=== PATIENT | female | born 1955 | race Caucasian/White ===

== ENCOUNTER 2020-10-17 06:39 | Outpatient (REF) | payer OTHER, SELFPAY | END 2020-10-17 06:40 | disposition home or self-care (01) | LOC: HO.LAB 06:39 | PROVIDERS: PCP Internal Medicine; Visit Provider Internal Medicine | DX: Z20.828 Contact with and (suspected) exposure to other viral communicable diseases (principal) | CPT/HCPCS: C9803; U0003 ==

== ENCOUNTER 2021-01-08 10:32 | Emergency (ER) | payer OTHER, SELFPAY ==
--- NOTE | ~2021-01-08 | XR_ITS ---
EXAMINATION: XR FOOT, RIGHT CLINICAL INFORMATION: Heel pain x2 weeks. COMPARISON: None TECHNIQUE: AP, lateral, and oblique views of the right foot. FINDINGS: There is a small calcaneal heel and color enthesophytes. The ankle mortise and subtalar joints are normal. No visible fracture, lytic or sclerotic process seen involving the foot bones. The soft tissues are normal. O XR/XR foot RT min 3V IMPRESSION: Small calculi related to enthesophyte. No visible acute fracture or dislocation seen.
[2021-01-08 10:37] VITALS: BP 106/68; PULSE 105; RESP 16; TEMP 36.7; O2SAT 100; BMI 28.9
--- NOTE | 2021-01-08 12:19 | ED.EXTPRO ---
HPI - Extremity Problem General Chief complaint: Extremity Problem Stated complaint: heel pain Time Seen by Provider: 01/08/21 11:15 Source: patient Mode of arrival: ambulatory History of Present Illness HPI Narrative: 65-year-old female presenting to the ED complaining of right heel pain x2 weeks. Denies known injury/trauma or falls. States pain worse in the morning when she gets up to ambulate. Denies fever, chills, numbness, tingling MD Complaint: extremity pain Related Data Previous Rx's Medication Instructions Recorded acetaminophen [Tylenol Extra 500 mg PO Q6H PRN #20 tab 01/08/21 Strength] ibuprofen 600 mg PO Q6H PRN 10 Days #20 tab 01/08/21 Allergies Allergy/AdvReac Type Severity Reaction Status Date / Time cephalexin Allergy Unknown Verified 01/03/20 00:00 Cephalosporins Allergy Unknown SWELLING Unverified 07/25/20 17:27 ciprofloxacin [CIPROFLOXACIN] Allergy Unknown SWELLING Unverified 07/25/20 17:27 naproxen [NAPROXEN] Allergy Unknown BLISTERS Unverified 07/25/20 17:27 IN MOUTH Review of Systems Review of Systems: Constitutional: No Fever, No Chills Musculoskeletal: + joint pain, No Myalgias, No Joint Swelling Skin: No Skin Lesions, No rash Neuro: No Weakness, No Numbness, No Paresthesias Yes all other systems are reviewed and are negative [facility] Past Medical History Attestation statement: The following information was validated with the patient. Social History Social History Smoking Status: Current every day smoker Smoked in Last 30 Days: Yes Use of substances other than those prescribed or required for medical reasons: No Advance Directives: No Advance Directives Information Provided: No Physical Exam Vital Signs: Vital Signs: Last Vital Signs Temp 98.0 F 01/08/21 10:37 Pulse 105 H 01/08/21 10:37 Resp 16 01/08/21 10:37 BP 106/68 01/08/21 10:37 Pulse Ox 100 01/08/21 10:37 Body Mass Index 28.9 Const: General: cooperative and healthy appearing Orientation/consciousness: patient oriented x3 Limitations: no limitations HENMT: Head: Yes normal to inspection Ears: hearing grossly normal bilaterally General nose exam: Normal external nose present Face and sinus: Yes normal facial exam Eyes: General: appearance normal, both eyes and all related structures EOM: EOMs intact bilaterally Neck: Neck: Yes normal visual inspection Cardio: Peripheral pulses: dorsalis pedis present Skin: Rashes: no rashes Wounds: no wounds Neuro: General: patient oriented x3, tone normal and moves all extremities Gait exam (Neuro): Normal gait present Extrem: Other: Right heel with tenderness to palpation over calcaneus. No appreciable swelling/deformity or erythema. No fluctuance/induration. General: Yes normal to inspection Course Course Course Narrative: XR foot RT min 3V IMPRESSION: Small calculi related to enthesophyte. No visible acute fracture or dislocation seen > discussed with patient should initiate NSAIDs, supportive shoes, sole inserts, and podiatry follow-up MDM - Extremity (Nontraumatic) MDM Narrative Medical decision making narrative: Concern for plantar fasciitis vs stress fracture Discharge Plan Discharge Clinical Impression: Plantar fasciitis Heel pain Qualifiers: Laterality: right Qualified Code(s): M79.671 - Pain in right foot Patient Disposition: Home, Self-Care Instructions: Plantar Fasciitis (ED), Plantar Fasciitis Exercises (ED) Additional Instructions: Your x-ray showed some bony spurs. Rest. Ice. Elevate. Naproxen as an anti-inflammatory/pain medication, take with food. In addition take Tylenol. Follow-up with podiatry as needed. You may also follow-up with her primary care doctor ?Prefabricated silicone heel inserts combined with stretching exercises may be of value ?Wearing slippers or going barefoot may aggravate symptoms or may result in a recurrence of symptoms ?Excessive heel impact from jumping or during walking should be avoided. ?Athletic shoes, arch-supporting shoes, or shoes with rigid shanks may be helpful. Shoes with these features can be found in stores featuring work shoes or orthopedic shoes. Prescriptions: New ibuprofen 600 mg tablet 600 mg PO Q6H PRN (Reason: pain) 10 Days Qty: 20 RF: 0 acetaminophen [Tylenol Extra Strength] 500 mg tablet 500 mg PO Q6H PRN (Reason: pain or fever) Qty: 20 RF: 0 Referrals: Mario Mosher [Physician] - 5 days Interventions: ED Discharge Assessment Last Done: 01/08/21 12:53 Discharge Date/Time: 01/08/21 12:54
== END 2021-01-08 12:54 | disposition home or self-care (01) ==
PROVIDERS: Emergency Provider Emergency Medicine; PCP Internal Medicine
DX: M72.2 Plantar fascial fibromatosis (principal); M79.671 Pain in right foot; F17.200 Nicotine dependence, unspecified, uncomplicated; Z79.899 Other long term (current) drug therapy; Z71.6 Tobacco abuse counseling
CPT/HCPCS: 73630; 99283

== ENCOUNTER 2021-01-09 11:30 | Outpatient (REF) | payer OTHER, SELFPAY ==
--- NOTE | ~2021-01-09 | MM_ITS ---
EXAMINATION: MM SCREENING DIGITAL BREAST TOMOSYNTHESIS, BILATERAL CLINICAL INFORMATION: Screening. Asymptomatic. The lifetime risk of breast cancer based on the Tyrer-Cuzick Model is 4%. COMPARISON: Mammography: 10/11/2019, 04/12/2012 TECHNIQUE: Digital breast tomosynthesis is performed in both the craniocaudal and mediolateral oblique views along with computer-aided detection (CAD). Synthesized 2D images are generated from the tomosynthesis. FINDINGS: There are scattered areas of fibroglandular density (ACR BI-RADS breast composition Category b). There are no significant masses, abnormal calcifications, or other abnormalities. Parenchymal pattern is similar to prior studies. Skin contours are smooth. MM/MM tomosynthesis screening BI IMPRESSION: No mammographic evidence of malignancy. ASSESSMENT: BI-RADS 1: Negative RECOMMENDATION: Routine annual mammography screening. This patient's information was entered into a reminder system with a target due date for their next mammogram.
== END 2021-01-09 11:31 | disposition home or self-care (01) ==
LOC: HO.MAMMO 11:30
PROVIDERS: PCP Internal Medicine; Visit Provider Internal Medicine
DX: Z12.31 Encounter for screening mammogram for malignant neoplasm of breast (principal)
CPT/HCPCS: 77063; 77067

== ENCOUNTER 2021-05-07 12:03 | Emergency (ER) | payer OTHER, SELFPAY ==
--- NOTE | ~2021-05-07 | CT_ITS ---
EXAMINATION: CT CERVICAL SPINE WITHOUT CONTRAST CLINICAL INFORMATION: Neck pain radiating to right side. COMPARISON: None TECHNIQUE: 3 mm thin axial and 2 mm thin sagittal and coronal images of cervical spine were obtained without contrast. This CT examination was performed using dose optimization techniques as appropriate, variously including the following: *Automated exposure control *Adjustment of mA and/or kV according to patient size (this includes techniques or standardized protocols for targeted exams where dose is matched to indication/reason for exam; i.e. extremities or head) *Use of iterative reconstruction technique DLP: 522 mGy-cm FINDINGS: There is mild reversal of cervical lordosis. There is grade 1 anterolisthesis C4-C5. Rest of the vertebral alignment is normal. There is loss of C5-C6 disc height with mild posterior and ventral spondylosis. Rest the disc heights are normal. The craniovertebral junction and the C1-C2 alignment is normal. The prevertebral and paravertebral soft tissues are normal. Visualized thyroid lobes, submandibular and parotid glands are normal. There are shotty lymph nodes in neck. The lung apices are clear. The airway is widely patent. CT/CT cervical spine wo con IMPRESSION: Degenerative disc changes with spondylosis C5-C6 disc level there is no visible acute fracture, dislocation or subluxation.
[2021-05-07 12:12] VITALS: BP 140/75; PULSE 79; RESP 16; TEMP 36.7; O2SAT 97; BMI 28.3
--- NOTE | 2021-05-07 13:27 | ED_ITS ---
HPI - Neck Pain/Injury General Chief Complaint: Neck Pain/Injury Stated Complaint: lump on neck Time Seen by Provider: 05/07/21 12:44 Source: patient Mode of arrival: ambulatory History of Present Illness HPI Narrative: 65-year-old female with a past medical history of chronic pain, depression, HTN, presenting to the ED complaining of right-sided neck pain x2 weeks. Admits was seen at urgent care prescribed muscle relaxer and anti-infl ammatory cream without relief. Denies known injury/trauma or fall. Admits pain radiates down right upper extremity, exacerbated with movement. Denies numbness, tingling, weakness, CP/SOB. Denies taking anticoagulation Related Data Previous Rx's Medication Instructions Recorded acetaminophen [Tylenol Extra 500 mg PO Q6H PRN #20 tab 01/08/21 Strength] ibuprofen 600 mg PO Q6H PRN 10 Days #20 tab 01/08/21 acetaminophen [Tylenol Extra 500 mg PO Q6H PRN #20 tab 05/07/21 Strength] lidocaine [Lidoderm] 1 patch TOPICAL DAILY PRN #30 ea 05/07/21 MDD remove after 12 hours tramadol 50 mg PO Q8H PRN 3 Days #9 tab 05/07/21 Allergies Allergy/AdvReac Type Severity Reaction Status Date / Time cephalexin Allergy Unknown Verified 01/03/20 00:00 Cephalosporins Allergy Unknown SWELLING Unverified 07/25/20 17:27 ciprofloxacin [CIPROFLOXACIN] Allergy Unknown SWELLING Unverified 07/25/20 17:27 naproxen [NAPROXEN] Allergy Unknown BLISTERS Unverified 07/25/20 17:27 IN MOUTH Review of Systems Review of Systems: Constitutional: No Fever, No Chills ENT/Mouth: No Ear Pain, No Nasal Congestion, No sore throat, No Rhinorrhea Cardiovascular: No Chest Pain, No SOB Gastrointestinal: No Nausea, No Vomiting, No Abdominal pain Genitourinary: No Urinary Frequency, No Hematuria Musculoskeletal: +joint pain, No Myalgias, + Swelling Skin: No Skin Lesions, No rash Neuro: No Weakness, No Numbness, No Paresthesias Yes all other systems are reviewed and are negative Neurologic: Denies Sensory deficit (Neuro) [facility] Past Medical History Attestation statement: The following information was validated with the patient. Medical History (Updated 05/07/21 @ 13:39 by NIVIA Gutierrez) Chronic pain Depression HTN (hypertension) Surgical History (Updated 05/07/21 @ 12:17 by Itzel Starr) H/O wrist surgery History of back surgery Hx of inguinal hernia surgery Social History Social History Advance Directives: Yes Advance Directives Information Provided: Yes Advance Directives on File: No Patient : No Physical Exam Vital Signs: Vital Signs: Last Vital Signs Temp 98.1 F 05/07/21 12:12 Pulse 79 05/07/21 12:12 Resp 16 05/07/21 12:12 BP 140/75 H 05/07/21 12:12 Pulse Ox 97 05/07/21 12:12 Body Mass Index 28.3 Const: General: cooperative and healthy appearing Orientation/consciousness: patient oriented x3 Limitations: no limitations HENMT: Head: Yes normal to inspection and Yes atraumatic Ears: hearing grossly normal bilaterally and TM's normal bilaterally General nose exam: Normal external nose present Face and sinus: Yes normal facial exam Throat: Yes posterior oropharynx normal, Yes tonsils normal, Yes uvula midline and No uvular edema Eyes: General: appearance normal, both eyes and all related structures EOM: EOMs intact bilaterally Neck: Other: No midline cervical spinous tenderness or step-offs/deformity. + right-sided paraspinal MSK tenderness. Right-sided trapezius muscle tenderness and swelling / muscle spasming appreciated Pain produced on ROM of neck Neck: Yes no meningeal signs Resp: Effort & Inspection: normal respiratory effort and not labored Cardio: Rate: regular rate Heart sounds: S1 normal heart sound present and S2 normal heart sound present GI: Inspection: Yes normal to inspection Back/Spine/Pelvis: Other: no midline thoracic/lumbar spinous tenderness worsen Skin: Rashes: no rashes Wounds: no wounds Neuro: Other: strength intact throughout. NV intact General: patient oriented x3, tone normal, moves all extremities, no meningeal signs and no focal motor deficits Gait exam (Neuro): Normal gait present Motor exam (neuro): 5/5 motor strength present throughout Sensory Exam: No Sensory deficit (Neuro) Extrem: Other: R shoulder nontender General: Yes normal to inspection Course Course Course Narrative: CT cervical spine wo con IMPRESSION: Degenerative disc changes with spondylosis C5-C6 disc level there is no visible acute fracture, dislocation or subluxation. >> worrisome signs and symptoms and strict return precautions discussed with patient, she verbalized understanding feel safe for discharge home to follow-up with PCP MDM - Neck Pain/Injury MDM Narrative Medical decision making narrative: 65-year-old female with a past medical history of chronic pain, depression, HTN, presenting to the ED complaining of right-sided neck pain x2 weeks. on exam vital signs stable, NAD, appears in pain, physical exam as above, visible muscle spasm appreciated in right trapezius/ right-side neck. No midline spinous tenderness, no appreciable focal weakness. will obtain C-spine CT due to continued pain and patient's age Low concern for fracture/cord compression. low concern for cervical dissection Discharge Plan Discharge Clinical Impression: Strain of neck muscle Qualifiers: Encounter type: subsequent encounter Qualified Code(s): S16.1XXD - Strain of muscle, fascia and tendon at neck level, subsequent encounter Patient Disposition: Home, Self-Care Instructions: Muscle Spasm (ED) Additional Instructions: Your pain is likely musculoskeletal Flexeril is a muscle relaxer, take at night as it makes you drowsy, do not drive, drink alcohol, or operate machinery while taking it Lidoderm patches are numbing patches, apply to painful area tramadol in opiate pain medication, please only take when pain is severe for the next 3 days In addition take Tylenol at home you need to follow-up with her primary care doctor If symptoms persist or worsen, pain becomes unbearable, you developed urinary retention or incontinence, or weakness return to the ED Prescriptions: New tramadol 50 mg tablet 50 mg PO Q8H PRN (Reason: pain, severe) 3 Days Qty: 9 RF: 0 acetaminophen [Tylenol Extra Strength] 500 mg tablet 500 mg PO Q6H PRN (Reason: pain or fever) Qty: 20 RF: 0 lidocaine [Lidoderm] 5 % adhesive patch,medicated 1 patch topical DAILY MDD remove after 12 hours PRN (Reason: pain) Qty: 30 RF: 0 No Action ibuprofen 600 mg tablet 600 mg PO Q6H PRN (Reason: pain) 10 Days Qty: 20 RF: 0 acetaminophen [Tylenol Extra Strength] 500 mg tablet 500 mg PO Q6H PRN (Reason: pain or fever) Qty: 20 RF: 0 Referrals: Marcus Lima MD [Primary Care Provider] - 2 days
[2021-05-07] MEDS: diazePAM 5 MG TABLET PO (13:37)
[2021-05-07] MEDS: Acetaminophen 325 MG TABLET 650 MG PO (13:37)
[2021-05-07] MEDS: Lidocaine 4 % Patch ADH..PATCH 1 PATCH TRANSDERMA (13:38)
== END 2021-05-07 14:02 | disposition home or self-care (01) ==
PROVIDERS: Emergency Provider Emergency Medicine; PCP Internal Medicine
DX: S16.1XXD Strain of muscle, fascia and tendon at neck level, subsequent encounter (principal); X58.XXXD Exposure to other specified factors, subsequent encounter; I10 Essential (primary) hypertension
CPT/HCPCS: 72125; 99283; 99284

== ENCOUNTER → 2021-10-21 09:55 | Outpatient (BNVA) | payer OTHER, SELFPAY | PROVIDERS: PCP Internal Medicine; Visit Provider Surgery Vascular Surgery | DX: I83.12 Varicose veins of left lower extremity with inflammation (principal); I73.9 Peripheral vascular disease, unspecified | CPT/HCPCS: 99202 ==

== ENCOUNTER 2021-11-13 08:29 | Outpatient (REF) | payer OTHER, SELFPAY ==
--- NOTE | ~2021-11-13 | US_ITS ---
EXAMINATION: US LOWER EXTREMITY VENOUS ULTRASOUND (REFLUX EXAM), BILATERAL CLINICAL INDICATION: Bilateral lower extremity varicose veins. COMPARISON: None. TECHNIQUE: Color-flow triplex imaging and compression Doppler was performed to evaluate both the deep and the superficial systems bilaterally. To evaluate the superficial system, the examination was performed in the upright position. Color-flow Doppler ultrasound and compression ultrasound were utilized. In addition, maneuvers were utilized to demonstrate reflux. FINDINGS: SUPERFICIAL ULTRASOUND WITH DOPPLER OF RIGHT LOWER EXTREMITY GREAT SAPHENOUS VEIN: Saphenofemoral junction: 0.7 cm Max diameter: 0.7 cm Min diameter: 0.2 cm Reflux: There is segmental reflux at the mid calf measuring greater than 2 seconds. DUPLICATED MEDIAL GREAT SAPHENOUS VEIN: Max Diameter: None imaged. Reflux: NA. DUPLICATED LATERAL GREAT SAPHENOUS VEIN: Diameter: 0.3 at the junction. Reflux: None. SMALL SAPHENOUS VEIN: Proximal Calf: 0.2 cm Distal Calf: 0.2 cm Reflux: No evidence of reflux. VEIN OF GIACOMINI: None imaged. PERFORATORS: Location: None imaged. Reflux: NA. VARICOSITIES: Location: None imaged. Reflux: NA. DEEP VENOUS ULTRASOUND OF THE RIGHT LOWER EXTREMITY: Common Femoral Vein: Compressible, normal respiratory variation and augmented flow. Femoral Vein: Compressible, normal color-flow and augmentation. Popliteal Vein: Compressible, normal augmentation. Deep Reflux: There is no evidence of reflux in the deep system in either the common femoral vein or the popliteal vein. Billingsley's Cyst: There is no evidence of a Billingsley's cyst. SUPERFICIAL ULTRASOUND WITH DOPPLER OF LEFT LOWER EXTREMITY GREAT SAPHENOUS VEIN: Saphenofemoral junction: 0.5 cm Max diameter: 0.5 cm Min diameter: 0.2 cm Reflux: There is segmental reflux at the mid calf measuring greater than 1.6 seconds. DUPLICATED MEDIAL GREAT SAPHENOUS VEIN: Max Diameter: None imaged. Reflux: NA. DUPLICATED LATERAL GREAT SAPHENOUS VEIN: Diameter: 0.5 cm at the junction. Reflux: There is greater than 0.8 seconds of reflux at the junction. SMALL SAPHENOUS VEIN: Proximal Calf: 0.2 cm Distal Calf: 0.1 cm Reflux: No evidence of reflux. VEIN OF GIACOMINI: None imaged. PERFORATORS: Location: Mid thigh, 0.2 cm. Reflux: None. VARICOSITIES: Location: None imaged. Reflux: NA. DEEP VENOUS ULTRASOUND OF THE LEFT LOWER EXTREMITY: Common Femoral Vein: Compressible, normal respiratory variation and augmented flow. Femoral Vein: Compressible, normal color-flow and augmentation. Popliteal Vein: Compressible, normal augmentation. Deep Reflux: There is no evidence of reflux in the deep system in either the common femoral vein or the popliteal vein. Billingsley's Cyst: There is no evidence of a Billingsley's cyst. US/US venous duplex LE BI IMPRESSION: 1. Segmental right great saphenous venous insufficiency at the mid calf. 2. Segmental left great saphenous venous insufficiency at the mid calf. 3. Lateral duplicated great saphenous venous insufficiency beginning at the saphenofemoral junction. 4. No evidence of DVT or deep venous insufficiency.
--- NOTE | ~2021-11-13 | US_ITS ---
EXAMINATION: ANKLE-BRACHIAL INDICES SINGLE LEVEL PULSE VOLUME RECORDING ARTERIAL DUPLEX BILATERAL LEGS CLINICAL INFORMATION: Peripheral vascular disease COMPARISON: None TECHNIQUE: Ankle-brachial indices and PVR at the ankle were obtained. Duplex Doppler of the bilateral lower extremity arterial systems was performed. FINDINGS: RIGHT: Ankle-brachial index: 1.07 PVR: Mildly abnormal Common femoral: PSV 88 cm/s. Triphasic waveform. Deep femoral: PSV 91 cm/s. Triphasic waveform. Proximal superficial femoral: PSV 63 cm/s. Triphasic waveform. Mid superficial femoral: PSV 116 cm/s. Triphasic waveform. Distal superficial femoral: PSV 73 cm/s. Triphasic waveform. Popliteal: PSV 45 cm/s. Triphasic waveform. Posterior tibial: PSV 40 cm/s. Biphasic waveform. Peroneal: PSV 60 cm/s. Triphasic waveform. LEFT: Ankle-brachial index: 1.17 PVR: Mildly abnormal Common femoral: PSV 106 cm/s. Triphasic waveform. Deep femoral: PSV 131 cm/s. Triphasic waveform. Proximal superficial femoral: PSV 95 cm/s. Triphasic waveform. Mid superficial femoral: PSV 124 cm/s. Triphasic waveform. Distal superficial femoral: PSV 57 cm/s. Biphasic waveform. Popliteal: PSV 42 cm/s. Biphasic waveform. Posterior tibial: PSV 53 cm/s. Bifid waveform. Peroneal: PSV 56 cm/s. Triphasic waveform. US/US arterial duplex LE BI IMPRESSION: No evidence of hemodynamically significant peripheral arterial disease.
--- NOTE | ~2021-11-13 | US_ITS ---
EXAMINATION: ANKLE-BRACHIAL INDICES SINGLE LEVEL PULSE VOLUME RECORDING ARTERIAL DUPLEX BILATERAL LEGS CLINICAL INFORMATION: Peripheral vascular disease COMPARISON: None TECHNIQUE: Ankle-brachial indices and PVR at the ankle were obtained. Duplex Doppler of the bilateral lower extremity arterial systems was performed. FINDINGS: RIGHT: Ankle-brachial index: 1.07 PVR: Mildly abnormal Common femoral: PSV 88 cm/s. Triphasic waveform. Deep femoral: PSV 91 cm/s. Triphasic waveform. Proximal superficial femoral: PSV 63 cm/s. Triphasic waveform. Mid superficial femoral: PSV 116 cm/s. Triphasic waveform. Distal superficial femoral: PSV 73 cm/s. Triphasic waveform. Popliteal: PSV 45 cm/s. Triphasic waveform. Posterior tibial: PSV 40 cm/s. Biphasic waveform. Peroneal: PSV 60 cm/s. Triphasic waveform. LEFT: Ankle-brachial index: 1.17 PVR: Mildly abnormal Common femoral: PSV 106 cm/s. Triphasic waveform. Deep femoral: PSV 131 cm/s. Triphasic waveform. Proximal superficial femoral: PSV 95 cm/s. Triphasic waveform. Mid superficial femoral: PSV 124 cm/s. Triphasic waveform. Distal superficial femoral: PSV 57 cm/s. Biphasic waveform. Popliteal: PSV 42 cm/s. Biphasic waveform. Posterior tibial: PSV 53 cm/s. Bifid waveform. Peroneal: PSV 56 cm/s. Triphasic waveform. US/US ELVIN complete IMPRESSION: No evidence of hemodynamically significant peripheral arterial disease.
== END 2021-11-13 08:30 | disposition home or self-care (01) ==
LOC: HO.US 08:29
PROVIDERS: PCP Internal Medicine; Visit Provider Surgery Vascular Surgery
DX: I83.12 Varicose veins of left lower extremity with inflammation (principal); I73.9 Peripheral vascular disease, unspecified
CPT/HCPCS: 93923; 93925; 93970

== ENCOUNTER → 2021-11-20 10:49 | Outpatient (BNVA) | payer OTHER, SELFPAY | PROVIDERS: PCP Internal Medicine; Visit Provider Surgery Vascular Surgery | DX: I73.9 Peripheral vascular disease, unspecified (principal); I83.12 Varicose veins of left lower extremity with inflammation | CPT/HCPCS: 99212 ==

== ENCOUNTER 2021-12-05 04:58 | Emergency (ER) | payer OTHER, SELFPAY ==
[2021-12-05] VITALS (7 sets, daily range): BP systolic 97–136; BP diastolic 58–84; PULSE 69–87; RESP 14–18; TEMP 36.4–36.8; O2SAT 95–98; BMI 28.3
--- NOTE | ~2021-12-05 | CT_ITS ---
EXAMINATION: Unenhanced CT of the abdomen pelvis; IV contrast enhanced CT of the abdomen pelvis. CLINICAL INFORMATION: Reason for Exam abdominal pain with bloody stool with clots COMPARISON: MRI abdomen 11/30/2019, CT abdomen pelvis 11/29/2019. Abdominal ultrasound 02/11/2018. TECHNIQUE: Unenhanced CT the abdomen pelvis; IV contrast enhanced CT of the abdomen pelvis; delayed IV contrast-enhanced CT of abdomen pelvis. Multiple coronal and sagittal reformatted images are obtained from the initial axial image data sets. Intravenous Contrast: Omnipaque [address] examination was performed using dose optimization techniques as appropriate, variously including the following: *Automated exposure control *Adjustment of mA and/or kV according to patient size (this includes techniques or standardized protocols for targeted exams where dose is matched to indication/reason for exam; i.e. extremities or head) *Use of iterative reconstruction technique DLP: 1584 mGy-cm FINDINGS: Visualized lung bases: Partial visualization is made of mild bibasilar dependent atelectasis of the lungs. Visualized heart is normal in size. Liver: An 8 mm diameter high density focus is present in segment 6 of the liver on early arterial phase imaging and is grossly isodense to contrast within the portal vein. This lesion is inapparent on delayed portal venous phase images and is most suspicious for a flash hemangioma (series 9 image 19). The liver is otherwise normal in appearance. Biliary system: Gallbladder is normal in appearance. The common bile duct measures 7 mm diameter, at the upper limits of normal size. The common bile duct diminished in prominence compared with CT of the abdomen and pelvis 06/29/2020. Pancreas: Normal. The main pancreatic duct measures 2 mm diameter, at the upper limits of normal size within the pancreatic head. Findings are unchanged appreciably compared with 06/29/2020. Spleen: Normal. Adrenal glands: Normal. Kidneys: 4.5 cm diameter rounded low-density focus superiorly within the left kidney is unchanged appreciably compared with a 20 12/28/2019 is consistent with a simple, benign cyst. A 4 mm diameter rounded low-density focus is present anteriorly within the interpolar segment of the right kidney is too small to specifically characterize but is most likely to represent a benign, simple cyst. 1.2 cm diameter rounded low-density focus consistent with a simple cyst is present superiorly within the right kidney unchanged compared with 06/29/2020. The findings noted above within the kidneys do not warrant additional imaging follow-up on the basis of this examination. No urolithiasis identified. No hydronephrosis or perinephric inflammatory changes visualized. Urinary bladder: Physiologically distended. Pelvic viscera: Grossly normal appearance of the uterus. No adnexal lesions identified. Gastrointestinal system: Arterial phase and delayed IV postcontrast enhanced images demonstrate possible mild accumulation of blood pool products in the region of the distal rectum over a diameter of proximal the 1 CM (series 16 image 222). Findings are suspicious for hemorrhoidal hemorrhage. Elsewhere within the gastrointestinal system, no findings suspicious for active hemorrhage are identified. Mild-moderate diverticulosis of the sigmoid colon is noted without findings suspicious for acute diverticulitis. The transverse, descending and sigmoid colon are mostly collapsed. Concentric mural thickness of these segments of the colon measuring up to 6 mm in width is noted. The degree of mural thickening is above expected limits of normal size. No free intraperitoneal fluid or gas collections are identified. Normal appearance of the appendix. Abdominal wall: No abdominal wall hernias: Lymphovascular systems: Moderate scattered calcific atherosclerosis. No lymphadenopathy. Skeletal system: Marked intervertebral disc space narrowing and posterior endplate osteophytosis L5-S1. L3 vertebral body compression deformity with inward deformity of the superior endplate with 25% loss of craniocaudal height unchanged compared with 06/29/2020. CT/CT gi bleed abd pel wo/w con IMPRESSION: *Mild-moderate diffuse concentric mural thickening of the transverse, descending and sigmoid colon. Findings are suspicious for colitis, including C. Difficile colitis. *Borderline findings suspicious for mild, active hemorrhoidal hemorrhage within the distal rectum. *Mild-moderate sigmoid diverticulosis without evidence of acute diverticulitis. *Chronic L3 vertebral body compression deformity unchanged compared with 06/29/2020.
--- NOTE | 2021-12-05 05:10 | ED_ITS ---
HPI - Nausea/Vomiting/Diarrhea General Chief complaint: Nausea/Vomiting/Diarrhea Stated complaint: DIARRHEA Time Seen by Provider: 12/05/21 05:02 Source: patient Mode of arrival: EMS Limitations: no limitations History of Present Illness HPI Narrative: does not take aspirin or blood thinners, one prior episode of c diff colitis no recent antibiotic use MD elicited complaint: nausea, vomiting, diarrhea and abdominal pain Pertinent past history: other (c diff 6 years ago last colonoscopy 3 years ago - reportedly okay to found 1 polyp follow up 5 years) Onset (ago): day(s) (started 11am yesterday then worsened at 2am with 3 bouts of bloody stools with clots ) Description of vomiting: watery Description of diarrhea: blood (with clots) Associated nausea: Yes Associated abdominal pain: Yes Location of pain: RLQ, LLQ and suprapubic Radiation: diffuse Pain consistency: intermittent and colicky Severity: moderate Quality: aching Exacerbating factors: movement Relieving factors: none Context: other (feels similar to prior c diff colitis) Associated symptoms: loss of appetite, malaise and nausea/vomiting Related Data Home Medications Medication Instructions Recorded Confirmed hydrochlorothiazide 25 mg tablet 25 mg PO DAILY 10/21/21 lisinopril 40 mg tablet 40 mg PO DAILY 10/21/21 rosuvastatin 40 mg tablet 40 mg PO DAILY 10/21/21 Previous Rx's Medication Instructions Recorded acetaminophen 500 mg tablet 500 mg PO Q6H PRN #20 tab 01/08/21 (Tylenol Extra Strength) ibuprofen 600 mg tablet 600 mg PO Q6H PRN 10 Days #20 tab 01/08/21 acetaminophen 500 mg tablet 500 mg PO Q6H PRN #20 tab 05/07/21 (Tylenol Extra Strength) lidocaine 5 % topical patch 1 patch TOPICAL DAILY PRN #30 ea 05/07/21 (Lidoderm) MDD remove after 12 hours prednisone 20 mg tablet 40 mg PO DAILY 5 Days #10 tab 05/07/21 tramadol 50 mg tablet 50 mg PO Q8H PRN 3 Days #9 tab 05/07/21 Allergies Allergy/AdvReac Type Severity Reaction Status Date / Time cephalexin Allergy Unknown Unknown Verified 11/20/21 10:52 Cephalosporins Allergy Unknown SWELLING Verified 11/20/21 10:52 ciprofloxacin Allergy Unknown SWELLING Verified 11/20/21 10:52 [CIPROFLOXACIN] naproxen [NAPROXEN] Allergy Unknown BLISTERS Verified 11/20/21 10:52 IN MOUTH Review of Systems Verdana 4l Review of Systems: Verdana 4d Verdana 4d Constitutional : No Weight loss, No Fever, pos Chills ENT/Mouth : No sore throat, No Rhinorrhea Eyes: No Swelling, No Redness Cardiovascular : No Chest Pain, No SOB, NoEdema Respiratory : No Cough, No Sputum, No Wheezing Gastrointestinal : Positive Nausea, Positive Vomiting, positive Diarrhea, positive abdominal Pain, pos Hematochezia, No Melena Genitourinary : No Dysuria, No Urinary Frequency, No Hematuria, No Urgency Musculoskeletal : No joint pain, No Myalgias, No Joint Swelling Skin : No Skin Lesions, No rash Neuro : No Weakness, No Numbness, No Dizziness, No Headache Psych : No Anxiety/Panic, No Depression Heme/Lymph: No Bruising, No Lymphadenopathy Endocrine : No Polyuria, No Polydipsia All other systems reviewed and are negative. Gastrointestinal: Gastrointestinal: Reports nausea PMFSH Past Medical History Attestation statement: The following information was validated with the patient. 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 Oriented X3. No acute distress. Eyes: Pupils equal, round and reactive to light. ENT: Pharynx normal. Neck: Normal inspection. Neck supple. CVS: Normal heart rate and rhythm. Pulses normal. Respiratory: No respiratory distress. Breath sounds normal. Abdomen: Soft and mild lower abdominal ttp with no rebound Rectal: mucousy red stool noted on exam, clots seen during BM on toilet Skin: Skin warm and dry. Normal skin color. Normal skin turgor. Extremities: No lower extremity edema. No calf ttp Neuro: Oriented X 3. No motor deficit. No sensory deficit. Course Course Course Narrative: signed out to Dr. Richardson pending CT scan results MDM - Nausea/Vomiting/Diarrhea MDM Narrative Medical decision making narrative: 66 yo female with hx of HTN, PAD, HLD, hx of remote c diff colitis here with c/o abdominal pain nausea/vomiting diarrhea that started yesterday and then overnight started with bloody stools. She denies oral anti-coagulants, no aspirin use, no recent antibiotics. At this time will need labs, cultures, IVF, IV morphine, CT scan GIB protocol. Dispo per results and improvement. Lab Data Result diagrams: 12/05/21 05:24 12/05/21 05:25 Labs: Lab Results 12/05/21 12/05/21 12/05/21 Range/Units 05:24 05:24 05:25 WBC 13.3 H (4.8-10.8) X10*3/uL RBC 4.61 (4.20-5.50) X10*6/uL Hgb 13.9 (12.0-16.0) g/dl Hct 42.2 (37.0-47.0) % MCV 91.5 (80.0-98.0) fL MCH 30.2 (27.0-33.0) pg MCHC 32.9 (31.0-35.0) g/dl RDW 13.3 (11.0-16.0) % Plt Count 212 (160-400) X10*3/uL MPV 9.7 (9.4-12.3) fL Immature Gran % (Auto) 0.4 (0.0-0.4) % Neut % (Auto) 77.8 H (45-73) % Lymph % (Auto) 14.3 L (20-40) % Billings % (Auto) 6.0 (2-11) % Eos % (Auto) 1.1 (0-4) % Baso % (Auto) 0.4 (0-2) % Lymph # (Auto) 1.9 (1.2-4.9) X10*3/uL Billings # (Auto) 0.8 (0.1-1.2) X10*3/uL Eos # (Auto) 0.2 (0.0-0.4) X10*3/uL Baso # (Auto) 0.1 (0.0-0.2) X10*3/uL Abs Immat Gran (auto) 0.05 H (0.00-0.03) X10*3/uL Absolute Neuts (auto) 10.4 H (2.0-8.3) x10*3/uL Absolute Nucleated RBC 0.000 (0.0-0.012) X10*3/uL Nucleated RBC % (auto) 0.0 (0.0-0.2) /100WBC PT (9.9-13.0) SEC INR (0.9-1.1) Sodium 141 (135-145) mmol/L Potassium 4.0 (3.3-5.1) mmol/L Chloride 105 (96-108) mmol/L Carbon Dioxide 27 (22-29) mmol/L Anion Gap 13 (12-20) BUN 25 H (9-16) mg/dL Creatinine 1.13 (0.5-1.4) mg/dL Estim Creat Clear Calc 47.3 Estimated GFR 48 Random Glucose 119 H (60-115) mg/dL Lactic Acid 1.0 (0.5-2.0) mmol/L Calcium 9.7 (8.4-10.2) mg/dL Magnesium 1.9 (1.6-2.6) mg/dL Total Bilirubin 0.2 (0.0-1.0) mg/dL Direct Bilirubin < 0.2 (0.0-0.5) mg/dL AST 24 (5-31) U/L ALT 27 (0-31) U/L Alkaline Phosphatase 81 (39-117) U/L Total Protein 6.6 (6.5-8.0) g/dL Albumin 4.2 (3.5-5.0) g/dL Lipase 40 (8-78) U/L Stool Occult Blood (NEGATIVE) COVID-19 (LYDIA) (Negative) COVID-19 [facility] Com Blood Type Antibody Screen 12/05/21 12/05/21 12/05/21 Range/Units 05:25 05:25 05:26 WBC (4.8-10.8) X10*3/uL RBC (4.20-5.50) X10*6/uL Hgb (12.0-16.0) g/dl Hct (37.0-47.0) % MCV (80.0-98.0) fL MCH (27.0-33.0) pg MCHC (31.0-35.0) g/dl RDW (11.0-16.0) % Plt Count (160-400) X10*3/uL MPV (9.4-12.3) fL Immature Gran % (Auto) (0.0-0.4) % Neut % (Auto) (45-73) % Lymph % (Auto) (20-40) % Billings % (Auto) (2-11) % Eos % (Auto) (0-4) % Baso % (Auto) (0-2) % Lymph # (Auto) (1.2-4.9) X10*3/uL Billings # (Auto) (0.1-1.2) X10*3/uL Eos # (Auto) (0.0-0.4) X10*3/uL Baso # (Auto) (0.0-0.2) X10*3/uL Abs Immat Gran (auto) (0.00-0.03) X10*3/uL Absolute Neuts (auto) (2.0-8.3) x10*3/uL Absolute Nucleated RBC (0.0-0.012) X10*3/uL Nucleated RBC % (auto) (0.0-0.2) /100WBC PT 10.4 (9.9-13.0) SEC INR 0.9 (0.9-1.1) Sodium (135-145) mmol/L Potassium (3.3-5.1) mmol/L Chloride (96-108) mmol/L Carbon Dioxide (22-29) mmol/L Anion Gap (12-20) BUN (9-16) mg/dL Creatinine (0.5-1.4) mg/dL Estim Creat Clear Calc Estimated GFR Random Glucose (60-115) mg/dL Lactic Acid (0.5-2.0) mmol/L Calcium (8.4-10.2) mg/dL Magnesium (1.6-2.6) mg/dL Total Bilirubin (0.0-1.0) mg/dL Direct Bilirubin (0.0-0.5) mg/dL AST (5-31) U/L ALT (0-31) U/L Alkaline Phosphatase (39-117) U/L Total Protein (6.5-8.0) g/dL Albumin (3.5-5.0) g/dL Lipase (8-78) U/L Stool Occult Blood (NEGATIVE) COVID-19 (LYDIA) Negative (Negative) COVID-19 Clin Com See Note Blood Type O Positive Antibody Screen NEGATIVE 12/05/21 Range/Units 05:26 WBC (4.8-10.8) X10*3/uL RBC (4.20-5.50) X10*6/uL Hgb (12.0-16.0) g/dl Hct (37.0-47.0) % MCV (80.0-98.0) fL MCH (27.0-33.0) pg MCHC (31.0-35.0) g/dl RDW (11.0-16.0) % Plt Count (160-400) X10*3/uL MPV (9.4-12.3) fL Immature Gran % (Auto) (0.0-0.4) % Neut % (Auto) (45-73) % Lymph % (Auto) (20-40) % Billings % (Auto) (2-11) % Eos % (Auto) (0-4) % Baso % (Auto) (0-2) % Lymph # (Auto) (1.2-4.9) X10*3/uL Billings # (Auto) (0.1-1.2) X10*3/uL Eos # (Auto) (0.0-0.4) X10*3/uL Baso # (Auto) (0.0-0.2) X10*3/uL Abs Immat Gran (auto) (0.00-0.03) X10*3/uL Absolute Neuts (auto) (2.0-8.3) x10*3/uL Absolute Nucleated RBC (0.0-0.012) X10*3/uL Nucleated RBC % (auto) (0.0-0.2) /100WBC PT (9.9-13.0) SEC INR (0.9-1.1) Sodium (135-145) mmol/L Potassium (3.3-5.1) mmol/L Chloride (96-108) mmol/L Carbon Dioxide (22-29) mmol/L Anion Gap (12-20) BUN (9-16) mg/dL Creatinine (0.5-1.4) mg/dL Estim Creat Clear Calc Estimated GFR Random Glucose (60-115) mg/dL Lactic Acid (0.5-2.0) mmol/L Calcium (8.4-10.2) mg/dL Magnesium (1.6-2.6) mg/dL Total Bilirubin (0.0-1.0) mg/dL Direct Bilirubin (0.0-0.5) mg/dL AST (5-31) U/L ALT (0-31) U/L Alkaline Phosphatase (39-117) U/L Total Protein (6.5-8.0) g/dL Albumin (3.5-5.0) g/dL Lipase (8-78) U/L Stool Occult Blood POSITIVE (NEGATIVE) COVID-19 (LYDIA) (Negative) COVID-19 Clin Com Blood Type Antibody Screen Discharge Plan Discharge Clinical Impression: Abdominal pain, GIB (gastrointestinal bleeding) Patient Disposition: Still a Patient Prescriptions: No Action ibuprofen 600 mg tablet 600 mg PO Q6H PRN (Reason: pain) 10 Days Qty: 20 0RF acetaminophen [Tylenol Extra Strength] 500 mg tablet 500 mg PO Q6H PRN (Reason: pain or fever) Qty: 20 0RF tramadol 50 mg tablet 50 mg PO Q8H PRN (Reason: pain, severe) 3 Days Qty: 9 0RF acetaminophen [Tylenol Extra Strength] 500 mg tablet 500 mg PO Q6H PRN (Reason: pain or fever) Qty: 20 0RF lidocaine [Lidoderm] 5 % adhesive patch,medicated 1 patch topical DAILY MDD remove after 12 hours PRN (Reason: pain) Qty: 30 0RF Rx Instructions: leave on most painful area for up to 12 hrs prednisone 20 mg tablet 40 mg PO DAILY 5 Days Qty: 10 0RF lisinopril 40 mg tablet 40 mg PO DAILY 0RF hydrochlorothiazide 25 mg tablet 25 mg PO DAILY 0RF rosuvastatin 40 mg tablet 40 mg PO DAILY 0RF
[2021-12-05] MEDS: ondansetron HCL 4 MG/2 ML VIAL IVPUSH (05:31)
[2021-12-05] MEDS: 0.9 % Sodium Chloride 1,000 ML 999 ML IVCONT (05:31)
[2021-12-05] MEDS: Morphine Sulfate 4 MG/ML CARTRIDGE IVPUSH (05:32)
[2021-12-05 05:33] LABS: Basophils Absolute Auto 0.1 X10*3/uL (0.0-0.2); Basophils Percent Auto 0.4 % (0-2); Eosinophils Absolute Auto 0.2 X10*3/uL (0.0-0.4); Eosinophils Percent Auto 1.1 % (0-4); Hematocrit 42.2 % (37.0-47.0); Hemoglobin 13.9 g/dl (12.0-16.0); Imm Gran Abs Auto 0.05 X10*3/uL (0.00-0.03); Imm Gran Pct Auto 0.4 % (0.0-0.4); Lymphocytes Absolute Auto 1.9 X10*3/uL (1.2-4.9); Lymphocytes Percent Auto 14.3 % (20-40); MANUAL DIFF FLAG NO; Mean Corpuscular HGB Conc 32.9 g/dl (31.0-35.0); Mean Corpuscular Hemoglobin 30.2 pg (27.0-33.0); Mean Corpuscular Volume 91.5 fL (80.0-98.0); Mean Platelet Volume 9.7 fL (9.4-12.3); Monocytes Absolute Auto 0.8 X10*3/uL (0.1-1.2); Neutrophils Absolute Auto 10.4 x10*3/uL (2.0-8.3); Neutrophils Percent Auto 77.8 % (45-73); Platelet Count 212 X10*3/uL (160-400); Red Blood Count 4.61 X10*6/uL (4.20-5.50); Red Cell Distribution Width 13.3 % (11.0-16.0); White Blood Count 13.3 X10*3/uL (4.8-10.8)
[2021-12-05 05:34] LABS: OBS Int Ctl Valid YES; OBS1 POSITIVE (NEGATIVE)
--- NOTE | 2021-12-05 05:38 | PC.NURSE ---
PT attempted to provided stool sample to test for c. diff. Sample contained several clots of blood but also a significant amount of urine. PT stated that she feels like she has completely emptied her bowels but will try again when she has a chance.
[2021-12-05 05:39] LABS: INTERNATIONAL NORM RATIO 0.9 (0.9-1.1); Prothrombin Time 10.4 SEC (9.9-13.0)
[2021-12-05 05:51] LABS: COVID-19 Test Negative (Negative); IDNOW Serial# 9DD0AD1C
[2021-12-05 06:11] LABS: Alanine Aminotransferase 27 U/L (0-31); Albumin Level 4.2 g/dL (3.5-5.0); Alkaline Phosphatase 81 U/L (39-117); Anion Gap 13 (12-20); Aspartate Amino Transferase 24 U/L (5-31); Bilirubin Direct < 0.2 mg/dL (0.0-0.5); Bilirubin Total 0.2 mg/dL (0.0-1.0); Blood Urea Nitrogen 25 mg/dL (9-16); Calcium 9.7 mg/dL (8.4-10.2); Carbon Dioxide 27 mmol/L (22-29); Chloride 105 mmol/L (96-108); Creatinine Clr Calc Pharmacy 47.3; Estimated Glomerular Filt Rate 48; Glucose Random 119 mg/dL (60-115); Lipase 40 U/L (8-78); Magnesium 1.9 mg/dL (1.6-2.6); Sodium 141 mmol/L (135-145); Total Protein 6.6 g/dL (6.5-8.0)
[2021-12-05] MEDS: iohexoL 350 MG/ML 100 ML INFUS..BTL 80 ML IV (06:58)
[2021-12-05 07:57] LABS: Appearance Urine CLEAR; Color Urine STRAW; Glucose Urine UA NEG (NEG); Leukocyte Esterase Urine NEG (NEG); Nitrite Urine NEG (NEG); PH 5.5 (5.0-8.0); Specific Gravity - Urine <= 1.005 (1.005-1.025); UACC Culture Trigger NO; Urine Blood TRACE (NEG); Urine Ketones NEG (NEG); Urine Protein NEG (NEG-TRACE)
[2021-12-05 08:34] LABS: RBC Urine 0-2 /HPF (0); Squamous Epithelial Cell Urine TRACE /LPF; WBC Urine 0 /HPF (0-4)
[2021-12-05] MEDS: PHENobarb/Hyoscy/Atropine/Scop 10 ML ELIXIR PO (09:38)
[2021-12-05] MEDS: metroNIDAZOLE/NS 500 MG/100 ML PIGGYBACK 100 MG IV (09:38)
[2021-12-05] MEDS: 0.9 % Sodium Chloride 1,000 ML 999 ML IV (09:39)
[2021-12-05] MEDS: Ampicillin Sodium/Sulbactam Na 1.5 GM in 0.9 % Sodium Chloride 100 ML IV (11:01)
[2021-12-05] MEDS: Acetaminophen 325 MG TABLET 650 MG PO (12:24)
== END 2021-12-05 12:30 | disposition home or self-care (01) ==
PROVIDERS: Emergency Medicine; Emergency Provider Emergency Medicine; PCP Internal Medicine
DX: K92.2 Gastrointestinal hemorrhage, unspecified (principal); R11.2 Nausea with vomiting, unspecified; R19.7 Diarrhea, unspecified; R10.31 Right lower quadrant pain; R10.32 Left lower quadrant pain; F17.210 Nicotine dependence, cigarettes, uncomplicated; Z20.822 Contact with and (suspected) exposure to COVID-19; Z71.6 Tobacco abuse counseling; Z79.899 Other long term (current) drug therapy
CPT/HCPCS: 36415; 74178; 80048; 80076; 81001; 81003; 82272; 83605; 83690; 83735; 85025; 85610; 86850; 86900; 86901; 87040; 87635; 96361; 96365; 96375; 99285; J0295; J2270; J2405; Q9967

== ENCOUNTER 2021-12-29 22:15 | Emergency (ER) | payer OTHER, SELFPAY ==
--- NOTE | ~2021-12-29 | CT_ITS ---
EXAMINATION: CT ABDOMEN AND PELVIS WITH CONTRAST CLINICAL INFORMATION: Diarrhea. Diffuse abdominal discomfort. COMPARISON: 12/05/2021 TECHNIQUE: Multidetector volumetric images were obtained from the superior aspect of the liver through the pubic symphysis following administration 85 mL of Omnipaque 350 intravenous contrast. Sagittal and coronal reformatted images were obtained on the technologist's workstation. Oral contrast: No This CT examination was performed using dose optimization techniques as appropriate, variously including the following: *Automated exposure control *Adjustment of mA and/or kV according to patient size (this includes techniques or standardized protocols for targeted exams where dose is matched to indication/reason for exam; i.e. extremities or head) *Use of iterative reconstruction technique DLP: 619 mGy-cm FINDINGS: LUNG BASES: The visualized lung bases are unremarkable. LIVER, GALLBLADDER, AND BILIARY TREE: The liver is normal in size, shape, and attenuation. No focal hepatic lesion or biliary ductal dilatation is present. The gallbladder is unremarkable with no evidence of radiopaque gallstones, gallbladder wall thickening, or obvious pericholecystic inflammatory changes. PANCREAS: The pancreatic parenchyma appears unremarkable. The pancreatic duct is at the upper limit of normal in size measuring 0.3 cm. SPLEEN: Unremarkable. ADRENAL GLANDS: Unremarkable. KIDNEYS AND URETERS: The kidneys are normal in size, shape, and attenuation. No hydronephrosis, hydroureter, or calculi seen. No perinephric stranding. Multiple hypoattenuating renal lesions bilaterally, most of which are too small to fully characterize. Simple cyst at the midpole of the left kidney measures 4.7 cm. No follow-up imaging recommended. BLADDER: Unremarkable. GASTROINTESTINAL TRACT: The stomach is unremarkable. Normal caliber small bowel. No obstruction. There is improvement of previous colonic wall thickening. Decompression of the left hemicolon which limits evaluation of the colonic wall, though there may still be some mild wall thickening. No adjacent inflammation of the fat.. Sigmoid diverticulosis without diverticulitis. Normal appendix. ABDOMINAL WALL: No significant hernia is appreciated. LYMPH NODES: Normal. VASCULAR: Normal caliber aorta. Circumaortic left renal vein. PELVIC VISCERA: The uterus and adnexa are unremarkable. OSSEOUS STRUCTURES: No acute or suspicious osseous abnormality. Degenerative changes throughout the spine are noted. Mild degenerative changes of the hips. CT/CT abdomen pelvis w con IMPRESSION: Improvement of previous colonic wall thickening. Decompression of the left hemicolon limits evaluation for wall thickening at this time, but there is no inflammation adjacent to the colon. Diverticulosis without diverticulitis. Fleischner guidelines were followed.
[2021-12-29 22:21] VITALS: BP 121/78; PULSE 85; RESP 18; TEMP 36.8; O2SAT 97; BMI 28.3
[2021-12-29] MEDS: Ondansetron ODT 4 MG TAB.RAPDIS TRANSLINGU (22:26)
[2021-12-29 23:42] LABS: MANUAL DIFF FLAG NO
[2021-12-29 23:43] LABS: Appearance Urine CLEAR; Basophils Absolute Auto 0.1 X10*3/uL (0.0-0.2); Basophils Percent Auto 0.6 % (0-2); Color Urine YELLOW; Eosinophils Absolute Auto 0.3 X10*3/uL (0.0-0.4); Eosinophils Percent Auto 3.2 % (0-4); Glucose Urine UA NEG (NEG); Hemoglobin 13.5 g/dl (12.0-16.0); Imm Gran Abs Auto 0.02 X10*3/uL (0.00-0.03); Imm Gran Pct Auto 0.2 % (0.0-0.4); Leukocyte Esterase Urine NEG (NEG); Lymphocytes Absolute Auto 3.5 X10*3/uL (1.2-4.9); Lymphocytes Percent Auto 41.4 % (20-40); Mean Corpuscular HGB Conc 32.9 g/dl (31.0-35.0); Mean Corpuscular Hemoglobin 29.9 pg (27.0-33.0); Mean Corpuscular Volume 90.7 fL (80.0-98.0); Mean Platelet Volume 9.5 fL (9.4-12.3); Monocytes Absolute Auto 0.7 X10*3/uL (0.1-1.2); Monocytes Percent Auto 8.1 % (2-11); Neutrophils Percent Auto 46.5 % (45-73); Nitrite Urine NEG (NEG); Platelet Count 208 X10*3/uL (160-400); Red Blood Count 4.52 X10*6/uL (4.20-5.50); Red Cell Distribution Width 13.5 % (11.0-16.0); Specific Gravity - Urine 1.025 (1.005-1.025); UACC Culture Trigger NO; Urine Blood 2+ (NEG); Urine Ketones NEG (NEG); Urine Protein NEG (NEG-TRACE); White Blood Count 8.5 X10*3/uL (4.8-10.8)
[2021-12-30 00:03] LABS: Alanine Aminotransferase 33 U/L (0-31); Albumin Level 4.4 g/dL (3.5-5.0); Alkaline Phosphatase 80 U/L (39-117); Anion Gap 13 (12-20); Aspartate Amino Transferase 31 U/L (5-31); Bilirubin Total 0.2 mg/dL (0.0-1.0); Blood Urea Nitrogen 25 mg/dL (9-16); Calcium 9.8 mg/dL (8.4-10.2); Carbon Dioxide 27 mmol/L (22-29); Chloride 105 mmol/L (96-108); Estimated Glomerular Filt Rate 46; Glucose Random 98 mg/dL (60-115); Potassium 4.1 mmol/L (3.3-5.1); Sodium 141 mmol/L (135-145); Total Protein 6.8 g/dL (6.5-8.0)
[2021-12-30 00:04] LABS: COVID-19 Test Negative (Negative)
[2021-12-30 00:12] LABS: Bacteria Urine TRACE /LPF; Squamous Epithelial Cell Urine 2+ /LPF; WBC Urine 0-2 /HPF (0-4)
[2021-12-30 00:48] VITALS: BP 112/76; PULSE 73; RESP 14; TEMP 36.4; O2SAT 97
[2021-12-30 01:49] VITALS: BP 98/64; PULSE 74; RESP 20; O2SAT 95
--- NOTE | 2021-12-30 01:52 | ED_ITS ---
HPI - Abdominal Pain General Chief Complaint: Abdominal Pain Stated Complaint: abd pain, diarrhea Time Seen by Provider: 12/30/21 01:50 Source: patient Mode of arrival: ambulatory History of Present Illness HPI narrative: 66-year-old female with history of recent colitis and was treated at the end of November with 10 days of antibiotics. Patient states that at approximately 15:00 this afternoon she began having watery diarrhea again and has had 4-5 episodes with diffuse abdominal discomfort and some mild nausea as well as chills. She otherwise denies any shortness of breath, chest pain/palpitations, urinary pain/burning/frequency. Related Data Home Medications Medication Instructions Recorded Confirmed hydrochlorothiazide 25 mg tablet 25 mg PO DAILY 10/21/21 lisinopril 40 mg tablet 40 mg PO DAILY 10/21/21 rosuvastatin 40 mg tablet 40 mg PO DAILY 10/21/21 Previous Rx's Medication Instructions Recorded acetaminophen 500 mg tablet 500 mg PO Q6H PRN #20 tab 01/08/21 (Tylenol Extra Strength) ibuprofen 600 mg tablet 600 mg PO Q6H PRN 10 Days #20 tab 01/08/21 acetaminophen 500 mg tablet 500 mg PO Q6H PRN #20 tab 05/07/21 (Tylenol Extra Strength) lidocaine 5 % topical patch 1 patch TOPICAL DAILY PRN #30 ea 05/07/21 (Lidoderm) MDD remove after 12 hours prednisone 20 mg tablet 40 mg PO DAILY 5 Days #10 tab 05/07/21 tramadol 50 mg tablet 50 mg PO Q8H PRN 3 Days #9 tab 05/07/21 amoxicillin 875 mg-potassium 1 tab PO Q12H #20 tab 12/05/21 clavulanate 125 mg tablet (Augmentin) metronidazole 500 mg tablet 500 mg PO TID #30 tab 12/05/21 ymqtzqkcr-tlvjifyqh-uwqxlzgr-scop 5 ml PO BID PRN #50 ml 12/05/21 16.2 mg-0.1037 mg/5 mL (5 mL) elixir () Allergies Allergy/AdvReac Type Severity Reaction Status Date / Time cephalexin Allergy Unknown Unknown Verified 12/29/21 22:21 Cephalosporins Allergy Unknown SWELLING Verified 12/29/21 22:21 ciprofloxacin [CIPROFLOXACIN] Allergy Unknown SWELLING Verified 12/29/21 22:21 naproxen [NAPROXEN] Allergy Unknown BLISTERS Verified 12/29/21 22:21 IN MOUTH Review of Systems Review of Systems Pertinent positives and negatives as stated in HPI 10 point review of systems is otherwise negative. [facility] Past Medical History Source: nursing notes reviewed Medical History Chronic pain Depression HTN (hypertension) Surgical History H/O wrist surgery History of back surgery Hx of inguinal hernia surgery Social History Social History Alcohol intake: never Patient Tobacco Use Status: Current everyday Tobacco user Smoking Start Date: 11/08/79 Cigarettes Per Day: 7 Years Smoked: 40 Advance Directives: No Physical Exam ED Vital Signs: Vital Signs - 24 hr 12/29/21 22:21 12/30/21 00:48 12/30/21 01:49 Temperature 98.2 F 97.6 F Pulse Rate 85 73 74 Respiratory Rate 18 14 20 Blood Pressure 121/78 112/76 98/64 Pulse Oximetry 97 97 95 BMI result Body Mass Index 28.3 VITAL SIGNS: Reviewed. GENERAL: Well developed, well nourished, in no acute distress. HEAD: Normocephalic/atraumatic EYES: PERRLA, EOMI EARS: Ext canals without abnormality NOSE: Nares patent bilateral OROPHARYNX: no oral lesions noted, posterior pharynx clear LUNGS: Normal breath sounds. No adventitious sounds or accessory muscle use. SpO2<97> CARDIOVASCULAR: Regular rate and rhythm without noted murmurs ABDOMEN: Soft, diffusely tender without rebound, non-distended with bowel sounds. MUSCULOSKELETAL: No tenderness, deformities, or effusions noted on gross inspection. EXTREMITIES: No cyanosis, clubbing or edema. SKIN: Inspection of the skin reveals no rashes NEUROLOGIC: Alert and oriented x 4. Strength and sensation to light touch were grossly intact x 4. Course Course Course Narrative: 66-year-old female with history of colitis and on initial interview patient was resting comfortably on the stretcher and has had no further episodes of diarrhea since arrival to the emergency room. On review of all investigations there are no acute findings, but patient complains of diffuse abdominal discomfort. Review of all investigations negative for acute findings and all results discussed with the patient at bedside and she was encouraged to continue follow- up with Gastroenterology. DOUGLAS - Abdominal Pain Lab Data Result diagrams: 12/29/21 23:38 12/29/21 23:38 Labs: Lab Results 12/29/21 12/29/21 12/29/21 Range/Units 23:38 23:38 23:38 WBC 8.5 (4.8-10.8) X10*3/uL RBC 4.52 (4.20-5.50) X10*6/uL Hgb 13.5 (12.0-16.0) g/dl Hct 41.0 (37.0-47.0) % MCV 90.7 (80.0-98.0) fL MCH 29.9 (27.0-33.0) pg MCHC 32.9 (31.0-35.0) g/dl RDW 13.5 (11.0-16.0) % Plt Count 208 (160-400) X10*3/uL MPV 9.5 (9.4-12.3) fL Immature Gran % (Auto) 0.2 (0.0-0.4) % Neut % (Auto) 46.5 (45-73) % Lymph % (Auto) 41.4 H (20-40) % [place] % (Auto) 8.1 (2-11) % Eos % (Auto) 3.2 (0-4) % Baso % (Auto) 0.6 (0-2) % Lymph # (Auto) 3.5 (1.2-4.9) X10*3/uL [place] # (Auto) 0.7 (0.1-1.2) X10*3/uL Eos # (Auto) 0.3 (0.0-0.4) X10*3/uL Baso # (Auto) 0.1 (0.0-0.2) X10*3/uL Abs Immat Gran (auto) 0.02 (0.00-0.03) X10*3/uL Absolute Neuts (auto) 4.0 (2.0-8.3) x10*3/uL Absolute Nucleated RBC 0.000 (0.0-0.012) X10*3/uL Nucleated RBC % (auto) 0.0 (0.0-0.2) /100WBC Sodium 141 (135-145) mmol/L Potassium 4.1 (3.3-5.1) mmol/L Chloride 105 (96-108) mmol/L Carbon Dioxide 27 (22-29) mmol/L Anion Gap 13 (12-20) BUN 25 H (9-16) mg/dL Creatinine 1.19 (0.5-1.4) mg/dL Estim Creat Clear Calc 45.0 Estimated GFR 46 Random Glucose 98 (60-115) mg/dL Calcium 9.8 (8.4-10.2) mg/dL Total Bilirubin 0.2 (0.0-1.0) mg/dL AST 31 (5-31) U/L ALT 33 H (0-31) U/L Alkaline Phosphatase 80 (39-117) U/L Total Protein 6.8 (6.5-8.0) g/dL Albumin 4.4 (3.5-5.0) g/dL Urine Color Urine Appearance Urine pH (5.0-8.0) Ur Specific [place] (1.005-1.025) Urine Protein (NEG-TRACE) MG/DL Urine Glucose (UA) (NEG) MG/DL Urine Ketones (NEG) MG/DL Urine Blood (NEG) Urine Nitrite (NEG) Ur Leukocyte Esterase (NEG) Urine RBC (0) /HPF Urine WBC (0-4) /HPF Ur Squamous Epith Cells /LPF Urine Bacteria /LPF COVID-19 ([facility]) Negative (Negative) COVID-19 Clin Com See Note 12/29/21 Range/Units 23:38 WBC (4.8-10.8) X10*3/uL RBC (4.20-5.50) X10*6/uL Hgb (12.0-16.0) g/dl Hct (37.0-47.0) % MCV (80.0-98.0) fL MCH (27.0-33.0) pg MCHC (31.0-35.0) g/dl RDW (11.0-16.0) % Plt Count (160-400) X10*3/uL MPV (9.4-12.3) fL Immature Gran % (Auto) (0.0-0.4) % Neut % (Auto) (45-73) % Lymph % (Auto) (20-40) % [place] % (Auto) (2-11) % Eos % (Auto) (0-4) % Baso % (Auto) (0-2) % Lymph # (Auto) (1.2-4.9) X10*3/uL [place] # (Auto) (0.1-1.2) X10*3/uL Eos # (Auto) (0.0-0.4) X10*3/uL Baso # (Auto) (0.0-0.2) X10*3/uL Abs Immat Gran (auto) (0.00-0.03) X10*3/uL Absolute Neuts (auto) (2.0-8.3) x10*3/uL Absolute Nucleated RBC (0.0-0.012) X10*3/uL Nucleated RBC % (auto) (0.0-0.2) /100WBC Sodium (135-145) mmol/L Potassium (3.3-5.1) mmol/L Chloride (96-108) mmol/L Carbon Dioxide (22-29) mmol/L Anion Gap (12-20) BUN (9-16) mg/dL Creatinine (0.5-1.4) mg/dL Estim Creat Clear Calc Estimated GFR Random Glucose (60-115) mg/dL Calcium (8.4-10.2) mg/dL Total Bilirubin (0.0-1.0) mg/dL AST (5-31) U/L ALT (0-31) U/L Alkaline Phosphatase (39-117) U/L Total Protein (6.5-8.0) g/dL Albumin (3.5-5.0) g/dL Urine Color YELLOW Urine Appearance CLEAR Urine pH 6.0 (5.0-8.0) Ur Specific [place] 1.025 (1.005-1.025) Urine Protein NEG (NEG-TRACE) MG/DL Urine Glucose (UA) NEG (NEG) MG/DL Urine Ketones NEG (NEG) MG/DL Urine Blood 2+ H (NEG) Urine Nitrite NEG (NEG) Ur Leukocyte Esterase NEG (NEG) Urine RBC 1-4 (0) /HPF Urine WBC 0-2 (0-4) /HPF Ur Squamous Epith Cells 2+ /LPF Urine Bacteria TRACE /LPF COVID-19 ([facility]) (Negative) COVID-19 Clin Com Discharge Plan Discharge Clinical Impression: Abdominal pain, Diarrhea Patient Disposition: Home, Self-Care Instructions: Abdominal Pain (ED), Nutrition Tips for Relief of Diarrhea (ED), Acute Diarrhea (ED) Additional Instructions: 1. Resume all home medications, except any stool softeners. All stool softener should be avoided at this time. 2. You had a negative workup today and should continue follow-up with Gastroenterology. 3. Recommend [id number] Tylenol/ibuprofen as needed for abdominal discomfo rt. Return to the ER for worsening symptoms. Prescriptions: No Action ibuprofen 600 mg tablet 600 mg PO Q6H PRN (Reason: pain) 10 Days Qty: 20 0RF acetaminophen [Tylenol Extra Strength] 500 mg tablet 500 mg PO Q6H PRN (Reason: pain or fever) Qty: 20 0RF tramadol 50 mg tablet 50 mg PO Q8H PRN (Reason: pain, severe) 3 Days Qty: 9 0RF acetaminophen [Tylenol Extra Strength] 500 mg tablet 500 mg PO Q6H PRN (Reason: pain or fever) Qty: 20 0RF lidocaine [Lidoderm] 5 % adhesive patch,medicated 1 patch topical DAILY MDD remove after 12 hours PRN (Reason: pain) Qty: 30 0RF Rx Instructions: leave on most painful area for up to 12 hrs prednisone 20 mg tablet 40 mg PO DAILY 5 Days Qty: 10 0RF amoxicillin-pot clavulanate [Augmentin] 875-125 mg tablet 1 tab PO Q12H Qty: 20 0RF metronidazole 500 mg tablet 500 mg PO TID Qty: 30 0RF esnwvbjxl-gwsiqt-yrbruawm-scop [] 16.2 mg-0.1037 mg/5 mL (5 mL) elixir 5 ml PO BID PRN (Reason: spasms) Qty: 50 0RF lisinopril 40 mg tablet 40 mg PO DAILY 0RF hydrochlorothiazide 25 mg tablet 25 mg PO DAILY 0RF rosuvastatin 40 mg tablet 40 mg PO DAILY 0RF Referrals: Marcus Lima MD [Primary Care Provider] - 2 days
--- NOTE | 2021-12-30 02:09 | PC.NURSE ---
PT transferred to CT scan.
[2021-12-30] MEDS: iohexoL 350 MG/ML 100 ML INFUS..BTL 85 ML IV (02:15)
[2021-12-30 03:50] VITALS: BP 99/63; PULSE 79; RESP 14; O2SAT 98
[2021-12-30] MEDS: Lidocaine HCl Viscous 2 % 15 ML SOLUTION 10 ML MUCOUS MEM (04:05)
[2021-12-30] MEDS: Magnesium Hydrox/Alum Hydrox 30 ML ORAL.SUSP PO (04:06)
== END 2021-12-30 04:09 | disposition home or self-care (01) ==
PROVIDERS: Emergency Provider Student in an Organized Health Care Education/Training Program; PCP Internal Medicine
DX: R10.9 Unspecified abdominal pain (principal); R19.7 Diarrhea, unspecified; Z20.822 Contact with and (suspected) exposure to COVID-19; I10 Essential (primary) hypertension; F17.200 Nicotine dependence, unspecified, uncomplicated
CPT/HCPCS: 36415; 74177; 80053; 81001; 85025; 87635; 99284; Q9967

== ENCOUNTER 2021-12-31 08:44 | Outpatient (REF) | payer OTHER, SELFPAY ==
--- NOTE | ~2021-12-31 | XR_ITS ---
EXAMINATION: XR KNEE, LEFT CLINICAL INFORMATION: Pain in left knee COMPARISON: None TECHNIQUE: Four views of the left knee. FINDINGS: There is mild loss of tricompartment joint space without bony erosive changes or periarticular spurring. No abnormal joint effusion or loose body seen. No acute fracture or dislocation. XR/XR knee LT 4V IMPRESSION: Minimal early degenerative arthritic changes left knee.
== END 2021-12-31 08:45 | disposition home or self-care (01) ==
LOC: HO.XRAY 08:44
PROVIDERS: PCP Internal Medicine; Visit Provider Internal Medicine
DX: M25.562 Pain in left knee (principal)
CPT/HCPCS: 73564

== ENCOUNTER → 2022-01-14 12:30 | Outpatient (BNVA) | payer OTHER, SELFPAY | PROVIDERS: PCP Internal Medicine; Visit Provider Physician Assistant | DX: M17.12 Unilateral primary osteoarthritis, left knee (principal) | CPT/HCPCS: 20610; 99202; J1040 ==

== ENCOUNTER 2022-02-12 08:33 | Outpatient (REF) | payer OTHER, SELFPAY ==
--- NOTE | ~2022-02-12 | MM_ITS ---
EXAMINATION: MM SCREENING DIGITAL BREAST TOMOSYNTHESIS, BILATERAL CLINICAL INFORMATION: Screening. Asymptomatic. The lifetime risk of breast cancer based on the Tyrer-Cuzick Model is 3.9%. COMPARISON: Mammography: January 09, 2021, October 11, 2019 and April 12, 2012 TECHNIQUE: Digital breast tomosynthesis is performed in both the craniocaudal and mediolateral oblique views along with computer-aided detection (CAD). Synthesized 2D images are generated from the tomosynthesis. FINDINGS: There are scattered areas of fibroglandular density (ACR BI-RADS breast composition Category b). There are no significant masses, abnormal calcifications, or other abnormalities. This is stable circumscribed density about the deep inferior lateral aspect of the left breast MM/MM tomosynthesis screening BI IMPRESSION: There are no significant changes from prior study. ASSESSMENT: BI-RADS 2: Benign RECOMMENDATION: Routine annual mammography screening. This patient's information was entered into a reminder system with a target due date for their next mammogram.
--- NOTE | ~2022-02-12 | MM_ITS ---
EXAMINATION: BONE DENSITOMETRY CLINICAL INDICATION: Menopausal. COMPARISON: None (current study represents initial baseline exam). TECHNIQUE: Using a [employer] DXA System (software version: 13.1) manufactured by [employer], dual-energy x-ray absorptiometry was performed of the lumbar spine and left hip. The images are of good technical quality. Summary results are attached. FINDINGS: AP SPINE L1-L4: BMD 1.244 g/cm2, Z-score 1.9, T-score 0.5, normal. LEFT FEMUR, NECK: BMD 0.902 g/cm2, Z-score 0.3, T-score -1.0, normal. LEFT FEMUR, TOTAL: BMD 0.990 g/cm2, Z-score 0.9, T-score -0.1, normal. IDENTIFIED RISK FACTORS: Menopause, thiazide, history of fracture (adult), tobacco use (current smoker), low calcium intake. HISTORY OF FRACTURE: Spine. MEDICATIONS: Calcium supplements or multivitamin, vitamin D. MM/XR DEXA axial skeleton IMPRESSION: 1. DIAGNOSIS: Normal bone density based on the lowest T-score value of -1.0 in the femoral neck applying World Health Organization criteria. 2. 10-YEAR FRACTURE RISK PREDICTION, FRAX: According to the guidelines, FRAX calculation should only be performed on patients in the osteopenia bone density category. Therefore, FRAX was not performed on this patient. 3. Treatment Recommendations: NOF guidelines recommend consideration for treatment in postmenopausal women and men age 50 and older presenting with the following: -A hip or vertebral (clinical or morphometric) fracture. -T-score less than or equal to -2.5 at the femoral neck or spine after appropriate evaluation to exclude secondary causes. -Low bone mass at the hip or spine and a 10-year fracture probability by FRAX of greater than or equal to 3% for hip fracture or greater than or equal to 20% for major osteoporotic fracture based on the [place] adapted WHO algorithm. 4. Other Recommendations: All treatment decisions require clinical judgment and consideration of individual patient factors, including patient preferences, comorbidities, previous drug use, risk factors not captured in the FRAX model (e.g. frailty, falls, vitamin D deficiency, increased bone turnover, interval significant decline in bone density) and possible under or overestimation of fracture risk by FRAX. FUTURE SCAN RECOMMENDATION: People with diagnosed cases of osteoporosis or at high risk for fracture should have regular bone mineral density tests. For patients eligible for Medicare, routine testing is allowed once every 2 years. The testing frequency can be increased to one year for patients who have rapidly progressing disease, those who are receiving or discontinuing medical therapy to restore bone mass, or have additional risk factors.
== END 2022-02-12 08:34 | disposition home or self-care (01) ==
LOC: HO.MAMMO 08:33
PROVIDERS: PCP Internal Medicine; Visit Provider Internal Medicine
DX: Z12.31 Encounter for screening mammogram for malignant neoplasm of breast (principal); Z13.820 Encounter for screening for osteoporosis; Z78.0 Asymptomatic menopausal state; F17.200 Nicotine dependence, unspecified, uncomplicated
CPT/HCPCS: 77063; 77067; 77080

== ENCOUNTER 2022-03-31 12:44 | Outpatient (REF) | payer OTHER, SELFPAY ==
[2022-03-31 15:20] LABS: Amylase 96 U/L (28-100); Lipase 50 U/L (8-78)
[2022-03-31 15:38] LABS: Erythrocyte Sedimentation Rate 7 MM/HR (0-20)
[2022-03-31 15:52] LABS: Folate 15.4 ng/mL (> or = 4.0); Vitamin B12 678 pg/mL (200-900)
[2022-04-01 14:53] LABS: H Pylori Breath Test Negative (Negative)
[2022-04-01 21:31] LABS: Transglutaminase Ab IgG <1.0 U/mL; Transglutaminase IgA <1.0 U/mL
[2022-04-04 12:26] LABS: Vitamin D 25-OH, D2 <4 ng/mL; Vitamin D 25-OH, D3 42 ng/mL; Vitamin D 25-OH, Total 42 ng/mL (30-100)
== END 2022-03-31 12:45 | disposition home or self-care (01) ==
LOC: HO.LAB 12:44
PROVIDERS: PCP Internal Medicine; Referring Provider Internal Medicine; Visit Provider Nurse Practitioner Family
DX: K58.9 Irritable bowel syndrome, unspecified (principal); K21.9 Gastro-esophageal reflux disease without esophagitis; R19.7 Diarrhea, unspecified; R10.9 Unspecified abdominal pain
CPT/HCPCS: 36415; 82150; 82306; 82607; 82746; 83013; 83690; 84443; 85652; 86140; 86364; 99202

== ENCOUNTER 2022-04-01 12:41 | Outpatient (REF) | payer OTHER, SELFPAY ==
[2022-04-01 14:15] LABS: CDiff Gene PCR POSITIVE (Negative)
[2022-04-01 16:29] LABS: CDIFF Internal ctrl Dots and bkg OK (V); CDiff Toxin Negative (Negative)
[2022-04-07 19:12] LABS: Pancreatic Elastase-1 261 mcg/g
== END 2022-04-01 12:42 | disposition home or self-care (01) ==
LOC: HO.LNP 12:41
PROVIDERS: Visit Provider Nurse Practitioner Family
DX: R10.9 Unspecified abdominal pain (principal); R19.7 Diarrhea, unspecified
CPT/HCPCS: 82656; 87324; 87493

== ENCOUNTER 2022-04-15 09:05 | Emergency (ER) | payer OTHER, SELFPAY ==
--- NOTE | ~2022-04-15 | CT_ITS ---
EXAMINATION: CT LUMBAR SPINE WITHOUT CONTRAST CLINICAL INFORMATION: Vertebral tenderness COMPARISON: Sagittal imaging from CT dated 12/30/2021 TECHNIQUE: Axial imaging with coronal and sagittal reformatted images noncontrast This CT examination was performed using dose optimization techniques as appropriate, variously including the following: *Automated exposure control *Adjustment of mA and/or kV according to patient size (this includes techniques or standardized protocols for targeted exams where dose is matched to indication/reason for exam; i.e. extremities or head) *Use of iterative reconstruction technique DLP; 243 and 370 mGy-cm FINDINGS: Lack of intrathecal contrast limits this exam. Evaluation for soft tissue such as nerve roots, disc material and cord cannot be adequately evaluated. Spinal levels: There is once again some superior compression injury at L3 and L2 and L1. No convincing evidence for increase. Degenerative disc disease most noted at L5-S1 with near-total loss of disc height and sclerotic changes in the endplates. Once again degenerative changes in the posterior elements of the lower lumbar region with foraminal compromise bony at L5-S1 bilaterally. At L2-3 there is loss of disc height. Some likely mass effect on the posterior thecal sac. Some evidence of foraminal encroachment. L3-4 again some mild likely disc protrusion extending into the neural foramen but there does appear to be the exiting nerve roots. At L4-5 findings suggest again an element of disc protrusion. This is likely having some mass effect in the anterior thecal sac and lateral recesses. Foraminal encroachment is also noted but there does appear to be room the exiting nerve roots. At L5-S1 significant degenerative disc disease extending posterior to have effect on the thecal sac and compromise of the right greater than left lateral recess. There is also foraminal compromise present here. CT of the sacrum. The distal sacral/coccygeal region is omitted from the study. Once again degeneration seen at L5-S1. On the imaging submitted there is no evidence for fracture. The SI joints are grossly patent. No bony lesion is detected. CT/CT lumbar spine wo con IMPRESSION: As stated lack of intrathecal contrast limits this exam. Evaluation of soft tissues such as nerve roots, disc and cord is not adequately evaluated. Degenerative changes are seen with several areas of mild compression injury but these are similar to study from 12/30/2021 and there is good preservation of posterior vertebral body heights. Degenerative changes most noted at L5-S1. Recommend MRI for full evaluation. In the sacrum as described. Distal sacrum and coccygeal region are not imaged on this study. I'm not seeing a suspicious finding on the imaging submitted to me. No fracture or lesion is seen. Again consider MRI to fully evaluate.
[2022-04-15 09:09] VITALS: BP 122/82; PULSE 86; RESP 18; TEMP 36.6; O2SAT 97; BMI 28.7
[2022-04-15] MEDS: Cyclobenzaprine HCl 10 MG TABLET PO (10:19)
[2022-04-15] MEDS: Acetaminophen 325 MG TABLET 975 MG PO (10:19)
[2022-04-15 10:30] LABS: Appearance Urine CLEAR; Color Urine YELLOW; Glucose Urine UA NEG (NEG); Leukocyte Esterase Urine NEG (NEG); Nitrite Urine NEG (NEG); PH 5.5 (5.0-8.0); UACC Culture Trigger NO; Urine Blood 1+ (NEG); Urine Ketones NEG (NEG); Urine Protein NEG (NEG-TRACE)
[2022-04-15 10:53] LABS: Squamous Epithelial Cell Urine TRACE /LPF; WBC Urine 0 /HPF (0-4)
--- NOTE | 2022-04-15 11:59 | ED_ITS ---
HPI - Back Pain/Injury General Chief Complaint: Back Pain/Injury Stated Complaint: Back pain/Abd pain Time Seen by Provider: 04/15/22 09:42 Source: patient Mode of arrival: ambulatory Limitations: no limitations History of Present Illness HPI Narrative: 66-year-old female presents for acute on chronic back pain. Patient has a history of chronic back pain, and had back surgery 7 years ago at [facility], history of vertebral fracture. No trauma. Patient has had no urinary incontinence, no bowel incontinence, no urinary retention, no saddle paresthesias, no leg weakness, no fevers, no personal history of cancer, no history of IV drug use . Patient states the pain starts in her low back bilaterally and radiates around to her groin. Patient has an allergy to NSAIDs, states muscle relaxer has helped her in the past. Related Data Home Medications Medication Instructions Recorded Confirmed hydrochlorothiazide 25 mg tablet 25 mg PO DAILY 10/21/21 01/14/22 lisinopril 40 mg tablet 40 mg PO DAILY 10/21/21 01/14/22 rosuvastatin 40 mg tablet 40 mg PO DAILY 10/21/21 01/14/22 fluticasone propionate 50 1 - 2 spray intranasal DAILY PRN 03/31/22 mcg/actuation nasal spray,suspension Previous Rx's Medication Instructions Recorded acetaminophen 500 mg tablet 500 mg PO Q6H PRN pain or fever 01/08/21 (Tylenol Extra Strength) #20 tabs ibuprofen 600 mg tablet 600 mg PO Q6H PRN pain 10 days #20 01/08/21 tabs metronidazole 500 mg tablet 500 mg PO TID #30 tabs 12/05/21 jkdgnxpxf-uebumursl-vshxbxac-scop 5 ml PO BID PRN spasms #50 mL 12/05/21 16.2 mg-0.1037 mg/5 mL (5 mL) elixir () docusate sodium 100 mg capsule 100 mg PO BEDTIME #90 caps 03/31/22 methylcellulose (laxative) 500 mg 500 mg PO DAILY #90 tabs 03/31/22 tablet (Citrucel) omeprazole 20 mg capsule,delayed 20 mg PO DAILY #30 caps 03/31/22 release sennosides 8.6 mg tablet (Natural 17.2 mg PO BEDTIME constipation 04/08/22 Senna Laxative) #180 tabs vancomycin 125 mg capsule 125 mg PO QID 10 days #40 caps 04/08/22 cyclobenzaprine 5 mg tablet 5 mg PO TID 5 days #15 tabs 04/15/22 Allergies Allergy/AdvReac Type Severity Reaction Status Date / Time cephalexin Allergy Unknown Unknown Verified 03/31/22 13:05 Cephalosporins Allergy Unknown SWELLING Verified 03/31/22 13:05 ciprofloxacin [CIPROFLOXACIN] Allergy Unknown SWELLING Verified 03/31/22 13:05 naproxen [NAPROXEN] Allergy Unknown BLISTERS Verified 03/31/22 13:05 IN MOUTH Review of Systems Constitutional: Constitutional: Denies body ache(s), Denies chills, Denies fatigue, Denies fever(s), Denies malaise and Denies weakness Eyes: Eyes: Denies diplopia Cardiovascular: Cardiovascular: Denies chest pain, Denies syncope, Denies leg edema, Denies lightheadedness, Denies Loss of Consciousness, Denies palpitations and Denies dyspnea Respiratory: Respiratory: Denies chest congestion, Denies cough and Denies dyspnea Gastrointestinal: Gastrointestinal: Denies abdominal pain, Denies hematochezia, Denies constipation, Denies fecal incontinence, Denies diarrhea and Denies vomiting Genitourinary: Genitourinary: Denies urinary incontinence and Denies urinary hesitancy Musculoskeletal: Musculoskeletal: Reports back pain Neurologic: Denies confusion, Denies syncope and Denies weakness Psychiatric: Psychiatric: Denies anxiety, Denies confusion and Denies depression Endocrine: Endocrine: Denies fatigue and Denies palpitations PMFSH Past Medical History Medical History Chronic pain Depression HTN (hypertension) Surgical History H/O wrist surgery History of back surgery Hx of inguinal hernia surgery Social History Social History Alcohol intake: never Patient Tobacco Use Status: Current everyday Tobacco user Smoking Start Date: 11/08/79 Cigarettes Per Day: 7 Years Smoked: 40 Advance Directives: No Advance Directives Information Provided: No Physical Exam Vital Signs: Vital Signs: Last Vital Signs Temp 97.8 F 04/15/22 09:09 Pulse 86 04/15/22 09:09 Resp 18 04/15/22 09:09 BP 122/82 04/15/22 09:09 Pulse Ox 97 04/15/22 09:09 O2 Del Method 04/15/22 09:09 BMI result Body Mass Index 28.7 Const: General: No confusion Nutritional Appearance: well nourished Orie ntation/consciousness: No confusion Limitations: no limitations Eyes: Conjunctivae: conjunctivae normal Pupils: Equal, round and reactive pupils present EOM: EOMs intact bilaterally Neck: Neck: Yes full ROM, Yes no lymphadenopathy and Yes supple Resp: Effort & Inspection: normal respiratory effort and able to speak in complete sentences Auscultation: clear to auscultation bilaterally, no crackles, no rales, no rhonchi and no wheezes Cardio: Rate: regular rate Rhythm: regular rhythm Heart sounds: S1 normal heart sound present and S2 normal heart sound present GI: Inspection: Yes normal to inspection Palpation (GI): Soft to palpation, nontender, no guarding and not rigid Percussion: Yes normal to percussion Auscultation: normal bowel sounds : General: Yes no CVA tenderness Back/Spine/Pelvis: Back: no CVA tenderness Cervical Spine: normal cervical lordosis, cervical ROM normal, No Cervical spine tenderness, No step off deformity and No cervical ROM abnormal Thoracic/Lumbar Spine: thoracic and lumbar spine normal to inspection, straight leg raise negative bilaterally, thoraco-lumbar ROM limited, thoraco-lumbar spasm, No thoracic spinal tenderness and lumbar spinal tenderness Pelvis: buttock tenderness Skin: General skin exam: no rashes or lesions noted Neuro: General: No confusion Cranial nerves: Yes Equal, round and reactive pupils present Extrem: General: Yes normal to inspection and Yes full ROM Psych: Appearance: grossly normal Affect: normal affect Attitude: cooperative Thought process: Normal thought process present Course Course Course Narrative: 66-year-old female with a history of chronic back pain presents with acute bilateral back pain wrapping around to her bilateral groin patient is tender over her lower lumbar vertebrae urine shows microscopic hematuria, no infection, patient has a benign abdominal exam. CT shows degenerative changes, nothing acute given patient has no red flag symptoms of leg weakness, urinary or bowel incontinence, urinary retention, saddle paresthesias, history of IV drug use, will treat with muscle relaxer, have patient follow-up with Spine doctor. CT/CT sacrum IMPRESSION: As stated lack of intrathecal contrast limits this exam. Evaluation of soft tissues such as nerve roots, disc and cord is not adequately evaluated. Degenerative changes are seen with several areas of mild compression injury but these are similar to study from 12/30/2021 and there is good preservation of posterior vertebral body heights. Degenerative changes most noted at L5-S1. Recommend MRI for full evaluation. ? In the sacrum as described. Distal sacrum and coccygeal region are not imaged on this study. I'm not seeing a suspicious finding on the imaging submitted to me. No fracture or lesion is seen. Again consider MRI to fully evaluate. MDM - Back Pain/Injury Lab Data Labs: Lab Results 04/15/22 Range/Units 10:23 Urine Color YELLOW Urine Appearance CLEAR Urine pH 5.5 (5.0-8.0) Ur Specific [place] 1.020 (1.005-1.025) Urine Protein NEG (NEG-TRACE) MG/DL Urine Glucose (UA) NEG (NEG) MG/DL Urine Ketones NEG (NEG) MG/DL Urine Blood 1+ H (NEG) Urine Nitrite NEG (NEG) Ur Leukocyte Esterase NEG (NEG) Urine RBC 5-9 H (0) /HPF Urine WBC 0 (0-4) /HPF Ur Squamous Epith Cells TRACE /LPF Urine Bacteria NONE /LPF Discharge Plan Discharge Clinical Impression: Back pain, Hematuria Patient Disposition: Home, Self-Care Instructions: Hematuria (ED), Acute Low Back Pain (ED) Additional Instructions: please call your primary care provider to follow-up for the blood in your urine that we found today. Please fill your prescription for Flexeril. Your primary care provider may want to refer you back to spine if your back continues to be painful. Your CT scan showed no changes from December 2021 Prescriptions: New cyclobenzaprine 5 mg tablet 5 mg PO TID 5 Days Qty: 15 0RF No Action sennosides [Natural Senna Laxative] 8.6 mg tablet 17.2 mg PO BEDTIME Qty: 180 2RF vancomycin 125 mg capsule 125 mg PO QID 10 Days Qty: 40 0RF ibuprofen 600 mg tablet 600 mg PO Q6H PRN (Reason: pain) 10 Days Qty: 20 0RF acetaminophen [Tylenol Extra Strength] 500 mg tablet 500 mg PO Q6H PRN (Reason: pain or fever) Qty: 20 0RF metronidazole 500 mg tablet 500 mg PO TID Qty: 30 0RF zchqunqvk-kxhgtl-apciehau-scop [] 16.2 mg-0.1037 mg/5 mL (5 mL) elixir 5 ml PO BID PRN (Reason: spasms) Qty: 50 0RF lisinopril 40 mg tablet 40 mg PO DAILY hydrochlorothiazide 25 mg tablet 25 mg PO DAILY rosuvastatin 40 mg tablet 40 mg PO DAILY fluticasone propionate 50 mcg/actuation spray,suspension 1 - 2 spray intranasal DAILY PRN docusate sodium 100 mg capsule 100 mg PO BEDTIME Qty: 90 3RF Citrucel 500 mg tablet 500 mg PO DAILY Qty: 90 2RF Rx Instructions: take it with full glass of water omeprazole 20 mg capsule,delayed release(DR/EC) 20 mg PO DAILY Qty: 30 3RF Interventions: ED Discharge Assessment Last Done: 04/15/22 12:48 Discharge Date/Time: 04/15/22 12:49
== END 2022-04-15 12:49 | disposition home or self-care (01) ==
PROVIDERS: Physician Assistant; Emergency Provider Emergency Medicine; PCP Internal Medicine
DX: M54.50 Low back pain, unspecified (principal); R31.9 Hematuria, unspecified; I10 Essential (primary) hypertension; F17.200 Nicotine dependence, unspecified, uncomplicated
CPT/HCPCS: 72131; 72192; 81001; 99284

== ENCOUNTER → 2022-05-26 12:30 | Outpatient (BNVA) | payer OTHER, SELFPAY | PROVIDERS: PCP Internal Medicine; Visit Provider Nurse Practitioner Family | DX: Z12.11 Encounter for screening for malignant neoplasm of colon (principal); K21.9 Gastro-esophageal reflux disease without esophagitis; R19.7 Diarrhea, unspecified; K58.2 Mixed irritable bowel syndrome; R14.0 Abdominal distension (gaseous) | CPT/HCPCS: 99212 ==

== ENCOUNTER → 2022-09-16 08:45 | Outpatient (BNVA) | payer OTHER, SELFPAY | PROVIDERS: PCP Internal Medicine; Visit Provider Internal Medicine Cardiovascular Disease | DX: R00.2 Palpitations (principal); R07.2 Precordial pain | CPT/HCPCS: 93005; 99202 ==

== ENCOUNTER → 2022-11-27 09:02 | Outpatient (REF) | payer OTHER, SELFPAY ==
--- NOTE | 2022-11-27 09:07 | CA_ITS ---
Acquisition Time: 2022-11-27 10:16:38 Total Exercise Time: 00:06:27 Test Indications: CP, SOB Medications: SEE CHART Protocol: MARIELOS Max HR: 129 BPM 83% of Pred: 154 BPM Max BP: 140/080 mmHG Max Work Load: 7.6 METS Exercise stress test with exercise 6 min 27 sec of Marielos protocol, achieving 83% MPHR, 7.6 METs, with mild sob, fatigue and left knee pain with request to stop, with isolated PAC, with normotensive response to exercise, without EKG changes meeting criteria for ischemia at acheived workload. Accuracy to assess for ischemia slightly decreased as she did not acheive 85% MPHR. Test reviewed with Dr Mariscal Referred By: Ashvin Mariscal Overread By: MERON BARAJAS
--- NOTE | 2022-11-27 09:07 | HM_ITS ---
Conclusion: 1. Patient was monitored for total period of 6 days 2. Baseline was normal sinus rhythm with average heart of 82 beats per minute 3. No significant pauses or bradycardia noted 4. Rare PACs noted 5. No patient reported events MTDD
--- NOTE | 2022-11-27 09:07 | CA_ITS ---
Transthoracic Echocardiogram Patient (Last, First, Middle): Claudia Fernando, Gender: Female Date of : 1955 Age: 67 Procedure Date: 11/27/2022 Procedure Type: Transthoracic Echocardiogram Location: OP Height: 157.48 cm Weight: 72.58 kg BSA: 1.74 m2 Heart Rate: 71 bpm BP: 124 / 70 mmHg Business Controller: ZOLTAN Referring MD: Ashvin Mariscal MD Dog Groomer: Ashvin Mariscal MD Symptoms: R07.2 - Precordial pain Study Quality: Adequate ECG Rhythm: Sinus Conclusions: - 1. Normal LV systolic function with grade 1 diastolic dysfunction 2. Normal cardiac valvular Doppler 3. Normal RV systolic pressure 4. No gross pericardial effusion Findings Left Ventricle Normal left ventricular size, thickness, and systolic function. The visually estimated ejection fraction is between 65-70%. Spectral Doppler is indicative of an impaired relaxation filling pattern. E/E prime ratio is <8, consistent with normal filling pressures. Evidence suggests grade I (mild) diastolic dysfunction. Peak GLS is -18.3%, within normal limits. Right Ventricle Normal right ventricular cavity size and systolic function. Atria Both atria are normal in size. There is no evidence of interatrial shunt. Aortic Valve Normal aortic valve structure and function. There is no aortic valve stenosis. There is no aortic valve regurgitation. Mitral Valve Normal mitral valve structure and function. There is trace mitral valve regurgitation. There is no mitral valve stenosis. Pulmonic Valve The pulmonic valve was not well visualized. Tricuspid Valve Likely normal tricuspid valve structure and function. There is trace tricuspid valve regurgitation. The right ventricular systolic pressure is normal. The right ventricular systolic pressure is 20 mmHg. Normal right atrial pressure. There is no evidence of pulmonary hypertension. Great Vessels All visible segments of the aorta are normal in size. The pulmonary artery was not well visualized. Venous The inferior vena cava is normal in size and collapses greater than 50% with inspiration. Pericardium/Pleural There is no evidence of pericardial effusion. Measurements 2D Linear Measurements IVSd: 0.79 0.6-0.9/0.6-1.0 cm LVIDd: 4.51 3.9-5.3/4.2-5.9 cm LVIDd Index: 2.59 2.4-3.2/2.2-3.1 cm/m2 LVIDs: 3.14 2.0-3.6 cm LVPWd: 0.73 0.7-1.1 cm LA Diam: 3.40 2.7-3.8/3.0-4.0 cm LAIDs Index: 1.95 1.5-2.3 cm/m2 LV Mass: 133.08 67-162/88-224 g LV Mass Index: 76.48 43-95/49-115 g/m2 LVOT Diam: 2.00 3.0+(-)1.3 cm 2D Systolic Function EF 4C: 66.10 >55% EF 2C: 71.20 >55% EF BiP: 69.60 >55% Mitral Valve MV Pk E: 0.68 MV PK A: 0.71 MV Decel Time: 164.00 E/A: 1.00 E'Lateral: 8.49 E'Medial: 6.64 E/E' Med: 10.30 E/E' Lat: 8.00 PHT: 48.00 MVA PHT: 4.58 Decel Potter: 4.15 Aortic Valve AoV Pk Maulik: 1.43 AoV Pk Grad: 8.00 VERÓNICA: 2.55 LVOT LVOT Pk Maulik: 1.16 LVOT Mn Maulik: 0.76 LVOT VTI: 0.24 LVOT Pk Grad: 5.00 LVOT Mn Grad: 3.00 LVOT Diam: 2.00 LVOT Area: 3.14 Diastolic Function MV Pk E: 0.68 MV Pk A: 0.71 E/A: 1.00 E'Medial: 6.64 E/E' Med: 10.30 E' Laterial: 8.49 E/E' Lat: 8.00 Right Ventricle TAPSE (mm): 18.30 TVS' Maulik: 11.10 Tricuspid Valve TR Pk Maulik: 2.09 TR Pk Grad: 17.00 RA Press: 3.00 RVSP: 20.00 Great Vessels Aorta Sinus of Valsalva: 2.90 2.0-3.5 cm Ao Asc: 3.40 2.1-3.4 cm Pulmonary Veins Pulm Vein S/D 1.40 Pulmonary Valve PV Pk Maulik: 0.92 Peak PV Grad: 3.00 Updated in Other Vendor System with Status of Final Ashvin Mariscal MD electronically signed on 11/27/2022 2:21:11 PM with status of Final
== END ==
LOC: HO.CARD 09:02
PROVIDERS: Visit Provider Internal Medicine Cardiovascular Disease
DX: R07.2 Precordial pain (principal); R00.2 Palpitations; I10 Essential (primary) hypertension
CPT/HCPCS: 93017; 93242; 93306; 93356

== ENCOUNTER → 2022-12-29 08:47 | Outpatient (BNVA) | payer OTHER, SELFPAY | PROVIDERS: PCP Internal Medicine; Referring Provider Internal Medicine; Visit Provider Internal Medicine Cardiovascular Disease | DX: R07.89 Other chest pain (principal) | CPT/HCPCS: 99212 ==

== ENCOUNTER 2023-01-15 07:54 | Outpatient (REF) | payer OTHER, SELFPAY ==
--- NOTE | ~2023-01-15 | XR_ITS ---
EXAMINATION: X-RAYS OF BOTH KNEES CLINICAL INFORMATION: 67-year-old female patient with pain in the left knee. COMPARISON: X-rays of the left knee on 12/31/2021. TECHNIQUE: AP standing views of both knees and lateral and sunrise views of the left knee. FINDINGS: There is mild medial joint compartment narrowing of both knees worse on the left than right. There is no evidence of joint effusion or marginal osteophyte formation. The articular surfaces are well preserved. XR/XR knee standing BI IMPRESSION: Mild medial joint compartment narrowing of both knees.
--- NOTE | ~2023-01-15 | XR_ITS ---
EXAMINATION: X-RAYS OF BOTH KNEES CLINICAL INFORMATION: 67-year-old female patient with pain in the left knee. COMPARISON: X-rays of the left knee on 12/31/2021. TECHNIQUE: AP standing views of both knees and lateral and sunrise views of the left knee. FINDINGS: There is mild medial joint compartment narrowing of both knees worse on the left than right. There is no evidence of joint effusion or marginal osteophyte formation. The articular surfaces are well preserved. XR/XR knee LT 2V IMPRESSION: Mild medial joint compartment narrowing of both knees.
== END 2023-01-15 07:55 | disposition home or self-care (01) ==
LOC: HO.HOSX 07:54
PROVIDERS: Visit Provider Physician Assistant
DX: M23.92 Unspecified internal derangement of left knee (principal)
CPT/HCPCS: 73560; 73565; 99202

== ENCOUNTER → 2023-01-21 10:00 | Outpatient (BNVA) | payer OTHER, SELFPAY | PROVIDERS: PCP Internal Medicine; Visit Provider Orthopaedic Surgery | DX: M17.12 Unilateral primary osteoarthritis, left knee (principal) | CPT/HCPCS: 99212 ==

== ENCOUNTER → 2023-03-17 09:43 | Outpatient (BNVA) | payer OTHER, SELFPAY | PROVIDERS: PCP Internal Medicine; Visit Provider Orthopaedic Surgery ==

== ENCOUNTER 2023-03-22 11:49 | Outpatient (REF) | payer OTHER, SELFPAY ==
--- NOTE | ~2023-03-22 | XR_ITS ---
EXAMINATION: XR FOOT, RIGHT CLINICAL INFORMATION: Displaced fracture of 5th metatarsal. COMPARISON: Right foot 01/08/2021. TECHNIQUE: AP, lateral, and oblique views of the right foot. FINDINGS: There is a displaced fracture midsegment proximal phalanx 5th digit. The soft tissues are normal. No other bony abnormality seen.. XR/XR foot RT min 3V IMPRESSION: Displaced fracture midsegment proximal phalanx 5th digit with mild soft tissue swelling. There is no recent exam available for comparison. Right foot exam 2020 was negative.
== END 2023-03-22 11:50 | disposition home or self-care (01) ==
LOC: HO.HOSX 11:49
PROVIDERS: Visit Provider Physician Assistant
DX: S92.351A Displaced fracture of fifth metatarsal bone, right foot, initial encounter for closed fracture (principal)
CPT/HCPCS: 73630; 99212

== ENCOUNTER 2023-04-12 10:00 | Outpatient (RCR) | payer OTHER, SELFPAY ==
--- NOTE | 2023-03-26 15:30 | MHC.PT.EP ---
[facility] [place] Office [place] Office [place] Office [address] Russel [place] [address] [phone] F: [phone] F: [phone] F: [phone] F: [phone] Physical Therapy Plan of Care Date of Evaluation: Date of Surgery: APRIL 20, 2023 Diagnosis: PREHAB FOR LEFT TKA ON 04/20/23-> PREHAB Assessment: 67 YO FEMALE REF TO PT FOR PREHAB -> SCHED FOR A Lt TKA ON 04/20/23- THE Pt RESIDES ALONE IN A BUNGAL[place], SHE HAS STONE BANKER ASSIST. THE Pt CURRENTLY WEARS AN OA BRACE LEFT KNEE AND HAS DECR SARMAD TO STAND/ WALK/ STAIRS. SHE HAS DECR Lt TERMINAL KNEE EXT, STRENGTH DEF IN PROX LEs AND Lt QUAD/ GLUTE; PF PAIN, AND FLUCTUATING PAIN IN LEFT KNEE. Pt WOULD BENEFIT FROM PREHAB TO ADDRESS THE ABOVE FINDINGS AND PREPARE Pt FOR THE TKA POST-OP REHAB. Frequency and Duration: The patient will be seen 2 x WK x 2 WKS Short Term Goals: *ED Pt RE POST-OP LEFT TKA COURSE *INITIATE HEP FOR TKA EXERCISES *IMPROVE CALF AND PSOAS MM FLEXIB Long-Term Goals: *Pt INDEP W TKA PROTOCOL EXER *Pt DEMON PROPER TECHN W W/WALKER AND STAIR NAVIGATION *Pt COMPREHENSION OF POST-OP COURSE FOR TKA AND HOME PREP Treatment Plan: Modalities to reduce pain, spasms and effusion. Manual therapy to restore motion and function. Therapeutic exercise to improve strength and flexibility. Neuromuscular re-education for posture and balance. Therapeutic activities to return to functional activities of daily living. Electronically signed by: RIVERA GARCIA,PT Please sign and return to therapist. Thank you for your referral.
--- NOTE | 2023-04-12 10:55 | MHC.PT.DC ---
[facility] [place] Office [place] Office [place] Office [address] Russel [place] 140 [facility] [phone] F: [phone] F: [phone] F: [phone] F: [phone] Physical Therapy Discharge Report Diagnosis: PREHAB FOR LEFT TKA ON 04/20/23-> PREHAB Date of Surgery: APRIL 20, 2023 Date of Evaluation: 03/26/23 Date of Discharge: 04/12/23 Treatments to Date: 4 Cancellations to Date: 0 No Shows to Date: 0 Discharge Status: Achieved Goals Improved Function Independent with HEP Discharge Summary: Pt MET HER PREHAB PT GOALS, SHE IS SCHED FOR LEFT TKA ON 04/20/23. THE Pt DEMON VERY GOOD TECHN W ASST DEVICES, TRANSFERS, AND STAIR NEGOTIATION- SHE IS INDEP W TKA PROTOCOL EXERCISES AND THEN IMPORTANCE OF REGAINING ROM IN HER LEFT KNEE POST- OPERATIVELY Electronically signed by: RIVERA GARCIA,PT Please sign and return to therapist. Thank you for your referral.
== END 2023-04-12 10:55 | disposition home or self-care (01) ==
LOC: HO.PT 10:00
PROVIDERS: PCP Internal Medicine; Visit Provider Orthopaedic Surgery
DX: M23.92 Unspecified internal derangement of left knee (principal)
CPT/HCPCS: 97110; 97161; 97530

== ENCOUNTER → 2023-04-15 10:18 | Outpatient (BNVA) | payer OTHER, SELFPAY | PROVIDERS: PCP Internal Medicine; Visit Provider Physician Assistant | DX: M17.12 Unilateral primary osteoarthritis, left knee (principal) | CPT/HCPCS: 99212 ==

== ENCOUNTER 2023-04-20 07:19 | Inpatient (IN) | payer OTHER, SELFPAY ==
--- NOTE | 2023-04-12 | ECG_ITS ---
Test Reason : PREOP Blood Pressure : / mmHG Vent. Rate : 072 BPM Atrial Rate : 072 BPM P-R Int : 138 ms QRS Dur : 074 ms QT Int : 398 ms P-R-T Axes : 008 048 049 degrees QTc Int : 435 ms Normal sinus rhythm Normal ECG When compared with ECG of 11-FEB-2018 20:08, No significant change was found Referred By: Martha Santiago Electronically Signed By:Mariano Calvo
[2023-04-12 11:48] VITALS: BP 135/79; PULSE 77; RESP 18; O2SAT 96; BMI 29.6
--- NOTE | 2023-04-12 12:19 | HO.ANESPROP2 ---
Documented by User: Martha Santiago NP 04/19/23 09:29 HPI - Anesthesia Eval Consult details Narrative: 67yo F for Left Knee Replacement Total 2022 cardiac w/u with [facility] cardiology for atypical CP, palps all WNL, rare PVC, recommend stress mitigation Medically optimized [facility] Active Problems Active Problems: All Active Problems (Updated 04/12/23 @ 11:47 by Barbara Guzman RN) PAD (peripheral artery disease) (Acute) Varicose veins of left lower extremity with inflammation (Acute) Primary osteoarthritis of left knee (Acute) Internal derangement of left knee (Acute) Toe fracture (Acute) HTN (hypertension) (Acute) Past Medical History Medical History Schizoaffective disorder, bipolar type Elevated cholesterol Arthritis History of abdominal hernia Primary osteoarthritis of left knee HTN (hypertension) Depression Chronic pain Family History Family history of problems with anesthesia: No Surgical History Surgical History Hx laparoscopic cholecystectomy (08/03/23) Hx of tonsillectomy History of carpal tunnel surgery H/O wrist surgery History of back surgery Hx of inguinal hernia surgery History of Problems with Anesthesia: No Social History Household Members: None Housing: House Are you a primary auto care center manager to a significant other at home: No Do you presently have 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) Alcohol intake: never Patient Tobacco Use Status: Current everyday Tobacco user Smoking Start Date: 11/08/79 Tobacco use type: Cigarette Cigarettes Per Day: 5 Years Smoked: 50 Second Hand Smoke Exposure: No service: No Current occupational status: unemployed Narrative Narrative: No recent illness No CP/SOB with >4 mets Meds Allergies Allergy/AdvReac Type Severity Reaction Status Date / Time cephalexin Allergy Unknown Swelling Verified 09/22/23 09:31 Cephalosporins Allergy Unknown SWELLING Verified 09/22/23 09:31 ciprofloxacin [CIPROFLOXACIN] Allergy Unknown SWELLING Verified 09/22/23 09:31 naproxen [NAPROXEN] Allergy Unknown BLISTERS Verified 09/22/23 09:31 IN MOUTH Home Medications Medication Instructions Recorded Confirmed Last Taken Type rosuvastatin 40 mg tablet 40 mg PO DAILY 10/21/21 08/10/23 07/29/23 History fluticasone propionate 50 1 - 2 spray intranasal DAILY PRN 03/31/22 08/10/23 Unknown History mcg/actuation nasal Nasal Congestion spray,suspension clonazepam 0.5 mg tablet 0.5 mg PO DAILY PRN Anxiety 07/29/23 09/14/23 Unknown History Exam Exam Date and Time: April 12, 2023 1219 Height,Weight and Vital Signs: Height 5 ft 2 in Weight 73.482 kg Last Vital Signs Pulse 77 04/12/23 11:48 Resp 18 04/12/23 11:48 BP 135/79 04/12/23 11:48 Pulse Ox 96 04/12/23 11:48 O2 Del Method Room Air 04/12/23 11:48 Narrative Narrative: Holter 11/2022 Conclusion: 1. Patient was monitored for total period of 6 days 2. Baseline was normal sinus rhythm with average heart of 82 beats per minute 3. No significant pauses or bradycardia noted 4. Rare PACs noted 5. No patient reported events Exercise Stress 11/2022 Protocol: VASQUEZ ? Max HR: 129 BPM? 83% of? Pred: 154 BPM Max BP: 140/080 mmHG Max Work Load: 7.6 METS ? Exercise stress test with exercise 6 min 27 sec of Vasquez protocol, achieving 83% ?MPHR, 7.6 METs, with mild sob, fatigue and left knee pain with request to stop, ?with isolated PAC, with normotensive response to exercise, without EKG changes ?meeting criteria for ischemia at acheived workload. Accuracy to assess for ?ischemia slightly decreased as she did not acheive 85% MPHR. Test reviewed with ?Dr Mariscal ECHO 11/2022 Conclusions: - 1. Normal LV systolic function with grade 1 diastolic? dysfunction? 2. Normal cardiac valvular Doppler ? 3. Normal RV systolic pressure ? 4. No gross pericardial effusion ?? Airway Mallampati Class: III TM Dist: >3cm Neck ROM: Full Partial: Upper (Doesn't wear) Loose/Missing/Broken Teeth: Yes (lower missing molars) Heart: RRR Lungs: CTAB Assessment and Plan Assessment Anesthesia Assessment: Anesthesia Plan Discussed, Smoking Cess. Discussed and PAT Visit Final Anesthetic Review Family History of Problems with Anesthesia: No History of Problems with Anesthesia: No Documented by User: Umer Mcdaniel MD 09/30/23 23:59 PMFSH Past Medical History Medical History Schizoaffective disorder, bipolar type Elevated cholesterol Arthritis History of abdominal hernia Primary osteoarthritis of left knee HTN (hypertension) Depression Chronic pain Functional capacity: independent ambulation Surgical History Surgical History Hx laparoscopic cholecystectomy (08/03/23) Hx of tonsillectomy History of carpal tunnel surgery H/O wrist surgery History of back surgery Hx of inguinal hernia surgery Social History Household Members: None Housing: House Are you a primary auto care center manager to a significant other at home: No Do you 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 have 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) Alcohol intake: never Patient Tobacco Use Status: Current everyday Tobacco user Smoking Start Date: 11/08/79 Tobacco use type: Cigarette Cigarettes Per Day: 5 Years Smoked: 50 Second Hand Smoke Exposure: No service: No Current occupational status: unemployed Meds Allergies Allergy/AdvReac Type Severity Reaction Status Date / Time cephalexin Allergy Unknown Swelling Verified 09/22/23 09:31 Cephalosporins Allergy Unknown SWELLING Verified 09/22/23 09:31 ciprofloxacin [CIPROFLOXACIN] Allergy Unknown SWELLING Verified 09/22/23 09:31 naproxen [NAPROXEN] Allergy Unknown BLISTERS Verified 09/22/23 09:31 IN MOUTH Home Medications Medication Instructions Recorded Confirmed Last Taken Type rosuvastatin 40 mg tablet 40 mg PO DAILY 10/21/21 08/10/23 07/29/23 History fluticasone propionate 50 1 - 2 spray intranasal DAILY PRN 03/31/22 08/10/23 Unknown History mcg/actuation nasal Nasal Congestion spray,suspension clonazepam 0.5 mg tablet 0.5 mg PO DAILY PRN Anxiety 07/29/23 09/14/23 Unknown History Assessment and Plan Assessment Anesthesia Assessment: Chart Reviewed Final Anesthetic Review NPO: Yes ASA Class: III Final Preanesthetic Review: Meds/Allgs Chart Reviewed, Consent Obtained/Reviewed and Anes Risks/Benef Reviewed Patient Risk: Intermediate Procedure Risk: Intermediate Anesthetic Plan Anesthetic Plan: Spinal, Regional Block and Agree w/ Assess. and Plan Disposition: Standard PACU
[2023-04-12 15:05] LABS: MRSA Nasal PCR NEGATIVE (Negative); SA Nasal PCR NEGATIVE (Negative)
[2023-04-20] VITALS (13 sets, daily range): BP systolic 84–118; BP diastolic 46–65; PULSE 61–88; RESP 16–18; TEMP 36–36.8; O2SAT 92–97
--- NOTE | ~2023-04-20 | XR_ITS ---
EXAMINATION: XR KNEE, LEFT CLINICAL INFORMATION: Left TKA COMPARISON: Left knee 01/15/2023 TECHNIQUE: Four views of the left knee. FINDINGS: There is a total left knee arthroplasty with prosthetic components in satisfactory alignment. Immediate postop surgical cabrera along the anterior skin and gas in the soft tissues is noted. XR/XR knee LT 2V IMPRESSION: Status post left total knee arthroplasty with prosthetic components in satisfactory alignment. Immediate postoperative changes seen.
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
--- OUTSIDE RECORDS SUMMARY | 2023-04-20 07:32 | XMS_ITS | Continuity of Care Document ---
Author Name Unknown Organization [facility] Address [address] [place] [address]- Care Team Providers Care Electronics Detail Draftsperson Name Role Phone Jose Wilson MD Primary Care Physician Encounter [facility] [place] Date(s): 01/04/23 - 02/03/23 [facility] [address] [place], [place] [address] Allergies, Adverse Reactions, Alerts Substance Reaction Severity Status ciprofloxacin swelling, itch Active naproxen 1 Cold sores Active cephalosporins itchy, rash Active 1has taken ibuprofen since Immunizations Given and Recorded Vaccine Date Status Refusal Reason influenza virus vaccine, inactivated 09/04/22 Herman rded influenza virus vaccine, inactivated 10/08/21 Herman rded influenza virus vaccine, inactivated 07/30/20 Herman rded influenza virus vaccine, inactivated 07/31/19 Herman rded influenza virus vaccine, inactivated 09/21/18 Herman rded influenza virus vaccine, inactivated 07/09/17 Herman rded influenza virus vaccine, inactivated 08/10/14 Herman rded influenza virus vaccine, inactivated 09/29/13 Herman rded pneumococcal 20-valent conjugate vaccine 1 05/14/22 Given SARS-CoV-2 mRNA ([id number]-geii-omoar) vax 12/03/21 Recorded SARS-CoV-2 (COVID-19) mRNA BNT-162b2 vac 03/13/21 Recorded SARS-CoV-2 (COVID-19) mRNA BNT-162b2 vac 02/20/21 Recorded Zoster Vaccine Live 11/18/17 Recorded tetanus/diphtheria/pertussis, acel(Tdap) 11/18/17 Recorded tetanus/diphtheria/pertussis, acel(Tdap) 03/24/12 Recorded tetanus/diphtheria/pertussis, acel(Tdap) 11/10/99 Recorded pneumococcal 23-valent vaccine 03/24/12 Recorded 1Result Comment: [id number] given w/out incident Medications cetirizine 10 mg [...] 3 Refills, Maintenance, 05/14/22 11:11:00 EDT, Tablet, [facility] #[id number], Partial fill upon patient request if the prescription is for a schedule II opioid drug., 159, cm, 05/14/22 10:56:00 EDT... Start Date: 05/14/22 Stop Date: 05/09/23 Status: Ordered gabapentin 100 mg oral capsule 100 mg, 1, capsule, By Mouth, Daily at bedtime, # 30 capsule, Refills 0, Tot. Refills 0, Maintenance, 01/29/23 15:48:00 EDT, Route to Pharmacy Electronically, [facility] #[id number], Partial fill upon patient request if the prescription is for a... Start Date: 01/29/23 Stop Date: 02/28/23 Status: Ordered hydrochlorothiazide 25 mg oral tablet 25 mg, 1, tablet, By Mouth, Daily in AM, # 90 tablet, Refills 3, Tot. Refills 3, Maintenance, 09/07/22 11:58:00 EDT, Route to Pharmacy Electronically, [facility] #[id number], Partial fill upon patient request if the prescription is for a schedule... Start Date: 09/07/22 Stop Date: 09/02/23 Status: Ordered lisinopril 40 mg oral tablet 1 tablet = 40 mg, By Mouth, Daily in AM, # 90 tablet, 3 Refills, Maintenance, 05/14/22 11:09:00 EDT, Tablet, [facility] #[id number], Partial fill upon patient request if the prescription is for a schedule II opioid drug., 159, cm, 05/14/22 10:56:... Start Date: 05/14/22 Stop Date: 05/09/23 Status: Ordered oxyCODONE 5 mg oral tablet 5 mg, 1, tablet, By Mouth, Every 12 hours, PRN, for 7 days, # 14 tablet, Refills 0, Tot. Refills 0,Acute 02/05/23 15:57:00 EDT, as needed for pain, 01/29/23 15:57:00 EDT, Route to Pharmacy Electronically, [facility] #[id number], Partial fill upo... Start Date: 01/29/23 Stop Date: 02/05/23 Status: Ordered traZODone 50 mg oral tablet 25 mg, 0.5, tablet, By Mouth, Daily at bedtime, # 15 tablet, Refills 5, Tot. Refills 5, Maintenance, 05/14/22 11:48:00 EDT, Route to Pharmacy Electronically, [facility] #[id number], Partial fillupon patient request if the prescription [...] IIopioid drug. Start Date: 05/14/22 Status: Ordered walker (standard) walker (standard), See Instructions, # 1 each, Refills 0, Tot. Refills 0, Maintenance, use daily for ambulation Dx: M17, 01/29/23 15:52:00 EDT, Supply Start Date: 01/29/23 Status: Ordered Problem List Condition Confirmation Course Effective Dates Status Health Status Informant Bilateral carpal tunnel syndrome Confirmed Active Centriacinar [...] Team Personnel Name: Lucía Jurado RN Position: [facility] AMB Nurse Member Role: Primary Care Nurse Name: Cherise Pang RN Position: [facility] RN Member Role: Primary Care Nurse Name: Abiel Roman RN Position: [facility] RN Member Role: Primary Care Nurse Name: Mona Saha RN Position: [facility] RN Member Role: Primary Care Nurse Name: Harmony Villalta Position: [facility] Outreach Member Role: Lifetime Consulting Physician Name: Jose Wilson MD Position: [facility] Primary Care Physician Member Role: PCP Address: Address: [address] [place] [address] Adult & [place] [address]- Care Team Related Persons Name: MADELAINE MAGALLANES Name: GAY MAGALLANES Address: home [address] [place] [address] Name: SABIHA MACKENZIE Address: home [address] [place] [address]
--- OUTSIDE RECORDS SUMMARY | 2023-04-20 07:32 | XMS_ITS | Continuity of Care Document ---
Author Name Unknown Organization [facility] Address [address] [place] [address]- Care Team Providers Care Central Services Tech Name Role Phone Roz Pearce MD, Marcus Primary Care Phys ician Encounter [facility] Date(s): 12/07/20 - 01/06/21 [facility] [address] [place] [id number]- Allergies, Adverse Reactions, Alerts Substance Reaction Severity Status ciprofloxacin swelling, itch Active cephalosporins itchy, rash Active Medications Crestor 20 mg oral tablet 1 tablet = 20 mg, By Mouth, Daily at bedtime, 0 Refills, Maintenance, 09/14/16 15:53:19 Start Date: 09/14/16 Status: Ordered docusate sodium 100 mg oral capsule 1 capsule = 100 mg, By Mouth, 2 times a day, # 60 capsule, 0 Refills, Maintenance, 09/19/15 15:15:35, Capsule Start Date: 09/19/15 Status: Ordered fosfomycin 3 gm oral powder for reconstitution 1 pack/packet = 3 Gm, By Mouth, Once, # 1 pack/packet, 0 Refills, Soft Stop, 10/04/16 17:36:26, Powder Start Date: 10/04/16 Status: Ordered fosfomycin 3 gm oral powder for reconstitution 1 pack/packet, By Mouth, Once, dissolve in water before taking, # 3 Gm, 0 Refills, Soft Stop, 10/04/16 17:36:27, REC Powder Start Date: 10/04/16 Status: Ordered Hydrochlorothiazide Tablet 25 mg, By Mouth, Daily in AM, Refills 0, Tot. Refills 0, 06/15/06 12:56:19 Start Date: 06/15/06 Status: Ordered lisinopril 40 mg oral tablet 1 tablet = 40 mg, By Mouth, Daily in AM, 0 Refills, Maintenance Start Date: 10/11/13 Status: Ordered Tylenol 8 Hour 650 mg oral tablet, extended release 2 tablet = 1,300 mg, By Mouth, Every 8 hours, 0 Refills, Maintenance, 07/12/20 7:46:00 EDT Start Date: 07/12/20 Status: Ordered Problem List Condition Effective Dates Status Health Status Inform ant Abdominal Pain, Unspecified Site(Confirmed) Active Closed compression fracture of L1 lumbar vertebra(Confirmed) Active Displacement of lumbar inter vertebral disc without myelopathy(Confirmed) Active External Iliac Artery Thrombosis(Confirmed) Active Social History Social History Type Response Smoking Status Current every day idris ruiz; Type: Cigarettes entered on: 02/20/15 Sex
--- OUTSIDE RECORDS SUMMARY | 2023-04-20 07:32 | XMS_ITS | Continuity of Care Document ---
Author Name Unknown Organization [facility] Address [address] [place] [address]- Care Team Providers Care Garment Alteration Examiner Name Role Phone Steve NIÑO, Jose Primary Care Physician Encounter [facility] Date(s): 09/09/22 - 10/09/22 [facility] [address] [place] [address]- Allergies, Adverse Reactions, Alerts Substance Reaction Severity [...] conjugate vaccine 1 05/14/22 Given SARS-CoV-2 mRNA (prlzrad-jsih-adcyn) vax 12/03/21 Recorded SARS-CoV-2 (COVID-19) mRNA BNT-162b2 vac 03/13/21 Recorded SARS-CoV-2 (COVID-19) mRNA BNT-162b2 vac 02/20/21 Recorded Zoster Vaccine Live 11/18/17 Recorded tetanus/diphtheria/pertussis, acel(Tdap) 11/18/17 Recorded tetanus/diphtheria/pertussis, acel(Tdap) 03/24/12 Recorded tetanus/diphtheria/pertussis, acel(Tdap) 11/10/99 Recorded pneumococcal 23-valent vaccine 03/24/12 Recorded 1Result Comment: [id number] given w/out incident Medications cetirizine 10 mg [...] 3 Refills, Maintenance, 05/14/22 11:11:00 EDT, Tablet, [facility] #[id number], Partial fill upon patient request if the prescription is for a schedule II opioid drug., cyndie Bhatt, 05/14/22 10:56:00 EDT... Start Date: 05/14/22 Stop Date: 05/09/23 Status: Ordered diclofenac sodium 75 mg oral delayed release tablet 1 tablet = 75 mg, By Mouth, 2 times a day, PRN as needed for arthritis, with food, # 60 tablet, 2 Refills, Maintenance, 10/08/22 11:16:00 EST, EC Tablet, [facility] #[id number], Partial fill upon patient request if the prescription is for a sched... Start Date: 10/08/22 Stop Date: 01/06/23 Status: Ordered hydrochlorothiazide 25 mg oral tablet 25 mg, 1, tablet, By Mouth, Daily in AM, # 90 tablet, Refills 3, Tot. Refills 3, Maintenance, 09/07/22 11:58:00 EDT, Route to Pharmacy Electronically, [facility] #[id number], Partial fill upon patient request if the prescription is for a schedule... Start Date: 09/07/22 Stop Date: 09/02/23 Status: Ordered lisinopril 40 mg oral tablet 1 tablet = 40 mg, By Mouth, Daily in AM, # 90 tablet, 3 Refills, Maintenance, 05/14/22 11:09:00 EDT, Tablet, [facility] #[id number], Partial fill upon patient request if the prescription is for a schedule II opioid drug., 159cyndie, 05/14/22 10:56:... Start Date: 05/14/22 Stop Date: 05/09/23 Status: Ordered traZODone 50 mg oral tablet 25 mg, 0.5, tablet, By Mouth, Daily at bedtime, # 15 tablet, Refills 5, Tot. Refills 5, Maintenance, 05/14/22 11:48:00 EDT, Route to Pharmacy Electronically, [facility] #[id number], Partial fillupon patient request if the prescription [...] Team Personnel Name: Lucía Jurado RN Position: [facility] AMB Nurse Member Role: Primary Care Nurse Name: Cherise Pang RN Position: [facility] RN Member Role: Primary Care Nurse Name: Abiel Roman RN Position: [facility] RN Member Role: Primary Care Nurse Name: Mona Saha RN Position: [facility] RN Member Role: Primary Care Nurse Name: Harmony Villalta Position: [facility] Outreach Member Role: Lifetime Consulting Physician Name: Jose Wilson MD Position: [facility] Primary Care Physician Member Role: PCP Address: Address: [address] [place] [address] Adult & [place] [address]- Care Team Related Persons Name: MADELAINE MAGALLANES Name: GAY MAGALLANES Address: home [address] [place] [address] Name: SABIHA MACKENZIE Address: [address] [place] [address]
--- OUTSIDE RECORDS SUMMARY | 2023-04-20 07:32 | XMS_ITS | Continuity of Care Document ---
Author Name Unknown Organization [facility] Address [address] [place] [address]- Care Team Providers Care Mechanics Handyman Name Role Phone Steve NIÑO, Jose Primary Care Physician Encounter [facility] Date(s): 09/30/22 - 10/30/22 [facility] [address] [place], [place] [address] Allergies, Adverse Reactions, Alerts Substance Reaction Severity [...] conjugate vaccine 1 05/14/22 Given SARS-CoV-2 mRNA (oweueid-elcw-odirx) vax 12/03/21 Recorded SARS-CoV-2 (COVID-19) mRNA BNT-162b2 vac 03/13/21 Recorded SARS-CoV-2 (COVID-19) mRNA BNT-162b2 vac 02/20/21 Recorded Zoster Vaccine Live 11/18/17 Recorded tetanus/diphtheria/pertussis, acel(Tdap) 11/18/17 Recorded tetanus/diphtheria/pertussis, acel(Tdap) 03/24/12 Recorded tetanus/diphtheria/pertussis, acel(Tdap) 11/10/99 Recorded pneumococcal 23-valent vaccine 03/24/12 Recorded 1Result Comment: [id number] given w/out incident Medications cetirizine 10 mg [...] 3 Refills, Maintenance, 05/14/22 11:11:00 EDT, Tablet, [facility] #[id number], Partial fill upon patient request if the [...] Refills, Maintenance, 10/08/22 11:16:00 EST, EC Tablet, [facility] #[id number], Partial fill upon patient request if the prescription is for a sched... Start Date: 10/08/22 Stop Date: 01/06/23 Status: Ordered hydrochlorothiazide 25 mg oral tablet 25 mg, 1, tablet, By Mouth, Daily in AM, # 90 tablet, Refills 3, Tot. Refills 3, Maintenance, 09/07/22 11:58:00 EDT, Route to Pharmacy Electronically, [facility] #[id number], Partial fill upon patient request if the prescription is for a schedule... Start Date: 09/07/22 Stop Date: 09/02/23 Status: Ordered lisinopril 40 mg oral tablet 1 tablet = 40 mg, By Mouth, Daily in AM, # 90 tablet, 3 Refills, Maintenance, 05/14/22 11:09:00 EDT, Tablet, [facility] #[id number], Partial fill upon patient request if the prescription is for a schedule II opioid drug., 159cyndie, 05/14/22 10:56:... Start Date: 05/14/22 Stop Date: 05/09/23 Status: Ordered traZODone 50 mg oral tablet 25 mg, 0.5, tablet, By Mouth, Daily at bedtime, # 15 tablet, Refills 5, Tot. Refills 5, Maintenance, 05/14/22 11:48:00 EDT, Route to Pharmacy Electronically, [facility] #[id number], Partial fillupon patient request if the prescription [...] Team Personnel Name: Lucía Jurado RN Position: [facility] AMB Nurse Member Role: Primary Care Nurse Name: Cherise Pang RN Position: [facility] RN Member Role: Primary Care Nurse Name: Abiel Roman RN Position: [facility] RN Member Role: Primary Care Nurse Name: Mona Saha RN Position: [facility] RN Member Role: Primary Care Nurse Name: Harmony Villalta Position: [facility] Outreach Member Role: Lifetime Consulting Physician Name: Jose Wilson MD Position: [facility] Primary Care Physician Member Role: PCP Address: Address: [address] [place] [address] Adult & [place] [address]- Care Team Related Persons Name: MADELAINE MAGALLANES Name: GAY MAGALLANES Address: [address] [place] [address] Name: SABIHA MACKENZIE Address: [address] [place] [address]
--- OUTSIDE RECORDS SUMMARY | 2023-04-20 07:32 | XMS_ITS | Continuity of Care Document ---
Author Name Unknown Organization [facility] Address [address] [place] [address]- Care Team Providers Care Take Away Man Name Role Phone Jose Wilson MD Primary Care Physician Encounter [place] Date(s): 10/08/22 - 10/15/22 [facility] [address] [place] [address]- Encounter Diagnosis Left knee pain(Discharge Diagnosis) - 10/08/22 Chronic low back pain(Discharge Diagnosis) - 10/08/22 Hypertension, essential(Discharge Diagnosis) - 10/08/22 Attending Physician: Jose Wilson MD Allergies, Adverse Reactions, Alerts Substance Reaction Severity [...] conjugate vaccine 1 05/14/22 Given SARS-CoV-2 mRNA ([id number]) vax 12/03/21 Recorded SARS-CoV-2 (COVID-19) mRNA BNT-162b2 vac 03/13/21 Recorded SARS-CoV-2 (COVID-19) mRNA BNT-162b2 vac 02/20/21 Recorded Zoster Vaccine Live 11/18/17 Recorded tetanus/diphtheria/pertussis, acel(Tdap) 11/18/17 Recorded tetanus/diphtheria/pertussis, acel(Tdap) 03/24/12 Recorded tetanus/diphtheria/pertussis, acel(Tdap) 11/10/99 Recorded pneumococcal 23-valent vaccine 03/24/12 Recorded 1Result Comment: [id number] given w/out incident Medications cetirizine 10 mg [...] 3 Refills, Maintenance, 05/14/22 11:11:00 EDT, Tablet, [facility] #[id number], Partial fill upon patient request if the [...] Refills, Maintenance, 10/08/22 11:16:00 EST, EC Tablet, [facility] #[id number], Partial fill upon patient request if the prescription is for a sched... Start Date: 10/08/22 Stop Date: 01/06/23 Status: Ordered hydrochlorothiazide 25 mg oral tablet 25 mg, 1, tablet, By Mouth, Daily in AM, # 90 tablet, Refills 3, Tot. Refills 3, Maintenance, 09/07/22 11:58:00 EDT, Route to Pharmacy Electronically, [facility] #[id number], Partial fill upon patient request if the prescription is for a schedule... Start Date: 09/07/22 Stop Date: 09/02/23 Status: Ordered lisinopril 40 mg oral tablet 1 tablet = 40 mg, By Mouth, Daily in AM, # 90 tablet, 3 Refills, Maintenance, 05/14/22 11:09:00 EDT, Tablet, [facility] #[id number], Partial fill upon patient request if the prescription is for a schedule II opioid drug., 159, cm, 05/14/22 10:56:... Start Date: 05/14/22 Stop Date: 05/09/23 Status: Ordered traZODone 50 mg oral tablet 25 mg, 0.5, tablet, By Mouth, Daily at bedtime, # 15 tablet, Refills 5, Tot. Refills 5, Maintenance, 05/14/22 11:48:00 EDT, Route to Pharmacy Electronically, [facility] #[id number], Partial fillupon patient request if the prescription [...] Tubular adenoma of colon Confirmed 09/21/18 Active Diagnosis Diagnosis Type Effective Dates Health Status Cl inical Service Informant Left knee pain Discharge Diagnosis 10/08/22 Chronic low back pain Discharge Diagnosis 10/08/22 Hypertension, essential Discharge Diagnosis 10/08/22 Vital Signs Most recent to oldest [Reference Range]: 1 2 Height 157 cm (10/08/22 11:21 AM) 157 cm (10/08/22 10:59 AM) Weight 73.1 kg (10/08/22 10:59 AM) Oxygen Saturation [94-100 %] 97 % (10/08/22 10:59 AM) Pulse Rate [55-90 bpm] 84 bpm (10/08/22 10:59 AM) Body Mass Index [18.5-24.99 kg/m2] 29.66 kg/m2 *H* (10/08/22 10:59 AM) Blood Pressure [90-138/55-84 mm Hg] 96/7 0mm Hg (10/08/22 11:21 AM) 122/74mm Hg (10/08/22 10:59 AM) Mode of Delivery (Oxygen) Room air (10/08/22 10:59 AM) Blood pressure sites Arm, left (10/08/22 11:21 AM) Arm, left (10/08/22 10:59 AM) Social History Social History Type Response Smoking Status 5-9 cigarettes (betw een 1/4 to 1/2 pack)/day in last 30 days entered on: 09/10/22 Sex Note * Janice Marks: PERFORM, SIGN, VERIFY Event Display: Patient Education/Instruction Authored Date: [facility] *[facility] Clinical Summary Name 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 Future Appointments ?No Future Appointments Scheduled Follow-Up Instructions ?? Diagnosis Medications: Please continue your medications until treatment is completed or stopped by your provider. Discuss any questions related to medications with your provider. New Medications [facility] #[id number], [address], [place] [phone], [phone] Diclofenac (diclofenac sodium 75 mg oral delayed release tablet) 1 tab(s) Oral twice a day as needed as needed for arthritis for 30 Days. with food. Refills: 2. Next Dose: Medications to Continue with No Changes These medications were not printed or sent to your pharmacy Acetaminophen (Tylenol 8 Hour 650 mg oral tablet, extended release) 2 tab(s) Oral every 8 hours. Next Dose: Ascorbic Acid (Vitamin C 1000 mg oral tablet) 1 tab(s) Oral Daily. Next Dose: Cetirizine (cetirizine 10 mg oral tablet) 1 tab(s) Oral Daily. Next Dose: Ergocalciferol (Vitamin D2) 1 tab(s) Oral Daily. Next Dose: Hydrochlorothiazide (hydrochlorothiazide 25 mg oral tablet) 1 tab(s) Oral Daily in the morning for 90 Days. Refills: 3. Next Dose: Lisinopril (lisinopril 40 mg oral tablet) 1 tab(s) Oral Daily in the morning for 90 Days. Refills: 3. Next Dose: Rosuvastatin (Crestor 40 mg oral tablet) 1 tab(s) Oral Daily for 90 Days. Refills: 3. Next Dose: Trazodone (traZODone 50 mg oral tablet) 0.5 tab(s) Oral Daily at Bedtime for 30 Days. Refills: 5. Next Dose: Vitamin E (vitamin E 200 iu oral capsule) 1 capsule Oral Daily. Next Dose: Allergy Info:?? cephalosporins; naproxen; ciprofloxacin Medications Given This Visit Future Orders ?No future orders Vital Signs Height 157 cm Weight 73.1 kg BMI 29.66 kg/m2 Blood Pressure 96 mm Hg/70 mm Hg Temperature Pulse Rate 84 bpm Respiratory Rate 02 Sat Mode of Delivery 97 %/Room air You can now view a summary of your hospital visit from the comfort of your home through a free online portal called [employer]. [employer] is a website that allows you to securely view your medical information including discharge summary, medications and follow-up visits. ??You can alsosend a secure electronic message to your doctor???s office to request appointments, renew medications or just ask a question. You can enroll at [email or web address] or register during your next office visit. Disclaimer:?? The information provided is of a general nature and is intended to be used in conjunction with the recommendations and advice of your health care practitioner. ??Every effort has been made to ensure that the information provided is accurate and complete at the time it is provided to you however, as your needs change, or, as new ??information becomes available, different or additional instructions may be required. If you have questions, please consult with your primary care provider or pharmacist, as appropriate. ??This information is not intended to serve as substitution for assessment and evaluation by a qualified health care provider. If you do not have a primary care provider, you may find a [facility] provider by calling [facility] [employer] at [phone]. For information about the plan of care including goals and instructions for your diagnosis, please see the patient education orders section of this document. Patient Education Materials?? The content of this educational material or handout may have been modified, supplemented, or adapted from its original content and format to support your individualized medical care. Additional Provider Instructions: 1. 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 2. ask them also about the Holter monitor also 3. may try using diclofenac 75mg twice a day as needed for back and joint pains 4. proceed with physical therapy. Patient Care team information Care Team Personnel Name: Lucía Jurado RN Position: [facility] Nurse Member Role: Primary Care Nurse Name: Cherise Pang RN Position: [facility] RN Member Role: Primary Care Nurse Name: Abiel Roman RN Position: [facility] RN Member Role: Primary Care Nurse Name: Mona Saha RN Position: [facility] RN Member Role: Primary Care Nurse Name: Harmony Villalta Position: [facility] Outreach Member Role: Lifetime Consulting Physician Name: Jose Wilson MD Position: [facility] Primary Care Physician Member Role: PCP Address: Address: [address] [place] [address] Adult [place] [address]- Care Team Related Persons Name: MADELAINE MAGALLANES Name: GAY MAGALLANES Address: home [address] [place] [address] Name: SABIHA MACKENZIE Address: home [address] [place] [address]
--- OUTSIDE RECORDS SUMMARY | 2023-04-20 07:32 | XMS_ITS | Continuity of Care Document ---
Author Name Unknown Organization [facility] Address [address] [place] [address]- Care Team Providers Care Manufacturing Operations Manager Name Role Phone Jose Wilson MD Primary Care Physician Encounter [facility] Date(s): 03/08/23 - 04/07/23 [facility] [address] [place], [place] [address] Attending Physician: AdmNew norton Admitting Physician: AdmtrNew Referring Physician: Admtr, Ar8 Allergies, Adverse Reactions, Alerts Substance Reaction Severity [...] conjugate vaccine 1 05/14/22 Given SARS-CoV-2 mRNA ([id number]) vax 12/03/21 Recorded SARS-CoV-2 (COVID-19) mRNA BNT-162b2 vac 03/13/21 Recorded SARS-CoV-2 (COVID-19) mRNA BNT-162b2 vac 02/20/21 Recorded Zoster Vaccine Live 11/18/17 Recorded tetanus/diphtheria/pertussis, acel(Tdap) 11/18/17 Recorded tetanus/diphtheria/pertussis, acel(Tdap) 03/24/12 Recorded tetanus/diphtheria/pertussis, acel(Tdap) 11/10/99 Recorded pneumococcal 23-valent vaccine 03/24/12 Recorded 1Result Comment: [id number] given w/out incident Medications cetirizine 10 mg [...] 3 Refills, Maintenance, 05/14/22 11:11:00 EDT, Tablet, [facility] #[id number], Partial fill upon patient request if the prescription is for a schedule II opioid drug., 159, cm, 05/14/22 10:56:00 EDT... Start Date: 05/14/22 Stop Date: 05/09/23 Status: Ordered gabapentin 100 mg oral capsule 100 mg, 1, capsule, By Mouth, Daily at bedtime, # 30 capsule, Refills 0, Tot. Refills 0, Maintenance, 01/29/23 15:48:00 EDT, Route to Pharmacy Electronically, [facility] #[id number], Partial fill upon patient request if the prescription is for a... Start Date: 01/29/23 Stop Date: 02/28/23 Status: Ordered hydrochlorothiazide 25 mg oral tablet 25 mg, 1, tablet, By Mouth, Daily in AM, # 90 tablet, Refills 3, Tot. Refills 3, Maintenance, 09/07/22 11:58:00 EDT, Route to Pharmacy Electronically, [facility] #[id number], Partial fill upon patient request if the prescription is for a schedule... Start Date: 09/07/22 Stop Date: 09/02/23 Status: Ordered lisinopril 40 mg oral tablet 1 tablet = 40 mg, By Mouth, Daily in AM, # 90 tablet, 3 Refills, Maintenance, 05/14/22 11:09:00 EDT, Tablet, [facility] #[id number], Partial fill upon patient request if the prescription is for a schedule II opioid drug., 159, cm, 05/14/22 10:56:... Start Date: 05/14/22 Stop Date: 05/09/23 Status: Ordered oxyCODONE 5 mg oral tablet 5 mg, 1, tablet, By Mouth, Every 12 hours, PRN, for 28 days, # 56 tablet, Refills 0, Tot. Refills 0, Acute 04/22/23 17:12:00 EDT, as needed for pain, 03/25/23 17:12:00 EDT, Route to Pharmacy Electronically, [facility] #[id number], Partial fill up... Start Date: 03/25/23 Stop Date: 04/22/23 Status: Ordered traZODone 50 mg oral tablet 25 mg, 0.5, tablet, By Mouth, Daily at bedtime, # 15 tablet, Refills 5, Tot. Refills 5, Maintenance, 05/14/22 11:48:00 EDT, Route to Pharmacy Electronically, [facility] #[id number], Partial fillupon patient request if the prescription [...] Multiple nodules of lung Confirmed 05/01/22 Active Primary localized osteoarthritis of left knee Confirmed Active Colonic polyp Confirmed Active Subclinical hyperthyroidism Confirmed 07/01/15 Active Tubular adenoma of colon Confirmed 09/21/18 Active Social History Social History Type Response Smoking Status 5-9 cigarettes (betw een 1/4 to 1/2 pack)/day in last 30 days entered on: 09/10/22 Sex Note * Event Display: Cardiology Office Note, Non- Authored Date: * Event Display: Cardiology Office Note, Non- Authored Date: Patient Care team information Care Team Personnel Name: Lucía Jurado RN Position: [facility] AM[facility] Nurse Member Role: Primary Care Nurse Name: Cherise Pang RN Position: [facility] RN Member Role: Primary Care Nurse Name: Abiel Roman RN Position: [facility] RN Member Role: Primary Care Nurse Name: Mona Saha RN Position: [facility] RN Member Role: Primary Care Nurse Name: Harmony Villalta Position: [facility] Outreach Member Role: Lifetime Consulting Physician Name: Jose Wilson MD Position: [facility] Physician - Primary Care Member Role: PCP Address: Address: [address] [place] [address] Adult & Pediatric Medicine [address] Care Team Related Persons Name: MADELAINE MAGALLANES Name: GAY MAGALLANES Address: [address] [place] [address] Name: SABIHA MACKENZIE Address: [address] [place] [address]
--- OUTSIDE RECORDS SUMMARY | 2023-04-20 07:32 | XMS_ITS | Continuity of Care Document ---
Author Name Unknown Organization [facility] Address [address] [place] [address]- Care Team Providers Care Assistant County Engineer Name Role Phone Steve NIÑO, Jose Primary Care Physician Encounter [facility] Date(s): 09/11/22 - 10/11/22 [facility] [address] [place] [address]- Allergies, Adverse Reactions, Alerts Substance Reaction Severity [...] conjugate vaccine 1 05/14/22 Given SARS-CoV-2 mRNA ([id number]) vax 12/03/21 Recorded SARS-CoV-2 (COVID-19) mRNA BNT-162b2 vac 03/13/21 Recorded SARS-CoV-2 (COVID-19) mRNA BNT-162b2 vac 02/20/21 Recorded Zoster Vaccine Live 11/18/17 Recorded tetanus/diphtheria/pertussis, acel(Tdap) 11/18/17 Recorded tetanus/diphtheria/pertussis, acel(Tdap) 03/24/12 Recorded tetanus/diphtheria/pertussis, acel(Tdap) 11/10/99 Recorded pneumococcal 23-valent vaccine 03/24/12 Recorded 1Result Comment: [id number] given w/out incident Medications cetirizine 10 mg [...] 3 Refills, Maintenance, 05/14/22 11:11:00 EDT, Tablet, [facility] #[id number], Partial fill upon patient request if the [...] Refills, Maintenance, 10/08/22 11:16:00 EST, EC Tablet, [facility] #[id number], Partial fill upon patient request if the prescription is for a sched... Start Date: 10/08/22 Stop Date: 01/06/23 Status: Ordered hydrochlorothiazide 25 mg oral tablet 25 mg, 1, tablet, By Mouth, Daily in AM, # 90 tablet, Refills 3, Tot. Refills 3, Maintenance, 09/07/22 11:58:00 EDT, Route to Pharmacy Electronically, [facility] #[id number], Partial fill upon patient request if the prescription is for a schedule... Start Date: 09/07/22 Stop Date: 09/02/23 Status: Ordered lisinopril 40 mg oral tablet 1 tablet = 40 mg, By Mouth, Daily in AM, # 90 tablet, 3 Refills, Maintenance, 05/14/22 11:09:00 EDT, Tablet, [facility] #[id number], Partial fill upon patient request if the prescription is for a schedule II opioid drug., 159cyndie, 05/14/22 10:56:... Start Date: 05/14/22 Stop Date: 05/09/23 Status: Ordered traZODone 50 mg oral tablet 25 mg, 0.5, tablet, By Mouth, Daily at bedtime, # 15 tablet, Refills 5, Tot. Refills 5, Maintenance, 05/14/22 11:48:00 EDT, [id number], Partial fillupon patient request if the prescription [...] Team Personnel Name: Lucía Jurado RN Position: [facility] Nurse Member Role: Primary Care Nurse Name: Cherise Pang RN Position: [facility] RN Member Role: Primary Care Nurse Name: Abiel Roman RN Position: [facility] RN Member Role: Primary Care Nurse Name: Mona Saha RN Position: [facility] RN Member Role: Primary Care Nurse Name: Harmony Villalta Position: [facility] Outreach Member Role: Lifetime Consulting Physician Name: Jose Wilson MD Position: [facility] Primary Care Physician Member Role: PCP Address: Address: [address] [place] [address] Adult & [place] [address]- Care Team Related Persons Name: MADELAINE MAGALLANES Name: GAY MAGALLANES Address: home [address] [place] [address] Name: SABIHA MACKENZIE Address: [address] [place] [address]
--- OUTSIDE RECORDS SUMMARY | 2023-04-20 07:32 | XMS_ITS | Continuity of Care Document ---
Author Name Unknown Organization [facility] Address [address] [place] [address]- Care Team Providers Care Rn Infusion Name Role Phone Steve NIÑO, Jose Primary Care Physician [place] [facility] [place]23 [facility] [address] [place], [place] [address] Allergies, Adverse Reactions, Alerts Substance Reaction [...] conjugate vaccine 1 05/14/22 Given SARS-CoV-2 mRNA ([id number]) vax 12/03/21 Recorded SARS-CoV-2 (COVID-19) mRNA BNT-162b2 vac 03/13/21 Recorded SARS-CoV-2 (COVID-19) mRNA BNT-162b2 vac 02/20/21 Recorded Zoster Vaccine Live 11/18/17 Recorded tetanus/diphtheria/pertussis, acel(Tdap) 11/18/17 Recorded tetanus/diphtheria/pertussis, acel(Tdap) 03/24/12 Recorded tetanus/diphtheria/pertussis, acel(Tdap) 11/10/99 Recorded pneumococcal 23-valent vaccine 03/24/12 Recorded 1Result Comment: [id number] given w/out incident Medications cetirizine 10 mg [...] 3 Refills, Maintenance, 05/14/22 11:11:00 EDT, Tablet, [facility] #[id number], Partial fill upon patient request if the prescription is for a schedule II opioid drug., 159, cm, 05/14/22 10:56:00 EDT... Start Date: 05/14/22 Stop Date: 05/09/23 Status: Ordered gabapentin 100 mg oral capsule 100 mg, 1, capsule, By Mouth, Daily at bedtime, # 30 capsule, Refills 0, Tot. Refills 0, Maintenance, 01/29/23 15:48:00 EDT, Route to Pharmacy Electronically, [facility] #[id number], Partial fill upon patient request if the prescription is for a... Start Date: 01/29/23 Stop Date: 02/28/23 Status: Ordered hydrochlorothiazide 25 mg oral tablet 25 mg, 1, tablet, By Mouth, Daily in AM, # 90 tablet, Refills 3, Tot. Refills 3, Maintenance, 09/07/22 11:58:00 EDT, Route to Pharmacy Electronically, [facility] #[id number], Partial fill upon patient request if the prescription is for a schedule... Start Date: 09/07/22 Stop Date: 09/02/23 Status: Ordered lisinopril 40 mg oral tablet 1 tablet = 40 mg, By Mouth, Daily in AM, # 90 tablet, 3 Refills, Maintenance, 05/14/22 11:09:00 EDT, Tablet, [facility] #[id number], Partial fill upon patient request if the [...] 03/25/23 17:12:00 EDT, Route to Pharmacy Electronically, [facility] #[id number], Partial fill up... Start Date: 03/25/23 Stop Date: 04/22/23 Status: Ordered traZODone 50 mg oral tablet 25 mg, 0.5, tablet, By Mouth, Daily at bedtime, # 15 tablet, Refills 5, Tot. Refills 5, Maintenance, 05/14/22 11:48:00 EDT, Route to Pharmacy Electronically, [facility] #[id number], Partial fillupon patient request if the prescription [...] Team Personnel Name: Lucía Jurado RN Position: [facility] AMB Nurse Member Role: Primary Care Nurse Name: Cherise Pang RN Position: [facility] RN Member Role: Primary Care Nurse Name: Abiel Roman RN Position: [facility] RN Member Role: Primary Care Nurse Name: Mona Saha RN Position: [facility] RN Member Role: Primary Care Nurse Name: Harmony Villalta Position: [facility] Outreach Member Role: Lifetime Consulting Physician Name: Jose Wilson MD Position: [facility] Physician - Primary Care Member Role: PCP Address: Address: [address] [place] [address] Adult & [place] [address]- Care Team Related Persons Name: MADELAINE MAGALLANES Name: GAY MAGALLANES Address: home [address] [place] [address] Name: SABIHA MACKENZIE Address: [address] [place] [address]
--- OUTSIDE RECORDS SUMMARY | 2023-04-20 07:32 | XMS_ITS | Continuity of Care Document ---
Author Name Unknown Organization [facility] Address [address] [place] [address]- Care Team Providers Care Events Associate Name Role Phone Steve NIÑO, Jose Primary Care Physician [place] [facility] [place]23 - 03/11/23 [facility] [address] [place], [place] [address] Allergies, Adverse Reactions, Alerts Substance [...] conjugate vaccine 1 05/14/22 Given SARS-CoV-2 mRNA ([id number]) vax 12/03/21 Recorded SARS-CoV-2 (COVID-19) mRNA BNT-162b2 vac 03/13/21 Recorded SARS-CoV-2 (COVID-19) mRNA BNT-162b2 vac 02/20/21 Recorded Zoster Vaccine Live 11/18/17 Recorded tetanus/diphtheria/pertussis, acel(Tdap) 11/18/17 Recorded tetanus/diphtheria/pertussis, acel(Tdap) 03/24/12 Recorded tetanus/diphtheria/pertussis, acel(Tdap) 11/10/99 Recorded pneumococcal 23-valent vaccine 03/24/12 Recorded 1Result Comment: [id number] given w/out incident Medications cetirizine 10 mg [...] 3 Refills, Maintenance, 05/14/22 11:11:00 EDT, Tablet, [facility] #[id number], Partial fill upon patient request if the prescription is for a schedule II opioid drug., 159, cm, 05/14/22 10:56:00 EDT... Start Date: 05/14/22 Stop Date: 05/09/23 Status: Ordered gabapentin 100 mg oral capsule 100 mg, 1, capsule, By Mouth, Daily at bedtime, # 30 capsule, Refills 0, Tot. Refills 0, Maintenance, 01/29/23 15:48:00 EDT, Route to Pharmacy Electronically, [facility] #[id number], Partial fill upon patient request if the prescription is for a... Start Date: 01/29/23 Stop Date: 02/28/23 Status: Ordered hydrochlorothiazide 25 mg oral tablet 25 mg, 1, tablet, By Mouth, Daily in AM, # 90 tablet, Refills 3, Tot. Refills 3, Maintenance, 09/07/22 11:58:00 EDT, Route to Pharmacy Electronically, [facility] #[id number], Partial fill upon patient request if the prescription is for a schedule... Start Date: 09/07/22 Stop Date: 09/02/23 Status: Ordered lisinopril 40 mg oral tablet 1 tablet = 40 mg, By Mouth, Daily in AM, # 90 tablet, 3 Refills, Maintenance, 05/14/22 11:09:00 EDT, Tablet, [facility] #[id number], Partial fill upon patient request if the prescription is for a schedule II opioid drug., 159, cm, 05/14/22 10:56:... Start Date: 05/14/22 Stop Date: 05/09/23 Status: Ordered oxyCODONE 5 mg oral tablet 5 mg, 1, tablet, By Mouth, Every 12 hours, PRN, for 28 days, # 56 tablet, Refills 0, Tot. Refills 0, Acute 03/25/23 12:54:00 EDT, as needed for pain, 02/25/23 12:54:00 EDT, Route to Pharmacy Electronically, [facility] #[id number], Partial fill up... Start Date: 02/25/23 Stop Date: 03/25/23 Status: Ordered traZODone 50 mg oral tablet 25 mg, 0.5, tablet, By Mouth, Daily at bedtime, # 15 tablet, Refills 5, Tot. Refills 5, Maintenance, 05/14/22 11:48:00 EDT, Route to Pharmacy Electronically, [facility] #[id number], Partial fillupon patient request if the prescription [...] Team Personnel Name: Lucía Jurado RN Position: [facility] AMB Nurse Member Role: Primary Care Nurse Name: Cherise Pang RN Position: [facility] RN Member Role: Primary Care Nurse Name: Abiel Roman RN Position: [facility] RN Member Role: Primary Care Nurse Name: Mona Saha RN Position: [facility] RN Member Role: Primary Care Nurse Name: Harmony Villalta Position: [facility] Outreach Member Role: Lifetime Consulting Physician Name: Jose Wilson MD Position: [facility] Primary Care Physician Member Role: PCP Address: Address: [address] [place] [address] Adult & [place] [address]- Care Team Related Persons Name: MADELAINE MAGALLANES Name: GAY MAGALLANES Address: home [address] [place] [address] Name: SABIHA MACKENZIE Address: [address] [place] [address]
--- OUTSIDE RECORDS SUMMARY | 2023-04-20 07:32 | XMS_ITS | Continuity of Care Document ---
Author Name Unknown Organization [facility] Address [address] [place] [address]- Care Team Providers Care [facility] Name Role Phone Roz Pearce MD, Marcus Primary Care Phys [facility] En[place] [facility] [place]s): 07/12/20 - 08/11/20 [facility] [address] [place] [address] [facility] Attending Physician: Admerrol, New Admitting Physician: Admtr, New Referring Physician: Admtr, Ar8 Allergies, Adverse Reactions, [...]
--- OUTSIDE RECORDS SUMMARY | 2023-04-20 07:32 | XMS_ITS | Continuity of Care Document ---
Author Name Unknown Organization [facility] Address [address] [place] [address]- Care Team Providers Care Overlock Sleeve Setter Name Role Phone Steve NIÑO, Jose Primary Care Physician Encounter [facility] Date(s): 09/11/22 - 10/11/22 [facility] [address] [place] [address]- Allergies, Adverse Reactions, Alerts Substance Reaction Severity [...] conjugate vaccine 1 05/14/22 Given SARS-CoV-2 mRNA ([id number]) vax 12/03/21 Recorded SARS-CoV-2 (COVID-19) mRNA BNT-162b2 vac 03/13/21 Recorded SARS-CoV-2 (COVID-19) mRNA BNT-162b2 vac 02/20/21 Recorded Zoster Vaccine Live 11/18/17 Recorded tetanus/diphtheria/pertussis, acel(Tdap) 11/18/17 Recorded tetanus/diphtheria/pertussis, acel(Tdap) 03/24/12 Recorded tetanus/diphtheria/pertussis, acel(Tdap) 11/10/99 Recorded pneumococcal 23-valent vaccine 03/24/12 Recorded 1Result Comment: [id number] given w/out incident Medications cetirizine 10 mg [...] 3 Refills, Maintenance, 05/14/22 11:11:00 EDT, Tablet, [facility] #[id number], Partial fill upon patient request if the [...] Refills, Maintenance, 10/08/22 11:16:00 EST, EC Tablet, [facility] #[id number], Partial fill upon patient request if the prescription is for a sched... Start Date: 10/08/22 Stop Date: 01/06/23 Status: Ordered hydrochlorothiazide 25 mg oral tablet 25 mg, 1, tablet, By Mouth, Daily in AM, # 90 tablet, Refills 3, Tot. Refills 3, Maintenance, 09/07/22 11:58:00 EDT, Route to Pharmacy Electronically, [facility] #[id number], Partial fill upon patient request if the prescription is for a schedule... Start Date: 09/07/22 Stop Date: 09/02/23 Status: Ordered lisinopril 40 mg oral tablet 1 tablet = 40 mg, By Mouth, Daily in AM, # 90 tablet, 3 Refills, Maintenance, 05/14/22 11:09:00 EDT, Tablet, [facility] #[id number], Partial fill upon patient request if the prescription is for a schedule II opioid drug., 159cyndie, 05/14/22 10:56:... Start Date: 05/14/22 Stop Date: 05/09/23 Status: Ordered traZODone 50 mg oral tablet 25 mg, 0.5, tablet, By Mouth, Daily at bedtime, # 15 tablet, Refills 5, Tot. Refills 5, Maintenance, 05/14/22 11:48:00 EDT, [facility] to [id number], Partial fillupon patient request if the prescription [...] Team Personnel Name: Lucía Jurado RN Position: [facility] Nurse Member Role: Primary Care Nurse Name: Cherise Pang RN Position: [facility] RN Member Role: Primary Care Nurse Name: Abiel Roman RN Position: [facility] RN Member Role: Primary Care Nurse Name: Mona Saha RN Position: [facility] RN Member Role: Primary Care Nurse Name: Harmony Villalta Position: [facility] Outreach Member Role: Lifetime Consulting Physician Name: Jose Wilson MD Position: [facility] Primary Care Physician Member Role: PCP Address: Address: [address] [place] [address] Adult & [place] [address]- Care Team Related Persons Name: MADELAINE MAGALLANES Name: GAY MAGALLANES Address: home [address] [place] [address] Name: SABIHA MACKENZIE Address: home [address] [place] [address]
--- OUTSIDE RECORDS SUMMARY | 2023-04-20 07:32 | XMS_ITS | Continuity of Care Document ---
Author Name Unknown Organization [facility] Address [address] [place] [address]- Care Team Providers Care Punch Card Operator Name Role Phone Jose Wilson MD Primary Care Physician En[place] [facility] [place] Date(s): 01/04/23 - 02/03/23 [facility] [address] [place], [place] [address] Allergies, Adverse Reactions, Alerts Substance Reaction Severity [...] conjugate vaccine 1 05/14/22 Given SARS-CoV-2 mRNA ([id number]) vax 12/03/21 Recorded SARS-CoV-2 (COVID-19) mRNA BNT-162b2 vac 03/13/21 Recorded SARS-CoV-2 (COVID-19) mRNA BNT-162b2 vac 02/20/21 Recorded Zoster Vaccine Live 11/18/17 Recorded tetanus/diphtheria/pertussis, acel(Tdap) 11/18/17 Recorded tetanus/diphtheria/pertussis, acel(Tdap) 03/24/12 Recorded tetanus/diphtheria/pertussis, acel(Tdap) 11/10/99 Recorded pneumococcal 23-valent vaccine 03/24/12 Recorded 1Result Comment: [id number] given w/out incident Medications cetirizine 10 mg [...] 3 Refills, Maintenance, 05/14/22 11:11:00 EDT, Tablet, [facility] #[id number], Partial fill upon patient request if the prescription is for a schedule II opioid drug., 159, cm, 05/14/22 10:56:00 EDT... Start Date: 05/14/22 Stop Date: 05/09/23 Status: Ordered gabapentin 100 mg oral capsule 100 mg, 1, capsule, By Mouth, Daily at bedtime, # 30 capsule, Refills 0, Tot. Refills 0, Maintenance, 01/29/23 15:48:00 EDT, Route to Pharmacy Electronically, [facility] #[id number], Partial fill upon patient request if the prescription is for a... Start Date: 01/29/23 Stop Date: 02/28/23 Status: Ordered hydrochlorothiazide 25 mg oral tablet 25 mg, 1, tablet, By Mouth, Daily in AM, # 90 tablet, Refills 3, Tot. Refills 3, Maintenance, 09/07/22 11:58:00 EDT, Route to Pharmacy Electronically, [facility] #[id number], Partial fill upon patient request if the prescription is for a schedule... Start Date: 09/07/22 Stop Date: 09/02/23 Status: Ordered lisinopril 40 mg oral tablet 1 tablet = 40 mg, By Mouth, Daily in AM, # 90 tablet, 3 Refills, Maintenance, 05/14/22 11:09:00 EDT, Tablet, [facility] #[id number], Partial fill upon patient request if the [...] 01/29/23 15:57:00 EDT, Route to Pharmacy Electronically, [facility] #[id number], Partial fill upo... Start Date: 01/29/23 Stop Date: 02/05/23 Status: Ordered traZODone 50 mg oral tablet 25 mg, 0.5, tablet, By Mouth, Daily at bedtime, # 15 tablet, Refills 5, Tot. Refills 5, Maintenance, 05/14/22 11:48:00 EDT, Route to Pharmacy Electronically, [facility] #[id number], Partial fillupon patient request if the prescription [...] Team Personnel Name: Lucía Jurado RN Position: [facility] AMB Nurse Member Role: Primary Care Nurse Name: Cherise Pang RN Position: [facility] RN Member Role: Primary Care Nurse Name: Abiel Roman RN Position: [facility] RN Member Role: Primary Care Nurse Name: Mona Saha RN Position: [facility] RN Member Role: Primary Care Nurse Name: Harmony Villalta Position: [facility] Outreach Member Role: Lifetime Consulting Physician Name: Jose Wilson MD Position: [facility] Primary Care Physician Member Role: PCP Address: Address: [address] [place] [address] Adult & [place] [address]- Care Team Related Persons Name: MADELAINE MAGALLANES Name: GAY MAGALLANES Address: home [address] [place] [address] Name: SABIHA MACKENZIE Address: [address] [place] [address]
--- OUTSIDE RECORDS SUMMARY | 2023-04-20 07:32 | XMS_ITS | Continuity of Care Document ---
Author Name Unknown Organization [facility] Address [address] [place] [address]- Care Team Providers Care Employment Recruiter Name Role Phone Jose Wilson MD Primary Care Physician Encounter [facility] [place] Date(s): 01/29/23 - 02/28/23 [facility] [address] [place], [place] [address] Attending Physician: [place] Admitting Physician: Admtr, New Referring Physician: Admtr, [...] conjugate vaccine 1 05/14/22 Given SARS-CoV-2 mRNA ([id number]-[id number]) vax 12/03/21 Recorded SARS-CoV-2 (COVID-19) mRNA BNT-162b2 vac 03/13/21 Recorded SARS-CoV-2 (COVID-19) mRNA BNT-162b2 vac 02/20/21 Recorded Zoster Vaccine Live 11/18/17 Recorded tetanus/diphtheria/pertussis, acel(Tdap) 11/18/17 Recorded tetanus/diphtheria/pertussis, acel(Tdap) 03/24/12 Recorded tetanus/diphtheria/pertussis, acel(Tdap) 11/10/99 Recorded pneumococcal 23-valent vaccine 03/24/12 Recorded 1Result Comment: [id number] given w/out incident Medications cetirizine 10 mg [...] 3 Refills, Maintenance, 05/14/22 11:11:00 EDT, Tablet, [facility] #[id number], Partial fill upon patient request if the prescription is for a schedule II opioid drug., 159, cm, 05/14/22 10:56:00 EDT... Start Date: 05/14/22 Stop Date: 05/09/23 Status: Ordered gabapentin 100 mg oral capsule 100 mg, 1, capsule, By Mouth, Daily at bedtime, # 30 capsule, Refills 0, Tot. Refills 0, Maintenance, 01/29/23 15:48:00 EDT, Route to Pharmacy Electronically, [facility] #[id number], Partial fill upon patient request if the prescription is for a... Start Date: 01/29/23 Stop Date: 02/28/23 Status: Ordered hydrochlorothiazide 25 mg oral tablet 25 mg, 1, tablet, By Mouth, Daily in AM, # 90 tablet, Refills 3, Tot. Refills 3, Maintenance, 09/07/22 11:58:00 EDT, Route to Pharmacy Electronically, [facility] #[id number], Partial fill upon patient request if the prescription is for a schedule... Start Date: 09/07/22 Stop Date: 09/02/23 Status: Ordered lisinopril 40 mg oral tablet 1 tablet = 40 mg, By Mouth, Daily in AM, # 90 tablet, 3 Refills, Maintenance, 05/14/22 11:09:00 EDT, Tablet, [facility] #[id number], Partial fill upon patient request if the [...] 02/25/23 12:54:00 EDT, Route to Pharmacy Electronically, [facility] #[id number], Partial fill up... Start Date: 02/25/23 Stop Date: 03/25/23 Status: Ordered traZODone 50 mg oral tablet 25 mg, 0.5, tablet, By Mouth, Daily at bedtime, # 15 tablet, Refills 5, Tot. Refills 5, Maintenance, 05/14/22 11:48:00 EDT, Route to Pharmacy Electronically, [facility] #[id number], Partial fillupon patient request if the prescription [...] Care Physician Member Role: PCP Address: Address: [address] [place] [address] Adult [facility] Pediatric Medicine [address] Care Team Related Persons Name: MADELAINE MAGALLANES Name: GAY MAGALLANES Address: home [address] [place] [address] Name: SABIHA MACKENZIE Address: home [address] [place] [address]
--- OUTSIDE RECORDS SUMMARY | 2023-04-20 07:32 | XMS_ITS | Continuity of Care Document ---
Author Name Unknown Organization [facility] Address [address] [place] [address]- Care Team Providers Care Center Hole Reamer Name Role Phone Steve NIÑO, Jose Primary Care Physician [place] [facility] [place](s): 03/08/23 - 04/07/23 [facility] [address] [place], [place] [address] Allergies, Adverse Reactions, Alerts Substance Reaction Severity [...] conjugate vaccine 1 05/14/22 Given SARS-CoV-2 mRNA ([id number]-[id number]) vax 12/03/21 Recorded SARS-CoV-2 (COVID-19) mRNA BNT-162b2 vac 03/13/21 Recorded SARS-CoV-2 (COVID-19) mRNA BNT-162b2 vac 02/20/21 Recorded Zoster Vaccine Live 11/18/17 Recorded tetanus/diphtheria/pertussis, acel(Tdap) 11/18/17 Recorded tetanus/diphtheria/pertussis, acel(Tdap) 03/24/12 Recorded tetanus/diphtheria/pertussis, acel(Tdap) 11/10/99 Recorded pneumococcal 23-valent vaccine 03/24/12 Recorded 1Result Comment: [id number] given w/out incident Medications cetirizine 10 mg [...] 3 Refills, Maintenance, 05/14/22 11:11:00 EDT, Tablet, [facility] #[id number], Partial fill upon patient request if the prescription is for a schedule II opioid drug., 159, cm, 05/14/22 10:56:00 EDT... Start Date: 05/14/22 Stop Date: 05/09/23 Status: Ordered gabapentin 100 mg oral capsule 100 mg, 1, capsule, By Mouth, Daily at bedtime, # 30 capsule, Refills 0, Tot. Refills 0, Maintenance, 01/29/23 15:48:00 EDT, Route to Pharmacy Electronically, [facility] #[id number], Partial fill upon patient request if the prescription is for a... Start Date: 01/29/23 Stop Date: 02/28/23 Status: Ordered hydrochlorothiazide 25 mg oral tablet 25 mg, 1, tablet, By Mouth, Daily in AM, # 90 tablet, Refills 3, Tot. Refills 3, Maintenance, 09/07/22 11:58:00 EDT, Route to Pharmacy Electronically, [facility] #[id number], Partial fill upon patient request if the prescription is for a schedule... Start Date: 09/07/22 Stop Date: 09/02/23 Status: Ordered lisinopril 40 mg oral tablet 1 tablet = 40 mg, By Mouth, Daily in AM, # 90 tablet, 3 Refills, Maintenance, 05/14/22 11:09:00 EDT, Tablet, [facility] #[id number], Partial fill upon patient request if the [...] 03/25/23 17:12:00 EDT, Route to Pharmacy Electronically, [facility] #[id number], Partial fill up... Start Date: 03/25/23 Stop Date: 04/22/23 Status: Ordered traZODone 50 mg oral tablet 25 mg, 0.5, tablet, By Mouth, Daily at bedtime, # 15 tablet, Refills 5, Tot. Refills 5, Maintenance, 05/14/22 11:48:00 EDT, Route to Pharmacy Electronically, [facility] #[id number], Partial fillupon patient request if the prescription [...] Team Personnel Name: Lucía Jurado RN Position: [facility] AMB Nurse Member Role: Primary Care Nurse Name: Cherise Pang RN Position: [facility] RN Member Role: Primary Care Nurse Name: Abiel Roman RN Position: [facility] RN Member Role: Primary Care Nurse Name: Mona Saha RN Position: [facility] RN Member Role: Primary Care Nurse Name: Harmony Villalta Position: [facility] Outreach Member Role: Lifetime Consulting Physician Name: Jose Wilson MD Position: [facility] Physician - Primary Care Member Role: PCP Address: Address: [address] [place] [address] Adult & [place] [address]- Care Team Related Persons Name: MADELAINE MAGALLANES Name: GAY MGAALLANES Address: home [address] [place] [address] Name: SABIHA MACKENZIE Address: [address] [place] [address]
--- OUTSIDE RECORDS SUMMARY | 2023-04-20 07:32 | XMS_ITS | Continuity of Care Document ---
Author Name Unknown Organization [facility] Address [address] [place] [address]- Care Team Providers Care Nurse Paralegal Name Role Phone Steve NIÑO, Jose Primary Care Physician Encounter [facility] Date(s): 09/09/22 - 10/09/22 [facility] [address] [place] [address]- Allergies, Adverse Reactions, Alerts Substance Reaction Severity [...] conjugate vaccine 1 05/14/22 Given SARS-CoV-2 mRNA ([id number]) vax 12/03/21 Recorded SARS-CoV-2 (COVID-19) mRNA BNT-162b2 vac 03/13/21 Recorded SARS-CoV-2 (COVID-19) mRNA BNT-162b2 vac 02/20/21 Recorded Zoster Vaccine Live 11/18/17 Recorded tetanus/diphtheria/pertussis, acel(Tdap) 11/18/17 Recorded tetanus/diphtheria/pertussis, acel(Tdap) 03/24/12 Recorded tetanus/diphtheria/pertussis, acel(Tdap) 11/10/99 Recorded pneumococcal 23-valent vaccine 03/24/12 Recorded 1Result Comment: [id number] given w/out incident Medications cetirizine 10 mg [...] 3 Refills, Maintenance, 05/14/22 11:11:00 EDT, Tablet, [facility][id number], Partial fill upon patient request if the [...] Refills, Maintenance, 10/08/22 11:16:00 EST, EC Tablet, [facility] #[id number], Partial fill upon patient request if the prescription is for a sched... Start Date: 10/08/22 Stop Date: 01/06/23 Status: Ordered hydrochlorothiazide 25 mg oral tablet 25 mg, 1, tablet, By Mouth, Daily in AM, # 90 tablet, Refills 3, Tot. Refills 3, Maintenance, 09/07/22 11:58:00 EDT, Route to Pharmacy Electronically, [facility] #[id number], Partial fill upon patient request if the prescription is for a schedule... Start Date: 09/07/22 Stop Date: 09/02/23 Status: Ordered lisinopril 40 mg oral tablet 1 tablet = 40 mg, By Mouth, Daily in AM, # 90 tablet, 3 Refills, Maintenance, 05/14/22 11:09:00 EDT, Tablet, [facility] #[id number], Partial fill upon patient request if the prescription is for a schedule II opioid drug., 159cyndie, 05/14/22 10:56:... Start Date: 05/14/22 Stop Date: 05/09/23 Status: Ordered traZODone 50 mg oral tablet 25 mg, 0.5, tablet, By Mouth, Daily at bedtime, # 15 tablet, Refills 5, Tot. Refills 5, Maintenance, 05/14/22 11:48:00 EDT, [id number], Partial fillupon patient request if the prescription [...] Team Personnel Name: Lucía Jurado RN Position: [facility] Nurse Member Role: Primary Care Nurse Name: Cherise Pang RN Position: [facility] RN Member Role: Primary Care Nurse Name: Abiel Roman RN Position: [facility] RN Member Role: Primary Care Nurse Name: Mona Saha RN Position: [facility] RN Member Role: Primary Care Nurse Name: Harmony Villalta Position: [facility] Outreach Member Role: Lifetime Consulting Physician Name: Jose Wilson MD Position: [facility] Primary Care Physician Member Role: PCP Address: Address: [address] [place] [address] Adult [place] [address]- Care Team Related Persons Name: MADELAINE MAGALLANES Name: GAY MAGALLANES Address: [address] [place] [address] Name: SABIHA MACKENZIE Address: [address] [place] [address]
--- OUTSIDE RECORDS SUMMARY | 2023-04-20 07:32 | XMS_ITS | Continuity of Care Document ---
Author Name Unknown Organization [facility] Address [address] [place] [address]- Care Team Providers Care Senior Tableau Developer Name Role Phone Jose Wilson MD [id number]): [facility]10[facility] - 09/17/22 [facility] [address] [place], [place] [address] Encounter Diagnosis Chronic sinusitis(Discharge Diagnosis) - 09/10/22 Attending Physician: Jose Wilson MD Allergies, Adverse Reactions, Alerts Substance Reaction Severity Status ciprofloxacin swelling, itch Active naproxen 1 Cold sores Active cephalosporins itchy, rash Active 1has taken ibuprofen since Immunizations Given and Recorded Vaccine Date Status Refusal Reason pneumococcal 20-valent conjugate vaccine 1 05/14/22 Given SARS-CoV-2 mRNA ([id number]-upye-[id number]) vax 12/03/21 Recorded influenza virus vaccine, inactivated [...] pneumococcal 23-valent vaccine 03/24/12 Recorded 1Result Comment: [id number] given w/out incident Medications cetirizine 10 mg [...] 3 Refills, Maintenance, 05/14/22 11:11:00 EDT, Tablet, [facility][id number], Partial fill upon patient request if the prescription is for a schedule II opioid drug., 159, cm, 05/14/22 10:56:00 EDT... Start Date: 05/14/22 Stop Date: 05/09/23 Status: Ordered Diflucan 150 mg oral tablet 1 tablet = 150 mg, By Mouth, Once, # 1 tablet, 0 Refills, Soft Stop, 09/04/22 11:14:00 EDT, Tablet,[facility] #[id number], Partial fill upon patient request if the prescription is for a schedule II opioid drug., 159, cm, 09/04/22 10:41:00 EDT, H... Start Date: 09/04/22 Status: Ordered doxycycline hyclate 100 mg oral capsule 1 capsule = 100 mg, By Mouth, 2 times a day, for 10 days, with fluids may take with food to minimize abdominal discomfort, # 20 capsule, 0 Refills, Acute 09/20/22 11:52:00 EST, 09/10/22 11:52:00 EDT,Capsule, [facility] #[id number], Partial fill... Start Date: 09/10/22 Stop Date: 09/20/22 Status: Ordered hydrochlorothiazide 25 mg oral tablet 25 mg, 1, tablet, By Mouth, Daily in AM, # 90 tablet, Refills 3, Tot. Refills 3, Maintenance, 09/07/22 11:58:00 EDT, Route to Pharmacy Electronically, [facility] #[id number], Partial fill upon patient request if the prescription is for a schedule... Start Date: 09/07/22 Stop Date: 09/02/23 Status: Ordered lisinopril 40 mg oral tablet 1 tablet = 40 mg, By Mouth, Daily in AM, # 90 tablet, 3 Refills, Maintenance, 05/14/22 11:09:00 EDT, Tablet, [facility][id number], Partial fill upon patient request if the prescription is for a schedule II opioid drug., 159, cm, 05/14/22 10:56:... Start Date: 05/14/22 Stop Date: 05/09/23 Status: Ordered nystatin topical 591229 u/gm powder 1 application, Topically, 2 times a day, for 30 days, apply to affected area, # 15 Gm, 0 Refills, Acute 10/04/22 11:13:00 EST, 09/04/22 11:13:00 EDT, Powder, [facility] #[id number], Partial fillupon patient request if the prescription is for a s... Start Date: 09/04/22 Stop Date: 10/04/22 Status: Ordered traZODone 50 mg oral tablet 25 mg, 0.5, tablet, By Mouth, Daily at bedtime, # 15 tablet, Refills 5, Tot. Refills 5, Maintenance, 05/14/22 11:48:00 EDT, Route to Pharmacy Electronically, [facility] #[id number], Partial fillupon patient request if the prescription [...] Dates Health Status Cl inical Service Informant Chronic sinusitis Discharge Diagnosis 09/10/22 Vital Signs Most recent to oldest [Reference Range]: 1 2 Height 157 cm (09/10/22 11:29 AM) 157 cm (09/10/22 11:13 AM) Weight 72.9 kg (09/10/22 11:13 AM) Oxygen Saturation [94-100 %] 96 % (09/10/22 11:13 AM) Pulse Rate [55-90 bpm] 83 bpm (09/10/22 11:13 AM) Body Mass Index [18.5-24.99 kg/m2] 29.58 kg/m2 *H* (09/10/22 11:13 AM) Blood Pressure [90-138/55-84 mm Hg] 108/ 65mm Hg (09/10/22 11:29 AM) 90/64mm Hg (09/10/22 11:13 AM) Mode of Delivery (Oxygen) Room air (09/10/22 11:13 AM) Blood pressure sites Arm, left (09/10/22 11:13 AM) Weight Obtained Via Standing scale (09/10/22 11:13 AM) Social History Social History Type Response Smoking Status 5-9 cigarettes (betw een 1/4 to 1/2 pack)/day in last 30 days entered on: 09/10/22 Sex Patient Care team information Care Team Personnel Name: Lucía Jurado RN Position: [facility] AM[facility] Nurse Member Role: Primary Care Nurse Name: Cherise Pang RN Position: [facility] RN Member Role: Primary Care Nurse Name: Abiel Roman RN Position: [facility] RN Member Role: Primary Care Nurse Name: Mona Saha RN Position: [facility] RN Member Role: Primary Care Nurse Name: Harmony Villalta Position: [facility] Outreach Member Role: Lifetime Consulting Physician Name: Jose Wilson MD Position: [facility] Primary Care Physician Member Role: PCP Address: Address: [address] [place] [address] Adult [facility] [place] [address]- [place] Care Team Related Persons Name: MADELAINE MAGALLANES Name: GAY MAGALLANES Address: home [address] [place] [address] Name: SABIHA MACKENZIE Address: home [address] [place] [address]
--- OUTSIDE RECORDS SUMMARY | 2023-04-20 07:32 | XMS_ITS | Continuity of Care Document ---
Author Name Unknown Organization [facility] Address [address] [place] [address]- Care Team Providers Care Practice Or Student Teacher Name Role Phone Jose Wilson MD Primary Care Physician Encounter [facility] Date(s): 05/14/22 - 05/21/22 [facility] [address] [place] [address]- Encounter Diagnosis Centriacinar emphysema(Discharge Diagnosis) - 05/14/22 History of hand surgery, both extensor thumb tendons(Discharge Diagnosis) - 05/14/22 History of lumbar discectomy(Discharge Diagnosis) - 05/14/22 Subclinical hyperthyroidism(Discharge Diagnosis) - 05/14/22 Attending Physician: Jose Wilson MD Allergies, Adverse Reactions, Alerts Substance Reaction Severity Status ciprofloxacin swelling, itch Active naproxen 1 Cold sores Active cephalosporins itchy, rash Active 1has taken ibuprofen since Immunizations Given and Recorded Vaccine Date Status Refusal Reason pneumococcal 20-valent conjugate vaccine 1 05/14/22 Given SARS-CoV-2 mRNA ([id number]-ybmy-irhkp) vax 12/03/21 Recorded influenza virus vaccine, inactivated [...] pneumococcal 23-valent vaccine 03/24/12 Recorded 1Result Comment: [id number] given w/out incident Medications Crestor 40 mg oral tablet 1 tablet = 40 mg, By Mouth, Daily, # 90 tablet, 3 Refills, Maintenance, 05/14/22 11:11:00 EDT, Tablet, [facility] #[id number], Partial fill upon patient request if the prescription is for a schedule II opioid drug., 159, cm, 05/14/22 10:56:00 EDT... Start Date: 05/14/22 Stop Date: 05/09/23 Status: Ordered hydrochlorothiazide 25 mg oral tablet 25 mg, 1, tablet, By Mouth, Daily in AM, # 90 tablet, Refills 3, Tot. Refills 3, Maintenance, 05/14/22 11:12:00 EDT, Route to Pharmacy Electronically, [facility] #[id number], Partial fill upon patient request if the prescription is for a schedule... Start Date: 05/14/22 Stop Date: 05/09/23 Status: Ordered lisinopril 40 mg oral tablet 1 tablet = 40 mg, By Mouth, Daily in AM, # 90 tablet, 3 Refills, Maintenance, 05/14/22 11:09:00 EDT, Tablet, [facility] #[id number], Partial fill upon patient request if the prescription is for a schedule II opioid drug., 159, cm, 05/14/22 10:56:... Start Date: 05/14/22 Stop Date: 05/09/23 Status: Ordered traZODone 50 mg oral tablet 50 mg, 1, tablet, By Mouth, Daily at bedtime, # 30 tablet, Refills 5, Tot. Refills 5, Maintenance, 05/14/22 11:48:00 EDT, Route to Pharmacy Electronically, [facility] #[id number], Partial fill upon patient request if the [...] Active Tubular adenoma of colon(Confirmed) 09/21/18 Active Diagnosis Diagnosis Type Effective Dates Health Status Clinical Service Informant Centriacinar emphysema Discharge Diagnosis 05/14/22 History of hand surgery, both extensor thumb tendons Discharge Diagnosis 05/14/22 History of lumbar discectomy Discharge Diagnosis 05/14/22 Subclinical hyperthyroidism Discharge Diagnosis 05/14/22 Vital Signs Most recent to oldest [Reference Range]: 1 2 Height 159 cm (05/14/22 11:43 AM) 159 cm (05/14/22 10:56 AM) Weight 73.1 kg (05/14/22 10:56 AM) Oxygen Saturation [94-100 %] 97 % (05/14/22 10:56 AM) Pulse Rate [55-90 bpm] 98 bpm *H* (05/14/22 10:56 AM) Body Mass Index [18.5-24.99] 28.91 *H* (05/14/22 10:56 AM) Blood Pressure [90-138/55-84 mm Hg] 120/ 64mm Hg (05/14/22 11:43 AM) 126/76mm Hg (05/14/22 10:56 AM) Mode of Delivery (Oxygen) Room air (05/14/22 10:56 AM) Blood pressure sites Arm, right (05/14/22 10:56 AM) Weight Obtained Via Standing scale (05/14/22 10:56 AM) Social History Social History Type Response Smoking Status Current every day idris ruiz; Type: Cigarettes entered on: 02/20/15 Sex
--- OUTSIDE RECORDS SUMMARY | 2023-04-20 07:32 | XMS_ITS | Continuity of Care Document ---
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 Vital Signs Most recent to oldest [Reference Range]: 1 2 3 Height 159 cm (09/09/20 8:48 AM) Oxygen Saturation [94-100 %] 95 % (09/09/20 10:08 AM) 95 % (09/09/20 10:03 AM) 96 % (09/09/20 9:58 AM) Pulse Rate [55-90 bpm] 73 bpm (09/09/20 8:48 AM) Blood Pressure [90-138/55-84 mm Hg] 93/66mm Hg (09/09/20 10:08 AM) 87/63mm Hg *L* (09/09/20 10:03 AM) 88/60mm Hg *L* (09/09/20 9:58 AM) Respiratory Rate [16-30 br/min] 20 br/min (09/09/20 10:08 AM) 20 br/min (09/09/20 10:03 AM) 18 br/min (09/09/20 9:58 AM) Temperature [96.8-100.4 DegF] 98.1 DegF (09/09/20 8:48 AM) Mode of Delivery (Oxygen) Room air (09/09/20 10:03 AM) Room air (09/09/20 9:58 AM) Simple face mask (09/09/20 9:53 AM) Blood pressure sites Arm, left (09/09/20 10:08 AM) Arm, left (09/09/20 10:03 AM) Arm, left (09/09/20 9:58 AM) Temperature Route Temporal (09/09/20 8:48 AM) Dry Weight 73.9 kg (09/09/20 8:48 AM) Dry Weight Obtained Via Patient/family s tated (09/09/20 8:48 AM) Social History Social History Type Response Smoking Status Current every day idris ruiz; Type: Cigarettes entered on: 02/20/15 Sex
--- OUTSIDE RECORDS SUMMARY | 2023-04-20 07:32 | XMS_ITS | Continuity of Care Document ---
Author Name Unknown Organization [facility] Address [address] [place] [address]- Care Team Providers Care Mail Forwarding System Markup Clerk Name Role Phone Jose Wilson MD Primary Care Physician Encounter [facility] Date(s): 09/04/22 - 09/11/22 [facility] [address] [place], [place] [address] Encounter Diagnosis Insomnia(Discharge Diagnosis) - 09/04/22 Subclinical hyperthyroidism(Discharge Diagnosis) - 09/04/22 Hypercholesterolemia(Discharge Diagnosis) - 09/04/22 Hyperglycemia(Discharge Diagnosis) - 09/04/22 Centriacinar emphysema(Discharge Diagnosis) - 09/04/22 Depression, major, single episode, moderate(Discharge Diagnosis) - 09/04/22 Attending Physician: Jose Wilson MD Allergies, Adverse Reactions, Alerts Substance Reaction Severity Status ciprofloxacin swelling, itch Active naproxen 1 Cold sores Active cephalosporins itchy, rash Active 1has taken ibuprofen since Immunizations Given and Recorded Vaccine Date Status Refusal Reason pneumococcal 20-valent conjugate vaccine 1 05/14/22 Given SARS-CoV-2 mRNA (jorxekx-efqw-kotue) vax 12/03/21 Recorded influenza virus vaccine, inactivated [...] pneumococcal 23-valent vaccine 03/24/12 Recorded 1Result Comment: [id number] given w/out incident Medications cetirizine 10 mg [...] 3 Refills, Maintenance, 05/14/22 11:11:00 EDT, Tablet, [facility] #[id number], Partial fill upon patient request if the prescription is for a schedule II opioid drug., 159, cm, 05/14/22 10:56:00 EDT... Start Date: 05/14/22 Stop Date: 05/09/23 Status: Ordered Diflucan 150 mg oral tablet 1 tablet = 150 mg, By Mouth, Once, # 1 tablet, 0 Refills, Soft Stop, 09/04/22 11:14:00 EDT, Tablet,[facility] #[id number], Partial fill upon patient request if the [...] Acute 09/20/22 11:52:00 EST, 09/10/22 11:52:00 EDT,Capsule, [facility] #[id number], Partial fill... Start Date: 09/10/22 Stop Date: 09/20/22 Status: Ordered hydrochlorothiazide 25 mg oral tablet 25 mg, 1, tablet, By Mouth, Daily in AM, # 90 tablet, Refills 3, Tot. Refills 3, Maintenance, 09/07/22 11:58:00 EDT, Route to Pharmacy Electronically, [facility] #[id number], Partial fill upon patient request if the prescription is for a schedule... Start Date: 09/07/22 Stop Date: 09/02/23 Status: Ordered lisinopril 40 mg oral tablet 1 tablet = 40 mg, By Mouth, Daily in AM, # 90 tablet, 3 Refills, Maintenance, 05/14/22 11:09:00 EDT, Tablet, [facility] #[id number], Partial fill upon patient request if the prescription is for a schedule II opioid drug., 159, cm, 05/14/22 10:56:... Start Date: 05/14/22 Stop Date: 05/09/23 Status: Ordered nystatin topical 779854 u/gm powder 1 application, Topically, 2 times a day, for 30 days, apply to affected area, # 15 Gm, 0 Refills, Acute 10/04/22 11:13:00 EST, 09/04/22 11:13:00 EDT, Powder, [facility] #[id number], Partial fillupon patient request if the prescription is for a s... Start Date: 09/04/22 Stop Date: 10/04/22 Status: Ordered traZODone 50 mg oral tablet 25 mg, 0.5, tablet, By Mouth, Daily at bedtime, # 15 tablet, Refills 5, Tot. Refills 5, Maintenance, 05/14/22 11:48:00 EDT, Route to Pharmacy Electronically, [facility] #[id number], Partial fillupon patient request if the prescription [...] Effective Dates Health Status Clinical Service Informant Insomnia Discharge Diagnosis 09/04/22 Subclinical hyperthyroidism Discharge Diagnosis 09/04/22 Hypercholesterolemia Discharge Diagnosis 09/04/22 Hyperglycemia Discharge Diagnosis 09/04/22 Centriacinar emphysema Discharge Diagnosis 09/04/22 Depression, major, single episode, moderate Discharge Diagnosis 09/04/22 Vital Signs Most recent to oldest [Reference Range]: 1 2 Height 159 cm (09/04/22 11:19 AM) 159 cm (09/04/22 10:41 AM) Weight 72.7 kg (09/04/22 10:41 AM) Oxygen Saturation [94-100 %] 98 % (09/04/22 10:41 AM) Pulse Rate [55-90 bpm] 94 bpm *H* (09/04/22 10:41 AM) Body Mass Index [18.5-24.99 kg/m2] 28.76 kg/m2 *H* (09/04/22 10:41 AM) Blood Pressure [90-138/55-84 mm Hg] 105/ 64mm Hg (09/04/22 11:19 AM) 132/82mm Hg (09/04/22 10:41 AM) Mode of Delivery (Oxygen) Room air (09/04/22 10:41 AM) Blood pressure sites Arm, left (09/04/22 10:41 AM) Social History Social History Type Response Smoking Status 5-9 cigarettes (betw een 1/4 to 1/2 pack)/day in last 30 days entered on: 09/10/22 Sex Patient Care team information Personnel Name: Jose Wilson MD Address: Address: [address] [place] [address] Adult & Pediatric [place], [place] [address]
--- OUTSIDE RECORDS SUMMARY | 2023-04-20 07:32 | XMS_ITS | Continuity of Care Document ---
Author Name Unknown Organization [facility] Address [address] [place] [address]- Care Team Providers Care End Finder Twisting Department Name Role Phone Roz Pearce MD, Marcus [facility] Date(s): 05/21/20 - 06/20/20 [facility] [address] [address]- [facility] Attending Physician: [place] Admitting Physician: AdmtrNew Referring Physician: Admtr, [id number] [...] Refills, Maintenance Start Date: 10/11/13 Status: Ordered Problem List Condition Effective Dates [...]
--- OUTSIDE RECORDS SUMMARY | 2023-04-20 07:32 | XMS_ITS | Continuity of Care Document ---
Author Name Unknown Organization [facility] Address [address] [place] [address]- Care Team Providers Care Shirrer Name Role Phone Steve NIÑO, Jose Primary Care Physician Encounter [facility] Date(s): 09/09/22 - 10/09/22 [facility] [address] [place], [place] [address] Allergies, Adverse Reactions, Alerts Substance Reaction [...] conjugate vaccine 1 05/14/22 Given SARS-CoV-2 mRNA (ewyarei-qjww-zlatv) vax 12/03/21 Recorded SARS-CoV-2 (COVID-19) mRNA BNT-162b2 vac 03/13/21 Recorded SARS-CoV-2 (COVID-19) mRNA BNT-162b2 vac 02/20/21 Recorded Zoster Vaccine Live 11/18/17 Recorded tetanus/diphtheria/pertussis, acel(Tdap) 11/18/17 Recorded tetanus/diphtheria/pertussis, acel(Tdap) 03/24/12 Recorded tetanus/diphtheria/pertussis, acel(Tdap) 11/10/99 Recorded pneumococcal 23-valent vaccine 03/24/12 Recorded 1Result Comment: [id number] given w/out incident Medications cetirizine 10 mg [...] 3 Refills, Maintenance, 05/14/22 11:11:00 EDT, Tablet, [facility] #[id number], Partial fill upon patient request if the [...] Refills, Maintenance, 10/08/22 11:16:00 EST, EC Tablet, [facility] #[id number], Partial fill upon patient request if the prescription is for a sched... Start Date: 10/08/22 Stop Date: 01/06/23 Status: Ordered hydrochlorothiazide 25 mg oral tablet 25 mg, 1, tablet, By Mouth, Daily in AM, # 90 tablet, Refills 3, Tot. Refills 3, Maintenance, 09/07/22 11:58:00 EDT, Route to Pharmacy Electronically, [facility] #[id number], Partial fill upon patient request if the prescription is for a schedule... Start Date: 09/07/22 Stop Date: 09/02/23 Status: Ordered lisinopril 40 mg oral tablet 1 tablet = 40 mg, By Mouth, Daily in AM, # 90 tablet, 3 Refills, Maintenance, 05/14/22 11:09:00 EDT, Tablet, [facility] #[id number], Partial fill upon patient request if the prescription is for a schedule II opioid drug., 159cyndie, 05/14/22 10:56:... Start Date: 05/14/22 Stop Date: 05/09/23 Status: Ordered traZODone 50 mg oral tablet 25 mg, 0.5, tablet, By Mouth, Daily at bedtime, # 15 tablet, Refills 5, Tot. Refills 5, Maintenance, 05/14/22 11:48:00 EDT, Route to Pharmacy Electronically, [facility] #[id number], Partial fillupon patient request if the prescription [...] Team Personnel Name: Lucía Jurado RN Position: [facility] Nurse Member Role: Primary Care Nurse Name: Cherise Pang RN Position: [facility] RN Member Role: Primary Care Nurse Name: Abiel Roman RN Position: [facility] RN Member Role: Primary Care Nurse Name: Mona Saha RN Position: [facility] RN Member Role: Primary Care Nurse Name: Harmony Villalta Position: [facility] Outreach Member Role: Lifetime Consulting Physician Name: Jose Wilson MD Position: [facility] Primary Care Physician Member Role: PCP Address: Address: [address] [place] [address] Adult & [place] [address]- Care Team Related Persons Name: MADELAINE MAGALLANES Name: GAY MAGALLANES Address: home [address] [place] [address] Name: SABIHA MACKENZIE Address: home [address] [place] [address]
--- OUTSIDE RECORDS SUMMARY | 2023-04-20 07:32 | XMS_ITS | Continuity of Care Document ---
Author Name Unknown Organization [facility] Address [address] [place] [address]- Care Team Providers Care Predatory Hunter Name Role Phone Steve NIÑO, Jose Primary Care Physician [place] [facility] [place] 02/25/23 - 03/27/23 [facility] [address] [place], [place] [address] Allergies, Adverse Reactions, Alerts Substance [...] conjugate vaccine 1 05/14/22 Given SARS-CoV-2 mRNA (mmmkbvn-ckup-xdhvj) vax 12/03/21 Recorded SARS-CoV-2 (COVID-19) mRNA BNT-162b2 vac 03/13/21 Recorded SARS-CoV-2 (COVID-19) mRNA BNT-162b2 vac 02/20/21 Recorded Zoster Vaccine Live 11/18/17 Recorded tetanus/diphtheria/pertussis, acel(Tdap) 11/18/17 Recorded tetanus/diphtheria/pertussis, acel(Tdap) 03/24/12 Recorded tetanus/diphtheria/pertussis, acel(Tdap) 11/10/99 Recorded pneumococcal 23-valent vaccine 03/24/12 Recorded 1Result Comment: [id number] given w/out incident Medications cetirizine 10 mg [...] 3 Refills, Maintenance, 05/14/22 11:11:00 EDT, Tablet, [facility] #[id number], Partial fill upon patient request if the prescription is for a schedule II opioid drug., 159, cm, 05/14/22 10:56:00 EDT... Start Date: 05/14/22 Stop Date: 05/09/23 Status: Ordered gabapentin 100 mg oral capsule 100 mg, 1, capsule, By Mouth, Daily at bedtime, # 30 capsule, Refills 0, Tot. Refills 0, Maintenance, 01/29/23 15:48:00 EDT, Route to Pharmacy Electronically, [facility] #[id number], Partial fill upon patient request if the prescription is for a... Start Date: 01/29/23 Stop Date: 02/28/23 Status: Ordered hydrochlorothiazide 25 mg oral tablet 25 mg, 1, tablet, By Mouth, Daily in AM, # 90 tablet, Refills 3, Tot. Refills 3, Maintenance, 09/07/22 11:58:00 EDT, Route to Pharmacy Electronically, [facility] #[id number], Partial fill upon patient request if the prescription is for a schedule... Start Date: 09/07/22 Stop Date: 09/02/23 Status: Ordered lisinopril 40 mg oral tablet 1 tablet = 40 mg, By Mouth, Daily in AM, # 90 tablet, 3 Refills, Maintenance, 05/14/22 11:09:00 EDT, Tablet, [facility] #[id number], Partial fill upon patient request if the [...] 03/25/23 17:12:00 EDT, Route to Pharmacy Electronically, [facility] #[id number], Partial fill up... Start Date: 03/25/23 Stop Date: 04/22/23 Status: Ordered traZODone 50 mg oral tablet 25 mg, 0.5, tablet, By Mouth, Daily at bedtime, # 15 tablet, Refills 5, Tot. Refills 5, Maintenance, 05/14/22 11:48:00 EDT, Route to Pharmacy Electronically, [facility] #[id number], Partial fillupon patient request if the prescription [...] Team Personnel Name: Lucía Jurado RN Position: [facility] Nurse Member Role: Primary Care Nurse Name: Cherise Pang RN Position: [facility] RN Member Role: Primary Care Nurse Name: Abiel Roman RN Position: [facility] RN Member Role: Primary Care Nurse Name: Mona Saha RN Position: [facility] RN Member Role: Primary Care Nurse Name: Harmony Villalta Position: [facility] Outreach Member Role: Lifetime Consulting Physician Name: Jose Wilson MD Position: [facility] Primary Care Physician Member Role: PCP Address: Address: [address] [place] [address] Adult & [place] [address]- Care Team Related Persons Name: MADELAINE MAGALLANES Name: GAY MAGALLANES Address: home [address] [place] [address] Name: SABIHA MACKENZIE Address: [address] [place] [address]
--- OUTSIDE RECORDS SUMMARY | 2023-04-20 07:32 | XMS_ITS | Continuity of Care Document ---
Author Name Unknown Organization [facility] Address [address] [place] [address]- Care Team Providers Care Flare Maker Name Role Phone Jose Wilson MD Primary Care Physician [place] [facility] [place] 03/08/23 - 03/15/23 [facility] [address] [place], [place] [address] Encounter Diagnosis Constipation(Discharge Diagnosis) - 03/08/23 Tubular adenoma of colon(Discharge Diagnosis) - 03/08/23 Attending Physician: Jose Wilson MD Allergies, Adverse [...] conjugate vaccine 1 05/14/22 Given SARS-CoV-2 mRNA ([id number]) vax 12/03/21 Recorded SARS-CoV-2 (COVID-19) mRNA BNT-162b2 vac 03/13/21 Recorded SARS-CoV-2 (COVID-19) mRNA BNT-162b2 vac 02/20/21 Recorded Zoster Vaccine Live 11/18/17 Recorded tetanus/diphtheria/pertussis, acel(Tdap) 11/18/17 Recorded tetanus/diphtheria/pertussis, acel(Tdap) 03/24/12 Recorded tetanus/diphtheria/pertussis, acel(Tdap) 11/10/99 Recorded pneumococcal 23-valent vaccine 03/24/12 Recorded 1Result Comment: [id number] given w/out incident Medications cetirizine 10 mg [...] 3 Refills, Maintenance, 05/14/22 11:11:00 EDT, Tablet, [id number], Partial fill upon patient request if the prescription is for a schedule II opioid drug., 159, cm, 05/14/22 10:56:00 EDT... Start Date: 05/14/22 Stop Date: 05/09/23 Status: Ordered gabapentin 100 mg oral capsule 100 mg, 1, capsule, By Mouth, Daily at bedtime, # 30 capsule, Refills 0, Tot. Refills 0, Maintenance, 01/29/23 15:48:00 EDT, Route to Pharmacy Electronically, [id number], Partial fill upon patient request if the prescription is for a... Start Date: 01/29/23 Stop Date: 02/28/23 Status: Ordered hydrochlorothiazide 25 mg oral tablet 25 mg, 1, tablet, By Mouth, Daily in AM, # 90 tablet, Refills 3, Tot. Refills 3, Maintenance, 09/07/22 11:58:00 EDT, Route to Pharmacy Electronically, [facility] #[id number], Partial fill upon patient request if the prescription is for a schedule... Start Date: 09/07/22 Stop Date: 09/02/23 Status: Ordered lisinopril 40 mg oral tablet 1 tablet = 40 mg, By Mouth, Daily in AM, # 90 tablet, 3 Refills, Maintenance, 05/14/22 11:09:00 EDT, Tablet, [facility] #[id number], Partial fill upon patient request if the [...] 02/25/23 12:54:00 EDT, Route to Pharmacy Electronically, [facility] #[id number], Partial fill up... Start Date: 02/25/23 Stop Date: 03/25/23 Status: Ordered traZODone 50 mg oral tablet 25 mg, 0.5, tablet, By Mouth, Daily at bedtime, # 15 tablet, Refills 5, Tot. Refills 5, Maintenance, 05/14/22 11:48:00 EDT, Route to Pharmacy Electronically, [facility] #[id number], Partial fillupon patient request if the prescription [...] Effective Dates Health Status Clinical Service Informant Constipation Discharge Diagnosis 03/08/23 Tubular adenoma of colon Discharge Diagnosis 03/08/23 Vital Signs Most recent to oldest [Reference Range]: 1 Height 157 cm (03/08/23 9:53 AM) Weight 72.7 kg (03/08/23 9:53 AM) Oxygen Saturation [94-100 %] 98 % (03/08/23 9:53 AM) Pulse Rate [55-90 bpm] 95 bpm *H* (03/08/23 9:53 AM) Body Mass Index [18.5-24.99 kg/m2] 29.49 kg/m2 *H* (03/08/23 9:53 AM) Blood Pressure [90-138/55-84 mm Hg] 122/ 64mm Hg (03/08/23 9:53 AM) Mode of Delivery (Oxygen) Room air (03/08/23 9:53 AM) Blood pressure sites Arm, left (03/08/23 9:53 AM) Social History Social History Type Response Smoking Status 5-9 cigarettes (betw een 1/4 to 1/2 pack)/day in last 30 days entered on: 09/10/22 Sex Note * Lesli Moss: PERFORM, SIGN, VERIFY Event Display: Patient Education/Instruction Authored Date: [id number] [facility] *[facility] 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 Visit Date 03/08/2023 09:40:00 Patient Instructions 1. please stop smoking already. Get the OTC Nicotine patch 21mg patch and use it daily for one weekthen lower to the nicotine 14mg patch daily for 3 weeks. ??Then wean further down to 7mg patch thereafter. 2. may get a right foot X-ray today to evaluate if you fractured your 5th toe. 3. please see a field care advocate since it has been 3 years since and because you have your RLQ abdominal pain. 4. will arrange for US of your abdomen to see the integrity of your right inguinal hernia repair with mesh. 5. repeat fasting lab work 1 week prior to your next visit with me.?? 6. you still need your colonoscopy, so please reach out to your save all operator because of your constipation. 7. use OTC MiraLAX daily with your prune juice. Additional Instructions: Scheduled Appointments?? Future Appointments ?*[facility] ?[address]??[place],??[place],??[address] ?Phone:??--?Fax:??-- ?Appt. Date:??04/13/2023?11:00 AM ?Scheduled Provider:??Jose Wilson MD Follow-Up Instructions ?? 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 Discuss any questions related to medications with your provider. Medications to Continue with No Changes These medications were not printed or sent to your pharmacy Acetaminophen (Tylenol 8 Hour 650 mg oral tablet, extended release) 2 tab(s) Oral every 8 hours. Next Dose: Ascorbic Acid (Vitamin C 1000 mg oral tablet) 1 tab(s) Oral Daily. Next Dose: Cetirizine (cetirizine 10 mg oral tablet) 1 tab(s) Oral Daily. Next Dose: Durable Medical Equipment (walker (standard)) use daily for ambulation Dx: M17. Refills: 0. Next Dose: Ergocalciferol (Vitamin D2) 1 tab(s) Oral Daily. Next Dose: Gabapentin (gabapentin 100 mg oral capsule) 1 capsule Oral Daily at Bedtime for 30 Days. Refills: 0. Next Dose: Hydrochlorothiazide (hydrochlorothiazide 25 mg oral tablet) 1 tab(s) Oral Daily in the morning for 90 Days. Refills: 3. Next Dose: Lisinopril (lisinopril 40 mg oral tablet) 1 tab(s) Oral Daily in the morning for 90 Days. Refills: 3. Next Dose: Oxycodone (oxyCODONE 5 mg oral tablet) 1 tab(s) Oral every 12 hours as needed as needed for pain for 28 Days. Refills: 0. Next Dose: Rosuvastatin (Crestor 40 mg oral tablet) 1 tab(s) Oral Daily for 90 Days. Refills: 3. Next Dose: Trazodone (traZODone 50 mg oral tablet) 0.5 tab(s) Oral Daily at Bedtime for 30 Days. Refills: 5. Next Dose: Vitamin E (vitamin E 200 iu oral capsule) 1 capsule Oral Daily. Next Dose: Allergy Info:?? cephalosporins; naproxen; ciprofloxacin Medications Given This Visit Future Orders ?Foot Min 3 Views Right? Order Date:03/08/23?- Complete on or after?03/08/23 ?Lipid Panel? Order Date:03/08/23?- Complete on or after?03/08/23 ?ALT? Order Date:03/08/23?- Complete on or after?03/08/23 ?AST? Order Date:03/08/23?- Complete on or after?03/08/23 ?CBC w/ Differential? Order Date:03/08/23?- Complete on or after?03/08/23 ?Basic Metabolic Panel? Order Date:03/08/23?- Complete on or after?03/08/23 ?Hemoglobin A1C (Monitoring)? Order Date:03/08/23?- Complete on or after?03/08/23 ?US Abdomen Comp? Order Date:03/08/23?- Complete on or after?03/08/23 Vital Signs Height 157 cm Weight 72.7 kg BMI 29.49 kg/m2 Blood Pressure 122 mm Hg/64 mm Hg Temperature Pulse Rate 95 bpm Respiratory Rate 02 Sat Mode of Delivery 98 %/Room air You can now view a summary of your hospital visit from the comfort of your home through a free online portal called [employer]. [employer] is a website that allows you to securely view your medical information including discharge summary, medications and follow-up visits. ??You can alsosend a secure electronic message to your doctor???s office to request appointments, renew medications or just ask a question. You can enroll at [email or web address] or register during your next office visit. [...] primary care provider, you may find a [facility] provider by calling [facility] at [phone]. For information about the plan of care including goals and instructions for your diagnosis, please see the patient education orders section of this document. Patient Education Materials?? The content of this educational material or handout may have been modified, supplemented, or adapted from its original content and format to support your individualized medical care. How to Quit Smoking Smoking is one of the hardest habits to break. About half of all??people who have ever smoked have been able to quit. Most people??who still smoke want to quit. Here are some of the best ways to stopsmoking. Keep trying It takes most smokers about eight tries before they can quit entirely. It???s important not to giveup. Go cold turkey Most??former smokers quit cold turkey (all at once). Trying to cut back gradually doesn't seem to work as well, perhaps because it continues the smoking habit. Also, it is possible to inhale more while smoking fewer cigarettes. This results in the same amount of nicotine in your body! Get support Support programs can be a big help, especially for heavy smokers. These groups offer lectures, waysto change behavior, and peer support. Here are some ways to find a support program: ??? Free national quitline: 852-ZZKG-HFO (876-393-3183). ??? Hospital quit-smoking programs. ??? [place] [employer] Association: (538.198.4099). ??? [employer] (495-028-6406). Support at home is important too. Nonsmokers can offer praise and encouragement. If the smoker in your life finds it hard to quit, encourage them to keep trying! Dhfa-pzr-zlwsnov medicines Nicotine replacement therapy??may make quitting??easier. Certain aids, such as the nicotine patch, gum, and lozenges, are available without a prescription. It??is best to use these under a doctor???scare, though. The skin patch provides a steady supply of nicotine. Nicotine gum and lozenges give??temporary bursts of low levels of nicotine. Both methods reduce the craving for cigarettes. Warning: If you??have nausea, vomiting, dizziness, weakness, or a fast heartbeat, stop using these products and see your doctor. Prescription medicines After reviewing??your smoking patterns and prior attempts to quit, your doctor may offer a prescription medicine such as bupropion, varenicline, a nicotine inhaler, or nasal spray. Each has advantages and side effects. Your doctor can review these with you. Health benefits of quitting The benefits of quitting start right away and keep improving the longer you go without smoking.??These benefits occur at any age. ??So whether you are 17 or 70, quitting is a good decision. Some of the benefits include: ??? 20 minutes: Blood pressure and pulse return to normal. ??? 8 hours: Oxygen levels return to normal. ??? 2 days: Ability to smell and taste begin to improve as damaged nerves regrow. ??? 2 to 3 weeks: Circulation and lung function improve. ??? 1 to 9 months: Coughing, congestion, and shortness of breath decrease; tiredness decreases. ??? 1 year: Risk of heart attack decreases by half. ??? 5 years: Risk of lung cancer decreases by half; risk of stroke becomes the same as a nonsmoker???s. For more on how to quit smoking, try these online resources: ??? Smokefree.gov??http://smokefree.gov/ ??? Clearing the Air?booklet from the National Cancer [place]??http://smokefree.gov/sites/defa ult/files/pdf/xgjzgrwx-ljn-tbp-accessible.pdf ?? 2790-2107 [employer]. [address] [place] [address]. All rights reserved. This information is not intended as a substitute for professional medical care. Always follow your healthcare professional's instructions. Patient Care team information Care Team Personnel Name: Lucía Jurado RN Position: [facility] AMB Nurse Member Role: Primary Care Nurse Name: Cherise Pang RN Position: [facility] RN Member Role: Primary Care Nurse Name: Abiel Roman RN Position: [facility] RN Member Role: Primary Care Nurse Name: Mona Saha RN Position: [facility] RN Member Role: Primary Care Nurse Name: Harmony Villalta Position: [facility] Outreach Member Role: Lifetime Consulting Physician Name: Jose Wilson MD Position: [facility] Primary Care Physician Member Role: PCP Address: Address: [address] [place] [address] Adult [place] [address]- Care Team Related Persons Name: MADELAINE MAGALLANES Name: GAY MAGALLANES Address: home [address] [place] [address] Name: SABIHA MACKENZIE Address: home [address] [place] [address]
--- OUTSIDE RECORDS SUMMARY | 2023-04-20 07:32 | XMS_ITS | Continuity of Care Document ---
Author Name Unknown Organization [facility] Address [address] [place] [address]- Care Team Providers Care Windscreen Fitter Name Role Phone Jose Wilson MD Primary Care Physician Encounter [facility] Date(s): 12/31/22 - 01/30/23 [facility] [address] [place], [place] [address] Allergies, Adverse Reactions, Alerts Substance [...] conjugate vaccine 1 05/14/22 Given SARS-CoV-2 mRNA ([id number]) vax 12/03/21 Recorded SARS-CoV-2 (COVID-19) mRNA BNT-162b2 vac 03/13/21 Recorded SARS-CoV-2 (COVID-19) mRNA BNT-162b2 vac 02/20/21 Recorded Zoster Vaccine Live 11/18/17 Recorded tetanus/diphtheria/pertussis, acel(Tdap) 11/18/17 Recorded tetanus/diphtheria/pertussis, acel(Tdap) 03/24/12 Recorded tetanus/diphtheria/pertussis, acel(Tdap) 11/10/99 Recorded pneumococcal 23-valent vaccine 03/24/12 Recorded 1Result Comment: [id number] given w/out incident Medications cetirizine 10 mg [...] 3 Refills, Maintenance, 05/14/22 11:11:00 EDT, Tablet, [facility][id number], Partial fill upon patient request if the prescription is for a schedule II opioid drug., 159, cm, 05/14/22 10:56:00 EDT... Start Date: 05/14/22 Stop Date: 05/09/23 Status: Ordered gabapentin 100 mg oral capsule 100 mg, 1, capsule, By Mouth, Daily at bedtime, # 30 capsule, Refills 0, Tot. Refills 0, Maintenance, 01/29/23 15:48:00 EDT, Route to Pharmacy Electronically, [facility] #[id number], Partial fill upon patient request if the prescription is for a... Start Date: 01/29/23 Stop Date: 02/28/23 Status: Ordered hydrochlorothiazide 25 mg oral tablet 25 mg, 1, tablet, By Mouth, Daily in AM, # 90 tablet, Refills 3, Tot. Refills 3, Maintenance, 09/07/22 11:58:00 EDT, Route to Pharmacy Electronically, [facility] #[id number], Partial fill upon patient request if the prescription is for a schedule... Start Date: 09/07/22 Stop Date: 09/02/23 Status: Ordered lisinopril 40 mg oral tablet 1 tablet = 40 mg, By Mouth, Daily in AM, # 90 tablet, 3 Refills, Maintenance, 05/14/22 11:09:00 EDT, Tablet, [facility] #[id number], Partial fill upon patient request if the [...] 01/29/23 15:57:00 EDT, Route to Pharmacy Electronically, [facility] #[id number], Partial fill upo... Start Date: 01/29/23 Stop Date: 02/05/23 Status: Ordered traZODone 50 mg oral tablet 25 mg, 0.5, tablet, By Mouth, Daily at bedtime, # 15 tablet, Refills 5, Tot. Refills 5, Maintenance, 05/14/22 11:48:00 EDT, Route to Pharmacy Electronically, [facility] #[id number], Partial fillupon patient request if the prescription [...] Team Personnel Name: Lucía Jurado RN Position: [facility] AMB Nurse Member Role: Primary Care Nurse Name: Cherise Pang RN Position: [facility] RN Member Role: Primary Care Nurse Name: Abiel Roman RN Position: [facility] RN Member Role: Primary Care Nurse Name: Mona Saha RN Position: [facility] RN Member Role: Primary Care Nurse Name: Harmony Villalta Position: [facility] Outreach Member Role: Lifetime Consulting Physician Name: Jose Wilson MD Position: [facility] Primary Care Physician Member Role: PCP Address: Address: [address] [place] [address] Adult & [place] [address]- Care Team Related Persons Name: MADELAINE MAGALLANES Name: GAY MAGALLANES Address: home [address] [place] [address] Name: SABIHA MACKENZIE Address: home [address] [place] [address]
[2023-04-20 08:01] LABS: Hematocrit 42.9 % (37.0-47.0); Hemoglobin 14.2 g/dl (12.0-16.0)
[2023-04-20] MEDS: vancomycin HCL 1,000 MG in 0.9 % Sodium Chloride 250 ML 270 MG IV (08:16)
[2023-04-20] MEDS: Lactated Ringers 1,000 ML 100 ML IVCONT ×2 (08:18→16:45)
--- NOTE | 2023-04-20 09:37 | PC.NURSE ---
pt requesting to change iv site due to pain. site benign but new one reinserted to right hand and states feels much better. 1st iv removed
--- NOTE | 2023-04-20 09:53 | MHC.SHP ---
Pre-Procedural Eval Section A Date of Service: 04/20/23 The patient is an INPATIENT: No Changes since office visit: No Cold of Flu in the past 2 weeks, No New Medical Problems, No Changes in Medication and No Patient answered all questions The History & Physical has been completed within 30 days and I have reviewed it.: Yes Section B Chief Complaint: LT TKA Allergies: Allergies Allergy/AdvReac Type Severity Reaction Status Date / Time cephalexin Allergy Unknown Swelling Verified 04/20/23 07:44 Cephalosporins Allergy Unknown SWELLING Verified 04/20/23 07:44 ciprofloxacin [CIPROFLOXACIN] Allergy Unknown SWELLING Verified 04/20/23 07:44 naproxen [NAPROXEN] Allergy Unknown BLISTERS Verified 04/20/23 07:44 IN MOUTH Plan I have reviewed the history and physical and performed a pertinent physical examination on my patient. No changes have occurred unless specified. Time Spent With Patient Time: Total time managing care of this patient today ____ minutes.
--- NOTE | 2023-04-20 12:10 | P.BOP_ITS ---
Brief Operative Note Date of Service: 04/20/23 Pre-op diagnosis: Left knee OA Post-op diagnosis: same Procedure: Left TKA Implants: [place] Triathlon press fit cruciate retaining 01/08/10 Surgeon: Nasim Mills MD Anesthesia: regional and spinal Was an Produce Department Manager used for this Procedure?: Yes Produce Department Manager: Remy Fortune Estimated blood loss (mL): 25 Tourniquet time (min): 49 IV fluids (mL): 1,000 Pathology: other Condition: stable Disposition: PACU
[2023-04-20] MEDS: Acetaminophen 1,000 MG/100 ML PIGGYBACK 400 MG IV (12:21)
--- NOTE | 2023-04-20 14:37 | HO.PM.IMCN ---
History of Present Illness Data of Consult Service Date: 04/20/23 Requesting physician: Nasim Mills Primary Care Provider: Jose Wilson MD [facility] Reason for consult: medical management, htn 67 year old female with history of hypertension, mood disorder, GERD admitted to Orthopedic surgery for management of osteoarthritis of the left knee s/p TKA with consult placed hospital Medicine for medical management. Postoperatively, the patient has had soft blood pressures/intermittent hypotension. Blood pressure currently 93/58. Has received bolus L of LR. She is currently asymptomatic denying any lightheadedness, palpitations, shortness of breath, chest pain, visual changes. She reports she is hungry. She has not taken her antihypertensives including lisinopril or hydrochlorothiazide. She denies any alcohol use, illicit drug use, but does smoke about 7 cigarettes on a daily basis. Review of Systems Review of Systems: General: No fevers, malaise, unintentional weight loss HEENT: No blurred vision, diplopia. No sore throat, nasal congestion, rhinorrhea, sinus pain, ear pain Cardiovascular: No chest pain, palpitations, or leg edema Respiratory: No shortness of breath, wheezing, cough GI: No abdominal pain, nausea, vomiting, diarrhea, constipation, melena, hematochezia : No dysuria, hematuria, increased urinary frequency, decreased urinary output MSK: No myalgia, back pain Neuro: No headaches, weakness, paresthesias Skin: No rashes or lesions [facility] Medical History Arthritis Chronic pain Depression Elevated cholesterol History of abdominal hernia HTN (hypertension) Schizoaffective disorder, bipolar type Functional capacity: independent ambulation Surgical History H/O wrist surgery History of back surgery History of carpal tunnel surgery Hx of inguinal hernia surgery Hx of tonsillectomy Social History Are you a primary rn homecare to a significant other at home: No Do you presently have visiting nurse or other home services: No Alcohol intake: never Patient Tobacco Use Status: Current everyday Tobacco user Smoking Start Date: 11/08/79 Tobacco use type: Cigarette Cigarettes Per Day: 7 Years Smoked: 50 Current occupational status: unemployed Meds Allergies Allergy/AdvReac Type Severity Reaction Status Date / Time cephalexin Allergy Unknown Swelling Verified 04/20/23 07:44 Cephalosporins Allergy Unknown SWELLING Verified 04/20/23 07:44 ciprofloxacin [CIPROFLOXACIN] Allergy Unknown SWELLING Verified 04/20/23 07:44 naproxen [NAPROXEN] Allergy Unknown BLISTERS Verified 04/20/23 07:44 IN MOUTH Active Medications: Current Medications Acetaminophen (Acetaminophen 325 Mg Tablet) 650 mg PO Q6H PRN PRN Reason: Pain, Mild (Pain Scale 1-3) Celecoxib (Celecoxib 200 Mg Capsule) 200 mg PO BID [facility] Docusate Sodium (Docusate Sodium 100 Mg Capsule) 100 mg PO BID [facility] Hydromorphone HCl (Hydromorphone Hcl 0.5 Mg/0.5 Ml Syringe) 0.25 mg IVPUSH Q4H PRN; Protocol PRN Reason: Pain, Severe (Pain Scale 7-10) Lactated Ringer's (Lr) 1,000 mls @ 100 mls/hr IVCONT .Q10H [facility] Sodium Chloride (Ns) 1,000 mls @ 999 mls/hr IV .Q1H1M [facility] Stop: 04/20/23 15:30 Ondansetron HCl (Ondansetron Hcl 4 Mg/2 Ml Vial) 4 mg IVPUSH Q8H PRN PRN Reason: Nausea and Vomiting Oxycodone HCl (Oxycodone Hcl Immed Release 5 Mg Tablet) 5 mg PO Q4H PRN PRN Reason: Pain, Moderate(Pain Scale 4-6) Oxycodone HCl (Oxycodone Hcl Er 10 Mg Tab.Er.12h) 10 mg PO BID [facility] Sodium Chloride (0.9 % Sodium Chloride Flush 3 Ml Syringe) 3 ml IVFLUSH QSHIFT [facility] Home Medications Medication Instructions Recorded Confirmed Last Taken Type hydrochlorothiazide 25 mg tablet 25 mg PO DAILY 10/21/21 04/12/23 Unknown History lisinopril 40 mg tablet 40 mg PO DAILY 10/21/21 04/12/23 Unknown History rosuvastatin 40 mg tablet 40 mg PO DAILY 10/21/21 04/12/23 Unknown History fluticasone propionate 50 1 - 2 spray intranasal DAILY PRN 03/31/22 04/12/23 Unknown History mcg/actuation nasal Nasal Congestion spray,suspension aripiprazole 2 mg tablet 2 mg PO BEDTIME 03/17/23 04/12/23 Unknown History oxycodone 5 mg tablet 5 mg PO Q12H PRN pain 03/17/23 04/12/23 Unknown History omeprazole 20 mg capsule,delayed 20 mg PO DAILY PRN Acid Reflux 04/12/23 04/12/23 Unknown History release Physical Exam Vital Signs and Narrative: Vital Signs: Last Vital Signs Temp 97.2 F 04/20/23 13:07 Pulse 64 04/20/23 13:07 Resp 18 04/20/23 13:07 BP 93/58 L 04/20/23 13:07 Pulse Ox 96 04/20/23 13:07 O2 Del Method Room Air 04/20/23 13:07 BMI result Body Mass Index 29.6 Constitutional - Awake and Alert, No apparent distress Eyes - PERRLA, EOMI Cardiovascular - S1S2, RRR, No edema Respiratory - Normal lung expansion, Normal respiratory effort, No respiratory distress, CTA bilaterally Gastrointestinal - NT / ND; +BS; No rebound or guarding Extremities - no calf tenderness bilaterally, no swelling Skin - Warm/Dry Neurological - Alert & oriented x3 Psychological - Appropriate affect Results Labs 04/20/23 07:45 Imaging Radiologist's Impressions: Impressions Knee X-Ray 04/20/23 12:50 IMPRESSION: Status post left total knee arthroplasty with prosthetic components in satisfactory alignment. Immediate postoperative changes seen. Assessment and Plan (1) Primary osteoarthritis of left knee: Status: Acute Plan 67 year old female with history of hypertension, mood disorder, GERD admitted to Orthopedic surgery for management of osteoarthritis of the left knee s/p TKA with consult placed hospital Medicine for medical management. #OA Left Knee s/p TKA POD0 -plan per orthopedic surgery #Hypertension- blood pressures soft post-op -Currently 93/58 -1L IV NS bolus ordered -Monitor BP closely -Hold PO antihypertensives #HLD -continue crestor #GERD -contineu ppi #Mood disorder -continue home meds Thank you for this consult. Will continue to follow Time Spent With Patient Time: Total time managing care of this patient today ____ minutes.
[2023-04-20] MEDS: 0.9 % Sodium Chloride 1,000 ML 999 ML IV (14:48)
[2023-04-20] MEDS: ceFAZolin Sodium/Dextrose,Iso 2 GM/50 ML PIGGYBACK IV (15:18)
--- NOTE | 2023-04-20 15:36 | PC.NURSE ---
BP 92/61. Asymptomatic. Provider notified. 1L NS bolus ordered. BP 112/60 at present.
[2023-04-20] MEDS: oxyCODONE HCl Immed Release 5 MG TABLET PO ×2 (15:46→19:47)
[2023-04-20] MEDS: HYDROmorphone HCl 0.5 MG/0.5 ML SYRINGE 0.25 MG IVPUSH (16:55)
--- NOTE | 2023-04-20 16:58 | PC.NURSE ---
patient able to wiggle her bilateral toes but states her legs still feel numb
[2023-04-20] MEDS: Acetaminophen 325 MG TABLET 650 MG PO (18:22)
[2023-04-20] MEDS: Docusate Sodium 100 MG CAPSULE PO (19:47)
[2023-04-20] MEDS: Celecoxib 200 MG CAPSULE PO (19:47)
[2023-04-20] MEDS: oxyCODONE HCl ER 10 MG TAB.ER.12H PO (19:47)
[2023-04-21] MEDS: Lactated Ringers 1,000 ML 100 ML IVCONT ×3 (02:24→21:02)
[2023-04-21] MEDS: HYDROmorphone HCl 0.5 MG/0.5 ML SYRINGE 0.25 MG IVPUSH ×3 (02:27→12:00)
[2023-04-21 03:40] VITALS: BP 114/56; PULSE 81; RESP 17; TEMP 36.5; O2SAT 94
[2023-04-21 06:31] LABS: MANUAL DIFF FLAG NO
[2023-04-21 06:44] LABS: Basophils Percent Auto 0.4 % (0-2); Eosinophils Absolute Auto 0.1 X10*3/uL (0.0-0.4); Eosinophils Percent Auto 1.9 % (0-4); Hematocrit 34.3 % (37.0-47.0); Hemoglobin 11.4 g/dl (12.0-16.0); Imm Gran Abs Auto 0.03 X10*3/uL (0.00-0.03); Imm Gran Pct Auto 0.4 % (0.0-0.4); Lymphocytes Absolute Auto 2.2 X10*3/uL (1.2-4.9); Mean Corpuscular HGB Conc 33.2 g/dl (31.0-35.0); Mean Corpuscular Volume 90.3 fL (80.0-98.0); Mean Platelet Volume 10.1 fL (9.4-12.3); Neutrophils Absolute Auto 4.1 x10*3/uL (2.0-8.3); Neutrophils Percent Auto 55.3 % (45-73); Platelet Count 182 X10*3/uL (160-400); Red Cell Distribution Width 14.5 % (11.0-16.0); White Blood Count 7.5 X10*3/uL (4.8-10.8)
[2023-04-21 06:58] VITALS: BP 112/61; PULSE 80; RESP 20; TEMP 36.6; O2SAT 95
[2023-04-21 06:59] LABS: Anion Gap 10 (12-20); Blood Urea Nitrogen 15 mg/dL (9-16); Calcium 8.2 mg/dL (8.4-10.2); Carbon Dioxide 25 mmol/L (22-29); Chloride 109 mmol/L (96-108); Creatinine Clr Calc Pharmacy 54.7; Estimated Glomerular Filt Rate 59; Glucose Fasting 95 mg/dL (60-99); Potassium 3.8 mmol/L (3.3-5.1); Sodium 140 mmol/L (135-145)
--- NOTE | 2023-04-21 07:08 | HO.POSTANES ---
Post Anesthesia Evaluation Post Anesthesia Evaluation Date of Service: 04/21/23 Vital Signs: Vital Signs Temp Pulse Resp BP Pulse Ox O2 Del Method 04/21/23 06:58 97.9 F 80 20 112/61 95 Room Air 04/21/23 03:40 97.7 F 81 17 114/56 L 94 Room Air 04/20/23 23:34 98.2 F 88 18 118/65 93 Room Air 04/20/23 19:12 97.7 F 86 18 107/59 L 97 Room Air Anesthesia: Spinal and Nerve Block Mental Status: Awake Pain Control: Satisfactory Nausea/Vomiting: None Hydration: Adequate Anesthesia-Related Issues: No Anes. Related Issues
--- NOTE | 2023-04-21 07:20 | PM.PNORT ---
Subjective Subjective Date of Service: 04/21/23 Interval history: POD1 s/p LTKA. Patient resting comfortably. Pain is managed. No overnight events. No additional compalints. Physical Exam Vital Signs: Vital Signs: Last Vital Signs Temp 97.9 F 04/21/23 06:58 Pulse 80 04/21/23 06:58 Resp 20 04/21/23 06:58 BP 112/61 04/21/23 06:58 Pulse Ox 95 04/21/23 06:58 O2 Del Method Room Air 04/21/23 06:58 BMI result Body Mass Index 29.6 Const: General: cooperative, healthy appearing and no acute distress Resp: Effort & Inspection: normal respiratory effort and able to speak in complete sentences Cardio: Rate: regular rate Peripheral pulses: Peripheral pulses 2+ throughout GI: Palpation (GI): Soft to palpation Skin: Lesions: no lesions Rashes: no rashes Extrem: Other: Left knee Aquacel is c/d/i. NVI. Procedures Date of Service Date of Service: 04/21/23 Progress Note: A&P Assessment and plan (1) Status post total knee replacement, left: Status: Acute Plan Continue pain mgmnt Begin ASA for dvt ppx begin PT for LTKA Dispo planning-Pending PT eval, pain mgmnt Time Spent With Patient Time: Total time managing care of this patient today ____ minutes. Quality Stroke Does the patient have a stroke diagnosis?: No VTE Prior VTE?: No VTE Risk Level:: Medical - moderate - high VTE Device Contraindication: N/A - Device Ordered VTE Drug Contraindication: N/A - Med Ordered
[2023-04-21] MEDS: oxyCODONE HCl ER 10 MG TAB.ER.12H PO ×2 (07:33→21:01)
[2023-04-21] MEDS: Celecoxib 200 MG CAPSULE PO ×2 (07:34→21:06)
[2023-04-21] MEDS: Docusate Sodium 100 MG CAPSULE PO ×2 (07:34→21:01)
[2023-04-21] MEDS: Aspirin 325 MG TABLET PO ×2 (09:46→21:01)
--- NOTE | 2023-04-21 10:38 | PHA.MEDREC ---
Pharmacy Consult ? Medication Reconciliation Pharmacy has completed the medication reconciliation. Reviewed med rec done by nursing
--- NOTE | 2023-04-21 11:37 | MHC.CM.PN ---
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
--- NOTE | 2023-04-21 11:45 | MHC.CM.PN ---
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
[2023-04-21] MEDS: oxyCODONE HCl Immed Release 5 MG TABLET PO ×2 (15:44→20:02)
[2023-04-21] MEDS: Acetaminophen 325 MG TABLET 650 MG PO (15:45)
[2023-04-21 15:46] VITALS: BP 114/64; PULSE 89; RESP 20; TEMP 37.2; O2SAT 99
--- NOTE | 2023-04-21 17:02 | HO.PM.IMPN ---
Subjective Subjective Date of Service: 04/21/23 Interval History: Patient seen for soft BP s/p left TKA. Patient will no acute events overnight Patient complains of moderate left knee pain, acceptably controlled with analgesics Denies lightheadedness, dizziness Review of Systems Moderate left knee pain No lightheadedness, dizziness Denies chest pain/pressure, palpitations Denies shortness of breath Fever, chills, nausea, vomiting, abdominal pain Review of Systems: Yes all other systems are reviewed and are negative Physical Exam Vital Signs: Vital Signs: Last Vital Signs Temp 98.9 F 04/21/23 15:46 Pulse 89 04/21/23 15:46 Resp 20 04/21/23 15:46 BP 114/64 04/21/23 15:46 Pulse Ox 99 04/21/23 15:46 O2 Del Method Room Air 04/21/23 15:46 BMI result Body Mass Index 29.6 General: AOx3, no acute distress Resp: CTA bilaterally CVS: S1, S2, RRR GI: +BS, NT, no distention Skin: No rash Neuro: Cranial nerves II-XII grossly intact bilaterally. Motor grossly intact bilaterally Extremities: No edema. Clean dressing in place surrounding left knee. Psych: Appropriate affect Objective Data Active Medications Acetaminophen (Acetaminophen 325 Mg Tablet) 650 mg PO Q6H PRN PRN Reason: Pain, Mild (Pain Scale 1-3) Last Admin: 04/21/23 15:45 Dose: 650 mg Documented By: LASHAWN Aspirin (Aspirin 325 Mg Tablet) 325 mg PO BID [facility] Last Admin: 04/21/23 09:46 Dose: 325 mg Documented By: LASHAWN Celecoxib (Celecoxib 200 Mg Capsule) 200 mg PO BID [facility] Last Admin: 04/21/23 07:34 Dose: 200 mg Documented By: LASHAWN Docusate Sodium (Docusate Sodium 100 Mg Capsule) 100 mg PO BID [facility] Last Admin: 04/21/23 07:34 Dose: 100 mg Documented By: LASHAWN Hydromorphone HCl (Hydromorphone Hcl 0.5 Mg/0.5 Ml Syringe) 0.25 mg IVPUSH Q4H PRN; Protocol PRN Reason: Pain, Severe (Pain Scale 7-10) Last Admin: 04/21/23 12:00 Dose: 0.25 mg Documented By: LASHAWN Lactated Ringer's (Lr) 1,000 mls @ 100 mls/hr IVCONT .Q10H [facility] Last Admin: 04/21/23 12:01 Dose: 100 mls/hr Documented By: LASHAWN Ondansetron HCl (Ondansetron Hcl 4 Mg/2 Ml Vial) 4 mg IVPUSH Q8H PRN PRN Reason: Nausea and Vomiting Oxycodone HCl (Oxycodone Hcl Immed Release 5 Mg Tablet) 5 mg PO Q4H PRN PRN Reason: Pain, Moderate(Pain Scale 4-6) Last Admin: 04/21/23 15:44 Dose: 5 mg Documented By: LASHAWN Oxycodone HCl (Oxycodone Hcl Er 10 Mg Tab.Er.12h) 10 mg PO BID [facility] Last Admin: 04/21/23 07:33 Dose: 10 mg Documented By: LASHAWN Sodium Chloride (0.9 % Sodium Chloride Flush 3 Ml Syringe) 3 ml IVFLUSH QSHIFT [facility] Last Admin: 04/21/23 15:07 Dose: Not Given Documented By: LASHAWN Non-Admin Reason: IV Running Labs 04/21/23 05:34 04/21/23 05:34 Labs: Laboratory Results - last 24 hr 04/21/23 04/21/23 05:34 05:34 MCV 90.3 MCH 30.0 MCHC 33.2 RDW 14.5 Plt Count 182 MPV 10.1 Immature Gran % (Auto) 0.4 Neut % (Auto) 55.3 Lymph % (Auto) 29.0 Blair % (Auto) 13.0 H Eos % (Auto) 1.9 Baso % (Auto) 0.4 Lymph # (Auto) 2.2 Blair # (Auto) 1.0 Eos # (Auto) 0.1 Baso # (Auto) 0.0 Abs Immat Gran (auto) 0.03 Absolute Neuts (auto) 4.1 Absolute Nucleated RBC 0.000 Nucleated RBC % (auto) 0.0 Anion Gap 10 L Estim Creat Clear Calc 54.7 Estimated GFR 59 Fasting Glucose 95 Calcium 8.2 L D Assessment and Plan (1) Status post total knee replacement, left: Status: Acute Plan 67 year old female with history of hypertension, mood disorder, GERD admitted to Orthopedic surgery for management of osteoarthritis of the left knee s/p TKA with consult placed for hospital Medicine for medical management. #OA Left Knee s/p TKA POD0 -plan per orthopedic surgery #Hypertension- blood pressures soft post-op -Currently 114/64, better controlled today -Pt received IVF yesterday and today -Monitor BP closely -Hold PO antihypertensives #HLD -continue crestor #GERD -contineu ppi #Mood disorder -continue home meds Thank you for this consult. Will continue to follow. Time Spent With Patient Time: Total time managing care of this patient today ____ minutes. Quality Stroke Does the patient have a stroke diagnosis?: No VTE Prior VTE?: No VTE Risk Level:: Medical - moderate - high VTE Device Contraindication: N/A - Device Ordered VTE Drug Contraindication: N/A - Med Ordered
[2023-04-21 19:25] VITALS: BP 129/68; PULSE 83; RESP 18; TEMP 36.6; O2SAT 98
[2023-04-22] MEDS: ondansetron HCL 4 MG/2 ML VIAL IVPUSH (01:52)
[2023-04-22 02:00] VITALS: BP 138/68; PULSE 87; RESP 16; TEMP 36.3; O2SAT 95
[2023-04-22] MEDS: HYDROmorphone HCl 0.5 MG/0.5 ML SYRINGE 0.25 MG IVPUSH ×2 (02:00→06:17)
[2023-04-22 05:20] VITALS: BP 134/82; PULSE 90; RESP 16; TEMP 36; O2SAT 95
[2023-04-22] MEDS: Lactated Ringers 1,000 ML 100 ML IVCONT (06:13)
[2023-04-22 06:32] LABS: MANUAL DIFF FLAG NO
[2023-04-22 06:40] LABS: Basophils Percent Auto 0.3 % (0-2); Eosinophils Absolute Auto 0.2 X10*3/uL (0.0-0.4); Eosinophils Percent Auto 2.1 % (0-4); Hematocrit 34.4 % (37.0-47.0); Hemoglobin 11.3 g/dl (12.0-16.0); Imm Gran Abs Auto 0.03 X10*3/uL (0.00-0.03); Imm Gran Pct Auto 0.3 % (0.0-0.4); Lymphocytes Absolute Auto 2.2 X10*3/uL (1.2-4.9); Mean Corpuscular HGB Conc 32.8 g/dl (31.0-35.0); Mean Corpuscular Hemoglobin 29.9 pg (27.0-33.0); Monocytes Absolute Auto 1.1 X10*3/uL (0.1-1.2); Monocytes Percent Auto 12.2 % (2-11); Neutrophils Absolute Auto 5.2 x10*3/uL (2.0-8.3); Neutrophils Percent Auto 60.1 % (45-73); Platelet Count 165 X10*3/uL (160-400); Red Blood Count 3.78 X10*6/uL (4.20-5.50); Red Cell Distribution Width 14.7 % (11.0-16.0); White Blood Count 8.7 X10*3/uL (4.8-10.8)
[2023-04-22 07:08] LABS: Anion Gap 9 (12-20); Blood Urea Nitrogen 10 mg/dL (9-16); Calcium 8.8 mg/dL (8.4-10.2); Carbon Dioxide 26 mmol/L (22-29); Chloride 109 mmol/L (96-108); Creatinine Clr Calc Pharmacy 63.3; Estimated Glomerular Filt Rate > 60; Glucose Fasting 102 mg/dL (60-99); Potassium 3.9 mmol/L (3.3-5.1); Sodium 140 mmol/L (135-145)
[2023-04-22 07:49] VITALS: BP 147/80; PULSE 96; RESP 18; TEMP 36.5; O2SAT 95
[2023-04-22] MEDS: Aspirin 325 MG TABLET PO (08:24)
[2023-04-22] MEDS: oxyCODONE HCl ER 10 MG TAB.ER.12H PO (08:24)
[2023-04-22] MEDS: Docusate Sodium 100 MG CAPSULE PO (08:24)
[2023-04-22] MEDS: Celecoxib 200 MG CAPSULE PO (08:24)
[2023-04-22] MEDS: 0.9 % Sodium Chloride Flush 3 ML SYRINGE IVFLUSH (08:25)
[2023-04-22 10:29] VITALS: BP 147/80; PULSE 96; O2SAT 95
--- NOTE | 2023-04-22 10:37 | MHC.CM.PN ---
IMM 04/21/23 Patient is discharged to home today. [facility] will provide home services. 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 The patient has arranged for transportation home.
[2023-04-22 11:31] VITALS: BP 147/80; PULSE 96; O2SAT 95
--- NOTE | 2023-04-24 16:41 | W.PM.OPN ---
Operative Note Operative Note Date of Service: 04/20/23 Narrative: Date of Service: 04/20/23 Pre-op diagnosis: Left knee OA Post-op diagnosis: same Procedure: Left TKA Implants: Asim Triathlon press fit cruciate retaining 01/08/10cr/29a Surgeon: Nasim Mills MD Anesthesia: regional and spinal Was an Compressor Mechanic used for this Procedure?: Yes Compressor Mechanic: Remy Fortune Estimated blood loss (mL): 25 Tourniquet time (min): 49 IV fluids (mL): 1,000 Pathology: other Condition: stable Disposition: PACU Procedure in detail: The patient was brought to the operating room and prepped and draped in standard sterile fashion. A time-out was called to identify proper site proper procedure proper surgeon and IV antibiotics were administered. 1 g of IV tranexamic acid was administered. I insufflated the tourniquet to 300 mm Hg. I then began by making a midline incision to the retinaculum and performed a medial parapatellar arthrotomy. The patella was translated laterally and the knee was flexed up. There were G3/4 changs of the meidal compartment . I performed a small medial peel and resected the infrapatellar fat pad. Burnett's line was then used to drill my intramedullary femoral guide and my distal femur cut of 10 mm was made in 5 degrees of valgus while protecting the soft tissues. I then measured a #3 femur and placed my cutting guide and made my anterior posterior and chamfer cuts protecting the soft tissues at all times. Once I was satisfied with my cuts I turned my attention to the tibia. I removed the meniscus medially and laterally and , using an external cutting guide, in line with the tibial crest and the third ray, I made my distal tibial cut in 3 deg slope of while protecting the PCL the posterior soft tissues at all times. An extension block was used to confirm appropriate amount of bony resection. I then sized a #3 tibia and once I was satisfied that there was complete tibial coverage I placed my trial and with the trial femur in place took the knee through range of motion. I was satisfied with the extension and flexion as well as the stability and balance at 0, 30 and 90 degrees. I then turned my attention to the patella where I removed 1 cm from the undersurface of the patella and then trialed a 29a patellar button. Again the knee was taken through range of motion I was satisfied with the tracking. I then returned to the femur and drilled my femoral lug holes and prepared the tibia. A femoral bone plug was placed and the knee was irrigated copiously. I then press fit the patella, tibia and femur in standard fashion. I trialed different inserts until I selected a #10 insert. The final insert was placed and a 3 minutes iodine soak with local TXA was performed. A Werewolf cautery wand was used to maintain hemostasis over the capsule and meniscal beds, the gutters and peripatellar soft tissues. The tourniquet was let down and there was no brisk bleeding. The knee was then closed with a running Quill suture, a 3 0 Vicryl and cabrera on the skin. Patient was then placed in sterile dressing and brought to recovery room in stable condition there were no known complications.
--- NOTE | 2023-04-29 15:56 | P.DS_ITS ---
DS: Providers Provider Date of Service: 04/22/23 Date of admission: 04/20/23 07:19 Primary care physician: Jose Wilsno MD Consults: 04/20/23 13:36 Consult to Hospitalist Routine Comment: Consulting Provider: Hospitalist Reason For Exam: HTn DS: Diagnosis Discharge Diagnosis (1) Status post total knee replacement, left: Status: Acute DS: Summary Hospital Course Hospital Course: The patient underwent a successful left total knee arthroplasty, they were transferred to PACU and then to the floor to recover. During their stay, their vitals were stable, afebrile at 97.7. Labs were unremarkable, H/H 11.3/34.4. POD 1 they were started on Aspirin 325mg po bid for DVT ppx, they also received Physical Therapy services twice a day. Prior to discharge, their dressing was changed, incision clean dry and intact, new Aquacel dressing applied and the plan was to be discharged home with VNA services. Time Spent with Patient Time attestation: Total time managing care of this patient today ____ minutes. Discharge coordination time: Less than 30 minutes Quality: Safe Use of Opioids Does Pt have an Active Cancer Diagnosis on the Problem List?: No Quality: Stroke Does the patient have a stroke diagnosis?: No Physical Exam Vital Signs: Vital Signs: Last Vital Signs Temp 97.7 F 04/22/23 07:49 Pulse 96 04/22/23 11:31 Resp 18 04/22/23 07:49 BP 147/80 H 04/22/23 11:31 Pulse Ox 95 04/22/23 11:31 O2 Del Method Room Air 04/22/23 07:49 BMI result Body Mass Index 29.6 Const: General: cooperative, healthy appearing and no acute distress Resp: Effort & Inspection: normal respiratory effort and able to speak in complete sentences Cardio: Rate: regular rate Peripheral pulses: Peripheral pulses 2+ throughout GI: Palpation (GI): Soft to palpation Skin: Lesions: no lesions Rashes: no rashes Extrem: Other: Left knee Aquacel is c/d/i. NVI. DS: Data Data Completed and Pending Completed studies during hospitalization [Text1]: Pending at discharge 04/20/23 11:29 Surgical [PTH] Routine Procedures Introduction of Anesthetic Agent into Peripheral Nerves and Plexi, Percutaneous Approach (04/20/23) Replacement of Left Knee Joint with Synthetic Substitute, Uncemented, Open Approach (04/20/23) Discharge Plan Discharge Anticipated Discharge Date/Time: 04/22/23 10:16 Patient Disposition: Home Health Service Discharge Diagnosis: lt tka Referrals: Jacque MENDOSA [Outside] - 1 Week Lucila Blake PA-C [Physician Filler Shredding Machine Loader] - 2 Weeks (05/06/23 12:30 [facility] Lucila Blake PA-C) Discharge Medications: New acetaminophen 325 mg Tablet 650 mg PO Q6H PRN (Reason: Pain, Mild (Pain Scale 1-3)) 30 Days Qty: 240 0RF aspirin 325 mg Tablet 325 mg PO BID 42 Days Qty: 84 0RF celecoxib 200 mg Capsule 200 mg PO BID 30 Days Qty: 60 0RF docusate sodium 100 mg Capsule 100 mg PO BID 14 Days Qty: 28 0RF oxycodone 5 mg Tablet 5 mg PO Q4H PRN (Reason: Pain, Moderate(Pain Scale 4-6)) 7 Days Qty: 42 0RF Rx Instructions: Partial Fill upon patient request. Continued omeprazole 20 mg capsule,delayed release(DR/EC) 20 mg PO DAILY PRN (Reason: Acid Reflux) lisinopril 40 mg tablet 40 mg PO DAILY hydrochlorothiazide 25 mg tablet 25 mg PO DAILY rosuvastatin 40 mg tablet 40 mg PO DAILY fluticasone propionate 50 mcg/actuation spray,suspension 1 - 2 spray intranasal DAILY PRN (Reason: Nasal Congestion) aripiprazole 2 mg tablet 2 mg PO BEDTIME Discontinued acetaminophen [Tylenol Extra Strength] 500 mg tablet 500 mg PO Q6H PRN (Reason: pain or fever) Qty: 20 0RF oxycodone 5 mg tablet 5 mg PO Q12H PRN (Reason: pain) Discharge Orders: Discharge Order (Routine); Ordered 04/22/23 Ordered By: Remy Fortune Diet: Regular diet Activity on Discharge: Use cane or walker Stand Alone Forms: Patient Portal Discharge page Care Plan Goals: Restore function of joint Health Concerns: none Plan of Treatment: Physical Therapy Pain management DVT prophylaxis Assessment: Physical Therapy for Total knee arthroplasty: WBAT, gait training, ROM 0-12, quad strength * Limit stair climbing * No showering, no tub bath-keep dressing clean, dry and intact * No driving x6 weeks * Continue Aspirin twice a day x 6 weeks * Follow up with [facility] in [facility] weeks: * --you will also have your first out patient PT brien on the day of your post op appt-so please plan on being in the office that day for an extended period of time. Discharge Date/Time: 04/22/23 11:37
== END 2023-04-22 11:37 | disposition home health service (06) | DRG 470 ==
LOC: HO.SSSA 10:05 → HO.S3 13:02
PROVIDERS: Orthopaedic Surgery; Admitting Provider Physician Assistant; PCP Internal Medicine; Visit Provider Physician Assistant
PROC: 0SRD0JA Replacement of Left Knee Joint with Synthetic Substitute, Uncemented, Open Approach (ICD-10-PCS; CPT 27447; principal; 2023-04-20 09:40)
DX: M17.12 Unilateral primary osteoarthritis, left knee (principal); F25.0 Schizoaffective disorder, bipolar type; G89.18 Other acute postprocedural pain; F17.210 Nicotine dependence, cigarettes, uncomplicated; K21.9 Gastro-esophageal reflux disease without esophagitis; I10 Essential (primary) hypertension; Z71.6 Tobacco abuse counseling; Z79.899 Other long term (current) drug therapy
CPT/HCPCS: 36415; 73560; 80048; 85014; 85018; 85025; 86850; 86900; 86901; 87640; 87641; 88305; 88311; 93005; 97110; 97116; 97161; C1776; J0131; J0690; J1170; J2250; J2405; J3370

== ENCOUNTER → 2023-05-06 12:15 | Outpatient (BNVA) | payer OTHER, SELFPAY | PROVIDERS: Visit Provider Physician Assistant | DX: Z47.1 Aftercare following joint replacement surgery (principal); Z96.652 Presence of left artificial knee joint | CPT/HCPCS: 99212 ==

== ENCOUNTER 2023-05-26 12:44 | Outpatient (AMB) | payer OTHER, SELFPAY ==
--- NOTE | 2023-05-26 12:53 | A.OFFVIS_ITS ---
Intake Vital Signs 05/26/23 12:55 Height 5 ft 2 in Weight 160 lb BMI 29.3 Intake Visit Reasons: PO-wound check s/p LT TKA 04/20/23 Intake Note: Claudia a 67 year old female presents today for a post operative wound check s/p LT TKA, 04/20/23 NE. Patient reports drainage at incision site as well as redness and swelling. Allergies cephalexin Allergy (Unknown, Verified 05/26/23 13:00) Swelling Cephalosporins Allergy (Unknown, Verified 05/26/23 13:00) SWELLING ciprofloxacin [CIPROFLOXACIN] Allergy (Unknown, Verified 05/26/23 13:00) SWELLING naproxen [NAPROXEN] Allergy (Unknown, Verified 05/26/23 13:00) BLISTERS IN MOUTH HPI PO-wound check s/p LT TKA 04/20/23 HPI Details 67-year-old female who returns to the office today for post-op wound check of left TKA, 04/20/[address] Mills. She states she has redness, swelling and drainage at the incision site but she is doing well otherwise. Denies recent illness, fever or chills. She has no other concerns today. 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 She does have what looks to be the beginning of a suture abscess at the most superior aspect of her incision. There is no active purulent drainage. There is some serous fluid. There is also some redness around the area, size of a silver dollar. No surrounding erythema around the knee joint itself. No significant joint effusion. Calf supple, nontender. NVI. Assessment & Plan Assessment & Plan (1) Status post total knee replacement, left: Comment: 04/20/2023 NE Code(s): Z96.652 - Presence of left artificial knee joint Plan The area cleaned and marked. I sent a prescription for Bactrim and Celebrex to the pharmacy. I did recommend warm compresses to the area for 20 minutes 4 times a day to help express any fluid that is within the area. I would like to see her back on Wednesday at 9 AM for another wound check. Medications: New sulfamethoxazole-trimethoprim 800-160 mg (Bactrim DS) 1 tab PO BID 20 tabs 0RF suture abscess 10 days Refilled celecoxib 200 mg PO BID 60 caps 2RF 30 days Discontinued omeprazole 20 mg PO DAILY 90 caps 3RF K21.9 - Gastro-esophageal reflux disease without esophagitis Patient Instructions: Scribed for Remy Fortune PA-C, by Fransisco Mtz emergency medical dispatcher, on 05/26/2023 at 12:45 PM EST. IRemy PA-C, have personally reviewed and agree with the information entered by the scribe. Coding Level of Care Code Global (03927) Diagnoses Status post total knee replacement, left Z96.652
[2023-05-26 12:55] VITALS: BMI 29.3
== END 2023-05-26 13:40 | disposition home or self-care (01) ==
PROVIDERS: PCP Internal Medicine; Visit Provider Physician Assistant
DX: Z96.652 Presence of left artificial knee joint (principal)
CPT/HCPCS: 99024

== ENCOUNTER → 2023-05-26 12:44 | Outpatient (BNVA) | payer OTHER, SELFPAY | PROVIDERS: PCP Internal Medicine; Visit Provider Physician Assistant ==

== ENCOUNTER 2023-05-28 08:42 | Outpatient (AMB) | payer OTHER, SELFPAY ==
[2023-05-28 08:46] VITALS: BMI 29.3
--- NOTE | 2023-05-28 08:46 | MHC.OFFVIS ---
Intake Vital Signs 05/28/23 08:46 Height 5 ft 2 in Weight 160 lb BMI 29.3 Intake Visit Reasons: PO-wound check s/p LT TKA 04/20/23 Intake Note: Claudia a 67 year old female presents today for a post operative wound check s/p left TKA on 04/20/23 NE. Patient reports she has not removed bandage since her last visit but this morning she noticed a wet area and is not sure if it is puss. Allergies cephalexin Allergy (Unknown, Verified 05/28/23 08:52) Swelling Cephalosporins Allergy (Unknown, Verified 05/28/23 08:52) SWELLING ciprofloxacin [CIPROFLOXACIN] Allergy (Unknown, Verified 05/28/23 08:52) SWELLING naproxen [NAPROXEN] Allergy (Unknown, Verified 05/28/23 08:52) BLISTERS IN MOUTH HPI PO-wound check s/p LT TKA 04/20/23 HPI Details 67-year-old female who returns to the office today for post-op wound check of left TKA, 04/20/[address] Mills. She has been taking her abx as directed. She has been showering wtih the bandage on. She has been performing warm compresses. No increased pain, no fever or chills. 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 The remainder of the knee is normal to inspection. No joint effusion. Calf supple, non-tender. Assessment & Plan Assessment & Plan (1) Status post total knee replacement, left: Comment: 04/20/2023 NE Code(s): Z96.652 - Presence of left artificial knee joint Plan I was able to remove the retained suture and clean the area with beta diene. I did put on an aqua foam dressing which she will change every day. She will continue to take her antibiotics. I asked that she avoid showering and she will see me back on Wednesday for reexamination. Medications: Discontinued omeprazole 20 mg PO DAILY 90 caps 3RF K21.9 - Gastro-esophageal reflux disease without esophagitis Patient Instructions: Scribed for Remy Fortune PA-C, by Fransisco Mtz certified medical records coder, on 05/28/2023 at 9:00 AM EST. IRemy PA-C, have personally reviewed and agree with the information entered by the scribe. Coding Level of Care Code Global (61367) Diagnoses Status post total knee replacement, left Z96.652
== END 2023-05-28 09:00 | disposition home or self-care (01) ==
PROVIDERS: PCP Internal Medicine; Visit Provider Physician Assistant
DX: Z96.652 Presence of left artificial knee joint (principal)
CPT/HCPCS: 99024

== ENCOUNTER → 2023-05-28 08:42 | Outpatient (BNVA) | payer OTHER, SELFPAY | PROVIDERS: PCP Internal Medicine; Visit Provider Physician Assistant ==

== ENCOUNTER 2023-05-31 09:42 | Outpatient (AMB) | payer OTHER, SELFPAY ==
[2023-05-31 10:04] VITALS: BMI 29.3
--- NOTE | 2023-05-31 10:04 | MHC.OFFVIS ---
Intake Vital Signs 05/31/23 10:04 Height 5 ft 2 in Weight 160 lb BMI 29.3 Intake Visit Reasons: PO- LT TKA 04/20/23 Intake Note: Claudia a 67 year old female presents today for a post operative of left TKA on 04/20/23 NE. Patient reports discomfort but no pain. She continues taking antibiotics that was prescribed. Allergies cephalexin Allergy (Unknown, Verified 05/31/23 10:10) Swelling Cephalosporins Allergy (Unknown, Verified 05/31/23 10:10) SWELLING ciprofloxacin [CIPROFLOXACIN] Allergy (Unknown, Verified 05/31/23 10:10) SWELLING naproxen [NAPROXEN] Allergy (Unknown, Verified 05/31/23 10:10) BLISTERS IN MOUTH HPI PO- LT TKA 04/20/23 HPI Details 67-year-old female who returns to the office today for post-op wound check of left TKA, 04/20/23. She states she has no pain but she does experiences discomfort in her knee. She also c/o a clear fluid drainage from the incision site. She continues to take her antibiotics as prescribed. 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 The remainder of the knee is normal to inspection. No joint effusion. Calf supple, non-tender. Assessment & Plan Assessment & Plan (1) Status post total knee replacement, left: Comment: 04/20/2023 NE Code(s): Z96.652 - Presence of left artificial knee joint Plan Incision was cleaned and a wet to dry dressing applied. I did educate her on how to perform this type of dressing change daily. She will continue to take her antibiotics. I asked that she avoid showering and she will see me back on Wednesday for reexamination. Medications: Discontinued omeprazole 20 mg PO DAILY 90 caps 3RF K21.9 - Gastro-esophageal reflux disease without esophagitis Patient Instructions: Scribed for Remy Fortune PA-C, by Fransisco Mtz electromedical service engineer, on 05/31/2023 at 10:00 AM EST. IRemy PA-C, have personally reviewed and agree with the information entered by the scribe. Coding Level of Care Code Global (24474) Diagnoses Status post total knee replacement, left Z96.652
== END 2023-05-31 10:33 | disposition home or self-care (01) ==
PROVIDERS: PCP Internal Medicine; Visit Provider Physician Assistant
DX: Z96.652 Presence of left artificial knee joint (principal)
CPT/HCPCS: 99024

== ENCOUNTER → 2023-05-31 09:42 | Outpatient (BNVA) | payer OTHER, SELFPAY | PROVIDERS: PCP Internal Medicine; Visit Provider Physician Assistant ==

== ENCOUNTER 2023-06-03 08:08 | Outpatient (AMB) | payer OTHER, SELFPAY ==
--- NOTE | 2023-06-03 08:12 | A.OFFVIS_ITS ---
Intake Vital Signs 06/03/23 08:15 Height 5 ft 2 in Weight 160 lb BMI 29.3 Intake Visit Reasons: PO-LT TKA 04/20/23 NE Intake Note: Claudia is a 67 year old female who presents today for a post operative appointment s/p Left TKA 04/20/23, she was last seen with Remy on 05/31/23 who introduced wet to dry dressing changes. Patient reports that she is doing well, she has been doing wety to dry dressing changes but has stoped as the wound seems to have closed. she explains that her pain is highest at night. Allergies cephalexin Allergy (Unknown, Verified 05/31/23 10:10) Swelling Cephalosporins Allergy (Unknown, Verified 05/31/23 10:10) SWELLING ciprofloxacin [CIPROFLOXACIN] Allergy (Unknown, Verified 05/31/23 10:10) SWELLING naproxen [NAPROXEN] Allergy (Unknown, Verified 05/31/23 10:10) BLISTERS IN MOUTH HPI PO-LT TKA 04/20/23 NE HPI Details Claudia is a 67 year old woman who returns ~6 weeks S/P left TKA. She was last seen by NIVIA Fortune on 05/31/23 for a wound check. She says she is doing well and has been working with PT on ROM. She continues to take her Abx and has been performing WTD dressing changes. She denies any fever, chills, or drainage She continues to have some pain mostly at night. 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) Alcohol intake: never Patient Tobacco Use Status: Current everyday Tobacco user Smoking Start Date: 11/08/79 Tobacco use type: Cigarette Cigarettes Per Day: 8 Years Smoked: 50 Second Hand Smoke Exposure: No service: No Current occupational status: unemployed Review of Systems Const All systems reviewed & are unremarkable except as noted in HPI and below Physical Exam Vital Signs: BMI result Body Mass Index 29.3 Const General: no acute distress and alert Orientation/consciousness: patient oriented x3 Neuro General: patient oriented x3 Extrem Other: Left Knee: 0-125 deg motion healing incision with no warmth or erythema or discharge Psych Appearance: grossly normal Affect: normal affect Attitude: cooperative Assessment & Plan Assessment & Plan (1) Status post total knee replacement, left: Comment: 04/20/2023 NE Code(s): Z96.652 - Presence of left artificial knee joint Plan: This is a 67 year old woman S/P left TKA, DOS: 04/20/23. She is doing well. SHe had a small stitch abcess which resolved. I recommend she continue to work on at-home strengthening exercises and with PT. Continue Celebrex for pain. She will follow up in 6 weeks. Plan Scribed for Nasim Mills MD by Earl Roche, durable medical equipment technician, on 06/03/23 at 8:45 AM, EST. Medications: Discontinued omeprazole 20 mg PO DAILY 90 caps 3RF K21.9 - Gastro-esophageal reflux disease without esophagitis Coding Level of Care Code Global (41880) Diagnoses Status post total knee replacement, left Z96.652
[2023-06-03 08:15] VITALS: BMI 29.3
== END 2023-06-03 08:41 | disposition home or self-care (01) ==
PROVIDERS: PCP Internal Medicine; Visit Provider Orthopaedic Surgery
DX: Z96.652 Presence of left artificial knee joint (principal)
CPT/HCPCS: 99024

== ENCOUNTER → 2023-06-03 08:08 | Outpatient (BNVA) | payer OTHER, SELFPAY | PROVIDERS: PCP Internal Medicine; Visit Provider Orthopaedic Surgery ==

== ENCOUNTER 2023-06-23 09:00 | Outpatient (RCR) | payer OTHER, SELFPAY ==
--- NOTE | 2023-05-06 15:04 | MHC.PT.EP ---
[facility] [place] Office [place] Office [place] Office [address] [place]el [place] [address] [phone] F: [phone] F: [phone] F: [phone] F: [phone] Physical Therapy Plan of Care Date of Evaluation: Date of Surgery: 04/20/23 Diagnosis: S/P LEFT TKA (KP) Assessment: SUNSHINE IS A PLEASANT 67 YO FEMALE WHO PRESENTS POD #16 FOR PT EVALUATION. UPON EXAM SHE DEMONSTRATES THE EXPECTED IMPAIRMENTS OF DECREASED ROM, DECREASED STRENGTH, ALTERED POSTURE AND POSITIONING,ALTERED GAIT AND BALANCE, AND INCREASED PAIN AND EDEMA. FUNCTIONAL LIMITATIONS INCLUDE DECREASED ABILITY TO PERFORM HOMEMAKING AND SELF-CARE TASKS, DECREASED ABILITY TO PERFORM WALKING, RUNNING, JUMPING AND SQUATTING, INABILITY TO DRIVE AND PERFORM WORK TASKS, DECREASED PARTICIPATION IN COMMUNITY AND RECREATIONAL ACTIVITIES AND DISRUPTED SLEEP. THE Pt IS A GOOD CANDIDATE FOR SKILLED PT DUE TO AGE, POTENTIAL REMEDIATION OF IMPAIRMENTS, TYPICAL DISEASE/CONDITION PROGRESSION AND PROGNOSIS, COMORBIDITIES, AND MOTIVATION. PT WOULD BENEFIT FROM TAILORED PROGRAM OF THERAPEUTIC ACTIVITIES, FUNCTIONAL TRAINING, GAIT TRAINING, POSTURAL EDUCATION, NEUROMUSCULAR RE-EDUCATION, AND MODALITIES NEEDED. Frequency and Duration: The patient will be seen 2 X WEEK FOR 6 WEEKS Short Term Goals: INITITATE HEP AND PROMOTE SELF MANAGEMENT OF SYMPTOMS Tractor Drill Operator Goals: TO DEMONSTRATE FULL KNEE ROM, EQUAL DENISSE TO DEMONSTRATE FULL LE STRENGTH, EQUAL DENISSE TO ASCEND AND DESCEND STAIRS WITH RECIPROCAL GAIT WITHOUT PAIN GREATER THAN 2/10 TO AMBULATE AD HOLLEY ON LEVEL AND UNEVEN SURFACES FOR FITNESS WITHOUT PAIN GREATER THAN 2/10 TO PERFORM FULL FUNCTIONAL SQUAT WITHOUT SUBSTITUTION Treatment Plan: Modalities to reduce pain, spasms and effusion. Manual therapy to restore motion and function. Therapeutic exercise to improve strength and flexibility. Neuromuscular re-education for posture and balance. Therapeutic activities to return to functional activities of daily living. Electronically signed by: NIKHIL CIFUENTES PT DPT Please sign and return to therapist. Thank you for your referral.
--- NOTE | 2023-06-23 10:35 | MHC.PT.DC ---
[facility] [place] Office [place] Office [place] Office [address] [place] [address] [phone] F: [phone] F: [phone] F: [phone] F: [phone] Physical Therapy Discharge Report Diagnosis: S/P LEFT TKA (KP) Date of Surgery: 04/20/23 Date of Evaluation: 05/06/23 Date of Discharge: 06/23/23 Treatments to Date: 13 Cancellations to Date: 0 No Shows to Date: 0 Discharge Status: Achieved Goals Improved Function Independent with HEP Discharge Summary: INDEPENDENT WITH HEP AND SELF MANAGEMENT OF RESIDUAL SYMPTOMS. ROM IS 0 TO 125, STRENGTH IS WFLs T/O LE AND EQUAL DENISSE. GOALS MET AND DCed TO HEP TODAY Electronically signed by: NIKHIL CIFUENTES PT DPT Please sign and return to therapist. Thank you for your referral.
== END 2023-06-23 10:35 | disposition home or self-care (01) ==
LOC: HO.PT 09:00
PROVIDERS: PCP Internal Medicine; Visit Provider Physician Assistant
DX: Z96.652 Presence of left artificial knee joint (principal)
CPT/HCPCS: 97110; 97140; 97161; 97530

== ENCOUNTER 2023-07-15 07:34 | Outpatient (REF) | payer OTHER, SELFPAY ==
--- NOTE | ~2023-07-15 | XR_ITS ---
EXAMINATION: XR KNEE, LEFT XR KNEE AP STANDING CLINICAL INFORMATION: Pain. COMPARISON: Radiographs dated 04/20/2023 and 01/15/2023. TECHNIQUE: Lateral and axial views of the left knee were obtained. AP bilateral standing view of the knees was obtained. FINDINGS: Prosthetic components of the left total knee arthroplasty are appropriately aligned without periprosthetic fracture or abnormal lucency. No component migration. No joint effusion. The lateral and medial joint space compartments of the right knee are well-maintained. No varus or valgus configuration is seen bilaterally. XR/XR knee standing BI IMPRESSION: 1. Appropriate alignment of the left total knee arthroplasty without evidence of complications. 2. No unusual degenerative change is seen of the right knee.
--- NOTE | ~2023-07-15 | XR_ITS ---
EXAMINATION: XR KNEE, LEFT XR KNEE AP STANDING CLINICAL INFORMATION: Pain. COMPARISON: Radiographs dated 04/20/2023 and 01/15/2023. TECHNIQUE: Lateral and axial views of the left knee were obtained. AP bilateral standing view of the knees was obtained. FINDINGS: Prosthetic components of the left total knee arthroplasty are appropriately aligned without periprosthetic fracture or abnormal lucency. No component migration. No joint effusion. The lateral and medial joint space compartments of the right knee are well-maintained. No varus or valgus configuration is seen bilaterally. XR/XR knee LT 2V IMPRESSION: 1. Appropriate alignment of the left total knee arthroplasty without evidence of complications. 2. No unusual degenerative change is seen of the right knee.
== END 2023-07-15 07:35 | disposition home or self-care (01) ==
LOC: HO.HOSX 07:34
PROVIDERS: Visit Provider Orthopaedic Surgery
DX: Z96.652 Presence of left artificial knee joint (principal)
CPT/HCPCS: 73560; 73565

== ENCOUNTER 2023-07-15 08:09 | Outpatient (AMB) | payer OTHER, SELFPAY ==
[2023-07-15 08:19] VITALS: BMI 29.3
--- NOTE | 2023-07-15 08:19 | MHC.OFFVIS ---
Intake Vital Signs 07/15/23 08:19 Height 5 ft 2 in Weight 160 lb BMI 29.3 Intake Visit Reasons: PO-LT TKA 04/20/23 NE Intake Note: Claudia is a 67 year old female who presents today for a post operative appointment s/p Left TKA 04/20/23. Patient reports that the left knee is very painful and stiff. Her pain is felt all the time. She is done with physical therapy. Allergies cephalexin Allergy (Unknown, Verified 05/31/23 10:10) Swelling Cephalosporins Allergy (Unknown, Verified 05/31/23 10:10) SWELLING ciprofloxacin [CIPROFLOXACIN] Allergy (Unknown, Verified 05/31/23 10:10) SWELLING naproxen [NAPROXEN] Allergy (Unknown, Verified 05/31/23 10:10) BLISTERS IN MOUTH HPI PO-LT TKA 04/20/23 NE HPI Details Claudia is a 67 year old woman who returns ~3 months S/P left TKA. Her post-op recovery was complicated by a small stitch abscess which resolved with Abx. She complains today of her knee feeling tight and painful, worse at night. She feels pressure in her knee and she wants to know if this is normal. She has completed her course of PT and says she continues to exercise at home. She says she uses her bicycle and exercises daily. 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) Alcohol intake: never Patient Tobacco Use Status: Current everyday Tobacco user Smoking Start Date: 11/08/79 Tobacco use type: Cigarette Cigarettes Per Day: 8 Years Smoked: 50 Second Hand Smoke Exposure: No service: No Current occupational status: unemployed Review of Systems Const All systems reviewed & are unremarkable except as noted in HPI and below Physical Exam Vital Signs: BMI result Body Mass Index 29.3 Const General: no acute distress, alert and awake Orientation/consciousness: patient oriented x3 HEENT Head: Yes normocephalic and Yes atraumatic Eyes EOM: EOMs intact bilaterally Resp Effort & Inspection: normal respiratory effort and able to speak in complete sentences Cardio Jugular venous distension: no JVD Skin General skin exam: turgor normal Rashes: no rashes Neuro General: patient oriented x3 Extrem Other: Left Knee: Well-healed incision 0-130 degrees ROM No effusion Psych Appearance: grossly normal Affect: normal affect Attitude: cooperative Results Reviewed Results Reviewed: I personally reviewed relevant radiographs. Left total knee arthroplasty in expected post operative position with no hardware complications or evidence of loosening Assessment & Plan Assessment & Plan (1) Status post total knee replacement, left: Comment: 04/20/2023 NE Code(s): Z96.652 - Presence of left artificial knee joint Plan: This is a 67 year old woman S/P left TKA, DOS: 04/20/23. She is doing well, within expectation, and her ROM is good. She complains of pain and tightness but I explained to her that this is normal for her recovery timeline and should likely improve. Her previous suture abscess has resolved with no evidence of infection. She has completed a course of PT. I recommend she continue to work on quad strengthening exercises, ice, and NSAIDs for pain relief. She will follow up in 6 months. Plan Scribed for Nasim Mills MD by Earl Roche, senior medical transcriptionist, on 07/15/23 at 8:45 AM, EST. Orders: Orders XR knee standing BI 07/15/23 M25.569 - Pain in unspecified knee XR knee LT 2V 07/15/23 M25.569 - Pain in unspecified knee Coding Level of Care Code Global (88872) Diagnoses Status post total knee replacement, left Z96.652
== END 2023-07-15 08:53 | disposition home or self-care (01) ==
PROVIDERS: PCP Internal Medicine; Visit Provider Orthopaedic Surgery
DX: Z96.652 Presence of left artificial knee joint (principal)
CPT/HCPCS: 99024

== ENCOUNTER 2023-07-29 16:49 | Inpatient (IN) | payer OTHER, SELFPAY ==
--- NOTE | ~2023-07-29 | NM_ITS ---
Examination: HIDA scan with pharmaceutical. Clinical indications: Distended gallbladder by ultrasound. COMPARISON: Ultrasound abdomen 07/29/2023. TECHNIQUE: 5 mCi of 90 9M technetium mebrofenin was injected and imaging with right upper quadrant was obtained up to 60 minutes. At 60 minutes 1.46 mg of Lasix was injected at 60 minutes and imaging was obtained up to next 30 minutes. FINDINGS: On initial imaging there is normal hepatic uptake without focal defects. Common bile duct is visualized around 20 minutes. Gallbladder is visualized around 33 minutes. Post-CCK there is visualization of small bowel. The gallbladder ejection fraction measures 12% at 30 minutes post CCK injection. NM/NM hepatobiliary w pharm IMPRESSION: Abnormal gallbladder ejection fraction of 12% at 30 minutes. Dyskinetic gallbladder. Patent cystic duct. Patent CBD.
--- NOTE | ~2023-07-29 | US_ITS ---
EXAMINATION: US ABDOMEN LIMITED CLINICAL INFORMATION: Abdominal pain. Concern for cholecystitis.. COMPARISON: None available. TECHNIQUE: Real-time imaging of the right upper quadrant abdominal viscera. FINDINGS: PANCREAS: Not assessed. LIVER: Visualized liver is within normal limits. GALLBLADDER: The gallbladder measures up to 11.8 cm. No shadowing gallbladder calculi are seen. There is no gallbladder wall thickening or pericholecystic fluid. COMMON BILE DUCT: Common bile duct is dilated up to 1.2 cm. No definite ductal calcification is seen. RIGHT KIDNEY: Not assessed. FREE FLUID: None. US/US abdomen limited IMPRESSION: Mildly distended gallbladder. No gallstones or biliary dilatation. Dilated common bile duct up to 1.2 cm. Correlation with biliary function enzymes needed.
--- NOTE | ~2023-07-29 | CT_ITS ---
EXAMINATION: CT ABDOMEN AND PELVIS WITHOUT CONTRAST CLINICAL INFORMATION: Severe abdominal pain COMPARISON: 12/30/2021 TECHNIQUE: Multidetector volumetric imaging was performed from the superior aspect of the liver through the pubic symphysis. Sagittal and coronal reformatted images were obtained on the technologist's workstation. This CT examination was performed using dose optimization techniques as appropriate, variously including the following: *Automated exposure control *Adjustment of mA and/or kV according to patient size (this includes techniques or standardized protocols for targeted exams where dose is matched to indication/reason for exam; i.e. extremities or head) *Use of iterative reconstruction technique DLP: 537 mGy-cm FINDINGS: LUNG BASES: The visualized lung bases are unremarkable. LIVER, GALLBLADDER, AND BILIARY TREE: The liver is normal in size, shape, and attenuation. No focal hepatic lesion or biliary ductal dilatation is present. The gallbladder is unremarkable with no evidence of radiopaque gallstones, gallbladder wall thickening, or obvious pericholecystic inflammatory changes. PANCREAS: Unremarkable. SPLEEN: Unremarkable. ADRENAL GLANDS: Unremarkable. KIDNEYS AND URETERS: Again probable cystic change in the kidneys. No convincing evidence for a solid lesion. There is some increased perinephric soft tissue stranding and this is also felt to be adjacent to the ureters There is no evidence for stone in the path of the ureters. BLADDER: Decompressed bladder. Mildly thick-walled GASTROINTESTINAL TRACT: Some evidence of diverticula disease in the sigmoid. No evidence for diverticulitis. The bowel pattern is felt to be nonobstructing. Probable small hiatal hernia It should be noted a normal appendix is not seen but no definitive suspicion around the cecum. ABDOMINAL WALL: No significant hernia is appreciated. LYMPH NODES: There is no bulky adenopathy here. VASCULAR: Some atherosclerotic changes are noted. PELVIC VISCERA: Unremarkable. OSSEOUS STRUCTURES: No acute finding. Some areas of mild chronic compression injury. CT/CT abdomen pelvis wo IV con IMPRESSION: Limited noncontrast exam. There is felt to be some increase soft tissue stranding around the kidneys and ureters without evidence of stone or obstruction. Given this pyelonephritis would need to be considered. The bladder is also mildly thick-walled however decompressed. Still cystitis cannot be excluded. The bowel pattern is felt to be nonobstructing. Fleischner guidelines were followed.
[2023-07-29 17:30] VITALS: BP 91/54; PULSE 110; RESP 22; TEMP 38.4; O2SAT 96; BMI 28.6
--- NOTE | 2023-07-29 17:31 | ED.GENADULT ---
HPI - General Adult General Chief complaint: Abdominal Pain Stated complaint: abd pain Time Seen by Provider: 07/29/23 18:35 Source: patient Limitations: no limitations History of Present Illness HPI narrative: 67-year-old female presents with abdominal pain. The abdominal pain is generalized but started in lower abdomen and has since increased the entire abdomen. The pain is moderate to severe. The pain is also crampy and sharp in nature. This constant. There is no clear relieving or exacerbating features. It is associated with nausea but no vomiting. She had no fever but has had subjective chills no rigors. She denies any urinary frequency, urgency or dysuria. She did have 1 episode of diarrhea today that was nonbloody. Patient denies a history of abdominal surgeries but does have a history of knee replacement surgery recently. Related Data Home Medications Medication Instructions Recorded Confirmed hydrochlorothiazide 25 mg tablet 25 mg PO DAILY 10/21/21 07/29/23 lisinopril 40 mg tablet 40 mg PO DAILY 10/21/21 07/29/23 rosuvastatin 40 mg tablet 40 mg PO DAILY 10/21/21 07/29/23 fluticasone propionate 50 1 - 2 spray intranasal DAILY PRN 03/31/22 07/29/23 mcg/actuation nasal Nasal Congestion spray,suspension omeprazole 20 mg capsule,delayed 20 mg PO DAILY PRN Acid Reflux 04/12/23 07/29/23 release clonazepam 0.5 mg tablet 0.5 mg PO DAILY PRN Anxiety 07/29/23 07/29/23 Previous Rx's Medication Instructions Recorded acetaminophen 325 mg tablet 650 mg (2 x 325 mg) PO Q6H PRN 04/22/23 Pain, Mild (Pain Scale 1-3) 30 days #240 tabs Allergies Allergy/AdvReac Type Severity Reaction Status Date / Time cephalexin Allergy Unknown Swelling Verified 05/31/23 10:10 Cephalosporins Allergy Unknown SWELLING Verified 05/31/23 10:10 ciprofloxacin [CIPROFLOXACIN] Allergy Unknown SWELLING Verified 05/31/23 10:10 naproxen [NAPROXEN] Allergy Unknown BLISTERS Verified 05/31/23 10:10 IN MOUTH Review of Systems Review of Systems: CONSTITUTIONAL: Denies weight loss, fever + chills. HEENT: Denies changes in vision and hearing. RESPIRATORY: Denies SOB and cough. CV: Denies palpitations no CP. GI: + abdominal pain, nausea, and diarrhea. : Denies dysuria and urinary frequency. MSK: Denies myalgia and joint pain. SKIN: Denies rash and pruritus. NEUROLOGICAL: Denies headache and syncope. PSYCHIATRIC: Denies recent changes in mood. Denies anxiety and depression. 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) Alcohol intake: never Patient Tobacco Use Status: Current everyday Tobacco user Smoking Start Date: 11/08/79 Tobacco use type: Cigarette Cigarettes Per Day: 8 Years Smoked: 50 Smoked in Last 30 Days: Yes Second Hand Smoke Exposure: No Use of substances other than those prescribed or required for medical reasons: No Advance Directives: No Advance Directives Information Provided: Yes service: No Current occupational status: unemployed Physical Exam ED Vital Signs: Vital Signs - 24 hr 07/29/23 17:30 07/29/23 19:28 Temperature 101.2 F H 98.9 F Pulse Rate 110 H 96 Respiratory Rate 22 H 18 Blood Pressure 91/54 L 83/52 L Pulse Oximetry 96 96 Oxygen Delivery Method Room Air Room Air BMI result Body Mass Index 28.6 GEN: Well developed, no acute distress, alert, oriented HEENT: Normocephalic, atraumatic, normal external ears, nose appears normal, no oropharyngeal edema or exudates Eyes: Normal to appearance Neck: Supple, no lymphadenopathy Respiratory: Talks in complete sentences, no respiratory distress, clear to auscultation bilaterally Cardiovascular: Regular rate and rhythm, no murmurs rubs or gallops Abdomen: Soft, + tenderness epigastric with guarding, nondistended, no rebound Back: No CVA tenderness Extremities: No clubbing cyanosis or edema Neurologic: No focal neurologic deficits, cranial nerves 2-12 intact, strength is 5/5 bilaterally Skin: No rash Course Course Course Narrative: This is a rapid medical exam: Additional HPI, ROS, PE not included below will be deferred to primary provider. Patient is a 67-year-old female presenting to the emergency department with complaint of abdominal pain, fever which woke her from sleep last night, states temp was 102.9 at home. Temp 101.2 in triage, hypotensive, tachycardic. Last too Tylenol at noon today. Bilateral upper quadrant tenderness, no guarding or rebound tenderness. Denies any urinary symptoms. Reports one episode of diarrhea this morning as well as nausea, but denies vomiting. Plan: labs including cultures, UA, peripheral edp equipment operator notified Reevaluation(s) Reevaluation #1: BP 95/50 MAP 63, calling sepsis alert. Patient tolerates penicillins, will give Zosyn, IVF ordered. Will order 30 cc/kg bolus Time: 21:40 Medications Administered Discontinued Medications Generic Name Dose Route Start Last Admin Trade Name Nandoq PRN Reason Stop Dose Admin Famotidine 20 mg 07/29/23 18:53 07/29/23 19:25 Famotidine/Pf 20 Mg/2 Ml Vial IVPUSH 07/29/23 18:54 20 mg ONCE ONE Administration Sodium Chloride 1,000 mls @ 999 mls/hr 07/29/23 19:15 07/29/23 20:41 Ns IV 07/29/23 20:15 Infused .Q1H1M DEJA Infusion Morphine Sulfate 4 mg 07/29/23 18:53 07/29/23 19:26 Morphine Sulfate 4 Mg/Ml Cartridge IVPUSH 07/29/23 18:54 4 mg ONCE ONE Administration Protocol Ondansetron HCl 4 mg 07/29/23 18:53 07/29/23 19:24 Ondansetron Hcl 4 Mg/2 Ml Vial IVPUSH 07/29/23 18:54 4 mg ONCE ONE Administration Medical Decision Making Medical Decision Making [facility] Narrative: Patient presents with generalized abdominal pain. Her exam is consistent with upper abdominal tenderness without rebound but there is guarding. Differential diagnosis includes IBD, IBS, colitis, diverticulitis, cholecystitis, appendicitis, epiploic appendagitis, mesenteric adenitis, gastroenteritis. Plan to obtain a CT scan the abdomen pelvis. Will obtain routine laboratory testing to make sure there is no significant laboratory abnormalities including mitral at abnormalities, hepatic dysfunction, renal dysfunction. Will obtain a urinalysis to make sure there was no urinary tract infection. Pending workup showed patient may warrant hospitalization further evaluation and management of her pain. Differential Diagnosis Differential Diagnoses: The differential diagnosis associated with the presentation includes (See above) Admission/Observation Consideration of admission/observation: Escalation of care including admission/observation considered Lab Data MDM Lab Attestation statement: I reviewed the patient's lab results. 07/29/23 17:52 07/29/23 17:52 Labs: Lab Results 07/29/23 07/29/23 Range/Units 17:52 21:07 WBC 13.6 H (4.8-10.8) X10*3/uL RBC 4.31 (4.20-5.50) X10*6/uL Hgb 12.6 (12.0-16.0) g/dl Hct 37.1 (37.0-47.0) % MCV 86.1 (80.0-98.0) fL MCH 29.2 (27.0-33.0) pg MCHC 34.0 (31.0-35.0) g/dl RDW 15.4 (11.0-16.0) % Plt Count 105 L D (160-400) X10*3/uL MPV 8.5 L (9.4-12.3) fL Immature Gran % (Auto) 0.5 H (0.0-0.4) % Neut % (Auto) 88.1 H (45-73) % Lymph % (Auto) 5.0 L (20-40) % [place] % (Auto) 6.1 (2-11) % Eos % (Auto) 0.1 (0-4) % Baso % (Auto) 0.2 (0-2) % Lymph # (Auto) 0.7 L (1.2-4.9) X10*3/uL [place] # (Auto) 0.8 (0.1-1.2) X10*3/uL Eos # (Auto) 0.0 (0.0-0.4) X10*3/uL Baso # (Auto) 0.0 (0.0-0.2) X10*3/uL Abs Immat Gran (auto) 0.07 H (0.00-0.03) X10*3/uL Absolute Neuts (auto) 12.0 H (2.0-8.3) x10*3/uL Absolute Nucleated RBC 0.000 (0.0-0.012) X10*3/uL Nucleated RBC % (auto) 0.0 (0.0-0.2) /100WBC Sodium 130 L (135-145) mmol/L Potassium 3.9 (3.3-5.1) mmol/L Chloride 97 (96-108) mmol/L Carbon Dioxide 23 (22-29) mmol/L Anion Gap 14 (12-20) BUN 36 H (9-16) mg/dL Creatinine 3.31 H (0.5-1.4) mg/dL Estim Creat Clear Calc 16.0 Estimated GFR 14 Random Glucose 123 H (60-115) mg/dL Lactic Acid 1.3 (0.5-2.0) mmol/L Calcium 9.4 D (8.4-10.2) mg/dL Magnesium 1.9 (1.6-2.6) mg/dL Total Bilirubin 0.5 (0.0-1.0) mg/dL AST 53 H (5-31) U/L ALT 44 H (0-31) U/L Alkaline Phosphatase 131 H (39-117) U/L Total Protein 7.2 (6.5-8.0) g/dL Albumin 4.0 (3.5-5.0) g/dL Lipase 18 (8-78) U/L Urine Color Dark Yellow Urine Appearance Turbid Urine pH 5.0 (5.0-9.0) Ur Specific [place] 1.020 (1.005-1.025) Urine Protein 100 (2+) H (Neg-Trace) mg/dL Urine Glucose (UA) Negative (Negative) mg/dL Urine Ketones Trace (Negative) mg/dL Urine Blood Moderate (2+) H (Negative) Urine Nitrite Negative (Negative) Ur Leukocyte Esterase Small (1+) H (Negative) Urine RBC 0-2 (0-2) /HPF Urine WBC 21-50 H (0-5) /HPF Ur Squamous Epith Cells 6-10 (0-2) /HPF Urine Bacteria Trace (None Seen) Hyaline Casts >20 (0-2) /LPF COVID-19 (LYDIA) Negative (Negative) COVID-19 Clin Com See Note Influenza Type A (OMAR) Negative (Negative) Influenza Type B (OMAR) Negative (Negative) Influenza A & B Note See Note Independent Interpretation I performed an independent interpretation of an: CT Scan (Abdomen pelvis: No acute abnormality seen, large exophytic left renal cyst) Radiology Impression Discussion of test interpretation with radiology: I have reviewed the radiologist's reading. Radiologist Impression: CT/CT abdomen pelvis wo IV con IMPRESSION: Limited noncontrast exam. There is felt to be some increase soft tissue stranding around the kidneys and ureters without evidence of stone or obstruction. Given this pyelonephritis would need to be considered. The bladder is also mildly thick-walled however decompressed. Still cystitis cannot be excluded. The bowel pattern is felt to be nonobstructing. Fleischner guidelines were followed. Dictated By: Arcadio Lozano MD Signed By: <Electronically signed by Arcadio Lozano MD in [place]> 07/29/231921 Prescription Management I considered prescription management with: Pain Medication Chronic Conditions Patient?s care impacted by: Hypertension Discharge Plan Discharge Clinical Impression: Abdominal pain, PHILLIP (acute kidney injury), Leukocytosis Patient Disposition: Admitted As Inpatient
[2023-07-29 17:58] LABS: MANUAL DIFF FLAG NO
[2023-07-29 17:59] LABS: Basophils Percent Auto 0.2 % (0-2); Eosinophils Percent Auto 0.1 % (0-4); Hematocrit 37.1 % (37.0-47.0); Hemoglobin 12.6 g/dl (12.0-16.0); Imm Gran Abs Auto 0.07 X10*3/uL (0.00-0.03); Imm Gran Pct Auto 0.5 % (0.0-0.4); Lymphocytes Absolute Auto 0.7 X10*3/uL (1.2-4.9); Mean Corpuscular Hemoglobin 29.2 pg (27.0-33.0); Mean Corpuscular Volume 86.1 fL (80.0-98.0); Mean Platelet Volume 8.5 fL (9.4-12.3); Monocytes Absolute Auto 0.8 X10*3/uL (0.1-1.2); Monocytes Percent Auto 6.1 % (2-11); Neutrophils Percent Auto 88.1 % (45-73); Platelet Count 105 X10*3/uL (160-400); Red Blood Count 4.31 X10*6/uL (4.20-5.50); Red Cell Distribution Width 15.4 % (11.0-16.0); White Blood Count 13.6 X10*3/uL (4.8-10.8)
[2023-07-29 18:13] LABS: IDNOW Serial# 08D9AD1C; Influenza A Negative (Negative); Influenza B2 Negative (Negative)
[2023-07-29 18:14] LABS: Lactic Acid 1.3 mmol/L (0.5-2.0)
[2023-07-29 18:19] LABS: Alanine Aminotransferase 44 U/L (0-31); Alkaline Phosphatase 131 U/L (39-117); Anion Gap 14 (12-20); Aspartate Amino Transferase 53 U/L (5-31); Bilirubin Total 0.5 mg/dL (0.0-1.0); Blood Urea Nitrogen 36 mg/dL (9-16); Calcium 9.4 mg/dL (8.4-10.2); Carbon Dioxide 23 mmol/L (22-29); Chloride 97 mmol/L (96-108); Estimated Glomerular Filt Rate 14; Glucose Random 123 mg/dL (60-115); Lipase 18 U/L (8-78); Magnesium 1.9 mg/dL (1.6-2.6); Potassium 3.9 mmol/L (3.3-5.1); Sodium 130 mmol/L (135-145); Total Protein 7.2 g/dL (6.5-8.0)
[2023-07-29 18:26] LABS: COVID-19 Test Negative (Negative); IDNOW Serial# BCCEAD1C
[2023-07-29] MEDS: 0.9 % Sodium Chloride 1,000 ML 999 ML IV (19:23)
[2023-07-29] MEDS: ondansetron HCL 4 MG/2 ML VIAL IVPUSH (19:24)
[2023-07-29] MEDS: Famotidine/PF 20 MG/2 ML VIAL IVPUSH (19:25)
[2023-07-29] MEDS: Morphine Sulfate 4 MG/ML CARTRIDGE IVPUSH (19:26)
[2023-07-29 19:28] VITALS: BP 83/52; PULSE 96; RESP 18; TEMP 37.2; O2SAT 96
[2023-07-29 21:14] LABS: Appearance Urine Turbid; Color Urine Dark Yellow; Glucose Urine UA Negative (Negative); Leukocyte Esterase Urine Small (1+) (Negative); Nitrite Urine Negative (Negative); UMIC TRIGGER UACC YES; Urine Blood Moderate (2+) (Negative); Urine Ketones Trace mg/dL (Negative); Urine Protein 100 (2+) mg/dL (Neg-Trace)
[2023-07-29 21:27] LABS: Bacteria Urine Trace (None Seen); Hyaline Casts Urine >20 /LPF (0-2); RBC Urine 0-2 /HPF (0-2); UACC Culture Trigger YES; WBC Urine 21-50 /HPF (0-5)
--- NOTE | 2023-07-29 21:32 | PHA.MEDREC ---
Pharmacy Consult ? Medication Reconciliation Pharmacy has completed the medication reconciliation. Patient confirmed medications. Ese Timmons, MamiD
--- NOTE | 2023-07-29 21:37 | P.HPHOSP_ITS ---
History of Present Illness Date of Service: 07/29/23 Attending physician on admission: Erma Zaragoza Chief Complaint: Abdominal pain Pt is a 67-year-old female with a PMH significant for?HTN, HLD, GERD, and depression who presents to the ED with?severe abdominal pain x2 days. Patient states symptoms began on Wednesday in her lower abdomen and pelvis and eventually migrated up to where she is currently experiencing right sided pain, especially in RUQ. Pain comes and goes, describes it as crampy in nature, and she knows of no precipitating or alleviating factors. Has been experiencing nausea but no vomiting with one episode of loose stool yesterday that was dark colored but with no bright red blood. Patient has been experiencing polyuria and increased urinary urgency, but denies dysuria. Patient reports that she has not been able to eat or drink for the past 2 days secondary to her nausea. Patient also reports fevers as high of 102.9 and chills. Denies chest pain/pressure, palpitations. No shortness of breath, difficulty breathing. In the ED patient was febrile up to 101.2, tachycardic, tachypneic, with soft BP as low as 83/52. Labs were significant for leukocytosis of 13.6, sodium 130, BUN 36, creatinine 3.31, AST 53, ALT 44, alk phos 131. UA likely positive for UTI. CT?of abdomen and pelvis negative for obstruction but showed some increased soft tissue stranding around the kidneys and ureters without evidence of stone or obstruction, suggestive of pyelonephritis. Bladder also is noted to be mildly thick wall however decompressed, cystitis cannot be excluded. Pt was treated with IVF, ondansetron, famotidine, and morphine. Pt will be admitted to the hospital for treatment of PHILLIP and severe sepsis in the setting of UTI with question of pyelonephritis. Review of Systems 2 Review of Systems: Severe lower abdominal pain migrating to right upper quadrant Nausea, no vomiting Fever, chills Reduced p.o. intake One episode of loose, dark-colored stools No chest pain/pressure, palpitations Denies SOB Yes all other systems are reviewed and are negative [facility] Medical History Schizoaffective disorder, bipolar type Elevated cholesterol Arthritis History of abdominal hernia Primary osteoarthritis of left knee HTN (hypertension) Depression Chronic pain Surgical History Hx of tonsillectomy History of carpal tunnel surgery H/O wrist surgery History of back surgery Hx of inguinal hernia surgery Social History Household Members: None Housing: House Are you a primary healthcare administrator to a significant other at home: No Do you presently have visiting nurse or other home services: Yes (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) Alcohol intake: never Patient Tobacco Use Status: Current everyday Tobacco user Smoking Start Date: 11/08/79 Tobacco use type: Cigarette Cigarettes Per Day: 8 Years Smoked: 50 Smoked in Last 30 Days: Yes Second Hand Smoke Exposure: No Use of substances other than those prescribed or required for medical reasons: No Advance Directives: No Advance Directives Information Provided: Yes service: No Current occupational status: unemployed Meds Allergies Allergy/AdvReac Type Severity Reaction Status Date / Time cephalexin Allergy Unknown Swelling Verified 05/31/23 10:10 Cephalosporins Allergy Unknown SWELLING Verified 05/31/23 10:10 ciprofloxacin [CIPROFLOXACIN] Allergy Unknown SWELLING Verified 05/31/23 10:10 naproxen [NAPROXEN] Allergy Unknown BLISTERS Verified 05/31/23 10:10 IN MOUTH Active Medications: Current Medications Acetaminophen (Acetaminophen 325 Mg Tablet) 650 mg PO Q6H PRN PRN Reason: Pain, Mild (Pain Scale 1-3) Atorvastatin Calcium (Atorvastatin Calcium 80 Mg Tablet) 80 mg PO DAILY DEJA Clonazepam (Clonazepam 0.5 Mg Tablet) 0.5 mg PO DAILY PRN PRN Reason: Anxiety Enoxaparin Sodium (Enoxaparin Sodium 30 Mg/0.3 Ml Syringe) 30 mg SUBCUT Q24H DEJA Sodium Chloride (Ns) 1,000 mls @ 999 mls/hr IV .Q1H1M ONE Stop: 07/29/23 21:58 Ceftriaxone Sodium 1 gm/ (Sodium Chloride) 50 mls @ 100 mls/hr IV Q24H DEJA Melatonin (Melatonin 3 Mg Tablet) 6 mg PO BEDTIME PRN PRN Reason: Insomnia Omeprazole (Omeprazole 20 Mg Capsule.Dr) 20 mg PO DAILY PRN PRN Reason: Acid Reflux Ondansetron HCl (Ondansetron Hcl 4 Mg/2 Ml Vial) 4 mg IVPUSH Q8H PRN PRN Reason: Nausea and Vomiting Sodium Chloride (0.9 % Sodium Chloride Flush 3 Ml Syringe) 3 ml IVFLUSH QSHIFT [facility] Home Medications Medication Instructions Recorded Confirmed Last Taken Type hydrochlorothiazide 25 mg tablet 25 mg PO DAILY 10/21/21 07/29/23 07/29/23 History lisinopril 40 mg tablet 40 mg PO DAILY 10/21/21 07/29/23 07/29/23 History rosuvastatin 40 mg tablet 40 mg PO DAILY 10/21/21 07/29/23 07/29/23 History fluticasone propionate 50 1 - 2 spray intranasal DAILY PRN 03/31/22 07/29/23 Unknown History mcg/actuation nasal Nasal Congestion spray,suspension omeprazole 20 mg capsule,delayed 20 mg PO DAILY PRN Acid Reflux 04/12/23 07/29/23 Unknown History release clonazepam 0.5 mg tablet 0.5 mg PO DAILY PRN Anxiety 07/29/23 07/29/23 Unknown History Physical Exam 2 Vital Signs and Narrative: Vital Signs: Last Vital Signs Temp 98.9 F 07/29/23 19:28 Pulse 96 07/29/23 19:28 Resp 18 07/29/23 19:28 BP 83/52 L 07/29/23 19:28 Pulse Ox 96 07/29/23 19:28 O2 Del Method Room Air 07/29/23 19:28 BMI result Body Mass Index 28.6 Constitutional: Alert, uncomfortable looking, shaking, in no acute distress. Mental Status: Oriented to person, place and time. Eyes: Pupils are equal, round, and reactive to light. Ear, Nose, and Throat: Oropharynx clear, mucous membranes moist. Ears and nose without deformities. Trachea midline. Respiratory: Clear to auscultation bilaterally. No wheezing, rales, or rhonchi. Cardiovascular: S1, S2 regular. No murmurs, rubs, or gallops. Gastrointestinal: Abdomen soft, non-distended, with right-sided abdominal pain with guarding, especially RUQ. Normal bowel sounds. Back: No CVA tenderness Neurologic: Cranial nerves II-XII are grossly intact bilaterally. No focal neurological deficits. Moves all extremities spontaneously. Skin: No rashes or lesions noted. Musculoskeletal: No cyanosis or clubbing. Extremities: No edema. Psychiatric: Normal mood and affect. Results Labs 07/29/23 17:52 07/29/23 17:52 Labs: Laboratory Results - last 24 hr 07/29/23 07/29/23 17:52 21:07 MCV 86.1 MCH 29.2 MCHC 34.0 RDW 15.4 Plt Count 105 L D MPV 8.5 L Immature Gran % (Auto) 0.5 H Neut % (Auto) 88.1 H Lymph % (Auto) 5.0 L [place] % (Auto) 6.1 Eos % (Auto) 0.1 Baso % (Auto) 0.2 Lymph # (Auto) 0.7 L [place] # (Auto) 0.8 Eos # (Auto) 0.0 Baso # (Auto) 0.0 Abs Immat Gran (auto) 0.07 H Absolute Neuts (auto) 12.0 H Absolute Nucleated RBC 0.000 Nucleated RBC % (auto) 0.0 Anion Gap 14 Estim Creat Clear Calc 16.0 Estimated GFR 14 Random Glucose 123 H Lactic Acid 1.3 Calcium 9.4 D Magnesium 1.9 Total Bilirubin 0.5 AST 53 H ALT 44 H Alkaline Phosphatase 131 H Total Protein 7.2 Albumin 4.0 Lipase 18 Urine Color Dark Yellow Urine Appearance Turbid Urine pH 5.0 Ur Specific [place] 1.020 Urine Protein 100 (2+) H Urine Glucose (UA) Negative Urine Ketones Trace Urine Blood Moderate (2+) H Urine Nitrite Negative Ur Leukocyte Esterase Small (1+) H Urine RBC 0-2 Urine WBC 21-50 H Ur Squamous Epith Cells 6-10 Urine Bacteria Trace Hyaline Casts >20 COVID-19 (LYDIA) Negative COVID-19 Clin Com See Note Influenza Type A (OMAR) Negative Influenza Type B (OMAR) Negative Influenza A & B Note See Note Imaging Radiologist's Impressions: Impressions Abdomen/Pelvis CT 07/29/23 19:09 IMPRESSION: Limited noncontrast exam. There is felt to be some increase soft tissue stranding around the kidneys and ureters without evidence of stone or obstruction. Given this pyelonephritis would need to be considered. The bladder is also mildly thick-walled however decompressed. Still cystitis cannot be excluded. The bowel pattern is felt to be nonobstructing. Fleischner guidelines were followed. Assessment and Plan (1) PHILLIP (acute kidney injury): Status: Acute (2) Severe sepsis: Status: Acute (3) UTI (urinary tract infection): Status: Acute Plan Pt is a 67-year-old female with a PMH significant for?HTN, HLD, GERD, and depression who presents to the ED with?severe abdominal pain x2 days. Pt will be admitted to the hospital for treatment of PHILLIP and severe sepsis in the setting of UTI with question of pyelonephritis. Sepsis due to UTI with question of pyelonephritis Patient with polyuria, increased urinary urgency, UA suggestive of UTI CT of abdomen and pelvis suggestive of possible pyelonephritis versus cystitis Pt with no CVA tenderness on exam Patient meets severe sepsis criteria: UTI, fever, tachycardia, tachypnea, leukocytosis, hypotension Patient given sepsis bolus IVF and started on broad-spectrum antibiotics: Zosyn Follow cultures, CBC PHILLIP Patient's creatinine 3.31 Likely secondary to reduced p.o. intake for the past 2 days due to nausea, increased urination Patient resuscitated with IVF Follow BMP URQ pain CT of abdomen and pelvis showed normal gallbladder Patient with right upper quadrant tenderness on exam with some guarding Patient with mild transaminitis: AST 53, ALT 44, alk-phos 131 Likely secondary to sepsis Hyponatremia Patient with sodium of 130 Likely secondary to polyuria, reduced p.o. intake Patient received IVF Follow BMP HTN Hold antihypertensives d/t hypotension Resume as warranted HLD Hold statin for now due to transaminitis Full Code Attending:?Dr. Zaragoza DVT Prophylaxis: Lovenox Pt will require a hospitalization of at least two nights for treatment with IVF and IV antibiotics of?PHILLIP and severe sepsis in the setting of UTI with question of pyelonephritis. Time Spent With Patient Time: Total time managing care of this patient today ____ minutes. Quality Stroke Does the patient have a stroke diagnosis?: No VTE Prior VTE?: No VTE Risk Level:: Medical - moderate - high VTE Device Contraindication: Treatment Not Indicated VTE Drug Contraindication: N/A - Med Ordered
--- NOTE | 2023-07-29 21:47 | HE.PHANOTE ---
Ceftriaxone order by . Patient has allergy to cephalsporins. Confirmed with patient allergy is swelling of the face. Reached out to Dr. Zaragoza. Cannot switch to levaquin as patient has the same allergy. Per Dr. Zaragoza will switch to trever Mitchell to monitor first dose close for potential cross reactivity.
[2023-07-29] MEDS: Piperacillin Sodium/Tazobactam 2.25 GM in 0.9 % Sodium Chloride 50 ML IV (22:05)
[2023-07-29 23:31] VITALS: BP 90/55; PULSE 100; RESP 18; O2SAT 95
[2023-07-29] MEDS: Enoxaparin Sodium 30 MG/0.3 ML SYRINGE SUBCUT (23:37)
[2023-07-30] VITALS (18 sets, daily range): BP systolic 70–171; BP diastolic 49–83; PULSE 89–129; RESP 16–35; TEMP 36.1–39.4; O2SAT 87–97
[2023-07-30] MEDS: Acetaminophen 325 MG TABLET 650 MG PO ×3 (02:57→14:26)
[2023-07-30] MEDS: Nicotine 14 MG PATCH.TD24 TRANSDERMA (03:19)
[2023-07-30] MEDS: Morphine Sulfate 2 MG/ML CARTRIDGE IVPUSH ×2 (03:19→20:24)
[2023-07-30] MEDS: Calcium Carbonate 750 MG TAB.CHEW PO (04:23)
[2023-07-30] MEDS: Piperacillin Sodium/Tazobactam 2.25 GM in 0.9 % Sodium Chloride 50 ML IV ×3 (05:21→21:51)
[2023-07-30 07:40] LABS: MANUAL DIFF FLAG NO
[2023-07-30 07:43] LABS: Basophils Percent Auto 0.2 % (0-2); Eosinophils Percent Auto 0.2 % (0-4); Hematocrit 30.5 % (37.0-47.0); Hemoglobin 10.2 g/dl (12.0-16.0); Imm Gran Pct Auto 1.9 % (0.0-0.4); Lymphocytes Percent Auto 9.3 % (20-40); Mean Corpuscular HGB Conc 33.4 g/dl (31.0-35.0); Mean Corpuscular Hemoglobin 28.7 pg (27.0-33.0); Mean Corpuscular Volume 85.7 fL (80.0-98.0); Monocytes Absolute Auto 0.9 X10*3/uL (0.1-1.2); Monocytes Percent Auto 8.2 % (2-11); Neutrophils Absolute Auto 8.3 x10*3/uL (2.0-8.3); Neutrophils Percent Auto 80.2 % (45-73); Platelet Count 104 X10*3/uL (160-400); Red Blood Count 3.56 X10*6/uL (4.20-5.50); Red Cell Distribution Width 15.9 % (11.0-16.0); White Blood Count 10.3 X10*3/uL (4.8-10.8)
[2023-07-30 08:10] LABS: Anion Gap 15 (12-20); Blood Urea Nitrogen 45 mg/dL (9-16); Carbon Dioxide 19 mmol/L (22-29); Chloride 102 mmol/L (96-108); Glucose Random 81 mg/dL (60-115); Potassium 4.1 mmol/L (3.3-5.1); Sodium 132 mmol/L (135-145)
[2023-07-30 08:15] LABS: Creatinine Clr Calc Pharmacy 12.7; Estimated Glomerular Filt Rate 11
[2023-07-30 08:23] LABS: Alanine Aminotransferase 28 U/L (0-31); Alkaline Phosphatase 91 U/L (39-117); Aspartate Amino Transferase 39 U/L (5-31); Bilirubin Direct 0.3 mg/dL (0.0-0.5); Bilirubin Total 0.5 mg/dL (0.0-1.0); Calcium 8.2 mg/dL (8.4-10.2); Total Protein 5.6 g/dL (6.5-8.0)
[2023-07-30] MEDS: Lactated Ringers 1,000 ML 100 ML IVCONT (09:18)
[2023-07-30] MEDS: 0.9 % Sodium Chloride Flush 3 ML SYRINGE IVFLUSH ×3 (09:24→23:32)
--- NOTE | 2023-07-30 11:21 | MHC.CM.PN ---
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
--- NOTE | 2023-07-30 11:32 | PC.NURSE ---
Pt reported feeling chills at 0900. Oral temperature taken 100.3. INVIA Slater notified. PRN Tylenol 650 given. Temperature rechecked orally at 1128 100.7. Pt reports feeling better, no chills. Lo Kang notified. No new orders at this time.
[2023-07-30] MEDS: Heparin Sodium,Porcine 5,000 UNIT/ML VIAL 5000 UNIT SUBCUT ×2 (11:54→21:51)
--- NOTE | 2023-07-30 12:54 | P.PNIM_ITS ---
Subjective Subjective Date of Service: 07/30/23 Interval History: seen and examined this morning follow up for PHILLIP, pyelonephritis, abdominal pain blood cultures growing GNR still with some right side abdominal discomfort, no nausea or vomiting Review of Systems Review of Systems: Yes all other systems are reviewed and are negative Constitutional Constitutional: Reports chills Cardiovascular Cardiovascular: Denies chest pain Gastrointestinal Gastrointestinal: Reports abdominal pain, Denies nausea and Denies vomiting Physical Exam 2 Vital Signs: Vital Signs: Last Vital Signs Temp 100.7 F H 07/30/23 11:28 Pulse 89 07/30/23 07:04 Resp 16 07/30/23 07:04 BP 102/57 L 07/30/23 03:17 Pulse Ox 96 07/30/23 07:04 O2 Del Method Room Air 07/30/23 03:17 BMI result Body Mass Index 28.6 Const: General: alert and awake Nutritional Appearance: average body habitus Orientation/consciousness: patient oriented x3 Resp: Other: diminished breath sounds Effort & Inspection: normal respiratory effort, able to speak in complete sentences, no respiratory distress and no use of accessory muscles Cardio: Rate: regular rate GI: Other: mild tenderness to palpation RUQ Inspection: No distended Palpation (GI): Soft to palpation Neuro: General: patient oriented x3, moves all extremities and CN's II-XI intact bilaterally Extrem: General: Yes no pedal edema Objective Data Active Medications Acetaminophen (Acetaminophen 325 Mg Tablet) 650 mg PO Q6H PRN PRN Reason: Pain, Mild (Pain Scale 1-3) Last Admin: 07/30/23 09:17 Dose: 650 mg Documented By: SCOUT Clonazepam (Clonazepam 0.5 Mg Tablet) 0.5 mg PO DAILY PRN PRN Reason: Anxiety Heparin Sodium (Porcine) (Heparin Sodium,Porcine 5,000 Unit/Ml Vial) 5,000 unit SUBCUT Q12H [facility] Last Admin: 07/30/23 11:54 Dose: 5,000 unit Documented By: ALLAN Piperacillin Sod/Tazobactam (Sod 2.25 gm/ Sodium Chloride) 50 mls @ 100 mls/hr IV Q8H [facility] Last Infusion: 07/30/23 06:00 Dose: Infused Documented By: LASHAWN Lactated Ringer's (Lr) 1,000 mls @ 100 mls/hr IVCONT .Q10H [facility] Last Admin: 07/30/23 09:18 Dose: 100 mls/hr Documented By: SCOUT Melatonin (Melatonin 3 Mg Tablet) 6 mg PO BEDTIME PRN PRN Reason: Insomnia Nicotine (Nicotine 14 Mg Patch.Td24) 14 mg TRANSDERMA DAILY [facility] Last Admin: 07/30/23 03:19 Dose: 14 mg Documented By: LASHAWN Omeprazole (Omeprazole 20 Mg Capsule.Dr) 20 mg PO DAILY PRN PRN Reason: Acid Reflux Ondansetron HCl (Ondansetron Hcl 4 Mg/2 Ml Vial) 4 mg IVPUSH Q8H PRN PRN Reason: Nausea and Vomiting Sodium Chloride (0.9 % Sodium Chloride Flush 3 Ml Syringe) 3 ml IVFLUSH QSHIFT [facility] Last Admin: 07/30/23 09:24 Dose: 3 ml Documented By: SCOUT Labs 07/30/23 06:46 07/30/23 06:46 Labs: Laboratory Results - last 24 hr 07/29/23 07/29/23 07/29/23 17:52 21:07 22:11 MCV 86.1 MCH 29.2 MCHC 34.0 RDW 15.4 Plt Count 105 L D MPV 8.5 L Immature Gran % (Auto) 0.5 H Neut % (Auto) 88.1 H Lymph % (Auto) 5.0 L Bro[place] % (Auto) 6.1 Eos % (Auto) 0.1 Baso % (Auto) 0.2 Lymph # (Auto) 0.7 L [place] # (Auto) 0.8 Eos # (Auto) 0.0 Baso # (Auto) 0.0 Abs Immat Gran (auto) 0.07 H Absolute Neuts (auto) 12.0 H Absolute Nucleated RBC 0.000 Nucleated RBC % (auto) 0.0 Anion Gap 14 Estim Creat Clear Calc 16.0 Estimated GFR 14 Random Glucose 123 H Lactic Acid 1.3 1.0 Calcium 9.4 D Magnesium 1.9 Total Bilirubin 0.5 Direct Bilirubin AST 53 H ALT 44 H Alkaline Phosphatase 131 H Total Protein 7.2 Albumin 4.0 Lipase 18 Urine Color Dark Yellow Urine Appearance Turbid Urine pH 5.0 Ur Specific [place] 1.020 Urine Protein 100 (2+) H Urine Glucose (UA) Negative Urine Ketones Trace Urine Blood Moderate (2+) H Urine Nitrite Negative Ur Leukocyte Esterase Small (1+) H Urine RBC 0-2 Urine WBC 21-50 H Ur Squamous Epith Cells 6-10 Urine Bacteria Trace Hyaline Casts >20 COVID-19 (LYDIA) Negative COVID-19 Clin Com See Note Influenza Type A (OMAR) Negative Influenza Type B (OMAR) Negative Influenza A & B Note See Note 07/30/23 06:46 MCV 85.7 MCH 28.7 MCHC 33.4 RDW 15.9 Plt Count 104 L MPV 10.0 Immature Gran % (Auto) 1.9 H Neut % (Auto) 80.2 H Lymph % (Auto) 9.3 L [place] % (Auto) 8.2 Eos % (Auto) 0.2 Baso % (Auto) 0.2 Lymph # (Auto) 1.0 L [place] # (Auto) 0.9 Eos # (Auto) 0.0 Baso # (Auto) 0.0 Abs Immat Gran (auto) 0.20 H Absolute Neuts (auto) 8.3 Absolute Nucleated RBC 0.000 Nucleated RBC % (auto) 0.0 Anion Gap 15 Estim Creat Clear Calc 12.7 Estimated GFR 11 Random Glucose 81 Lactic Acid Calcium 8.2 L D Magnesium Total Bilirubin 0.5 Direct Bilirubin 0.3 AST 39 H ALT 28 Alkaline Phosphatase 91 Total Protein 5.6 L Albumin 3.0 L Lipase Urine Color Urine Appearance Urine pH Ur Specific [place] Urine Protein Urine Glucose (UA) Urine Ketones Urine Blood Urine Nitrite Ur Leukocyte Esterase Urine RBC Urine WBC Ur Squamous Epith Cells Urine Bacteria Hyaline Casts COVID-19 (LYDIA) COVID-19 Clin Com Influenza Type A (OMAR) Influenza Type B (OMAR) Influenza A & B Note Microbiology Microbiology Results: Microbiology 07/29/23 22:11 Blood Culture - Preliminary Blood - Venous Prelim: GNR Gram Stain only 07/29/23 22:11 Blood Culture - Preliminary Blood - Venous Prelim: GNR Gram Stain only 07/29/23 18:31 Blood Culture - Preliminary Blood - Venous Prelim: GNR Gram Stain only 07/29/23 17:52 Blood Culture - Preliminary Blood - Venous Prelim: GNR Gram Stain only 07/29/23 21:27 Urine Culture - Preliminary Urine clean catch - Urine cross top No growth to date. Assessment and Plan (1) UTI (urinary tract infection): Status: Acute (2) PHILLIP (acute kidney injury): Status: Acute (3) Severe sepsis: Status: Acute Plan Pt is a 67-year-old female with a PMH significant for?HTN, HLD, GERD, and depression who presents to the ED with?severe abdominal pain x2 days. Pt will be admitted to the hospital for treatment of PHILLIP and severe sepsis in the setting of UTI with question of pyelonephritis. Sepsis due to possible urinary source and GNR bacteremia met sepsis criteria fever, tachycardia, tachypnea, leukocytosis. improving s/p sepsis fluid bolus continue zosyn, started 07/29 Blood cultures growing GNR Urine cultures pending PHILLIP creatinine up to 4.17, baseline 0.8-0.9 likely multifactorial r/t decreased po intake, home bp meds (shireen and thiazide) and sepsis resume IVF nephrology evaluation pending follow renal function RUQ pain LFTs trending down abdominal US with dilated CBD and mildly distended gallbladder - will consult general surgery Thrombocytopenia likely r/t sepsis follow CBC Hyponatremia improved to 132 Likely secondary to reduced p.o. intake HTN Hold antihypertensives d/t hypotension (hctz, lisinopril) and PHILLIP HLD Hold statin for now due to transaminitis Full Code Attending:?Dr. Xie DVT Prophylaxis: heparin requires ongoing inpatient stay for IVF and IV antibiotics and close monitoring of renal function and severe sepsis Time Spent With Patient Time: Total time managing care of this patient today ____ minutes. Quality Stroke Does the patient have a stroke diagnosis?: No VTE Prior VTE?: No VTE Risk Level:: Medical - moderate - high VTE Device Contraindication: Treatment Not Indicated VTE Drug Contraindication: N/A - Med Ordered
--- NOTE | 2023-07-30 13:41 | PM.CNGS ---
History of Present Illness Consult details Consult date: 07/30/23 Requesting physician: Lo Kang Narrative: 67-year-old female patient presenting with complaints of abdominal pain of 4 days duration. The pain began in lower abdomen but then gradually became more generalized. She subsequently presented to the emergency department yesterday and was admitted to the hospital service for further management. She reports some back pain today but feels this may be due to her positioning in bed. She reports nausea, vomiting, fever, chills, and diarrhea. She denies a previous history of similar pain. Workup in the emergency department revealed a normal WBC. CT abdomen and pelvis revealed normal appearing gallbladder with no radiopaque stones and no wall thickening. Subsequent ultrasound confirmed no gallstones within the gallbladder but a dilated common bile duct measuring 1.2 cm. Laboratories also revealed a normal bilirubin level but moderately elevated transaminase. She currently reports the pain to be 6/10 in severity which is the same as yesterday. Review of Systems Review of Systems: Yes all other systems are reviewed and are negative Constitutional: Constitutional: Reports chills, Reports fever(s) and Reports malaise Cardiovascular: Cardiovascular: Denies chest pain, Denies irregular heart rhythm and Denies palpitations Gastrointestinal: Gastrointestinal: Reports abdominal pain, Denies constipation, Reports diarrhea, Reports nausea and Reports vomiting Musculoskeletal: Musculoskeletal: Reports back pain Endocrine: Endocrine: Denies palpitations PMFSH Past Medical History Medical History Schizoaffective disorder, bipolar type Elevated cholesterol Arthritis History of abdominal hernia Primary osteoarthritis of left knee HTN (hypertension) Depression Chronic pain Surgical History Surgical History Hx of tonsillectomy History of carpal tunnel surgery H/O wrist surgery History of back surgery Hx of inguinal hernia surgery Social History Social History Household Members: None Housing: House Are you a primary healthcare administration internship to a significant other at home: No Do you presently have visiting nurse or other home services: Yes ([employer]) Alcohol intake: never Patient Tobacco Use Status: Current everyday Tobacco user Smoking Start Date: 11/08/79 Tobacco use type: Cigarette Cigarettes Per Day: 5 Years Smoked: 50 Smoked in Last 30 Days: Yes Patient Interested in Nicotine Replacement: Yes Second Hand Smoke Exposure: No Use of substances other than those prescribed or required for medical reasons: No Currently Displaying Signs/Symptoms of Drug Intoxication Withdrawal: No Have you been hit, kicked, punched, or otherwise hurt by someone within the past year? If so, by whom?: No Do you feel safe in your current relationship?: No Current Relationship Is there a partner from a previous relationship who is making you feel unsafe now?: No Are you made to feel afraid or neglected: No Restorationist Healthcare Practices: Buddhism Advance Directives: No Advance Directives Information Provided: Yes Do you have thoughts of harming others: None Do you have a plan to hurt others: No Plan Recently lost weight without trying: No How much weight loss: Not applicable Eating poorly because of decreased appetite: Yes Nutrition screen score: 1 Patient : No : No Poor oral hygiene: No service: No Current occupational status: unemployed Meds Allergies Allergy/AdvReac Type Severity Reaction Status Date / Time cephalexin Allergy Unknown Swelling Verified 05/31/23 10:10 Cephalosporins Allergy Unknown SWELLING Verified 05/31/23 10:10 ciprofloxacin [CIPROFLOXACIN] Allergy Unknown SWELLING Verified 05/31/23 10:10 naproxen [NAPROXEN] Allergy Unknown BLISTERS Verified 05/31/23 10:10 IN MOUTH Active Medications: Current Medications Acetaminophen (Acetaminophen 325 Mg Tablet) 650 mg PO Q6H PRN PRN Reason: Pain, Mild (Pain Scale 1-3) Last Admin: 07/30/23 09:17 Dose: 650 mg Clonazepam (Clonazepam 0.5 Mg Tablet) 0.5 mg PO DAILY PRN PRN Reason: Anxiety Heparin Sodium (Porcine) (Heparin Sodium,Porcine 5,000 Unit/Ml Vial) 5,000 unit SUBCUT Q12H [facility] Last Admin: 07/30/23 11:54 Dose: 5,000 unit Piperacillin Sod/Tazobactam (Sod 2.25 gm/ Sodium Chloride) 50 mls @ 100 mls/hr IV Q8H [facility] Last Infusion: 07/30/23 06:00 Dose: Infused Lactated Ringer's (Lr) 1,000 mls @ 100 mls/hr IVCONT .Q10H [facility] Last Infusion: 07/30/23 13:33 Dose: 0 mls/hr Melatonin (Melatonin 3 Mg Tablet) 6 mg PO BEDTIME PRN PRN Reason: Insomnia Nicotine (Nicotine 14 Mg Patch.Td24) 14 mg TRANSDERMA DAILY [facility] Last Admin: 07/30/23 03:19 Dose: 14 mg Omeprazole (Omeprazole 20 Mg Capsule.Dr) 20 mg PO DAILY PRN PRN Reason: Acid Reflux Ondansetron HCl (Ondansetron Hcl 4 Mg/2 Ml Vial) 4 mg IVPUSH Q8H PRN PRN Reason: Nausea and Vomiting Sodium Chloride (0.9 % Sodium Chloride Flush 3 Ml Syringe) 3 ml IVFLUSH QSHIFT [facility] Last Admin: 07/30/23 09:24 Dose: 3 ml Home Medications Medication Instructions Recorded Confirmed Last Taken Type hydrochlorothiazide 25 mg tablet 25 mg PO DAILY 10/21/21 07/29/23 07/29/23 History lisinopril 40 mg tablet 40 mg PO DAILY 10/21/21 07/29/23 07/29/23 History rosuvastatin 40 mg tablet 40 mg PO DAILY 10/21/21 07/29/23 07/29/23 History fluticasone propionate 50 1 - 2 spray intranasal DAILY PRN 03/31/22 07/29/23 Unknown History mcg/actuation nasal Nasal Congestion spray,suspension omeprazole 20 mg capsule,delayed 20 mg PO DAILY PRN Acid Reflux 04/12/23 07/29/23 Unknown History release clonazepam 0.5 mg tablet 0.5 mg PO DAILY PRN Anxiety 07/29/23 07/29/23 Unknown History Physical Exam Vital Signs: Vital Signs: Last Vital Signs Temp 100.7 F H 07/30/23 11:28 Pulse 89 07/30/23 07:04 Resp 16 07/30/23 07:04 BP 102/57 L 07/30/23 03:17 Pulse Ox 96 07/30/23 07:04 O2 Del Method Room Air 07/30/23 03:17 BMI result Body Mass Index 28.6 Const: General: cooperative and no acute distress Nutritional Appearance: well nourished Orientation/consciousness: patient oriented x3 Limitations: no limitations HEENT: Head: Yes normocephalic and Yes atraumatic Ears: hearing grossly normal bilaterally Resp: Effort & Inspection: normal respiratory effort, no audible wheezes, no cough and no respiratory distress Cardio: Jugular venous distension: no JVD GI: Inspection: Yes normal to inspection Palpation (GI): Soft to palpation, Tenderness to palpation present (GI) in the RUQ and Caicedo's sign positive, no guarding, not rigid and No hepatosplenomegaly present Percussion: Yes normal to percussion Auscultation: normal bowel sounds Rectal Exam - Female: deferred Skin: Other: Warm, dry, no rash Neuro: General: patient oriented x3 Extrem: General: Yes no clubbing, cyanosis or edema Results Labs 07/30/23 06:46 07/30/23 06:46 Labs: Abnormal lab results 07/29/23 07/29/23 07/30/23 Range/Units 17:52 21:07 06:46 WBC 13.6 H (4.8-10.8) X10*3/uL RBC 3.56 L (4.20-5.50) X10*6/uL Hgb 10.2 L (12.0-16.0) g/dl Hct 30.5 L (37.0-47.0) % Plt Count 105 L D 104 L (160-400) X10*3/uL MPV 8.5 L (9.4-12.3) fL Immature Gran % (Auto) 0.5 H 1.9 H (0.0-0.4) % Neut % (Auto) 88.1 H 80.2 H (45-73) % Lymph % (Auto) 5.0 L 9.3 L (20-40) % Lymph # (Auto) 0.7 L 1.0 L (1.2-4.9) X10*3/uL Abs Immat Gran (auto) 0.07 H 0.20 H (0.00-0.03) X10*3/uL Absolute Neuts (auto) 12.0 H (2.0-8.3) x10*3/uL Sodium 130 L 132 L (135-145) mmol/L Carbon Dioxide 19 L (22-29) mmol/L BUN 36 H 45 H (9-16) mg/dL Creatinine 3.31 H 4.17 H* (0.5-1.4) mg/dL Random Glucose 123 H (60-115) mg/dL Calcium 8.2 L D (8.4-10.2) mg/dL AST 53 H 39 H (5-31) U/L ALT 44 H (0-31) U/L Alkaline Phosphatase 131 H (39-117) U/L Total Protein 5.6 L (6.5-8.0) g/dL Albumin 3.0 L (3.5-5.0) g/dL Urine Protein 100 (2+) H (Neg-Trace) mg/dL Urine Blood Moderate (2+) H (Negative) Ur Leukocyte Esterase Small (1+) H (Negative) Urine WBC 21-50 H (0-5) /HPF Short CBC 07/29/23 07/30/23 Range/Units 17:52 06:46 WBC 13.6 H 10.3 (4.8-10.8) X10*3/uL Hgb 12.6 10.2 L (12.0-16.0) g/dl Hct 37.1 30.5 L (37.0-47.0) % Plt Count 105 L D 104 L (160-400) X10*3/uL BMP 07/29/23 07/30/23 17:52 06:46 Sodium 130 L 132 L Potassium 3.9 4.1 Chloride 97 102 Carbon Dioxide 23 19 L BUN 36 H 45 H Creatinine 3.31 H 4.17 H* Calcium 9.4 D 8.2 L D Liver Function 07/29/23 07/30/23 Range/Units 17:52 06:46 Total Bilirubin 0.5 0.5 (0.0-1.0) mg/dL Direct Bilirubin 0.3 (0.0-0.5) mg/dL AST 53 H 39 H (5-31) U/L ALT 44 H 28 (0-31) U/L Alkaline Phosphatase 131 H 91 (39-117) U/L Albumin 4.0 3.0 L (3.5-5.0) g/dL Urine 07/29/23 Range/Units 21:07 Urine Color Dark Yellow Urine Appearance Turbid Urine pH 5.0 (5.0-9.0) Ur Specific [place] 1.020 (1.005-1.025) Urine Protein 100 (2+) H (Neg-Trace) mg/dL Urine Glucose (UA) Negative (Negative) mg/dL All other labs normal. Imaging Abdomen CT scan report/results: image reviewed CT scan - pelvis: image reviewed Abdominal ultrasound report/results: image reviewed Assessment and Plan (1) Acute acalculous cholecystitis: Status: Acute Plan 67-year-old female patient presenting with complaints of abdominal pain diffusely across the abdomen pain of 4 days of duration. Workup with CT abdomen and ultrasound revealed a distended gallbladder without gallstones. The common bile duct is also determined to be dilated with no obvious stone within the common bile duct. On examination the patient is tender mainly in the right upper quadrant with a positive Caicedo sign. Findings are possibly suggestive of acalculous cholecystitis. I recommend further evaluation of the gallbladder with HIDA scan to evaluate for acalculous cholecystitis. Time Spent With Patient Time: Total time managing care of this patient today ____ minutes. Procedures Date of Service Date of Service: 07/30/23
--- NOTE | 2023-07-30 14:30 | PC.NURSE ---
Patient's oral temperature 102.9 F, heart rate 103, and BP 101/49 at 1415. Provider notified and Tylenol administered. Patient reports feeling okay , resting in bed. Ice packs provided to patient. No signs or symptoms of distress.
--- NOTE | 2023-07-30 16:07 | P.CNID_ITS ---
History of Present Illness Data of Consult Service Date: 07/30/23 Requesting physician: Lo Kang Primary Care Provider: Jose Wilson MD HPI Reason for consult: sepsis,gram negative She presents with lower abdominal pain, 6/10 as well as fatigue and fever. She has urinary hesitancy. Blood cultures gram negative rods x 2. There is pyuria but NG so far. There is concern on u/s over acalculous cholecystitis and Surgery is involved. Review of Systems 2 Review of Systems: Yes all other systems are reviewed and are negative PMFSH Past Medical History Medical History Schizoaffective disorder, bipolar type Elevated cholesterol Arthritis History of abdominal hernia Primary osteoarthritis of left knee HTN (hypertension) Depression Chronic pain Family History Family history: reviewed and not pertinent Surgical History Surgical History Hx of tonsillectomy History of carpal tunnel surgery H/O wrist surgery History of back surgery Hx of inguinal hernia surgery Social History Social History Household Members: None Housing: House Are you a primary wound care center consultant to a significant other at home: No 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 If so, by whom?: No Do you feel safe in your current relationship?: No Current Relationship Is there a partner from a previous relationship who is making you feel unsafe now?: No Are you made to feel afraid or neglected: No Sabianism Healthcare Practices: L[employer] Day Advance Directives: No Advance Directives Information Provided: Yes Do you have thoughts of harming others: None Do you have a plan to hurt others: No Plan Recently lost weight without trying: No How much weight loss: Not applicable Eating poorly because of decreased appetite: Yes Nutrition screen score: 1 Patient : No : No Poor oral hygiene: No service: No Current occupational status: unemployed Meds Allergies Allergy/AdvReac Type Severity Reaction Status Date / Time cephalexin Allergy Unknown Swelling Verified 05/31/23 10:10 Cephalosporins Allergy Unknown SWELLING Verified 05/31/23 10:10 ciprofloxacin [CIPROFLOXACIN] Allergy Unknown SWELLING Verified 05/31/23 10:10 naproxen [NAPROXEN] Allergy Unknown BLISTERS Verified 05/31/23 10:10 IN MOUTH Active Medications: Current Medications Acetaminophen (Acetaminophen 325 Mg Tablet) 650 mg PO Q6H PRN PRN Reason: Pain, Mild (Pain Scale 1-3) Last Admin: 07/30/23 14:26 Dose: 650 mg Clonazepam (Clonazepam 0.5 Mg Tablet) 0.5 mg PO DAILY PRN PRN Reason: Anxiety Heparin Sodium (Porcine) (Heparin Sodium,Porcine 5,000 Unit/Ml Vial) 5,000 unit SUBCUT Q12H [facility] Last Admin: 07/30/23 11:54 Dose: 5,000 unit Piperacillin Sod/Tazobactam (Sod 2.25 gm/ Sodium Chloride) 50 mls @ 100 mls/hr IV Q8H [facility] Last Infusion: 07/30/23 14:46 Dose: Infused Lactated Ringer's (Lr) 1,000 mls @ 175 mls/hr IVCONT .Q5H43M [facility] Stop: 07/30/23 17:13 Last Infusion: 07/30/23 14:46 Dose: 125 mls/hr Lactated Ringer's (Lr) 1,000 mls @ 999 mls/hr IV .Q1H1M [facility] Stop: 07/30/23 17:00 Melatonin (Melatonin 3 Mg Tablet) 6 mg PO BEDTIME PRN PRN Reason: Insomnia Nicotine (Nicotine 14 Mg Patch.Td24) 14 mg TRANSDERMA DAILY [facility] Last Admin: 07/30/23 03:19 Dose: 14 mg Omeprazole (Omeprazole 20 Mg Capsule.Dr) 20 mg PO DAILY PRN PRN Reason: Acid Reflux Ondansetron HCl (Ondansetron Hcl 4 Mg/2 Ml Vial) 4 mg IVPUSH Q8H PRN PRN Reason: Nausea and Vomiting Sodium Chloride (0.9 % Sodium Chloride Flush 3 Ml Syringe) 3 ml IVFLUSH QSHIFT [facility] Last Admin: 07/30/23 09:24 Dose: 3 ml Home Medications Medication Instructions Recorded Confirmed Last Taken Type hydrochlorothiazide 25 mg tablet 25 mg PO DAILY 10/21/21 07/29/23 07/29/23 History lisinopril 40 mg tablet 40 mg PO DAILY 10/21/21 07/29/23 07/29/23 History rosuvastatin 40 mg tablet 40 mg PO DAILY 10/21/21 07/29/23 07/29/23 History fluticasone propionate 50 1 - 2 spray intranasal DAILY PRN 03/31/22 07/29/23 Unknown History mcg/actuation nasal Nasal Congestion spray,suspension omeprazole 20 mg capsule,delayed 20 mg PO DAILY PRN Acid Reflux 04/12/23 07/29/23 Unknown History release clonazepam 0.5 mg tablet 0.5 mg PO DAILY PRN Anxiety 07/29/23 07/29/23 Unknown History Physical Exam 2 Vital Signs: Vital Signs: Last Vital Signs Temp 102 F H 07/30/23 15:51 Pulse 103 H 07/30/23 15:51 Resp 20 07/30/23 15:51 BP 86/58 L 07/30/23 15:51 Pulse Ox 97 07/30/23 15:51 O2 Del Method Room Air 07/30/23 15:51 BMI result Body Mass Index 28.6 Const: General: cooperative HEENT: Head: Yes normal to inspection Face and sinus: Yes normal facial exam Mouth: Normal oral and palatal mucosa present Teeth and gingiva: d entition normal Eyes: General: appearance normal, both eyes and all related structures P upils: Equal, round and reactive pupils present Resp: Effort & Inspection: normal respiratory effort Cardio: Rate: regular rate Rhythm: regular rhythm GI: Other: mild to moderate 6/10 RUQ discomfort Palpation (GI): Soft to palpation and nontender : General: Yes no CVA tenderness Back/Spine/Pelvis: Back: no CVA tenderness Skin: General skin exam: no rashes or lesions noted Neuro: General: moves all extremities Cranial nerves: Yes Equal, round and reactive pupils present Extrem: General: Yes normal to inspection Psych: Appearance: grossly normal Results Labs 07/30/23 06:46 07/30/23 06:46 Labs: Short CBC 09/21/23 09/22/23 Range/Units 17:52 06:46 WBC 13.6 H 10.3 (4.8-10.8) X10*3/uL Hgb 12.6 10.2 L (12.0-16.0) g/dl Hct 37.1 30.5 L (37.0-47.0) % Plt Count 105 L D 104 L (160-400) X10*3/uL BMP 07/29/23 07/30/23 17:52 06:46 Sodium 130 L 132 L Potassium 3.9 4.1 Chloride 97 102 Carbon Dioxide 23 19 L BUN 36 H 45 H Creatinine 3.31 H 4.17 H* Calcium 9.4 D 8.2 L D Liver Function 07/29/23 07/30/23 Range/Units 17:52 06:46 Total Bilirubin 0.5 0.5 (0.0-1.0) mg/dL Direct Bilirubin 0.3 (0.0-0.5) mg/dL AST 53 H 39 H (5-31) U/L ALT 44 H 28 (0-31) U/L Alkaline Phosphatase 131 H 91 (39-117) U/L Albumin 4.0 3.0 L (3.5-5.0) g/dL Urine 07/29/23 Range/Units 21:07 Urine Color Dark Yellow Urine Appearance Turbid Urine pH 5.0 (5.0-9.0) Ur Specific [place] 1.020 (1.005-1.025) Urine Protein 100 (2+) H (Neg-Trace) mg/dL Urine Glucose (UA) Negative (Negative) mg/dL Microbiology Microbiology Results: Microbiology 07/29/23 22:11 Blood - Venous Blood Culture - Preliminary Prelim: GNR Gram Stain only 07/29/23 22:11 Blood - Venous Blood Culture - Preliminary Prelim: GNR Gram Stain only 07/29/23 18:31 Blood - Venous Blood Culture - Preliminary Prelim: GNR Gram Stain only 07/29/23 17:52 Blood - Venous Blood Culture - Preliminary Prelim: GNR Gram Stain only 07/29/23 21:27 Urine clean catch - Urine cross top Urine Culture - Preliminary No growth to date. Assessment and Plan (1) Acute acalculous cholecystitis: Status: Acute There is concern over gallbladder disease. She is seeing Surgery (2) Severe sepsis: Status: Acute Plan Continue broad spectrum Zosyn. Await cultures. Await Hida scan. Time Spent With Patient Time: Total time managing care of this patient today ____ minutes.
[2023-07-30] MEDS: Lactated Ringers 1,000 ML 999 ML IV ×2 (16:11→19:48)
[2023-07-30] MEDS: Albumin Human 25 % 100 ML IV ×2 (16:36→17:48)
--- NOTE | 2023-07-30 17:16 | P.PNNP_ITS ---
Subjective Subjective Date of Service: 07/30/23 Interval history: seen and examined this morning follow up for PHILLIP, pyelonephritis, abdominal pain blood cultures growing GNR still with some right side abdominal discomfort, no nausea or vomiting Physical Exam 2 Vital Signs: Vital Signs: Last Vital Signs Temp 102 F H 07/30/23 15:51 Pulse 103 H 07/30/23 15:51 Resp 20 07/30/23 15:51 BP 86/58 L 07/30/23 15:51 Pulse Ox 97 07/30/23 15:51 O2 Del Method Room Air 07/30/23 15:51 BMI result Body Mass Index 28.6 Const: General: cooperative, no acute distress, alert and awake O rientation/consciousness: patient oriented x3 Cardio: Rate: regular rate Rhythm: regular rhythm GI: Palpation (GI): Soft to palpation, nontender, no guarding, not rigid and No hepatosplenomegaly present Neuro: General: patient oriented x3, moves all extremities and CN's II-XI intact bilaterally Extrem: General: Yes normal to inspection, Yes no clubbing, cyanosis or edema and Yes no pedal edema Psych: Appearance: grossly normal Objective Data Labs 07/30/23 06:46 07/30/23 06:46 Labs: Laboratory Results - last 24 hr 07/29/23 07/29/23 07/29/23 17:52 21:07 22:11 WBC 13.6 H RBC 4.31 Hgb 12.6 Hct 37.1 MCV 86.1 MCH 29.2 MCHC 34.0 RDW 15.4 Plt Count 105 L D MPV 8.5 L Immature Gran % (Auto) 0.5 H Neut % (Auto) 88.1 H Lymph % (Auto) 5.0 L [place] % (Auto) 6.1 Eos % (Auto) 0.1 Baso % (Auto) 0.2 Lymph # (Auto) 0.7 L [place] # (Auto) 0.8 Eos # (Auto) 0.0 Baso # (Auto) 0.0 Abs Immat Gran (auto) 0.07 H Absolute Neuts (auto) 12.0 H Absolute Nucleated RBC 0.000 Nucleated RBC % (auto) 0.0 Sodium 130 L Potassium 3.9 Chloride 97 Carbon Dioxide 23 Anion Gap 14 BUN 36 H Creatinine 3.31 H Estim Creat Clear Calc 16.0 Estimated GFR 14 Random Glucose 123 H Lactic Acid 1.3 1.0 Calcium 9.4 D Magnesium 1.9 Total Bilirubin 0.5 Direct Bilirubin AST 53 H ALT 44 H Alkaline Phosphatase 131 H Total Protein 7.2 Albumin 4.0 Lipase 18 Urine Color Dark Yellow Urine Appearance Turbid Urine pH 5.0 Ur Specific [place] 1.020 Urine Protein 100 (2+) H Urine Glucose (UA) Negative Urine Ketones Trace Urine Blood Moderate (2+) H Urine Nitrite Negative Ur Leukocyte Esterase Small (1+) H Urine RBC 0-2 Urine WBC 21-50 H Ur Squamous Epith Cells 6-10 Urine Bacteria Trace Hyaline Casts >20 COVID-19 (LYDIA) Negative COVID-19 Clin Com See Note Influenza Type A (OMAR) Negative Influenza Type B (OMAR) Negative Influenza A & B Note See Note 07/30/23 06:46 WBC 10.3 RBC 3.56 L Hgb 10.2 L Hct 30.5 L MCV 85.7 MCH 28.7 MCHC 33.4 RDW 15.9 Plt Count 104 L MPV 10.0 Immature Gran % (Auto) 1.9 H Neut % (Auto) 80.2 H Lymph % (Auto) 9.3 L [place] % (Auto) 8.2 Eos % (Auto) 0.2 Baso % (Auto) 0.2 Lymph # (Auto) 1.0 L [place] # (Auto) 0.9 Eos # (Auto) 0.0 Baso # (Auto) 0.0 Abs Immat Gran (auto) 0.20 H Absolute Neuts (auto) 8.3 Absolute Nucleated RBC 0.000 Nucleated RBC % (auto) 0.0 Sodium 132 L Potassium 4.1 Chloride 102 Carbon Dioxide 19 L Anion Gap 15 BUN 45 H Creatinine 4.17 H* Estim Creat Clear Calc 12.7 Estimated GFR 11 Random Glucose 81 Lactic Acid Calcium 8.2 L D Magnesium Total Bilirubin 0.5 Direct Bilirubin 0.3 AST 39 H ALT 28 Alkaline Phosphatase 91 Total Protein 5.6 L Albumin 3.0 L Lipase Urine Color Urine Appearance Urine pH Ur Specific [place] Urine Protein Urine Glucose (UA) Urine Ketones Urine Blood Urine Nitrite Ur Leukocyte Esterase Urine RBC Urine WBC Ur Squamous Epith Cells Urine Bacteria Hyaline Casts COVID-19 (LYDIA) COVID-19 Clin Com Influenza Type A (OMAR) Influenza Type B (OMAR) Influenza A & B Note Microbiology Microbiology Results: Microbiology 07/29/23 22:11 Blood - Venous Blood Culture - Preliminary Prelim: GNR Gram Stain only 07/29/23 22:11 Blood - Venous Blood Culture - Preliminary Prelim: GNR Gram Stain only 07/29/23 18:31 Blood - Venous Blood Culture - Preliminary Prelim: GNR Gram Stain only 07/29/23 17:52 Blood - Venous Blood Culture - Preliminary Prelim: GNR Gram Stain only 07/29/23 21:27 Urine clean catch - Urine cross top Urine Culture - Preliminary No growth to date. Procedures Date of Service Date of Service: 07/30/23 Assessment & Plan Assessment and plan (1) Acute acalculous cholecystitis: Status: Acute (2) Severe sepsis: Status: Acute Plan Pt is a 67-year-old female with a PMH significant for?HTN, HLD, GERD, and depression who presents to the ED with?severe abdominal pain x2 days. Pt will be admitted to the hospital for treatment of PHILLIP and severe sepsis in the setting of UTI with question of pyelonephritis. There is also concern for Chlecystitis. GNR bacteremia noted. 1. PHILLIP Oligoanuric now Overall most c/w pre-renal azotemia that has undoubtedly progressed towards ATN Septic ATN Obstruction ruled out Plan: - please dose IVF 2 more liters given Hyalinuria on U/A. It's possible theres still some pre-renal azotemia - if oliguric and hypotensive call ICU for pressors - may need SYSTEM CONSULTANT within 24 to 48 hours - get C3 and C4 and ANCA serologies 2. Hyponatremia Poor solute intake Use isotonic IVF support. Time Spent With Patient Time: Total time managing care of this patient today ____ minutes. Progress Note: Quality Stroke Does the patient have a stroke diagnosis?: No
--- NOTE | 2023-07-30 19:04 | PM.EVENT ---
Event Note Date of Service: 07/30/23 Event Note: Was told by the nurse that patient's blood pressure is 70/50 with maps in the 50s. Patient earlier received IV crystalloid bolus and IV albumin x2. Continues to be hypotensive. Discussed with Dr. Norman and will transfer patient to intensive care unit for management of hypotension. Time Spent With Patient Time: Total time managing care of this patient today ____ minutes.
--- NOTE | 2023-07-30 19:49 | PM.CCN ---
Critical Care Event Note Summary Date of Service: 07/30/23 Narrative: This case had a high probability of a clinically significant, sudden, or life threatening deterioration of this patient's condition which required my full and direct attention, intervention and personal management.
[2023-07-30 20:36] LABS: Lactic Acid 1.6 mmol/L (0.5-2.0)
[2023-07-30] MEDS: ondansetron HCL 4 MG/2 ML VIAL IVPUSH (20:45)
--- NOTE | 2023-07-30 21:21 | PC.NURSE ---
Addendum entered by Jose C Lu RN 07/30/23 21:58: Pt reports feeling that she needs to urinate. Bladder scanned for 0ml. Molina in place. Original Note: Pt arrived to ICU from Med Surg at approx 1930. Upon initial assessment- pt A+Ox4. Initial BP 84/55. 1,200mls LR bolus given per orders with good effect, SBP now >100. Sinus tach on tele 100-120s. Oral temp 99.4, pt shivering and states feeling cold- blankets applied to pt for comfort. Sating 88-90% on RA, placed on 4L sher NC. Lungs dim throughout, pt denies any SOB. Dry non-productive cough. Abd round/soft. Positive BS. Last BM 07/29 morning, diarrhea. Pt reports RUQ pain and tenderness, pain constant 6/10. 2mg IVP Morphine given with good effect. Nausea, vomited x1- light green bile, approx 50ml. Zofran given with good effect. Poor appetite. 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 Skin intact. Surgical scar to L knee from knee replacement approx 3 months ago. Bed locked in lowest position. Call wing within reach.
[2023-07-30] MEDS: Lactated Ringers 200 ML 999 ML IV (21:30)
--- NOTE | 2023-07-30 21:31 | PM.CCPN ---
Subjective Subjective Date of Service: 07/30/23 Critical Care Time (minutes): 60 Comment: Ms Main is a 67-year-old female with a PMH significant for HTN, HLD, GERD, and depression who presented with severe abdominal pain, fever as high as 102.9 and nausea x2 days. She was admitted to the hospital for treatment of PHILLIP and severe sepsis in the setting of UTI with a question of pyelonephritis.? Hospital course: ? The patient was given sepsis bolus IV fluids and started on broad-spectrum antibiotics. ? Blood cultures growing GNR. There is pyuria but NG so far. ? Abdominal ultrasound showed mildly distended gallbladder, no gallstones or biliary dilatation, dilated common bile duct up to 1.2 cm. ? Early this afternoon the patient became febrile and hypotensive. ? She was given 1 L IV crystalloids and IV albumin x2.? She remained hypotensive and was transferred to the ICU for further management.? Physical Exam Vital Signs: Vital Signs: Last Vital Signs Temp 99.4 F 07/30/23 19:59 Pulse 91 07/30/23 19:59 Resp 32 H 07/30/23 20:24 BP 70/56 L 07/30/23 19:06 Pulse Ox 88 L 07/30/23 20:07 O2 Del Method Room Air 07/30/23 20:07 BMI result Body Mass Index 28.6 Const: General: cooperative and alert Orientation/consciousness: patient oriented x3 Resp: Effort & Inspection: normal respiratory effort and able to speak in complete sentences Auscultation: diminished lung sounds Cardio: Rate: regular rate Rhythm: regular rhythm Heart sounds: no gallops, no murmurs and no rubs GI: Inspection: No distended Palpation (GI): Tenderness to palpation present (GI) in the RUQ Auscultation: normal bowel sounds Skin: General skin exam: no rashes or lesions noted Neuro: General: patient oriented x3 Cranial nerves: Yes CN's II-XII intact bilaterally Extrem: General: Yes normal to inspection and No no clubbing, cyanosis or edema Psych: Appearance: grossly normal Objective Data Labs 07/30/23 06:46 07/30/23 06:46 Labs: Laboratory Results - last 24 hr 07/29/23 07/30/23 07/30/23 22:11 06:46 20:16 WBC 10.3 RBC 3.56 L Hgb 10.2 L Hct 30.5 L MCV 85.7 MCH 28.7 MCHC 33.4 RDW 15.9 Plt Count 104 L MPV 10.0 Immature Gran % (Auto) 1.9 H Neut % (Auto) 80.2 H Lymph % (Auto) 9.3 L [place] % (Auto) 8.2 Eos % (Auto) 0.2 Baso % (Auto) 0.2 Lymph # (Auto) 1.0 L [place] # (Auto) 0.9 Eos # (Auto) 0.0 Baso # (Auto) 0.0 Abs Immat Gran (auto) 0.20 H Absolute Neuts (auto) 8.3 Absolute Nucleated RBC 0.000 Nucleated RBC % (auto) 0.0 Sodium 132 L Potassium 4.1 Chloride 102 Carbon Dioxide 19 L Anion Gap 15 BUN 45 H Creatinine 4.17 H* Estim Creat Clear Calc 12.7 Estimated GFR 11 Random Glucose 81 Lactic Acid 1.0 1.6 Calcium 8.2 L D Total Bilirubin 0.5 Direct Bilirubin 0.3 AST 39 H ALT 28 Alkaline Phosphatase 91 Total Protein 5.6 L Albumin 3.0 L Microbiology Microbiology Results: Microbiology 07/29/23 22:11 Blood - Venous Blood Culture - Preliminary Prelim: GNR Gram Stain only 07/29/23 22:11 Blood - Venous Blood Culture - Preliminary Prelim: GNR Gram Stain only 07/29/23 18:31 Blood - Venous Blood Culture - Preliminary Prelim: GNR Gram Stain only 07/29/23 17:52 Blood - Venous Blood Culture - Preliminary Prelim: GNR Gram Stain only 07/29/23 21:27 Urine clean catch - Urine cross top Urine Culture - Preliminary No growth to date. Progress Note: A&P Assessment and plan (1) Bacteremia: Status: Acute (2) Severe sepsis: Status: Acute (3) PHILLIP (acute kidney injury): Status: Acute (4) UTI (urinary tract infection): Status: Acute (5) Acute acalculous cholecystitis: Status: Acute (6) Leukocytosis: Status: Acute (7) Abdominal pain: Status: Acute Plan Assessment: 7-year-old female with a PMH significant for HTN, HLD, GERD, and depression admitted with GN bacteremia, PHILLIP and cholecystitis now managed in ICU for hypotension. Plan: Neuro: ? no acute issues Cardiac:? Hypotension. Fluid bolus ordered. Pressors if indicated. Underlying HTN, HLD. Hold antihypertensives d/t hypotension. Hold statin for now due to transaminitis. Pulmonary:? no acute issues Renal: PHILLIP. Oligoanuric. Creatinine up to 4.17, baseline 0.8-0.9. Septic ATN. Obstruction ruled out. C3, C4 and ANCA pending. May need RETAIL PARTS PROFESSIONAL within 24 to 48 hours. Trend renal function and urine output.? Nephrology care service appreciated. GI: concern on u/s over acalculous cholecystitis. Mild transaminitis: AST 39, ALT 28, alk-phos 91. Followed by surgery. Hida scan in AM. ID: Thrombocytopenia likely r/t sepsis Heme/Onc: ? No acute issues. Psych:? No acute issues. Miscellaneous:? No acute issues. Prophylaxis: ? Pneumatic compression boots.? Case discussed with Dr. Norman. Quality Stroke Does the patient have a stroke diagnosis?: No VTE Prior VTE?: No VTE Risk Level:: Medical - moderate - high VTE Device Contraindication: Treatment Not Indicated VTE Drug Contraindication: N/A - Med Ordered
[2023-07-30 21:36] LABS: Venous Blood Gas Refer to POC result
[2023-07-30 21:36] LABS: VBG Base Excess -4.9 mmol/L; VBG HCO3 18 mmol/L (22-26); VBG pCO2 27 mmHg; VBG pH 7.42 (7.32-7.43); VBG pO2 54 mmHg
[2023-07-30] MEDS: Norepinephrine Bitartrate/D5W 8 MG/250 ML PLAST..BAG 6.86 MG IV (23:36)
[2023-07-31] VITALS (33 sets, daily range): BP systolic 77–165; BP diastolic 51–78; PULSE 70–99; RESP 15–28; TEMP 36.7–36.9; O2SAT 93–100; BMI 32.7
[2023-07-31 06:01] LABS: VBG Base Excess -5.1 mmol/L; VBG HCO3 18 mmol/L (22-26); VBG pCO2 31 mmHg; VBG pH 7.38 (7.32-7.43); VBG pO2 32 mmHg
[2023-07-31] MEDS: Acetaminophen 325 MG TABLET 650 MG PO ×3 (06:08→20:53)
[2023-07-31] MEDS: Piperacillin Sodium/Tazobactam 2.25 GM in 0.9 % Sodium Chloride 50 ML IV ×3 (06:11→21:58)
[2023-07-31 06:13] LABS: Hematocrit 30.7 % (37.0-47.0); Hemoglobin 10.3 g/dl (12.0-16.0); Mean Corpuscular HGB Conc 33.6 g/dl (31.0-35.0); Mean Corpuscular Hemoglobin 28.9 pg (27.0-33.0); Mean Corpuscular Volume 86.2 fL (80.0-98.0); Mean Platelet Volume 9.9 fL (9.4-12.3); Red Blood Count 3.56 X10*6/uL (4.20-5.50); Red Cell Distribution Width 16.3 % (11.0-16.0); White Blood Count 8.1 X10*3/uL (4.8-10.8)
[2023-07-31 06:14] LABS: Platelet Count 93 X10*3/uL (160-400)
[2023-07-31 06:19] LABS: Albumin Level 3.5 g/dL (3.5-5.0)
[2023-07-31 06:34] LABS: Alanine Aminotransferase 39 U/L (0-31); Albumin Level 3.5 g/dL (3.5-5.0); Alkaline Phosphatase 173 U/L (39-117); Anion Gap 18 (12-20); Aspartate Amino Transferase 58 U/L (5-31); Bilirubin Direct 0.4 mg/dL (0.0-0.5); Bilirubin Total 0.7 mg/dL (0.0-1.0); Blood Urea Nitrogen 51 mg/dL (9-16); Calcium 8.7 mg/dL (8.4-10.2); Carbon Dioxide 17 mmol/L (22-29); Chloride 101 mmol/L (96-108); Creatinine Clr Calc Pharmacy 10.7; Estimated Glomerular Filt Rate 8; Glucose Random 112 mg/dL (60-115); Potassium 4.1 mmol/L (3.3-5.1); Sodium 132 mmol/L (135-145); Total Protein 6.3 g/dL (6.5-8.0)
[2023-07-31 07:05] LABS: Venous Blood Gas Refer to POC result
[2023-07-31] MEDS: Nicotine 14 MG PATCH.TD24 TRANSDERMA (07:52)
[2023-07-31] MEDS: 0.9 % Sodium Chloride Flush 3 ML SYRINGE IVFLUSH ×2 (07:54→15:03)
--- NOTE | 2023-07-31 08:32 | PM.PNGS ---
Subjective Subjective Date of Service: 07/31/23 Interval history: Patient transferred to ICU due to hypotension. She reports increased tenderness in the right upper quadrant along with nausea and vomiting . Gram-negative gavi cultured in blood. Physical Exam Vital Signs: Vital Signs: Last Vital Signs Temp 98.2 F 07/31/23 08:00 Pulse 77 07/31/23 08:00 Resp 22 H 07/31/23 08:00 BP 99/58 L 07/31/23 08:00 Pulse Ox 99 07/31/23 08:00 O2 Del Method Nasal Cannula 07/31/23 08:00 O2 Flow Rate 4 07/31/23 08:00 BMI result Body Mass Index 32.7 Const: General: ill appearing Nutritional Appearance: well nourished Orientation/consciousness: patient oriented x3 Eyes: Sclerae: sclerae normal GI: Other: Abdomen soft but tender in the right upper quadrant with positive Caicedo sign. Skin: Other: Warm and dry Neuro: General: patient oriented x3 Objective Data Active Medications Acetaminophen (Acetaminophen 325 Mg Tablet) 650 mg PO Q6H PRN PRN Reason: Pain, Mild (Pain Scale 1-3) Last Admin: 07/30/23 14:26 Dose: 650 mg Documented By: ALLAN Clonazepam (Clonazepam 0.5 Mg Tablet) 0.5 mg PO DAILY PRN PRN Reason: Anxiety Heparin Sodium (Porcine) (Heparin Sodium,Porcine 5,000 Unit/Ml Vial) 5,000 unit SUBCUT Q12H [facility] Last Admin: 07/30/23 21:51 Dose: 5,000 unit Documented By: NATTY Piperacillin Sod/Tazobactam (Sod 2.25 gm/ Sodium Chloride) 50 mls @ 100 mls/hr IV Q8H [facility] Last Infusion: 07/31/23 06:50 Dose: Infused Documented By: MIRIAN Norepinephrine Bitartrate (Levophed) 8 mg in 250 mls @ 0 mls/hr IV .Q0M [facility]; Protocol Last Titration: 07/31/23 07:35 Dose: 0.02 mcg/kg/min, 2.75 mls/hr Documented By: PATRICIA Melatonin (Melatonin 3 Mg Tablet) 6 mg PO BEDTIME PRN PRN Reason: Insomnia Nicotine (Nicotine 14 Mg Patch.Td24) 14 mg TRANSDERMA DAILY [facility] Last Admin: 07/31/23 08:00 Dose: Not Given Documented By: PATRICIA Non-Admin Reason: already administered Omeprazole (Omeprazole 20 Mg Capsule.Dr) 20 mg PO DAILY PRN PRN Reason: Acid Reflux Ondansetron HCl (Ondansetron Hcl 4 Mg/2 Ml Vial) 4 mg IVPUSH Q8H PRN PRN Reason: Nausea and Vomiting Last Admin: 07/30/23 20:45 Dose: 4 mg Documented By: NATTY Sodium Chloride (0.9 % Sodium Chloride Flush 3 Ml Syringe) 3 ml IVFLUSH QSHIFT [facility] Last Admin: 07/31/23 07:54 Dose: 3 ml Documented By: PATRICAI Labs 07/31/23 05:47 07/31/23 05:47 Labs: Laboratory Results - last 24 hr 07/30/23 07/30/23 07/31/23 20:16 21:31 05:47 MCV 86.2 MCH 28.9 MCHC 33.6 RDW 16.3 H Plt Count 93 L MPV 9.9 Absolute Nucleated RBC 0.000 Nucleated RBC % (auto) 0.0 VBG pH 7.42 VBG pCO2 27 VBG pO2 54 VBG HCO3 18 L VBG O2 Saturation 87.0 VBG Base Excess -4.9 Anion Gap 18 Estim Creat Clear Calc 10.7 Estimated GFR 8 Random Glucose 112 Lactic Acid 1.6 Calcium 8.7 D Phosphorus 4.0 Magnesium 2.0 Total Bilirubin 0.7 Direct Bilirubin 0.4 AST 58 H ALT 39 H Alkaline Phosphatase 173 H Total Protein 6.3 L Albumin 3.5 07/31/23 07/31/23 05:47 05:56 MCV MCH MCHC RDW Plt Count MPV Absolute Nucleated RBC Nucleated RBC % (auto) VBG pH 7.38 VBG pCO2 31 VBG pO2 32 VBG HCO3 18 L VBG O2 Saturation 49.0 VBG Base Excess -5.1 Anion Gap Estim Creat Clear Calc Estimated GFR Random Glucose Lactic Acid Calcium Phosphorus Magnesium Total Bilirubin Direct Bilirubin AST ALT Alkaline Phosphatase Total Protein Albumin 3.5 Microbiology Microbiology Results: Microbiology 07/29/23 22:11 Blood Culture - Preliminary Blood - Venous Gram negative gavi 07/29/23 22:11 Blood Culture - Preliminary Blood - Venous Gram negative gavi 07/29/23 18:31 Blood Culture - Preliminary Blood - Venous Gram negative gavi 07/29/23 17:52 Blood Culture - Preliminary Blood - Venous Gram negative gavi 07/29/23 21:27 Urine Culture - Preliminary Urine clean catch - Urine cross top No growth to date. Procedures Date of Service Date of Service: 07/31/23 Progress Note: A&P Assessment and plan (1) Bacteremia: Status: Acute (2) Acute acalculous cholecystitis: Status: Acute Plan 67-year-old female patient presenting with abdominal pain mainly in the right upper quadrant found to have no gallstones on CT or ultrasound. Patient is tender in the right upper quadrant with a positive Caicedo sign which may indicate acalculous cholecystitis. She is scheduled for a HIDA scan today. Urine with 2+ protein, 2+ RBC, 1+ leuk esterase , 21-50 wbc/HPF. If HIDA scan is positive for acalculous cholecystitis options include laparoscopic cholecystectomy verses percutaneous cholecystostomy if patient is unstable for surgery. Time Spent With Patient Time: Total time managing care of this patient today ____ minutes. Quality Stroke Does the patient have a stroke diagnosis?: No VTE Prior VTE?: No VTE Risk Level:: Medical - moderate - high VTE Device Contraindication: Treatment Not Indicated VTE Drug Contraindication: N/A - Med Ordered
--- NOTE | 2023-07-31 09:30 | P.PNNP_ITS ---
Subjective Subjective Date of Service: 07/31/23 Interval history: IN ICU now for Hypotension refractory to IVF dense septic shock HIDA today Physical Exam 2 Vital Signs: Vital Signs: Last Vital Signs Temp 98.2 F 07/31/23 08:00 Pulse 77 07/31/23 09:01 Resp 17 07/31/23 09:00 BP 85/53 L 07/31/23 09:01 Pulse Ox 98 07/31/23 09:00 O2 Del Method Nasal Cannula 07/31/23 09:00 O2 Flow Rate 3 07/31/23 09:00 BMI result Body Mass Index 32.7 Const: General: cooperative, no acute distress, alert and awake O rientation/consciousness: patient oriented x3 Cardio: Rate: regular rate Rhythm: regular rhythm GI: Palpation (GI): Soft to palpation, nontender, no guarding, not rigid and No hepatosplenomegaly present Neuro: General: patient oriented x3, moves all extremities and CN's II-XI intact bilaterally Extrem: General: Yes normal to inspection, Yes no clubbing, cyanosis or edema and Yes no pedal edema Psych: Appearance: grossly normal Objective Data Labs 07/31/23 05:47 07/31/23 05:47 Labs: Laboratory Results - last 24 hr 07/30/23 07/30/23 07/31/23 20:16 21:31 05:47 WBC 8.1 RBC 3.56 L Hgb 10.3 L Hct 30.7 L MCV 86.2 MCH 28.9 MCHC 33.6 RDW 16.3 H Plt Count 93 L MPV 9.9 Absolute Nucleated RBC 0.000 Nucleated RBC % (auto) 0.0 VBG pH 7.42 VBG pCO2 27 VBG pO2 54 VBG HCO3 18 L VBG O2 Saturation 87.0 VBG Base Excess -4.9 Sodium 132 L Potassium 4.1 Chloride 101 Carbon Dioxide 17 L Anion Gap 18 BUN 51 H Creatinine 5.26 H* Estim Creat Clear Calc 10.7 Estimated GFR 8 Random Glucose 112 Lactic Acid 1.6 Calcium 8.7 D Phosphorus 4.0 Magnesium 2.0 Total Bilirubin 0.7 Direct Bilirubin 0.4 AST 58 H ALT 39 H Alkaline Phosphatase 173 H Total Protein 6.3 L Albumin 3.5 07/31/23 07/31/23 05:47 05:56 WBC RBC Hgb Hct MCV MCH MCHC RDW Plt Count MPV Absolute Nucleated RBC Nucleated RBC % (auto) VBG pH 7.38 VBG pCO2 31 VBG pO2 32 VBG HCO3 18 L VBG O2 Saturation 49.0 VBG Base Excess -5.1 Sodium Potassium Chloride Carbon Dioxide Anion Gap BUN Creatinine Estim Creat Clear Calc Estimated GFR Random Glucose Lactic Acid Calcium Phosphorus Magnesium Total Bilirubin Direct Bilirubin AST ALT Alkaline Phosphatase Total Protein Albumin 3.5 Microbiology Microbiology Results: Microbiology 07/29/23 22:11 Blood - Venous Blood Culture - Preliminary Gram negative gavi 07/29/23 22:11 Blood - Venous Blood Culture - Preliminary Gram negative gavi 07/29/23 18:31 Blood - Venous Blood Culture - Preliminary Gram negative gavi 07/29/23 17:52 Blood - Venous Blood Culture - Preliminary Gram negative gavi 07/29/23 21:27 Urine clean catch - Urine cross top Urine Culture - Preliminary No growth to date. Procedures Date of Service Date of Service: 07/31/23 Assessment & Plan Assessment and plan (1) Acute acalculous cholecystitis: Status: Acute (2) Severe sepsis: Status: Acute Plan Pt is a 67-year-old female with a PMH significant for?HTN, HLD, GERD, and depression who presents to the ED with?severe abdominal pain x2 days. Pt will be admitted to the hospital for treatment of PHILLIP and severe sepsis in the setting of UTI with question of pyelonephritis. There is also concern for Chlecystitis. GNR bacteremia noted. 1. PHILLIP Oligoanuric now Overall most c/w pre-renal azotemia that has undoubtedly progressed towards ATN Septic ATN Obstruction ruled out Plan: - avoid further IVF support - Pressors per ICU - may need ELECTRICAL/INSTRUMENT TECHNICIAN within 24 to 48 hours - f/u C3 and C4 and ANCA serologies, may need Renal biosy. Time Spent With Patient Time: Total time managing care of this patient today ____ minutes. Progress Note: Quality Stroke Does the patient have a stroke diagnosis?: No
--- NOTE | 2023-07-31 10:52 | P.PNCC_ITS ---
Subjective Subjective Date of Service: 07/31/23 Interval History: 67-year-old lady with underlying hypertension, GERD admitted on 07/29/2023 with right upper quadrant abdominal pain. Initial imaging was unrevealing. Patient was admitted to general medical muse. Hospital course significant for gram- negative bacteremia with likely cholangitic source with poor response to initial IV fluid resuscitation requiring pressor support and progressive acute renal failure. Now status post HIDA scan. No events overnight. Critical Care Time (minutes): 60 Physical Exam 2 Vital Signs: Vital Signs: Last Vital Signs Temp 98.2 F 07/31/23 08:00 Pulse 83 07/31/23 10:00 Resp 16 07/31/23 10:00 BP 102/61 07/31/23 10:00 Pulse Ox 99 07/31/23 10:00 O2 Del Method Nasal Cannula 07/31/23 10:00 O2 Flow Rate 3 07/31/23 10:00 BMI result Body Mass Index 32.7 Const: General: no acute distress, alert and awake Eyes: Sclerae: sclerae normal EOM: EOMs intact bilaterally Neck: Neck: Yes no lymphadenopathy, Yes trachea midline and Yes supple Resp: Effort & Inspection: normal respiratory effort and no respiratory distress Auscultation: clear to auscultation bilaterally Cardio: Rate: regular rate Rhythm: regular rhythm Heart sounds: no gallops, no murmurs and no rubs GI: Palpation (GI): Soft to palpation and Other GI palpation findings present ( Nontender) Auscultation: normal bowel sounds Extrem: General: Yes no pedal edema, No clubbing and No cyanosis Objective Data Labs 07/31/23 05:47 07/31/23 05:47 Labs: Laboratory Results - last 24 hr 07/30/23 07/30/23 07/31/23 20:16 21:31 05:47 WBC 8.1 RBC 3.56 L Hgb 10.3 L Hct 30.7 L MCV 86.2 MCH 28.9 MCHC 33.6 RDW 16.3 H Plt Count 93 L MPV 9.9 Absolute Nucleated RBC 0.000 Nucleated RBC % (auto) 0.0 VBG pH 7.42 VBG pCO2 27 VBG pO2 54 VBG HCO3 18 L VBG O2 Saturation 87.0 VBG Base Excess -4.9 Sodium 132 L Potassium 4.1 Chloride 101 Carbon Dioxide 17 L Anion Gap 18 BUN 51 H Creatinine 5.26 H* Estim Creat Clear Calc 10.7 Estimated GFR 8 Random Glucose 112 Lactic Acid 1.6 Calcium 8.7 D Phosphorus 4.0 Magnesium 2.0 Total Bilirubin 0.7 Direct Bilirubin 0.4 AST 58 H ALT 39 H Alkaline Phosphatase 173 H Total Protein 6.3 L Albumin 3.5 07/31/23 07/31/23 05:47 05:56 WBC RBC Hgb Hct MCV MCH MCHC RDW Plt Count MPV Absolute Nucleated RBC Nucleated RBC % (auto) VBG pH 7.38 VBG pCO2 31 VBG pO2 32 VBG HCO3 18 L VBG O2 Saturation 49.0 VBG Base Excess -5.1 Sodium Potassium Chloride Carbon Dioxide Anion Gap BUN Creatinine Estim Creat Clear Calc Estimated GFR Random Glucose Lactic Acid Calcium Phosphorus Magnesium Total Bilirubin Direct Bilirubin AST ALT Alkaline Phosphatase Total Protein Albumin 3.5 Microbiology Microbiology Results: Microbiology 07/29/23 21:27 Urine clean catch - Urine cross top Urine Culture - Final 07/29/23 22:11 Blood - Venous Blood Culture - Preliminary Gram negative gavi 07/29/23 22:11 Blood - Venous Blood Culture - Preliminary Gram negative gavi 07/29/23 18:31 Blood - Venous Blood Culture - Preliminary Gram negative gavi 07/29/23 17:52 Blood - Venous Blood Culture - Preliminary Gram negative gavi Progress Note: A&P Assessment and plan (1) Gram-negative bacteremia: Status: Acute (2) Acute acalculous cholecystitis: Status: Acute (3) PHILLIP (acute kidney injury): Status: Acute Plan Assessment: 67-year-old lady with gram-negative bacteremia with likely cholangitic source now requiring pressor support. Plan: Neuro: No acute issues. Cardiac: Septic shock, titrate off pressors as tolerated. Pulmonary: No acute issues. Renal: Acute renal failure. Non oliguric. Likely ATN related. Continue to monitor renal indices and urine output. Nephrology service care appreciated. Endo: No acute issues. GI: Likely cholangitis. HIDA scan is pending. ID: Gram-negative bacteremia with likely cholangitic source, continue cefepime. Heme/Onc: No acute issues. Psych: No acute issues. Miscellaneous: No acute issues. Prophylaxis: Heparin Diet: NPO Critical care time spent: 60 minutes Quality Stroke Does the patient have a stroke diagnosis?: No VTE Prior VTE?: No VTE Risk Level:: Medical - moderate - high VTE Device Contraindication: Treatment Not Indicated VTE Drug Contraindication: N/A - Med Ordered
[2023-07-31] MEDS: Heparin Sodium,Porcine 5,000 UNIT/ML VIAL 5000 UNIT SUBCUT ×2 (11:02→21:59)
[2023-07-31 17:56] LABS: Gamma Glutamyl Transpeptidase 122 U/L (7-33)
[2023-07-31] MEDS: ondansetron HCL 4 MG/2 ML VIAL IVPUSH (20:53)
[2023-08-01] VITALS (19 sets, daily range): BP systolic 90–140; BP diastolic 57–71; PULSE 68–101; RESP 17–27; TEMP 36.4–37.9; O2SAT 91–97; BMI 31.3
[2023-08-01] MEDS: Piperacillin Sodium/Tazobactam 2.25 GM in 0.9 % Sodium Chloride 50 ML IV ×3 (05:33→21:32)
[2023-08-01 05:34] LABS: VBG Base Excess -4.1 mmol/L; VBG HCO3 19 mmol/L (22-26); VBG pCO2 30 mmHg; VBG pH 7.41 (7.32-7.43); VBG pO2 41 mmHg
[2023-08-01 05:53] LABS: MANUAL DIFF FLAG NO
[2023-08-01 05:59] LABS: Basophils Percent Auto 0.4 % (0-2); Eosinophils Absolute Auto 0.2 X10*3/uL (0.0-0.4); Eosinophils Percent Auto 2.2 % (0-4); Hematocrit 33.1 % (37.0-47.0); Imm Gran Abs Auto 0.06 X10*3/uL (0.00-0.03); Imm Gran Pct Auto 0.8 % (0.0-0.4); Lymphocytes Percent Auto 14.1 % (20-40); Mean Corpuscular HGB Conc 33.2 g/dl (31.0-35.0); Mean Corpuscular Hemoglobin 28.3 pg (27.0-33.0); Mean Corpuscular Volume 85.1 fL (80.0-98.0); Mean Platelet Volume 10.4 fL (9.4-12.3); Monocytes Absolute Auto 0.8 X10*3/uL (0.1-1.2); Monocytes Percent Auto 11.3 % (2-11); Neutrophils Absolute Auto 5.2 x10*3/uL (2.0-8.3); Neutrophils Percent Auto 71.2 % (45-73); Red Blood Count 3.89 X10*6/uL (4.20-5.50); Red Cell Distribution Width 16.7 % (11.0-16.0); White Blood Count 7.2 X10*3/uL (4.8-10.8)
[2023-08-01 06:00] LABS: Platelet Count 99 X10*3/uL (160-400)
[2023-08-01 06:37] LABS: Alanine Aminotransferase 65 U/L (0-31); Albumin Level 3.5 g/dL (3.5-5.0); Alkaline Phosphatase 407 U/L (39-117); Anion Gap 18 (12-20); Aspartate Amino Transferase 90 U/L (5-31); Bilirubin Total 0.5 mg/dL (0.0-1.0); Blood Urea Nitrogen 55 mg/dL (9-16); Calcium 9.3 mg/dL (8.4-10.2); Carbon Dioxide 17 mmol/L (22-29); Chloride 104 mmol/L (96-108); Creatinine Clr Calc Pharmacy 9.3; Estimated Glomerular Filt Rate 7; Glucose Random 86 mg/dL (60-115); Magnesium 2.3 mg/dL (1.6-2.6); Phosphorus 4.3 mg/dL (2.7-4.5); Sodium 135 mmol/L (135-145); Total Protein 6.5 g/dL (6.5-8.0)
[2023-08-01 07:09] LABS: Venous Blood Gas Refer to POC result
[2023-08-01] MEDS: Nicotine 14 MG PATCH.TD24 TRANSDERMA (08:26)
[2023-08-01] MEDS: 0.9 % Sodium Chloride Flush 3 ML SYRINGE IVFLUSH ×2 (08:27→23:38)
--- NOTE | 2023-08-01 08:30 | P.PNGS_ITS ---
Subjective Subjective Date of Service: 08/01/23 Interval history: HIDA scan reviewed. Prompt filling of gallbladder, bile ducts and intestine strong evidence against acute cholecystitis or common bile duct obstruction. There is a reduced ejection fraction suggestive of chronic cholecystitis or biliary dyskinesia. Physical Exam 2 Vital Signs: Vital Signs: Last Vital Signs Temp 98.1 F 08/01/23 08:00 Pulse 90 08/01/23 08:00 Resp 27 H 08/01/23 08:00 BP 118/70 08/01/23 08:00 Pulse Ox 93 08/01/23 08:00 O2 Del Method Room Air 08/01/23 08:00 O2 Flow Rate 1 07/31/23 23:00 BMI result Body Mass Index 31.3 Objective Data Active Medications Acetaminophen (Acetaminophen 325 Mg Tablet) 650 mg PO Q6H PRN PRN Reason: Pain, Mild (Pain Scale 1-3) Last Admin: 07/31/23 20:53 Dose: 650 mg Documented By: SANGEETA Clonazepam (Clonazepam 0.5 Mg Tablet) 0.5 mg PO DAILY PRN PRN Reason: Anxiety Heparin Sodium (Porcine) (Heparin Sodium,Porcine 5,000 Unit/Ml Vial) 5,000 unit SUBCUT Q12H [facility] Last Admin: 07/31/23 21:59 Dose: 5,000 unit Documented By: NIKUMMARS Piperacillin Sod/Tazobactam (Sod 2.25 gm/ Sodium Chloride) 50 mls @ 100 mls/hr IV Q8H [facility] Last Infusion: 08/01/23 06:11 Dose: Infused Documented By: MIRIAN Melatonin (Melatonin 3 Mg Tablet) 6 mg PO BEDTIME PRN PRN Reason: Insomnia Nicotine (Nicotine 14 Mg Patch.Td24) 14 mg TRANSDERMA DAILY [facility] Last Admin: 08/01/23 08:26 Dose: 14 mg Documented By: FATEMEH Omeprazole (Omeprazole 20 Mg Capsule.) 20 mg PO DAILY PRN PRN Reason: Acid Reflux Ondansetron HCl (Ondansetron Hcl 4 Mg/2 Ml Vial) 4 mg IVPUSH Q8H PRN PRN Reason: Nausea and Vomiting Last Admin: 07/31/23 20:53 Dose: 4 mg Documented By: SANGEETA Sodium Chloride (0.9 % Sodium Chloride Flush 3 Ml Syringe) 3 ml IVFLUSH QSHIFT [facility] Last Admin: 08/01/23 08:27 Dose: 3 ml Documented By: FATEMEH Labs 08/01/23 05:29 08/01/23 05:29 Labs: Laboratory Results - last 24 hr 07/31/23 08/01/23 16:52 05:29 MCV 85.1 MCH 28.3 MCHC 33.2 RDW 16.7 H Plt Count 99 L MPV 10.4 Immature Gran % (Auto) 0.8 H Neut % (Auto) 71.2 Lymph % (Auto) 14.1 L [place] % (Auto) 11.3 H Eos % (Auto) 2.2 Baso % (Auto) 0.4 Lymph # (Auto) 1.0 L [place] # (Auto) 0.8 Eos # (Auto) 0.2 Baso # (Auto) 0.0 Abs Immat Gran (auto) 0.06 H Absolute Neuts (auto) 5.2 Absolute Nucleated RBC 0.000 Nucleated RBC % (auto) 0.0 VBG pH 7.41 VBG pCO2 30 VBG pO2 41 VBG HCO3 19 L VBG O2 Saturation 70.0 VBG Base Excess -4.1 Anion Gap 18 Estim Creat Clear Calc 9.3 Estimated GFR 7 Random Glucose 86 Calcium 9.3 D Phosphorus 4.3 Magnesium 2.3 Total Bilirubin 0.5 GGT 122 H AST 90 H ALT 65 H Alkaline Phosphatase 407 H Total Protein 6.5 Albumin 3.5 Imaging HIDA scan: Radiologist's impression: Impressions Hepatobiliary Scan Nuclear Medicine 07/31/23 10:40 IMPRESSION: Abnormal gallbladder ejection fraction of 12% at 30 minutes. Dyskinetic gallbladder. Patent cystic duct. Patent CBD. Microbiology Microbiology Results: Microbiology 07/29/23 22:11 Blood Culture - Final Blood - Venous Escherichia coli 07/29/23 22:11 Blood Culture - Final Blood - Venous Escherichia coli 07/29/23 18:31 Blood Culture - Final Blood - Venous Escherichia coli 07/29/23 17:52 Blood Culture - Final Blood - Venous Escherichia coli 07/29/23 21:27 Urine Culture - Final Urine clean catch - Urine cross top Procedures Date of Service Date of Service: 08/01/23 Progress Note: A&P Assessment and plan (1) Acute acalculous cholecystitis: Status: Acute Plan HIDA scan shows filling of the gallbladder which is strong evidence against acalculous cholecystitis. Contrast is seen emptying bile duct into small-bowel with no evidence of common bile duct obstruction. There is a reduced ejection fraction suggestive of biliary dyskinesia. Would not recommend cholecystectomy at this time. Time Spent With Patient Time: Total time managing care of this patient today ____ minutes. Quality Stroke Does the patient have a stroke diagnosis?: No VTE Prior VTE?: No VTE Risk Level:: Medical - moderate - high VTE Device Contraindication: Treatment Not Indicated VTE Drug Contraindication: N/A - Med Ordered
--- NOTE | 2023-08-01 08:50 | PM.CCPN ---
Subjective Subjective Date of Service: 08/01/23 Interval History: 67-year-old lady with underlying hypertension, GERD admitted on 07/29/2023 with right upper quadrant abdominal pain. Initial imaging was unrevealing. Patient was admitted to general medical muse. Hospital course significant for gram-negative bacteremia with likely cholangitic source with poor response to initial IV fluid resuscitation requiring pressor support and progressive acute renal failure. Now status post HIDA scan. No events overnight. Titrated off pressors. Urine output improved. Critical Care Time (minutes): 0 Physical Exam Vital Signs: Vital Signs: Last Vital Signs Temp 98.1 F 08/01/23 08:00 Pulse 90 08/01/23 08:00 Resp 27 H 08/01/23 08:00 BP 118/70 08/01/23 08:00 Pulse Ox 93 08/01/23 08:00 O2 Del Method Room Air 08/01/23 08:00 O2 Flow Rate 1 07/31/23 23:00 BMI result Body Mass Index 31.3 Const: General: no acute distress, alert and awake Eyes: Sclerae: sclerae normal EOM: EOMs intact bilaterally Neck: Neck: Yes no lymphadenopathy, Yes trachea midline and Yes supple Resp: Effort & Inspection: normal respiratory effort and no respiratory distress Auscultation: clear to auscultation bilaterally Cardio: Rate: regular rate Rhythm: regular rhythm Heart sounds: no gallops, no murmurs and no rubs GI: Palpation (GI): Soft to palpation and Other GI palpation findings present ( Nontender) Auscultation: normal bowel sounds Extrem: General: Yes no pedal edema, No clubbing and No cyanosis Objective Data Labs 08/01/23 05:29 08/01/23 05:29 Labs: Laboratory Results - last 24 hr 07/31/23 08/01/23 16:52 05:29 WBC 7.2 RBC 3.89 L Hgb 11.0 L Hct 33.1 L MCV 85.1 MCH 28.3 MCHC 33.2 RDW 16.7 H Plt Count 99 L MPV 10.4 Immature Gran % (Auto) 0.8 H Neut % (Auto) 71.2 Lymph % (Auto) 14.1 L [place] % (Auto) 11.3 H Eos % (Auto) 2.2 Baso % (Auto) 0.4 Lymph # (Auto) 1.0 L [place] # (Auto) 0.8 Eos # (Auto) 0.2 Baso # (Auto) 0.0 Abs Immat Gran (auto) 0.06 H Absolute Neuts (auto) 5.2 Absolute Nucleated RBC 0.000 Nucleated RBC % (auto) 0.0 VBG pH 7.41 VBG pCO2 30 VBG pO2 41 VBG HCO3 19 L VBG O2 Saturation 70.0 VBG Base Excess -4.1 Sodium 135 Potassium 4.0 Chloride 104 Carbon Dioxide 17 L Anion Gap 18 BUN 55 H Creatinine 5.96 H* Estim Creat Clear Calc 9.3 Estimated GFR 7 Random Glucose 86 Calcium 9.3 D Phosphorus 4.3 Magnesium 2.3 Total Bilirubin 0.5 GGT 122 H AST 90 H ALT 65 H Alkaline Phosphatase 407 H Total Protein 6.5 Albumin 3.5 Microbiology Microbiology Results: Microbiology 07/29/23 22:11 Blood - Venous Blood Culture - Final Escherichia coli 07/29/23 22:11 Blood - Venous Blood Culture - Final Escherichia coli 07/29/23 18:31 Blood - Venous Blood Culture - Final Escherichia coli 07/29/23 17:52 Blood - Venous Blood Culture - Final Escherichia coli 07/29/23 21:27 Urine clean catch - Urine cross top Urine Culture - Final Progress Note: A&P Assessment and plan (1) Gram-negative bacteremia: Status: Acute (2) PHILLIP (acute kidney injury): Status: Acute (3) PAD (peripheral artery disease): Status: Acute (4) HTN (hypertension): Status: Acute (5) Acute acalculous cholecystitis: Status: Acute Plan Assessment: 67-year-old lady with gram-negative bacteremia with likely cholangitic source Plan: Neuro: No acute issues. Cardiac: Septic shock, resolved. Titrated off pressors Pulmonary: No acute issues. Renal: Acute renal failure. Non oliguric. Likely ATN related. Urine output improved to 2 L in 24 hours. Continue to monitor renal indices and urine output. Nephrology service care appreciated. Endo: No acute issues. GI: Likely cholangitis. HIDA scan with decreased gallbladder ejection fraction. Likely passed biliary stone. General surgery service care appreciated. No plans for intervention at this time. ID: Gram-negative bacteremia with likely cholangitic source, continue Zosyn. Heme/Onc: No acute issues. Psych: No acute issues. Miscellaneous: No acute issues. Prophylaxis: Heparin Diet: regular Quality Stroke Does the patient have a stroke diagnosis?: No VTE Prior VTE?: No VTE Risk Level:: Medical - moderate - high VTE Device Contraindication: Treatment Not Indicated VTE Drug Contraindication: N/A - Med Ordered
[2023-08-01] MEDS: Acetaminophen 325 MG TABLET 650 MG PO ×2 (08:52→18:36)
[2023-08-01] MEDS: Lactulose 20 GM/30 ML SOLUTION 30 GM PO (08:52)
[2023-08-01] MEDS: Heparin Sodium,Porcine 5,000 UNIT/ML VIAL 5000 UNIT SUBCUT ×2 (12:00→22:13)
--- NOTE | 2023-08-01 13:08 | PM.PNNEP ---
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) patient and family understanding hoping for cholecystitis management Physical Exam Vital Signs: Vital Signs: Last Vital Signs Temp 98.0 F 08/01/23 12:00 Pulse 74 08/01/23 13:00 Resp 17 08/01/23 13:00 BP 100/63 08/01/23 13:00 Pulse Ox 96 08/01/23 13:00 O2 Del Method Room Air 08/01/23 13:00 O2 Flow Rate 1 07/31/23 23:00 BMI result Body Mass Index 31.3 Const: General: cooperative, no acute distress, alert and awake Orientation/consciousness: patient oriented x3 Cardio: Rate: regular rate Rhythm: regular rhythm GI: Palpation (GI): Soft to palpation, nontender, no guarding, not rigid and No hepatosplenomegaly present Neuro: General: patient oriented x3, moves all extremities and CN's II-XI intact bilaterally Extrem: General: Yes normal to inspection, Yes no clubbing, cyanosis or edema and Yes no pedal edema Psych: Appearance: grossly normal Objective Data Labs 08/01/23 05:29 08/01/23 05:29 Labs: Laboratory Results - last 24 hr 07/31/23 08/01/23 16:52 05:29 WBC 7.2 RBC 3.89 L Hgb 11.0 L Hct 33.1 L MCV 85.1 MCH 28.3 MCHC 33.2 RDW 16.7 H Plt Count 99 L MPV 10.4 Immature Gran % (Auto) 0.8 H Neut % (Auto) 71.2 Lymph % (Auto) 14.1 L [place] % (Auto) 11.3 H Eos % (Auto) 2.2 Baso % (Auto) 0.4 Lymph # (Auto) 1.0 L [place] # (Auto) 0.8 Eos # (Auto) 0.2 Baso # (Auto) 0.0 Abs Immat Gran (auto) 0.06 H Absolute Neuts (auto) 5.2 Absolute Nucleated RBC 0.000 Nucleated RBC % (auto) 0.0 VBG pH 7.41 VBG pCO2 30 VBG pO2 41 VBG HCO3 19 L VBG O2 Saturation 70.0 VBG Base Excess -4.1 Sodium 135 Potassium 4.0 Chloride 104 Carbon Dioxide 17 L Anion Gap 18 BUN 55 H Creatinine 5.96 H* Estim Creat Clear Calc 9.3 Estimated GFR 7 Random Glucose 86 Calcium 9.3 D Phosphorus 4.3 Magnesium 2.3 Total Bilirubin 0.5 GGT 122 H AST 90 H ALT 65 H Alkaline Phosphatase 407 H Total Protein 6.5 Albumin 3.5 Microbiology Microbiology Results: Microbiology 07/29/23 22:11 Blood - Venous Blood Culture - Final Escherichia coli 07/29/23 22:11 Blood - Venous Blood Culture - Final Escherichia coli 07/29/23 18:31 Blood - Venous Blood Culture - Final Escherichia coli 07/29/23 17:52 Blood - Venous Blood Culture - Final Escherichia coli 07/29/23 21:27 Urine clean catch - Urine cross top Urine Culture - Final Procedures Date of Service Date of Service: 08/01/23 Assessment & Plan Assessment and plan (1) Acute acalculous cholecystitis: Status: Acute (2) Severe sepsis: Status: Acute Plan Pt is a 67-year-old female with a PMH significant for?HTN, HLD, GERD, and depression who presents to the ED with?severe abdominal pain x2 days. Pt will be admitted to the hospital for treatment of PHILLIP and severe sepsis in the setting of UTI with question of pyelonephritis. There is also concern for Chlecystitis. GNR bacteremia noted. 1. 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 Progress Note: Quality Stroke Does the patient have a stroke diagnosis?: No
--- NOTE | 2023-08-01 17:56 | PM.EVENT ---
Event Note Date of Service: 08/01/23 Event Note: This is a 67-year-old female with underlying hypertension, GERD admitted on 07/29/2023 with right upper quadrant abdominal pain and sepsis thought to be related to uti/pyelo as Initial imaging was unrevealing. Patient was admitted to general medical muse. Abdominal US showing distended GB and CBD duct. Hospital course significant for gram-negative bacteremia with likely cholangitic source with poor response to initial IV fluid resuscitation requiring pressor support and progressive acute renal failure, downgraded from the ICU on 08/01 after being titrated off pressors. septic shock likely related to cholangitis/bacteremia. HIDA scan shows filling of the gallbladder which is strong evidence against acalculous cholecystitis. Contrast is seen emptying bile duct into small-bowel with no evidence of common bile duct obstruction. There is a reduced ejection fraction suggestive of biliary dyskinesia. Would not recommend cholecystectomy at this time. possible passed biliary stone. seen by surgery with no plan for intervention at this time. blood cultures growing e.coli. on zosyn. ID following PHILLIP Overall most c/w pre-renal azotemia that has progressed towards ATN/ Septic ATN. nephrology rec maintenance LR at 100/hr and midodrine 10 tid Time Spent With Patient Time: Total time managing care of this patient today ____ minutes.
[2023-08-01] MEDS: Lactated Ringers 1,000 ML 100 ML IVCONT (18:29)
[2023-08-01] MEDS: ondansetron HCL 4 MG/2 ML VIAL IVPUSH (18:37)
[2023-08-02] VITALS (7 sets, daily range): BP systolic 93–150; BP diastolic 56–82; PULSE 64–80; RESP 18–22; TEMP 36.2–37; O2SAT 93–97; BMI 31.8
[2023-08-02] MEDS: Piperacillin Sodium/Tazobactam 2.25 GM in 0.9 % Sodium Chloride 50 ML IV ×3 (05:37→22:13)
[2023-08-02] MEDS: Lactated Ringers 1,000 ML 100 ML IVCONT ×2 (05:38→16:33)
[2023-08-02 06:46] LABS: MANUAL DIFF FLAG NO
[2023-08-02 06:51] LABS: Venous Blood Gas Refer to POC result
[2023-08-02 06:52] LABS: VBG Base Excess -0.9 mmol/L; VBG HCO3 23 mmol/L (22-26); VBG pCO2 38 mmHg; VBG pH 7.39 (7.32-7.43); VBG pO2 69 mmHg
[2023-08-02 06:53] LABS: Basophils Percent Auto 0.4 % (0-2); Eosinophils Absolute Auto 0.2 X10*3/uL (0.0-0.4); Eosinophils Percent Auto 2.3 % (0-4); Hematocrit 30.1 % (37.0-47.0); Hemoglobin 10.7 g/dl (12.0-16.0); Imm Gran Abs Auto 0.11 X10*3/uL (0.00-0.03); Lymphocytes Absolute Auto 1.3 X10*3/uL (1.2-4.9); Lymphocytes Percent Auto 12.3 % (20-40); Mean Corpuscular HGB Conc 35.5 g/dl (31.0-35.0); Mean Corpuscular Hemoglobin 29.5 pg (27.0-33.0); Mean Corpuscular Volume 82.9 fL (80.0-98.0); Mean Platelet Volume 10.2 fL (9.4-12.3); Monocytes Absolute Auto 1.2 X10*3/uL (0.1-1.2); Monocytes Percent Auto 11.7 % (2-11); Neutrophils Absolute Auto 7.7 x10*3/uL (2.0-8.3); Neutrophils Percent Auto 72.3 % (45-73); Platelet Count 140 X10*3/uL (160-400); Red Blood Count 3.63 X10*6/uL (4.20-5.50); Red Cell Distribution Width 16.5 % (11.0-16.0); White Blood Count 10.6 X10*3/uL (4.8-10.8)
[2023-08-02 07:09] LABS: Albumin Level 3.2 g/dL (3.5-5.0); Anion Gap 17 (12-20); Blood Urea Nitrogen 57 mg/dL (9-16); Calcium 9.2 mg/dL (8.4-10.2); Carbon Dioxide 19 mmol/L (22-29); Chloride 109 mmol/L (96-108); Creatinine Clr Calc Pharmacy 9.4; Estimated Glomerular Filt Rate 7; Glucose Random 90 mg/dL (60-115); Magnesium 2.2 mg/dL (1.6-2.6); Potassium 4.1 mmol/L (3.3-5.1); Sodium 141 mmol/L (135-145)
[2023-08-02] MEDS: Heparin Sodium,Porcine 5,000 UNIT/ML VIAL 5000 UNIT SUBCUT ×2 (07:49→22:13)
[2023-08-02] MEDS: Nicotine 14 MG PATCH.TD24 TRANSDERMA (07:50)
[2023-08-02] MEDS: 0.9 % Sodium Chloride Flush 3 ML SYRINGE IVFLUSH (07:50)
--- NOTE | 2023-08-02 10:41 | MHC.CM.PN ---
PER MD ROUNDS, PT NOT READY TO DC PLAN FOR CHOLECYSTECTOMY TOMORROW DCP TBD PENDING PT EVAL
--- NOTE | 2023-08-02 10:52 | PM.PNGS ---
Subjective Subjective Date of Service: 08/02/23 Interval history: Patient continues to report abdominal pain in the right upper quadrant. She was told she has gallstones in her gallbladder or common bile duct and is very confused about her diagnosis. She is unable to eat breakfast because of nausea. Physical Exam Vital Signs: Vital Signs: Last Vital Signs Temp 98.2 F 08/02/23 07:24 Pulse 77 08/02/23 07:24 Resp 20 08/02/23 07:24 BP 122/72 08/02/23 07:24 Pulse Ox 96 08/02/23 07:24 O2 Del Method Room Air 08/02/23 07:24 O2 Flow Rate 1 07/31/23 23:00 BMI result Body Mass Index 31.8 Const: General: ill appearing Nutritional Appearance: well nourished Orientation/consciousness: patient oriented x3 Limitations: no limitations HEENT: Head: Yes normocephalic Eyes: Sclerae: sclerae normal GI: Inspection: Yes normal to inspection Palpation (GI): Soft to palpation, Tenderness to palpation present (GI) in the RUQ and Caicedo's sign positive, no guarding and not rigid Neuro: General: patient oriented x3 Extrem: General: Yes normal to inspection Objective Data Active Medications Acetaminophen (Acetaminophen 325 Mg Tablet) 650 mg PO Q6H PRN PRN Reason: Pain, Mild (Pain Scale 1-3) Last Admin: 08/01/23 18:36 Dose: 650 mg Documented By: FATEMEH Heparin Sodium (Porcine) (Heparin Sodium,Porcine 5,000 Unit/Ml Vial) 5,000 unit SUBCUT Q12H [facility] Last Admin: 08/02/23 07:49 Dose: 5,000 unit Documented By: ALYSSA Piperacillin Sod/Tazobactam (Sod 2.25 gm/ Sodium Chloride) 50 mls @ 100 mls/hr IV Q8H [facility] Last Infusion: 08/02/23 06:14 Dose: Infused Documented By: CLAIRE Lactated Ringer's (Lr) 1,000 mls @ 100 mls/hr IVCONT .Q10H [facility] Last Admin: 08/02/23 05:38 Dose: 100 mls/hr Documented By: CLAIRE Melatonin (Melatonin 3 Mg Tablet) 6 mg PO BEDTIME PRN PRN Reason: Insomnia Midodrine (Midodrine Hcl 10 Mg Tablet) 10 mg PO TIDWM [facility] Last Admin: 08/02/23 07:51 Dose: Not Given Documented By: ALYSSA Non-Admin Reason: Patient Refused Nicotine (Nicotine 14 Mg Patch.Td24) 14 mg TRANSDERMA DAILY [facility] Last Admin: 08/02/23 07:50 Dose: 14 mg Documented By: ALYSSA Ondansetron HCl (Ondansetron Hcl 4 Mg/2 Ml Vial) 4 mg IVPUSH Q8H PRN PRN Reason: Nausea and Vomiting Last Admin: 08/01/23 18:37 Dose: 4 mg Documented By: FATEMEH Sodium Chloride (0.9 % Sodium Chloride Flush 3 Ml Syringe) 3 ml IVFLUSH QSHIFT [facility] Last Admin: 08/02/23 07:50 Dose: 3 ml Documented By: ALYSSA Labs 08/02/23 06:42 08/02/23 06:42 Labs: Laboratory Results - last 24 hr 08/02/23 08/02/23 06:42 06:48 MCV 82.9 MCH 29.5 MCHC 35.5 H RDW 16.5 H Plt Count 140 L D MPV 10.2 Immature Gran % (Auto) 1.0 H Neut % (Auto) 72.3 Lymph % (Auto) 12.3 L [place] % (Auto) 11.7 H Eos % (Auto) 2.3 Baso % (Auto) 0.4 Lymph # (Auto) 1.3 [place] # (Auto) 1.2 Eos # (Auto) 0.2 Baso # (Auto) 0.0 Abs Immat Gran (auto) 0.11 H Absolute Neuts (auto) 7.7 Absolute Nucleated RBC 0.000 Nucleated RBC % (auto) 0.0 VBG pH 7.39 VBG pCO2 38 VBG pO2 69 VBG HCO3 23 VBG O2 Saturation 93.0 VBG Base Excess -0.9 Anion Gap 17 Estim Creat Clear Calc 9.4 Estimated GFR 7 Random Glucose 90 Calcium 9.2 Phosphorus 4.0 Magnesium 2.2 Albumin 3.2 L Microbiology Microbiology Results: Microbiology 07/29/23 22:11 Blood Culture - Final Blood - Venous Escherichia coli 07/29/23 22:11 Blood Culture - Final Blood - Venous Escherichia coli 07/29/23 18:31 Blood Culture - Final Blood - Venous Escherichia coli 07/29/23 17:52 Blood Culture - Final Blood - Venous Escherichia coli Procedures Date of Service Date of Service: 08/02/23 Progress Note: A&P Assessment and plan (1) Acute acalculous cholecystitis: Status: Acute (2) Gram-negative bacteremia: Status: Acute Plan 67-year-old female patient presenting with complaints of abdominal pain in the right upper quadrant found to have Gram-negative rods in her blood. She continues to have abdominal pain with decreased appetite and associated nausea. Workup with ultrasound and CT abdomen and pelvis revealed a normal appearing gallbladder with no gallstones within the gallbladder. Common bile duct is noted to be dilated although no common bile duct stone was identified. HIDA scan revealed a prompt visualization of the gallbladder without evidence of obstruction which is strong evidence against acute cholecystitis. She does have an ejection fraction which is reduced which may indicate chronic cholecystitis. Chronic cholecystitis would be an indication for laparoscopic cholecystectomy. I am uncertain if this is indeed the cause of her gram negative bacteremia and is certainly possible that she continues to be symptomatic post cholecystectomy given the normal gallbladder filling on HIDA scan. I would recommend a laparoscopic cholecystectomy and after discussion of the procedure, risks, and alternatives, she consents to the surgery. She has been added onto the operative schedule for tomorrow afternoon. Discussed tests findings and plans in detail with both her daughters today. Expressed understanding and agree with the plan. Time Spent With Patient Time: Total time managing care of this patient today ____ minutes. Quality Stroke Does the patient have a stroke diagnosis?: No VTE Prior VTE?: No VTE Risk Level:: Medical - moderate - high VTE Device Contraindication: Treatment Not Indicated VTE Drug Contraindication: N/A - Med Ordered
--- NOTE | 2023-08-02 11:00 | PM.PNNEP ---
Subjective Subjective Date of Service: 08/02/23 Interval history: Seen AM. All recent data reviewed; D/W family Physical Exam Vital Signs: Vital Signs: Last Vital Signs Temp 98.2 F 08/02/23 07:24 Pulse 77 08/02/23 07:24 Resp 20 08/02/23 07:24 BP 122/72 08/02/23 07:24 Pulse Ox 96 08/02/23 07:24 O2 Del Method Room Air 08/02/23 07:24 O2 Flow Rate 1 07/31/23 23:00 BMI result Body Mass Index 31.8 Const: General: no acute distress Orientation/consciousness: patient oriented x3 Eyes: EOM: EOMs intact bilaterally Neck: Neck: Yes supple Resp: Auscultation: diminished lung sounds Cardio: Rate: regular rate GI: Palpation (GI): Soft to palpation Neuro: General: patient oriented x3 and moves all extremities Objective Data Labs 08/02/23 06:42 08/02/23 06:42 Labs: Laboratory Results - last 24 hr 08/02/23 08/02/23 06:42 06:48 WBC 10.6 RBC 3.63 L Hgb 10.7 L Hct 30.1 L MCV 82.9 MCH 29.5 MCHC 35.5 H RDW 16.5 H Plt Count 140 L D MPV 10.2 Immature Gran % (Auto) 1.0 H Neut % (Auto) 72.3 Lymph % (Auto) 12.3 L [place] % (Auto) 11.7 H Eos % (Auto) 2.3 Baso % (Auto) 0.4 Lymph # (Auto) 1.3 [place] # (Auto) 1.2 Eos # (Auto) 0.2 Baso # (Auto) 0.0 Abs Immat Gran (auto) 0.11 H Absolute Neuts (auto) 7.7 Absolute Nucleated RBC 0.000 Nucleated RBC % (auto) 0.0 VBG pH 7.39 VBG pCO2 38 VBG pO2 69 VBG HCO3 23 VBG O2 Saturation 93.0 VBG Base Excess -0.9 Sodium 141 Potassium 4.1 Chloride 109 H Carbon Dioxide 19 L Anion Gap 17 BUN 57 H Creatinine 5.90 H* Estim Creat Clear Calc 9.4 Estimated GFR 7 Random Glucose 90 Calcium 9.2 Phosphorus 4.0 Magnesium 2.2 Albumin 3.2 L Microbiology Microbiology Results: Microbiology 07/29/23 22:11 Blood - Venous Blood Culture - Final Escherichia coli 07/29/23 22:11 Blood - Venous Blood Culture - Final Escherichia coli 07/29/23 18:31 Blood - Venous Blood Culture - Final Escherichia coli 07/29/23 17:52 Blood - Venous Blood Culture - Final Escherichia coli 07/29/23 21:27 Urine clean catch - Urine cross top Urine Culture - Final Procedures Date of Service Date of Service: 08/02/23 Assessment & Plan Assessment and plan (1) PHILLIP (acute kidney injury): Status: Acute Assessment and Plan: 67-year-old female with a PMH significant for?HTN, HLD, GERD, and depression who presents to the ED with?severe abdominal pain x2 days. Pt will be admitted to the hospital for treatment of PHILLIP and severe sepsis in the setting of UTI with question of pyelonephritis. There has been a concern for Cholecystitis. GNR bacteremia noted. Acute Kidney Injury due to tubular injury Obstruction has been ruled out Serum creatinine stable; cf/u c3 and c4 Had discussions re renal biopsy with family, wish to hold off on biopsy until patient shows signs of lack of recovery( By Dr Oro) No indication for renal replacement; Shall give PO NaHCO3 X 1 day; For OR tomorrow Progress Note: Quality Stroke Does the patient have a stroke diagnosis?: No
--- NOTE | 2023-08-02 11:37 | P.PNIM_ITS ---
Subjective Subjective Date of Service: 08/02/23 Interval History: seen and examined this morning follow up for PHILLIP, pyelonephritis, abdominal pain still with some right side abdominal discomfort, no nausea or vomiting Review of Systems Review of Systems: Yes all other systems are reviewed and are negative Constitutional Constitutional: Reports chills Cardiovascular Cardiovascular: Denies chest pain Gastrointestinal Gastrointestinal: Reports abdominal pain, Denies nausea and Denies vomiting Physical Exam 2 Vital Signs: Vital Signs: Last Vital Signs Temp 98.0 F 08/02/23 11:14 Pulse 80 08/02/23 11:14 Resp 20 08/02/23 11:14 BP 115/65 08/02/23 11:14 Pulse Ox 96 08/02/23 11:14 O2 Del Method Room Air 08/02/23 11:14 O2 Flow Rate 1 07/31/23 23:00 BMI result Body Mass Index 31.8 Appearing in no acute distress lung sounds are clear to auscultation heart regular rate rhythm, clear S1, S2 positive bowel sounds, abdomen is soft, nontender neuro patient is alert x3, no focal deficits Objective Data Active Medications Acetaminophen (Acetaminophen 325 Mg Tablet) 650 mg PO Q6H PRN PRN Reason: Pain, Mild (Pain Scale 1-3) Last Admin: 08/01/23 18:36 Dose: 650 mg Documented By: FATEMEH Heparin Sodium (Porcine) (Heparin Sodium,Porcine 5,000 Unit/Ml Vial) 5,000 unit SUBCUT Q12H [facility] Last Admin: 08/02/23 07:49 Dose: 5,000 unit Documented By: ALYSSA Piperacillin Sod/Tazobactam (Sod 2.25 gm/ Sodium Chloride) 50 mls @ 100 mls/hr IV Q8H [facility] Last Infusion: 08/02/23 06:14 Dose: Infused Documented By: CLAIRE Lactated Ringer's (Lr) 1,000 mls @ 100 mls/hr IVCONT .Q10H [facility] Last Admin: 08/02/23 05:38 Dose: 100 mls/hr Documented By: CLAIRE Melatonin (Melatonin 3 Mg Tablet) 6 mg PO BEDTIME PRN PRN Reason: Insomnia Midodrine (Midodrine Hcl 10 Mg Tablet) 10 mg PO TIDWM [facility] Last Admin: 08/02/23 07:51 Dose: Not Given Documented By: ALYSSA Non-Admin Reason: Patient Refused Nicotine (Nicotine 14 Mg Patch.Td24) 14 mg TRANSDERMA DAILY [facility] Last Admin: 08/02/23 07:50 Dose: 14 mg Documented By: ALYSSA Ondansetron HCl (Ondansetron Hcl 4 Mg/2 Ml Vial) 4 mg IVPUSH Q8H PRN PRN Reason: Nausea and Vomiting Last Admin: 08/01/23 18:37 Dose: 4 mg Documented By: FATEMEH Sodium Chloride (0.9 % Sodium Chloride Flush 3 Ml Syringe) 3 ml IVFLUSH QSHIFT [facility] Last Admin: 08/02/23 07:50 Dose: 3 ml Documented By: ALYSSA Labs 08/02/23 06:42 08/02/23 12:26 Labs: Laboratory Results - last 24 hr 08/02/23 08/02/23 06:42 06:48 MCV 82.9 MCH 29.5 MCHC 35.5 H RDW 16.5 H Plt Count 140 L D MPV 10.2 Immature Gran % (Auto) 1.0 H Neut % (Auto) 72.3 Lymph % (Auto) 12.3 L [place] % (Auto) 11.7 H Eos % (Auto) 2.3 Baso % (Auto) 0.4 Lymph # (Auto) 1.3 [place] # (Auto) 1.2 Eos # (Auto) 0.2 Baso # (Auto) 0.0 Abs Immat Gran (auto) 0.11 H Absolute Neuts (auto) 7.7 Absolute Nucleated RBC 0.000 Nucleated RBC % (auto) 0.0 VBG pH 7.39 VBG pCO2 38 VBG pO2 69 VBG HCO3 23 VBG O2 Saturation 93.0 VBG Base Excess -0.9 Anion Gap 17 Estim Creat Clear Calc 9.4 Estimated GFR 7 Random Glucose 90 Calcium 9.2 Phosphorus 4.0 Magnesium 2.2 Albumin 3.2 L Microbiology Microbiology Results: Microbiology 07/29/23 22:11 Blood Culture - Final Blood - Venous Escherichia coli 07/29/23 22:11 Blood Culture - Final Blood - Venous Escherichia coli 07/29/23 18:31 Blood Culture - Final Blood - Venous Escherichia coli 07/29/23 17:52 Blood Culture - Final Blood - Venous Escherichia coli Assessment and Plan (1) UTI (urinary tract infection): Status: Acute (2) PHILLIP (acute kidney injury): Status: Acute (3) Severe sepsis: Status: Acute Plan Pt is a 67-year-old female with a PMH significant for?HTN, HLD, GERD, and depression who presents to the ED with?severe abdominal pain x2 days. Pt will be admitted to the hospital for treatment of PHILLIP and severe sepsis in the setting of UTI with question of pyelonephritis. Chronic cholecystitis Low ejection fraction of gallbladder No evidence of obstruction LFTs trending down gen surg consult>plan for OR tomorrow for cholecystectomy, NPO after midnight Sepsis due to urinary source and E coli bacteremia. Sepsis resolved continue zosyn, started 07/29 Urine cultures negative PHILLIP creatinine up to 5.90, baseline 0.8-0.9, slowly trending down likely multifactorial r/t decreased po intake, home bp meds (shireen and thiazide) and sepsis/hypotension resume IVF nephrology following>ATN, no obstruction, hold off on biopsy for now, give po bicarb x1 days for prep for OR follow renal function closely Thrombocytopenia likely r/t sepsis follow CBC Hyponatremia. Resolved Likely secondary to reduced p.o. intake HTN Hold antihypertensives d/t hypotension (hctz, lisinopril) and PHILLIP HLD Hold statin for now due to transaminitis Full Code Attending:?Dr. Xie DVT Prophylaxis: heparin requires ongoing inpatient stay for IVF and IV antibiotics and close monitoring of renal function and severe sepsis Time Spent With Patient Time: Total time managing care of this patient today ____ minutes. Quality Stroke Does the patient have a stroke diagnosis?: No VTE Prior VTE?: No VTE Risk Level:: Medical - moderate - high VTE Device Contraindication: Treatment Not Indicated VTE Drug Contraindication: N/A - Med Ordered
[2023-08-02] MEDS: Sodium Bicarbonate 650 MG TABLET PO ×2 (12:31→22:12)
[2023-08-02] MEDS: Midodrine HCl 10 MG TABLET PO (12:31)
[2023-08-02 13:10] LABS: Anion Gap 15 (12-20); Blood Urea Nitrogen 55 mg/dL (9-16); Carbon Dioxide 21 mmol/L (22-29); Chloride 109 mmol/L (96-108); Creatinine Clr Calc Pharmacy 10.3; Estimated Glomerular Filt Rate 8; Glucose Random 116 mg/dL (60-115); Potassium 4.1 mmol/L (3.3-5.1); Sodium 141 mmol/L (135-145)
[2023-08-02 14:23] LABS: Myeloperoxidase Antibody <1.0 AI; Proteinase 3 PR3 Antibodies <1.0 AI
[2023-08-02] MEDS: Melatonin 3 MG TABLET 6 MG PO (22:12)
[2023-08-02] MEDS: Acetaminophen 325 MG TABLET 650 MG PO (22:13)
[2023-08-03] VITALS (13 sets, daily range): BP systolic 103–185; BP diastolic 69–93; PULSE 63–92; RESP 16–20; TEMP 36–37.2; O2SAT 94–99; BMI 32.1
[2023-08-03] MEDS: 0.9 % Sodium Chloride Flush 3 ML SYRINGE IVFLUSH ×4 (01:01→22:29)
[2023-08-03] MEDS: Lactated Ringers 1,000 ML 100 ML IVCONT ×2 (02:48→18:14)
[2023-08-03] MEDS: Piperacillin Sodium/Tazobactam 2.25 GM in 0.9 % Sodium Chloride 50 ML IV ×2 (05:34→21:50)
[2023-08-03 07:07] LABS: Hemoglobin 9.6 g/dl (12.0-16.0); Mean Corpuscular HGB Conc 34.3 g/dl (31.0-35.0); Mean Corpuscular Hemoglobin 28.8 pg (27.0-33.0); Mean Corpuscular Volume 84.1 fL (80.0-98.0); Mean Platelet Volume 10.2 fL (9.4-12.3); Platelet Count 183 X10*3/uL (160-400); Red Blood Count 3.33 X10*6/uL (4.20-5.50); Red Cell Distribution Width 16.9 % (11.0-16.0); White Blood Count 8.1 X10*3/uL (4.8-10.8)
--- NOTE | 2023-08-03 08:44 | MHC.SHP ---
Pre-Procedural Eval Section A Date of Service: 08/03/23 The patient is an INPATIENT: Yes Changes since office visit: Yes Patient answered all questions; No Cold of Flu in the past 2 weeks, No New Medical Problems and No Changes in Medication Section B Chief Complaint: Abdominal pain Allergies: Allergies Allergy/AdvReac Type Severity Reaction Status Date / Time cephalexin Allergy Unknown Swelling Verified 05/31/23 10:10 Cephalosporins Allergy Unknown SWELLING Verified 05/31/23 10:10 ciprofloxacin [CIPROFLOXACIN] Allergy Unknown SWELLING Verified 05/31/23 10:10 naproxen [NAPROXEN] Allergy Unknown BLISTERS Verified 05/31/23 10:10 IN MOUTH Plan Diagnosis/Plan: Unchanged I have reviewed the history and physical and performed a pertinent physical examination on my patient. No changes have occurred unless specified. Time Spent With Patient Time: Total time managing care of this patient today ____ minutes.
[2023-08-03] MEDS: Sodium Bicarbonate 650 MG TABLET PO (10:24)
--- NOTE | 2023-08-03 10:41 | P.PNNP_ITS ---
Subjective Subjective Date of Service: 08/03/23 Interval history: seen and examined this morning. All recent data reviewed; Going for surgery tomorrow; Serum creatinine better Physical Exam 2 Vital Signs: Vital Signs: Last Vital Signs Temp 98.3 F 08/03/23 07:03 Pulse 65 08/03/23 07:03 Resp 16 08/03/23 07:03 BP 170/89 H 08/03/23 10:26 Pulse Ox 96 08/03/23 07:03 O2 Del Method Room Air 08/03/23 07:03 O2 Flow Rate 1 07/31/23 23:00 BMI result Body Mass Index 32.1 Const: General: no acute distress Orientation/consciousness: patient oriented x3 Eyes: EOM: EOMs intact bilaterally Resp: Auscultation: diminished lung sounds Cardio: Rate: regular rate GI: Palpation (GI): Soft to palpation Neuro: General: patient oriented x3 and moves all extremities Objective Data Labs 08/03/23 05:55 08/02/23 12:26 Labs: Laboratory Results - last 24 hr 07/30/23 08/02/23 08/03/23 18:38 12:26 05:55 WBC 8.1 RBC 3.33 L Hgb 9.6 L Hct 28.0 L MCV 84.1 MCH 28.8 MCHC 34.3 RDW 16.9 H Plt Count 183 D MPV 10.2 Absolute Nucleated RBC 0.000 Nucleated RBC % (auto) 0.0 Sodium 141 Potassium 4.1 Chloride 109 H Carbon Dioxide 21 L Anion Gap 15 BUN 55 H Creatinine 5.40 H* Estim Creat Clear Calc 10.3 Estimated GFR 8 Random Glucose 116 H Calcium 9.0 Hold Green Top See Note Proteinase 3 (PR3) Ab <1.0 Myeloperoxidase Ab <1.0 Microbiology Microbiology Results: Microbiology 07/29/23 22:11 Blood - Venous Blood Culture - Final Escherichia coli 07/29/23 22:11 Blood - Venous Blood Culture - Final Escherichia coli 07/29/23 18:31 Blood - Venous Blood Culture - Final Escherichia coli 07/29/23 17:52 Blood - Venous Blood Culture - Final Escherichia coli 07/29/23 21:27 Urine clean catch - Urine cross top Urine Culture - Final Procedures Date of Service Date of Service: 08/03/23 Assessment & Plan Assessment and plan (1) PHILLIP (acute kidney injury): Status: Acute Assessment and Plan: 67-year-old female with a PMH significant for?HTN, HLD, GERD, and depression who presents to the ED with?severe abdominal pain x2 days. Pt will be admitted to the hospital for treatment of PHILLIP and severe sepsis in the setting of UTI with question of pyelonephritis. There has been a concern for Cholecystitis. GNR bacteremia noted. Acute Kidney Injury due to tubular injury Obstruction has been ruled out Serum creatinine stable/better Had discussions re renal biopsy with family, wish to hold off on biopsy until patient shows signs of lack of recovery( By Dr Oro) No indication for renal replacement; For OR today Progress Note: Quality Stroke Does the patient have a stroke diagnosis?: No
[2023-08-03 10:47] LABS: Anion Gap 15 (12-20); Blood Urea Nitrogen 52 mg/dL (9-16); Carbon Dioxide 22 mmol/L (22-29); Chloride 111 mmol/L (96-108); Creatinine Clr Calc Pharmacy 11.3; Estimated Glomerular Filt Rate 9; Glucose Random 94 mg/dL (60-115); Potassium 4.1 mmol/L (3.3-5.1); Sodium 144 mmol/L (135-145)
[2023-08-03 12:04] LABS: Complement C3 103 mg/dL (83-193)
--- NOTE | 2023-08-03 12:26 | P.PNIM_ITS ---
Subjective Subjective Date of Service: 08/03/23 Interval History: seen and examined this morning follow up for PHILLIP, pyelonephritis, abdominal pain plan for CCY today pain is better Review of Systems Review of Systems: Yes all other systems are reviewed and are negative Constitutional Constitutional: Reports chills Cardiovascular Cardiovascular: Denies chest pain Gastrointestinal Gastrointestinal: Reports abdominal pain, Denies nausea and Denies vomiting Physical Exam 2 Vital Signs: Vital Signs: Last Vital Signs Temp 96.8 F 08/03/23 11:14 Pulse 68 08/03/23 11:14 Resp 16 08/03/23 11:14 BP 163/90 H 08/03/23 11:14 Pulse Ox 97 08/03/23 11:14 O2 Del Method Room Air 08/03/23 11:14 O2 Flow Rate 1 07/31/23 23:00 BMI result Body Mass Index 32.1 Appearing in no acute distress lung sounds are clear to auscultation heart regular rate rhythm, clear S1, S2 positive bowel sounds, abdomen is soft, nontender neuro patient is alert x3, no focal deficits Objective Data Active Medications Acetaminophen (Acetaminophen 325 Mg Tablet) 650 mg PO Q6H PRN PRN Reason: Pain, Mild (Pain Scale 1-3) Last Admin: 08/02/23 22:13 Dose: 650 mg Documented By: RAJ Heparin Sodium (Porcine) (Heparin Sodium,Porcine 5,000 Unit/Ml Vial) 5,000 unit SUBCUT Q12H [facility] Last Admin: 08/03/23 10:37 Dose: Not Given Documented By: VILLA Non-Admin Reason: going to OR hold per preop Piperacillin Sod/Tazobactam (Sod 2.25 gm/ Sodium Chloride) 50 mls @ 100 mls/hr IV Q8H [facility] Last Infusion: 08/03/23 06:09 Dose: Infused Documented By: TATE Lactated Ringer's (Lr) 1,000 mls @ 100 mls/hr IVCONT .Q10H [facility] Last Admin: 08/03/23 02:48 Dose: 100 mls/hr Documented By: TATE Melatonin (Melatonin 3 Mg Tablet) 6 mg PO BEDTIME PRN PRN Reason: Insomnia Last Admin: 08/02/23 22:12 Dose: 6 mg Documented By: RAJ Midodrine (Midodrine Hcl 10 Mg Tablet) 10 mg PO TIDWM [facility] Last Admin: 08/03/23 11:34 Dose: Not Given Documented By: VILLA Non-Admin Reason: MD will discontinue Nicotine (Nicotine 14 Mg Patch.Td24) 14 mg TRANSDERMA DAILY [facility] Last Admin: 08/03/23 10:24 Dose: Not Given Documented By: VILLA Non-Admin Reason: OR today Ondansetron HCl (Ondansetron Hcl 4 Mg/2 Ml Vial) 4 mg IVPUSH Q8H PRN PRN Reason: Nausea and Vomiting Last Admin: 08/01/23 18:37 Dose: 4 mg Documented By: FATEMEH Sodium Bicarbonate (Sodium Bicarbonate 650 Mg Tablet) 650 mg PO BID [facility] Last Admin: 08/03/23 10:24 Dose: 650 mg Documented By: VILLA Sodium Chloride (0.9 % Sodium Chloride Flush 3 Ml Syringe) 3 ml IVFLUSH QSHIFT [facility] Last Admin: 08/03/23 10:23 Dose: 3 ml Documented By: VILLA Labs 08/03/23 05:55 08/03/23 09:28 Labs: Laboratory Results - last 24 hr 07/30/23 08/02/23 08/03/23 18:38 12:26 05:55 MCV 84.1 MCH 28.8 MCHC 34.3 RDW 16.9 H Plt Count 183 D MPV 10.2 Absolute Nucleated RBC 0.000 Nucleated RBC % (auto) 0.0 Anion Gap 15 Estim Creat Clear Calc 10.3 Estimated GFR 8 Random Glucose 116 H Calcium 9.0 Hold Green Top See Note Proteinase 3 (PR3) Ab <1.0 Myeloperoxidase Ab <1.0 Complement C3 103 Complement C4 20 08/03/23 09:28 MCV MCH MCHC RDW Plt Count MPV Absolute Nucleated RBC Nucleated RBC % (auto) Anion Gap 15 Estim Creat Clear Calc 11.3 Estimated GFR 9 Random Glucose 94 Calcium 9.0 Hold Green Top Proteinase 3 (PR3) Ab Myeloperoxidase Ab Complement C3 Complement C4 Assessment and Plan (1) UTI (urinary tract infection): Status: Acute (2) PHILLIP (acute kidney injury): Status: Acute (3) Severe sepsis: Status: Acute Plan Pt is a 67-year-old female with a PMH significant for?HTN, HLD, GERD, and depression who presents to the ED with?severe abdominal pain x2 days. Pt will be admitted to the hospital for treatment of PHILLIP and severe sepsis in the setting of UTI with question of pyelonephritis. Chronic cholecystitis Low ejection fraction of gallbladder No evidence of obstruction LFTs trending down gen surg consult>plan for OR today for cholecystectomy PHILLIP 4.94 today, baseline 0.8-0.9, slowly trending down likely multifactorial r/t decreased po intake, home bp meds (shireen and thiazide) and sepsis/hypotension continue IVF nephrology following>ATN, no obstruction, hold off on biopsy for now, give po bicarb x1 days for prep for OR follow renal function closely Sepsis due to urinary source and E coli bacteremia. Sepsis resolved continue zosyn, started 07/29, will need 14 days total abx Urine cultures negative Thrombocytopenia likely r/t sepsis follow CBC Hyponatremia. Resolved Likely secondary to reduced p.o. intake HTN Hold antihypertensives d/t hypotension (hctz, lisinopril) and PHILLIP HLD Hold statin for now due to transaminitis Full Code Attending:?Dr. Xie DVT Prophylaxis: heparin requires ongoing inpatient stay for IVF and IV antibiotics and close monitoring of renal function and bacteremia Time Spent With Patient Time: Total time managing care of this patient today ____ minutes. Quality Stroke Does the patient have a stroke diagnosis?: No VTE Prior VTE?: No VTE Risk Level:: Medical - moderate - high VTE Device Contraindication: Treatment Not Indicated VTE Drug Contraindication: N/A - Med Ordered
--- NOTE | 2023-08-03 13:12 | PC.NURSE ---
marisela send down dr ramos sts to be hung in the or
--- NOTE | 2023-08-03 14:13 | HO.ANESPROP2 ---
HPI - Anesthesia Eval Consult details Narrative: Acute Cholecystitis PMFSH Active Problems Active Problems: All Active Problems (Updated 07/31/23 @ 11:05 by Michael Norman MD) Gram-negative bacteremia (Acute) Bacteremia (Acute) Severe sepsis (Acute) Acute acalculous cholecystitis (Acute) UTI (urinary tract infection) (Acute) Leukocytosis (Acute) PHILLIP (acute kidney injury) (Acute) Abdominal pain (Acute) Status post total knee replacement, left (Acute) PAD (peripheral artery disease) (Acute) Varicose veins of left lower extremity with inflammation (Acute) Internal derangement of left knee (Acute) Toe fracture (Acute) HTN (hypertension) (Acute) Past Medical History Medical History Schizoaffective disorder, bipolar type Elevated cholesterol Arthritis History of abdominal hernia Primary osteoarthritis of left knee HTN (hypertension) Depression Chronic pain Family History Family history of problems with anesthesia: No Surgical History Surgical History Hx of tonsillectomy History of carpal tunnel surgery H/O wrist surgery History of back surgery Hx of inguinal hernia surgery History of Problems with Anesthesia: No Social History Social History Household Members: None Housing: House Are you a primary neonatal intensive care nurse to a significant other at home: No Do you presently have visiting nurse or other home services: Yes ([employer]) Alcohol intake: never Patient Tobacco Use Status: Current everyday Tobacco user Smoking Start Date: 11/08/79 Tobacco use type: Cigarette Cigarettes Per Day: 5 Years Smoked: 50 Smoked in Last 30 Days: Yes Patient Interested in Nicotine Replacement: Yes Second Hand Smoke Exposure: No Use of substances other than those prescribed or required for medical reasons: No Currently Displaying Signs/Symptoms of Drug Intoxication Withdrawal: No Have you been hit, kicked, punched, or otherwise hurt by someone within the past year? If so, by whom?: No Do you feel safe in your current relationship?: No Current Relationship Is there a partner from a previous relationship who is making you feel unsafe now?: No Are you made to feel afraid or neglected: No [employer] Healthcare Practices: Congregational Are you DNR?: No Advance Directives: No Advance Directives Information Provided: Yes Do you have thoughts of harming others: None Do you have a plan to hurt others: No Plan Recently lost weight without trying: No How much weight loss: Not applicable Eating poorly because of decreased appetite: Yes Nutrition screen score: 1 Nutrition Risks: No Nutritional Risk Patient : No : No Poor oral hygiene: No service: No Current occupational status: unemployed Meds Allergies Allergy/AdvReac Type Severity Reaction Status Date / Time cephalexin Allergy Unknown Swelling Verified 05/31/23 10:10 Cephalosporins Allergy Unknown SWELLING Verified 05/31/23 10:10 ciprofloxacin [CIPROFLOXACIN] Allergy Unknown SWELLING Verified 05/31/23 10:10 naproxen [NAPROXEN] Allergy Unknown BLISTERS Verified 05/31/23 10:10 IN MOUTH Active Medications: Current Medications Acetaminophen (Acetaminophen 325 Mg Tablet) 650 mg PO Q6H PRN PRN Reason: Pain, Mild (Pain Scale 1-3) Last Admin: 08/02/23 22:13 Dose: 650 mg Heparin Sodium (Porcine) (Heparin Sodium,Porcine 5,000 Unit/Ml Vial) 5,000 unit SUBCUT Q12H [facility] Last Admin: 08/03/23 10:37 Dose: Not Given Piperacillin Sod/Tazobactam (Sod 2.25 gm/ Sodium Chloride) 50 mls @ 100 mls/hr IV Q8H [facility] Last Infusion: 08/03/23 06:09 Dose: Infused Lactated Ringer's (Lr) 1,000 mls @ 100 mls/hr IVCONT .Q10H [facility] Last Admin: 08/03/23 02:48 Dose: 100 mls/hr Melatonin (Melatonin 3 Mg Tablet) 6 mg PO BEDTIME PRN PRN Reason: Insomnia Last Admin: 08/02/23 22:12 Dose: 6 mg Nicotine (Nicotine 14 Mg Patch.Td24) 14 mg TRANSDERMA DAILY [facility] Last Admin: 08/03/23 10:24 Dose: Not Given Ondansetron HCl (Ondansetron Hcl 4 Mg/2 Ml Vial) 4 mg IVPUSH Q8H PRN PRN Reason: Nausea and Vomiting Last Admin: 08/01/23 18:37 Dose: 4 mg Sodium Chloride (0.9 % Sodium Chloride Flush 3 Ml Syringe) 3 ml IVFLUSH QSHIFT [facility] Last Admin: 08/03/23 10:23 Dose: 3 ml Home Medications Medication Instructions Recorded Confirmed Last Taken Type hydrochlorothiazide 25 mg tablet 25 mg PO DAILY 10/21/21 07/29/23 07/29/23 History lisinopril 40 mg tablet 40 mg PO DAILY 10/21/21 07/29/23 07/29/23 History rosuvastatin 40 mg tablet 40 mg PO DAILY 10/21/21 07/29/23 07/29/23 History fluticasone propionate 50 1 - 2 spray intranasal DAILY PRN 03/31/22 07/29/23 Unknown History mcg/actuation nasal Nasal Congestion spray,suspension omeprazole 20 mg capsule,delayed 20 mg PO DAILY PRN Acid Reflux 04/12/23 07/29/23 Unknown History release clonazepam 0.5 mg tablet 0.5 mg PO DAILY PRN Anxiety 07/29/23 07/29/23 Unknown History Exam Exam Date and Time: August 03, 2023 141 Height,Weight and Vital Signs: Height 5 ft 3 in Weight 82.2 kg Last Vital Signs Temp 98 F 08/03/23 13:04 Pulse 66 08/03/23 13:04 Resp 20 08/03/23 13:04 BP 143/75 H 08/03/23 13:04 Pulse Ox 98 08/03/23 13:04 O2 Del Method Room Air 08/03/23 13:04 O2 Flow Rate 1 07/31/23 23:00 Pertinent Lab Results Pertinent Lab Results: Laboratory Tests 07/29/23 07/29/23 07/29/23 17:52 21:07 22:11 WBC 13.6 H RBC 4.31 Hgb 12.6 Hct 37.1 MCV 86.1 MCH 29.2 MCHC 34.0 RDW 15.4 Plt Count 105 L D MPV 8.5 L Immature Gran % (Auto) 0.5 H Neut % (Auto) 88.1 H Lymph % (Auto) 5.0 L [place] % (Auto) 6.1 Eos % (Auto) 0.1 Baso % (Auto) 0.2 Lymph # (Auto) 0.7 L [place] # (Auto) 0.8 Eos # (Auto) 0.0 Baso # (Auto) 0.0 Abs Immat Gran (auto) 0.07 H Absolute Neuts (auto) 12.0 H Absolute Nucleated RBC 0.000 Nucleated RBC % (auto) 0.0 VBG pH VBG pCO2 VBG pO2 VBG HCO3 VBG O2 Saturation VBG Base Excess Sodium 130 L Potassium 3.9 Chloride 97 Carbon Dioxide 23 Anion Gap 14 BUN 36 H Creatinine 3.31 H Estim Creat Clear Calc 16.0 Estimated GFR 14 Random Glucose 123 H Lactic Acid 1.3 1.0 Calcium 9.4 D Phosphorus Magnesium 1.9 Total Bilirubin 0.5 Direct Bilirubin GGT AST 53 H ALT 44 H Alkaline Phosphatase 131 H Total Protein 7.2 Albumin 4.0 Lipase 18 Hold Green Top Urine Color Dark Yellow Urine Appearance Turbid Urine pH 5.0 Ur Specific [place] 1.020 Urine Protein 100 (2+) H Urine Glucose (UA) Negative Urine Ketones Trace Urine Blood Moderate (2+) H Urine Nitrite Negative Ur Leukocyte Esterase Small (1+) H Urine RBC 0-2 Urine WBC 21-50 H Ur Squamous Epith Cells 6-10 Urine Bacteria Trace Hyaline Casts >20 Proteinase 3 (PR3) Ab Myeloperoxidase Ab Complement C3 Complement C4 COVID-19 (LYDIA) Negative COVID-19 Clin Com See Note Influenza Type A ([facility]) Negative Influenza Type B ([facility]) Negative Influenza A & B Note See Note 07/30/23 07/30/23 07/30/23 06:46 18:38 20:16 WBC 10.3 RBC 3.56 L Hgb 10.2 L Hct 30.5 L MCV 85.7 MCH 28.7 MCHC 33.4 RDW 15.9 Plt Count 104 L MPV 10.0 Immature Gran % (Auto) 1.9 H Neut % (Auto) 80.2 H Lymph % (Auto) 9.3 L [place] % (Auto) 8.2 Eos % (Auto) 0.2 Baso % (Auto) 0.2 Lymph # (Auto) 1.0 L [place] # (Auto) 0.9 Eos # (Auto) 0.0 Baso # (Auto) 0.0 Abs Immat Gran (auto) 0.20 H Absolute Neuts (auto) 8.3 Absolute Nucleated RBC 0.000 Nucleated RBC % (auto) 0.0 VBG pH VBG pCO2 VBG pO2 VBG HCO3 VBG O2 Saturation VBG Base Excess Sodium 132 L Potassium 4.1 Chloride 102 Carbon Dioxide 19 L Anion Gap 15 BUN 45 H Creatinine 4.17 H* Estim Creat Clear Calc 12.7 Estimated GFR 11 Random Glucose 81 Lactic Acid 1.6 Calcium 8.2 L D Phosphorus Magnesium Total Bilirubin 0.5 Direct Bilirubin 0.3 GGT AST 39 H ALT 28 Alkaline Phosphatase 91 Total Protein 5.6 L Albumin 3.0 L Lipase Hold Green Top Urine Color Urine Appearance Urine pH Ur Specific [place] Urine Protein Urine Glucose (UA) Urine Ketones Urine Blood Urine Nitrite Ur Leukocyte Esterase Urine RBC Urine WBC Ur Squamous Epith Cells Urine Bacteria Hyaline Casts Proteinase 3 (PR3) Ab <1.0 Myeloperoxidase Ab <1.0 Complement C3 103 Complement C4 20 COVID-19 ([facility]DIA) COVID-19 Clin Com Influenza Type A ([facility]) Influenza Type B ([facility]) Influenza A & B Note 07/30/23 07/31/23 07/31/23 21:31 05:47 05:47 WBC 8.1 RBC 3.56 L Hgb 10.3 L Hct 30.7 L MCV 86.2 MCH 28.9 MCHC 33.6 RDW 16.3 H Plt Count 93 L MPV 9.9 Immature Gran % (Auto) Neut % (Auto) Lymph % (Auto) [place] % (Auto) Eos % (Auto) Baso % (Auto) Lymph # (Auto) [place] # (Auto) Eos # (Auto) Baso # (Auto) Abs Immat Gran (auto) Absolute Neuts (auto) Absolute Nucleated RBC 0.000 Nucleated RBC % (auto) 0.0 VBG pH 7.42 VBG pCO2 27 VBG pO2 54 VBG HCO3 18 L VBG O2 Saturation 87.0 VBG Base Excess -4.9 Sodium 132 L Potassium 4.1 Chloride 101 Carbon Dioxide 17 L Anion Gap 18 BUN 51 H Creatinine 5.26 H* Estim Creat Clear Calc 10.7 Estimated GFR 8 Random Glucose 112 Lactic Acid Calcium 8.7 D Phosphorus 4.0 Magnesium 2.0 Total Bilirubin 0.7 Direct Bilirubin 0.4 GGT AST 58 H ALT 39 H Alkaline Phosphatase 173 H Total Protein 6.3 L Albumin 3.5 3.5 Lipase Hold Green Top Urine Color Urine Appearance Urine pH Ur Specific [place] Urine Protein Urine Glucose (UA) Urine Ketones Urine Blood Urine Nitrite Ur Leukocyte Esterase Urine RBC Urine WBC Ur Squamous Epith Cells Urine Bacteria Hyaline Casts Proteinase 3 (PR3) Ab Myeloperoxidase Ab Complement C3 Complement C4 COVID-19 ([facility]DIA) COVID-19 Clin Com Influenza Type A ([facility]) Influenza Type B ([facility]) Influenza A & B Note 07/31/23 07/31/23 08/01/23 05:56 16:52 05:29 WBC 7.2 RBC 3.89 L Hgb 11.0 L Hct 33.1 L MCV 85.1 MCH 28.3 MCHC 33.2 RDW 16.7 H Plt Count 99 L MPV 10.4 Immature Gran % (Auto) 0.8 H Neut % (Auto) 71.2 Lymph % (Auto) 14.1 L [place] % (Auto) 11.3 H Eos % (Auto) 2.2 Baso % (Auto) 0.4 Lymph # (Auto) 1.0 L [place] # (Auto) 0.8 Eos # (Auto) 0.2 Baso # (Auto) 0.0 Abs Immat Gran (auto) 0.06 H Absolute Neuts (auto) 5.2 Absolute Nucleated RBC 0.000 Nucleated RBC % (auto) 0.0 VBG pH 7.38 7.41 VBG pCO2 31 30 VBG pO2 32 41 VBG HCO3 18 L 19 L VBG O2 Saturation 49.0 70.0 VBG Base Excess -5.1 -4.1 Sodium 135 Potassium 4.0 Chloride 104 Carbon Dioxide 17 L Anion Gap 18 BUN 55 H Creatinine 5.96 H* Estim Creat Clear Calc 9.3 Estimated GFR 7 Random Glucose 86 Lactic Acid Calcium 9.3 D Phosphorus 4.3 Magnesium 2.3 Total Bilirubin 0.5 Direct Bilirubin GGT 122 H AST 90 H ALT 65 H Alkaline Phosphatase 407 H Total Protein 6.5 Albumin 3.5 Lipase Hold Green Top Urine Color Urine Appearance Urine pH Ur Specific [place] Urine Protein Urine Glucose (UA) Urine Ketones Urine Blood Urine Nitrite Ur Leukocyte Esterase Urine RBC Urine WBC Ur Squamous Epith Cells Urine Bacteria Hyaline Casts Proteinase 3 (PR3) Ab Myeloperoxidase Ab Complement C3 Complement C4 COVID-19 ([facility]DIA) COVID-19 Clin Com Influenza Type A ([facility]) Influenza Type B ([facility]) Influenza A & B Note 08/02/23 08/02/23 08/02/23 06:42 06:48 12:26 WBC 10.6 RBC 3.63 L Hgb 10.7 L Hct 30.1 L MCV 82.9 MCH 29.5 MCHC 35.5 H RDW 16.5 H Plt Count 140 L D MPV 10.2 Immature Gran % (Auto) 1.0 H Neut % (Auto) 72.3 Lymph % (Auto) 12.3 L [place] % (Auto) 11.7 H Eos % (Auto) 2.3 Baso % (Auto) 0.4 Lymph # (Auto) 1.3 [place] # (Auto) 1.2 Eos # (Auto) 0.2 Baso # (Auto) 0.0 Abs Immat Gran (auto) 0.11 H Absolute Neuts (auto) 7.7 Absolute Nucleated RBC 0.000 Nucleated RBC % (auto) 0.0 VBG pH 7.39 VBG pCO2 38 VBG pO2 69 VBG HCO3 23 VBG O2 Saturation 93.0 VBG Base Excess -0.9 Sodium 141 141 Potassium 4.1 4.1 Chloride 109 H 109 H Carbon Dioxide 19 L 21 L Anion Gap 17 15 BUN 57 H 55 H Creatinine 5.90 H* 5.40 H* Estim Creat Clear Calc 9.4 10.3 Estimated GFR 7 8 Random Glucose 90 116 H Lactic Acid Calcium 9.2 9.0 Phosphorus 4.0 Magnesium 2.2 Total Bilirubin Direct Bilirubin GGT AST ALT Alkaline Phosphatase Total Protein Albumin 3.2 L Lipase Hold Green Top Urine Color Urine Appearance Urine pH Ur Specific [place] Urine Protein Urine Glucose (UA) Urine Ketones Urine Blood Urine Nitrite Ur Leukocyte Esterase Urine RBC Urine WBC Ur Squamous Epith Cells Urine Bacteria Hyaline Casts Proteinase 3 (PR3) Ab Myeloperoxidase Ab Complement C3 Complement C4 COVID-19 ([facility]DIA) COVID-19 Clin Com Influenza Type A ([facility]) Influenza Type B ([facility]) Influenza A & B Note 08/03/23 08/03/23 05:55 09:28 WBC 8.1 RBC 3.33 L Hgb 9.6 L Hct 28.0 L MCV 84.1 MCH 28.8 MCHC 34.3 RDW 16.9 H Plt Count 183 D MPV 10.2 Immature Gran % (Auto) Neut % (Auto) Lymph % (Auto) [place] % (Auto) Eos % (Auto) Baso % (Auto) Lymph # (Auto) [place] # (Auto) Eos # (Auto) Baso # (Auto) Abs Immat Gran (auto) Absolute Neuts (auto) Absolute Nucleated RBC 0.000 Nucleated RBC % (auto) 0.0 VBG pH VBG pCO2 VBG pO2 VBG HCO3 VBG O2 Saturation VBG Base Excess Sodium 144 Potassium 4.1 Chloride 111 H Carbon Dioxide 22 Anion Gap 15 BUN 52 H Creatinine 4.94 H* Estim Creat Clear Calc 11.3 Estimated GFR 9 Random Glucose 94 Lactic Acid Calcium 9.0 Phosphorus Magnesium Total Bilirubin Direct Bilirubin GGT AST ALT Alkaline Phosphatase Total Protein Albumin Lipase Hold Green Top See Note Urine Color Urine Appearance Urine pH Ur Specific [place] Urine Protein Urine Glucose (UA) Urine Ketones Urine Blood Urine Nitrite Ur Leukocyte Esterase Urine RBC Urine WBC Ur Squamous Epith Cells Urine Bacteria Hyaline Casts Proteinase 3 (PR3) Ab Myeloperoxidase Ab Complement C3 Complement C4 COVID-19 (LYDIA) COVID-19 Clin Com Influenza Type A ([facility]) Influenza Type B ([facility]) Influenza A & B Note Airway Mallampati Class: III TM Dist: >3cm Neck ROM: Full Loose/Missing/Broken Teeth: No Heart: [id number] Lungs: CTA b/l Assessment and Plan Assessment Anesthesia Assessment: Anesthesia Plan Discussed and Chart Reviewed Final Anesthetic Review Family History of Problems with Anesthesia: No History of Problems with Anesthesia: No NPO: Yes ASA Class: III Final Preanesthetic Review: No Changes in Pt Med Stat, Meds/Allgs Chart Reviewed, Consent Obtained/Reviewed and Anes Risks/Benef Reviewed Patient Risk: Intermediate Procedure Risk: Intermediate Assessment/Block/Sedation in SS: Assess/Block/Sedation-SS Anesthetic Plan Anesthetic Plan: GA and Agree w/ Assess. and Plan Disposition: Standard PACU
--- NOTE | 2023-08-03 15:06 | P.OP_ITS ---
Operative Note Operative Note Date of Service: 08/03/23 Narrative: Preoperative diagnosis: Acute?acalculous?cholecystitis Postoperative diagnosis: Same Procedure: Laparoscopic cholecystectomy Surgeon: Mario Marina MD Annual Giving Manager: OUMAR Romero Anesthesia: General endotracheal Indications for procedure:??67-year-old?female?patient?presenting?with?complaints?of?abdominal?p ain?right?upper?quadrant?with?subsequent?sepsis?found?to?have?Gram-negative?rods ?in?bloodstrea m.??Workup?with?ultrasound?and?CT?was?negative?for?cholelithiasis.??A?HIDA?scan? however?did?reveal?a?reduced?ejection?fraction?with?normal?filling?of?the?gallbl adder.??She?presents?today?for?laparoscopic?or?possible?open?cholecystectomy. Operative findings:??Patient?with?adhesions?to?the?gallbladder?suggestive?of?chronic?hailee cystitis?with?some?acute?inflammation?noted?in?the?gallbladder?wall.??N o?gallstones?appreciated.??Findings?suggestive?of?acalculous?cholecystitis. Specimen: gallbladder Estimated blood loss:??10?mL Complications: ?None Procedure details: Patient was brought to the OR and placed in a supine position. After administering general anesthesia the patient's abdomen was prepped with ChloraPrep and draped in a sterile fashion. Local anesthesia consisting of 0.5% Sensorcaine without epinephrine was infiltrated in a periumbilical region. A 5 mm incision was made above the umbilicus in a transverse fashion. The Veress needle was then inserted while elevating abdom inal cavity with towel clips. After positive drop test the abdomen was insufflated to a pressure of 15 mm of mercury. The Veress needle was then removed and a 5 mm trocar inserted. The camera was inserted in the abdomen explored. A 12 mm trocar was then placed in the epigastrium. Two 5 mm trocars placed in the right upper quadrant by the clinical services assistant. The patient was placed in reverse Trendelenburg positioning and rotated to the left. The gallbladder was grasped with the fundus and retracted cephalad by the clinical services assistant. The infundibulum was then grasped and retracted away from the liver bed, also by the clinical services assistant. The Dolphin dissected was then used by the surgeon to dissect the peritoneum off the infundibulum to reveal the junction with the cystic duct. Cystic artery was noted slightly medial and posterior to the cystic duct. After obtaining a critical view the cystic duct was doubly clipped and divided. The cystic artery was then doubly clipped and divided. The gallbladder was then dissected off the liver bed using electrocautery with an L hook. Hemostasis was assured all times using the electrocautery. When the gallbladder is completely dissected off the liver bed was placed in an Endo-Catch bag and brought out through the epigastric incision. The gallbladder was sent to pathology for further examination. The abdomen was then re-examined. The liver bed was irrigated and suctioned dry.??A?small?piece?of?Surgicel?was?applied?to?the?liver?bed?to?assure?adequate? hemostasis.??No bleeding or bile leak could be identified. CO2 was then evacuated and all trocars removed. Fascia was closed at the epigastric incision using a [id number] Polysorb suture. Skin was closed in all incisions using a subcuticular 4 0 Polysorb suture by both the surgeon and clinical services assistant. Sterile dressings consisting of Steri-Strips, 2 x 2 gauze, and Tegaderm were then applied. The patient tolerated the procedure well. Sponge instrument and needle counts reported as correct. The patient was transferred to PACU in stable condition.
[2023-08-03] MEDS: HYDROmorphone HCl 0.5 MG/0.5 ML SYRINGE IVPUSH (15:35)
[2023-08-03] MEDS: oxyCODONE HCl Immed Release 5 MG TABLET PO (18:22)
[2023-08-03] MEDS: Heparin Sodium,Porcine 5,000 UNIT/ML VIAL 5000 UNIT SUBCUT (22:29)
[2023-08-04] MEDS: oxyCODONE HCl Immed Release 5 MG TABLET PO ×2 (00:47→21:42)
[2023-08-04 03:00] VITALS: BP 152/74; PULSE 60; RESP 20; TEMP 37; O2SAT 93
[2023-08-04] MEDS: Piperacillin Sodium/Tazobactam 2.25 GM in 0.9 % Sodium Chloride 50 ML IV ×3 (05:43→21:35)
[2023-08-04 06:00] VITALS: BMI 31.9
[2023-08-04 06:52] VITALS: BP 167/83; PULSE 58; RESP 20; TEMP 36.1; O2SAT 96
[2023-08-04] MEDS: amLODIPine Besylate 5 MG TABLET PO (07:35)
[2023-08-04] MEDS: Nicotine 14 MG PATCH.TD24 TRANSDERMA (07:35)
[2023-08-04] MEDS: 0.9 % Sodium Chloride Flush 3 ML SYRINGE IVFLUSH ×2 (07:38→21:36)
--- NOTE | 2023-08-04 08:40 | PM.PNGS ---
Subjective Subjective Date of Service: 08/04/23 Interval history: Patient reports feeling great, denies abdominal pain, bloating, nausea or vomiting. She tolerated a regular diet this morning without abdominal pain. Physical Exam Vital Signs: Vital Signs: Last Vital Signs Temp 96.9 F 08/04/23 06:52 Pulse 58 08/04/23 06:52 Resp 20 08/04/23 06:52 BP 167/83 H 08/04/23 06:52 Pulse Ox 96 08/04/23 06:52 O2 Del Method Room Air 08/04/23 06:52 O2 Flow Rate 2 08/03/23 15:50 BMI result Body Mass Index 31.9 Const: General: comfortable Nutritional Appearance: well nourished Orientation/consciousness: patient oriented x3 Limitations: no limitations HEENT: Head: Yes normal to inspection Resp: Effort & Inspection: normal respiratory effort, no audible wheezes, no cough and no respiratory distress GI: Inspection: Yes normal to inspection and Yes incision (clean. dry and intact) Palpation (GI): Soft to palpation, nontender, no guarding and not rigid Skin: General skin exam: no rashes or lesions noted Neuro: General: patient oriented x3 Extrem: General: No edema Objective Data Active Medications Acetaminophen (Acetaminophen 325 Mg Tablet) 650 mg PO Q6H PRN PRN Reason: Pain, Mild (Pain Scale 1-3) Last Admin: 08/02/23 22:13 Dose: 650 mg Documented By: RAJ Amlodipine Besylate (Amlodipine Besylate 5 Mg Tablet) 5 mg PO DAILY [facility]; Protocol Last Admin: 08/04/23 07:35 Dose: 5 mg Documented By: RALEIGH Heparin Sodium (Porcine) (Heparin Sodium,Porcine 5,000 Unit/Ml Vial) 5,000 unit SUBCUT Q12H [facility] Last Admin: 08/03/23 22:29 Dose: 5,000 unit Documented By: RALEIGH Hydromorphone HCl (Hydromorphone Hcl 0.5 Mg/0.5 Ml Syringe) 0.5 mg IVPUSH Q3H PRN; Protocol PRN Reason: Pain, Severe (Pain Scale 7-10) Piperacillin Sod/Tazobactam (Sod 2.25 gm/ Sodium Chloride) 50 mls @ 100 mls/hr IV Q8H [facility] Last Infusion: 08/04/23 06:20 Dose: Infused Documented By: TATE Melatonin (Melatonin 3 Mg Tablet) 6 mg PO BEDTIME PRN PRN Reason: Insomnia Last Admin: 08/02/23 22:12 Dose: 6 mg Documented By: RAJ Nicotine (Nicotine 14 Mg Patch.Td24) 14 mg TRANSDERMA DAILY [facility] Last Admin: 08/04/23 07:35 Dose: 14 mg Documented By: RALEIGH Ondansetron HCl (Ondansetron Hcl 4 Mg/2 Ml Vial) 4 mg IVPUSH Q8H PRN PRN Reason: Nausea and Vomiting Last Admin: 08/01/23 18:37 Dose: 4 mg Documented By: EVELYNEONOBright Oxycodone HCl (Oxycodone Hcl Immed Release 5 Mg Tablet) 5 mg PO Q6H PRN PRN Reason: Pain, Moderate(Pain Scale 4-6) Last Admin: 08/04/23 00:47 Dose: 5 mg Documented By: TATE Sodium Chloride (0.9 % Sodium Chloride Flush 3 Ml Syringe) 3 ml IVFLUSH QSHIFT [facility] Last Admin: 08/04/23 07:38 Dose: 3 ml Documented By: RALEIGH Labs 08/03/23 05:55 08/03/23 09:28 Labs: Laboratory Results - last 24 hr 07/30/23 08/03/23 18:38 09:28 Anion Gap 15 Estim Creat Clear Calc 11.3 Estimated GFR 9 Random Glucose 94 Calcium 9.0 Complement C3 103 Complement C4 20 Procedures Date of Service Date of Service: 08/04/23 Progress Note: A&P Assessment and plan (1) Acute acalculous cholecystitis: Status: Acute Plan POD #1 s/p laparoscopic cholecystectomy. Patient feels much improved with no abdominal pain, nausea or vomiting. She is clear for discharge from my standpoint and should follow up in the office in one week. I recommend a low fat diet for the next month and lifting > 10 pounds for 2 weeks. Time Spent With Patient Time: Total time managing care of this patient today ____ minutes. Quality Stroke Does the patient have a stroke diagnosis?: No VTE Prior VTE?: No VTE Risk Level:: Medical - moderate - high VTE Device Contraindication: Treatment Not Indicated VTE Drug Contraindication: N/A - Med Ordered
[2023-08-04 09:51] LABS: Hematocrit 30.8 % (37.0-47.0); Hemoglobin 10.5 g/dl (12.0-16.0); Mean Corpuscular HGB Conc 34.1 g/dl (31.0-35.0); Mean Corpuscular Volume 85.1 fL (80.0-98.0); Mean Platelet Volume 10.1 fL (9.4-12.3); Platelet Count 284 X10*3/uL (160-400); Red Blood Count 3.62 X10*6/uL (4.20-5.50); Red Cell Distribution Width 17.2 % (11.0-16.0); White Blood Count 9.2 X10*3/uL (4.8-10.8)
[2023-08-04 10:15] LABS: Creatinine Clr Calc Pharmacy 13.9; Estimated Glomerular Filt Rate 11
[2023-08-04 10:16] LABS: Anion Gap 17 (12-20); Blood Urea Nitrogen 47 mg/dL (9-16); Calcium 9.2 mg/dL (8.4-10.2); Carbon Dioxide 24 mmol/L (22-29); Chloride 105 mmol/L (96-108); Glucose Random 167 mg/dL (60-115); Potassium 4.5 mmol/L (3.3-5.1); Sodium 141 mmol/L (135-145)
--- NOTE | 2023-08-04 10:37 | P.PNIM_ITS ---
Subjective Subjective Date of Service: 08/04/23 Interval History: This history was taken in [place]ian from the patient. No N/V Minimal postop pain SCr coming down Review of Systems Review of Systems: Yes all other systems are reviewed and are negative Physical Exam 2 Vital Signs: Vital Signs: Last Vital Signs Temp 96.9 F 08/04/23 06:52 Pulse 58 08/04/23 06:52 Resp 20 08/04/23 06:52 BP 167/83 H 08/04/23 06:52 Pulse Ox 96 08/04/23 06:52 O2 Del Method Room Air 08/04/23 06:52 O2 Flow Rate 2 08/03/23 15:50 BMI result Body Mass Index 31.9 Gen: in no acute distress HEENT: sclera anicteric, moist mucus membranes Neck: supple Lungs: clear to auscultation bilaterally Heart: regular rate and rhythm, no murmurs Abd: soft, minimal.y tender, non-distended, lap hailee incisions clean/dry/intact Ext: no edema Skin: warm/well-perfused Neuro: alert and oriented x3, no focal findings Psych: appropriate affect Objective Data Active Medications Acetaminophen (Acetaminophen 325 Mg Tablet) 650 mg PO Q6H PRN PRN Reason: Pain, Mild (Pain Scale 1-3) Last Admin: 08/02/23 22:13 Dose: 650 mg Documented By: RAJ Amlodipine Besylate (Amlodipine Besylate 5 Mg Tablet) 5 mg PO DAILY [facility]; Protocol Last Admin: 08/04/23 07:35 Dose: 5 mg Documented By: RALEIGH Heparin Sodium (Porcine) (Heparin Sodium,Porcine 5,000 Unit/Ml Vial) 5,000 unit SUBCUT Q12H [facility] Last Admin: 08/03/23 22:29 Dose: 5,000 unit Documented By: RLAEIGH Hydromorphone HCl (Hydromorphone Hcl 0.5 Mg/0.5 Ml Syringe) 0.5 mg IVPUSH Q3H PRN; Protocol PRN Reason: Pain, Severe (Pain Scale 7-10) Piperacillin Sod/Tazobactam (Sod 2.25 gm/ Sodium Chloride) 50 mls @ 100 mls/hr IV Q8H [facility] Last Infusion: 08/04/23 06:20 Dose: Infused Documented By: TATE Melatonin (Melatonin 3 Mg Tablet) 6 mg PO BEDTIME PRN PRN Reason: Insomnia Last Admin: 08/02/23 22:12 Dose: 6 mg Documented By: RAJ Nicotine (Nicotine 14 Mg Patch.Td24) 14 mg TRANSDERMA DAILY [facility] Last Admin: 08/04/23 07:35 Dose: 14 mg Documented By: RALEIGH Ondansetron HCl (Ondansetron Hcl 4 Mg/2 Ml Vial) 4 mg IVPUSH Q8H PRN PRN Reason: Nausea and Vomiting Last Admin: 08/01/23 18:37 Dose: 4 mg Documented By: FATEMEH Oxycodone HCl (Oxycodone Hcl Immed Release 5 Mg Tablet) 5 mg PO Q6H PRN PRN Reason: Pain, Moderate(Pain Scale 4-6) Last Admin: 08/04/23 00:47 Dose: 5 mg Documented By: TATE Sodium Chloride (0.9 % Sodium Chloride Flush 3 Ml Syringe) 3 ml IVFLUSH QSHIFT [facility] Last Admin: 08/04/23 07:38 Dose: 3 ml Documented By: RALEIGH Labs 08/04/23 08:51 08/04/23 08:51 Labs: Laboratory Results - last 24 hr 07/30/23 08/03/23 08/04/23 18:38 09:28 08:51 MCV 85.1 MCH 29.0 MCHC 34.1 RDW 17.2 H Plt Count 284 D MPV 10.1 Absolute Nucleated RBC 0.000 Nucleated RBC % (auto) 0.0 Anion Gap 15 17 Estim Creat Clear Calc 11.3 13.9 Estimated GFR 9 11 Random Glucose 94 167 H Calcium 9.0 9.2 Complement C3 103 Complement C4 20 Assessment and Plan (1) UTI (urinary tract infection): Status: Acute (2) PHILLIP (acute kidney injury): Status: Acute (3) Severe sepsis: Status: Acute Plan d7 67yo F with HTN, HLD, GERD, depression p/w sev abd pain x2d admitted for severe sepsis with PHILLIP, found to have E coli bacteremia and chronic cholecystitis transferred to ICU 07/30/23 for pressor support downgraded to IMC 08/01/23 chronic cholecystitis - POD1 lap hailee, doing well postop; low fat diet for the next month and no lifting > 10 pounds for 2 weeks. septic shock due to E coli bactremia, resistant to ampicillin + TMP-SMX - pip-go d7, total 14d ABX per ID, transition to cefuroxime upon d/c PHILLIP due to septic ATN - SCr improving - continue to hold HCTZ + lisinopril - will need outpt f/u + recheck BMP - recheck BMP tomorrow thrombocytopenia due to sepsis - resolved hypoNa - resolved p IV fluid hydration HTN - holding TZ + YAMILE-I as above; on amlodipine HLD - resume statin if LFTs improved tobacco abuse - NRT VTE ppx - UFH dispo - possibly home tomorrow with VNA In my clinical judgment, the patient requires continued inpatient hospitalization for the following reasons: IV antibiotics, renal monitoring Time Spent With Patient Time: Total time managing care of this patient today ___40_ minutes. Quality Stroke Does the patient have a stroke diagnosis?: No VTE Prior VTE?: No VTE Risk Level:: Medical - moderate - high VTE Device Contraindication: Treatment Not Indicated VTE Drug Contraindication: N/A - Med Ordered
[2023-08-04] MEDS: Heparin Sodium,Porcine 5,000 UNIT/ML VIAL 5000 UNIT SUBCUT ×2 (10:45→22:18)
--- NOTE | 2023-08-04 10:45 | MHC.CM.PN ---
Per ROUNDS discussion, (IV ABT, s/p Gall bladder removal); PT recommends home with services and CM will continue to follow.
--- NOTE | 2023-08-04 10:46 | P.PNNP_ITS ---
Subjective Subjective Date of Service: 08/04/23 Interval history: seen and examined this morning; Feels better. Renal function improving Physical Exam 2 Vital Signs: Vital Signs: Last Vital Signs Temp 96.9 F 08/04/23 06:52 Pulse 58 08/04/23 06:52 Resp 20 08/04/23 06:52 BP 167/83 H 08/04/23 06:52 Pulse Ox 96 08/04/23 06:52 O2 Del Method Room Air 08/04/23 06:52 O2 Flow Rate 2 08/03/23 15:50 BMI result Body Mass Index 31.9 Const: General: no acute distress Orientation/consciousness: patient oriented x3 Eyes: EOM: EOMs intact bilaterally Resp: Auscultation: diminished lung sounds Cardio: Rate: regular rate GI: Palpation (GI): Soft to palpation Neuro: General: patient oriented x3 and moves all extremities Objective Data Labs 08/04/23 08:51 08/04/23 08:51 Labs: Laboratory Results - last 24 hr 07/30/23 08/03/23 08/04/23 18:38 09:28 08:51 WBC 9.2 RBC 3.62 L Hgb 10.5 L Hct 30.8 L MCV 85.1 MCH 29.0 MCHC 34.1 RDW 17.2 H Plt Count 284 D MPV 10.1 Absolute Nucleated RBC 0.000 Nucleated RBC % (auto) 0.0 Sodium 144 141 Potassium 4.1 4.5 Chloride 111 H 105 Carbon Dioxide 22 24 Anion Gap 15 17 BUN 52 H 47 H Creatinine 4.94 H* 4.04 H* Estim Creat Clear Calc 11.3 13.9 Estimated GFR 9 11 Random Glucose 94 167 H Calcium 9.0 9.2 Complement C3 103 Complement C4 20 Microbiology Microbiology Results: Microbiology 07/29/23 22:11 Blood - Venous Blood Culture - Final Escherichia coli 07/29/23 22:11 Blood - Venous Blood Culture - Final Escherichia coli 07/29/23 18:31 Blood - Venous Blood Culture - Final Escherichia coli 07/29/23 17:52 Blood - Venous Blood Culture - Final Escherichia coli 07/29/23 21:27 Urine clean catch - Urine cross top Urine Culture - Final Procedures Date of Service Date of Service: 08/04/23 Assessment & Plan Assessment and plan (1) PHILLIP (acute kidney injury): Status: Acute Assessment and Plan: Acute Kidney Injury due to tubular injury Obstruction has been ruled out Serum creatinine better Continue current management Progress Note: Quality Stroke Does the patient have a stroke diagnosis?: No
[2023-08-04 10:58] VITALS: BP 149/82; PULSE 70; RESP 20; TEMP 36.5; O2SAT 97
[2023-08-04 11:15] LABS: Alanine Aminotransferase 61 U/L (0-31); Albumin Level 3.5 g/dL (3.5-5.0); Alkaline Phosphatase 425 U/L (39-117); Aspartate Amino Transferase 57 U/L (5-31); Bilirubin Direct 0.2 mg/dL (0.0-0.5); Bilirubin Total 0.4 mg/dL (0.0-1.0); Total Protein 6.6 g/dL (6.5-8.0)
--- NOTE | 2023-08-04 12:41 | HO.POSTANES ---
Post Anesthesia Evaluation Post Anesthesia Evaluation Date of Service: 08/04/23 Vital Signs: Vital Signs Temp Pulse Resp BP Pulse Ox O2 Del Method 08/04/23 10:58 97.7 F 70 20 149/82 H 97 Room Air 08/04/23 06:52 96.9 F 58 20 167/83 H 96 Room Air 08/04/23 03:00 98.6 F 60 20 152/74 H 93 Room Air Anesthesia: General Endotracheal-GETA Mental Status: Awake Pain Control: Satisfactory Nausea/Vomiting: None Hydration: Adequate Anesthesia-Related Issues: No Anes. Related Issues
[2023-08-04 15:23] VITALS: BP 169/77; PULSE 65; RESP 22; TEMP 36.4; O2SAT 97
--- NOTE | 2023-08-04 15:24 | MHC.CM.PN ---
PT is now recommending home/No home PT needed. CM will follow.
[2023-08-04 19:37] VITALS: BP 136/86; PULSE 70; RESP 22; TEMP 36.3; O2SAT 93
[2023-08-04] MEDS: Atorvastatin Calcium 80 MG TABLET PO (21:36)
[2023-08-04 23:11] VITALS: BP 148/75; PULSE 70; RESP 18; TEMP 36.6; O2SAT 92
[2023-08-05 03:51] VITALS: BP 130/71; PULSE 66; RESP 16; TEMP 36.6; O2SAT 98
[2023-08-05] MEDS: Piperacillin Sodium/Tazobactam 2.25 GM in 0.9 % Sodium Chloride 50 ML IV (05:24)
[2023-08-05 05:42] VITALS: BMI 28.8
[2023-08-05 06:43] LABS: Hematocrit 27.2 % (37.0-47.0); Hemoglobin 9.3 g/dl (12.0-16.0); Mean Corpuscular HGB Conc 34.2 g/dl (31.0-35.0); Mean Corpuscular Hemoglobin 29.5 pg (27.0-33.0); Mean Corpuscular Volume 86.3 fL (80.0-98.0); Mean Platelet Volume 10.4 fL (9.4-12.3); Platelet Count 311 X10*3/uL (160-400); Red Blood Count 3.15 X10*6/uL (4.20-5.50); Red Cell Distribution Width 17.4 % (11.0-16.0); White Blood Count 9.8 X10*3/uL (4.8-10.8)
[2023-08-05 07:04] LABS: Anion Gap 15 (12-20); Blood Urea Nitrogen 52 mg/dL (9-16); Calcium 8.5 mg/dL (8.4-10.2); Carbon Dioxide 23 mmol/L (22-29); Chloride 109 mmol/L (96-108); Creatinine Clr Calc Pharmacy 15.7; Estimated Glomerular Filt Rate 14; Glucose Random 105 mg/dL (60-115); Potassium 4.3 mmol/L (3.3-5.1); Sodium 143 mmol/L (135-145)
[2023-08-05 07:05] VITALS: BP 152/77; PULSE 64; RESP 20; TEMP 36.4; O2SAT 97
--- NOTE | 2023-08-05 07:41 | P.PNGS_ITS ---
Subjective Subjective Date of Service: 08/05/23 Interval history: Patient feels improved with only small amount of incisional pain at the epigastric incision. Tolerated po without nausea, vomiting or increased abdominal pain. Physical Exam 2 Vital Signs: Vital Signs: Last Vital Signs Temp 97.5 F 08/05/23 07:05 Pulse 64 08/05/23 07:05 Resp 20 08/05/23 07:05 BP 152/77 H 08/05/23 07:05 Pulse Ox 97 08/05/23 07:05 O2 Del Method Room Air 08/05/23 07:05 O2 Flow Rate 2 08/03/23 15:50 BMI result Body Mass Index 28.8 Const: General: comfortable Nutritional Appearance: well nourished O rientation/consciousness: patient oriented x3 Limitations: no limitations HEENT: Head: Yes normal to inspection Resp: Effort & Inspection: normal respiratory effort, no audible wheezes, no cough and no respiratory distress GI: Inspection: Yes normal to inspection and Yes incision (clean. dry and intact) Palpation (GI): Soft to palpation, nontender, no guarding and not rigid Skin: General skin exam: no rashes or lesions noted Neuro: General: patient oriented x3 Extrem: General: No edema Objective Data Active Medications Acetaminophen (Acetaminophen 325 Mg Tablet) 650 mg PO Q6H PRN PRN Reason: Pain, Mild (Pain Scale 1-3) Last Admin: 08/02/23 22:13 Dose: 650 mg Documented By: RAJ Amlodipine Besylate (Amlodipine Besylate 5 Mg Tablet) 5 mg PO DAILY [facility]; Protocol Last Admin: 08/04/23 07:35 Dose: 5 mg Documented By: RALEIGH Atorvastatin Calcium (Atorvastatin Calcium 80 Mg Tablet) 80 mg PO BEDTIME [facility] Last Admin: 08/04/23 21:36 Dose: 80 mg Documented By: BERNARDINO Heparin Sodium (Porcine) (Heparin Sodium,Porcine 5,000 Unit/Ml Vial) 5,000 unit SUBCUT Q12H [facility] Last Admin: 08/04/23 22:18 Dose: 5,000 unit Documented By: BERNARDINO Hydromorphone HCl (Hydromorphone Hcl 0.5 Mg/0.5 Ml Syringe) 0.5 mg IVPUSH Q3H PRN; Protocol PRN Reason: Pain, Severe (Pain Scale 7-10) Piperacillin Sod/Tazobactam (Sod 2.25 gm/ Sodium Chloride) 50 mls @ 100 mls/hr IV Q8H [facility] Last Infusion: 08/05/23 06:03 Dose: Infused Documented By: BERNARDINO Melatonin (Melatonin 3 Mg Tablet) 6 mg PO BEDTIME PRN PRN Reason: Insomnia Last Admin: 08/02/23 22:12 Dose: 6 mg Documented By: RAJ Nicotine (Nicotine 14 Mg Patch.Td24) 14 mg TRANSDERMA DAILY [facility] Last Admin: 08/04/23 07:35 Dose: 14 mg Documented By: RALEIGH Ondansetron HCl (Ondansetron Hcl 4 Mg/2 Ml Vial) 4 mg IVPUSH Q8H PRN PRN Reason: Nausea and Vomiting Last Admin: 08/01/23 18:37 Dose: 4 mg Documented By: FATEMEH Oxycodone HCl (Oxycodone Hcl Immed Release 5 Mg Tablet) 5 mg PO Q6H PRN PRN Reason: Pain, Moderate(Pain Scale 4-6) Last Admin: 08/04/23 21:42 Dose: 5 mg Documented By: BERNARDINO Sodium Chloride (0.9 % Sodium Chloride Flush 3 Ml Syringe) 3 ml IVFLUSH QSHIFT [facility] Last Admin: 08/04/23 21:36 Dose: 3 ml Documented By: BERNARDINO Labs 08/05/23 06:18 08/05/23 06:18 Labs: Laboratory Results - last 24 hr 08/04/23 08/05/23 08:51 06:18 MCV 85.1 86.3 MCH 29.0 29.5 MCHC 34.1 34.2 RDW 17.2 H 17.4 H Plt Count 284 D 311 MPV 10.1 10.4 Absolute Nucleated RBC 0.000 0.000 Nucleated RBC % (auto) 0.0 0.0 Anion Gap 17 15 Estim Creat Clear Calc 13.9 15.7 Estimated GFR 11 14 Random Glucose 167 H 105 Calcium 9.2 8.5 D Total Bilirubin 0.4 Direct Bilirubin 0.2 AST 57 H ALT 61 H Alkaline Phosphatase 425 H Total Protein 6.6 Albumin 3.5 Procedures Date of Service Date of Service: 08/05/23 Progress Note: A&P Assessment and plan (1) Acute acalculous cholecystitis: Status: Acute Plan POD #2 s/p laparoscopic cholecystectomy. Patient feels much improved with no abdominal pain, nausea or vomiting. Probable discharge today with follow up in office in one week. I recommend a low fat diet for the next month and no lifting > 10 pounds for 2 weeks. Time Spent With Patient Time: Total time managing care of this patient today ____ minutes. Quality Stroke Does the patient have a stroke diagnosis?: No VTE Prior VTE?: No VTE Risk Level:: Medical - moderate - high VTE Device Contraindication: Treatment Not Indicated VTE Drug Contraindication: N/A - Med Ordered
[2023-08-05] MEDS: Nicotine 14 MG PATCH.TD24 TRANSDERMA (08:05)
[2023-08-05] MEDS: amLODIPine Besylate 5 MG TABLET PO (08:05)
[2023-08-05] MEDS: 0.9 % Sodium Chloride Flush 3 ML SYRINGE IVFLUSH ×2 (08:07→09:22)
--- NOTE | 2023-08-05 10:56 | P.PNNP_ITS ---
Subjective Subjective Date of Service: 08/05/23 Interval history: Serum Creatinine coming down. Feeling better. Wants to go home Physical Exam 2 Vital Signs: Vital Signs: Last Vital Signs Temp 97.5 F 08/05/23 07:05 Pulse 64 08/05/23 07:05 Resp 20 08/05/23 07:05 BP 152/77 H 08/05/23 07:05 Pulse Ox 97 08/05/23 07:05 O2 Del Method Room Air 08/05/23 07:05 O2 Flow Rate 2 08/03/23 15:50 BMI result Body Mass Index 28.8 Const: General: no acute distress Orientation/consciousness: patient oriented x3 Eyes: EOM: EOMs intact bilaterally Resp: Auscultation: diminished lung sounds Cardio: Rate: regular rate GI: Palpation (GI): Soft to palpation Neuro: General: patient oriented x3 Objective Data Labs 08/05/23 06:18 08/05/23 06:18 Labs: Laboratory Results - last 24 hr 08/04/23 08/05/23 08:51 06:18 WBC 9.8 RBC 3.15 L Hgb 9.3 L Hct 27.2 L MCV 86.3 MCH 29.5 MCHC 34.2 RDW 17.4 H Plt Count 311 MPV 10.4 Absolute Nucleated RBC 0.000 Nucleated RBC % (auto) 0.0 Sodium 143 Potassium 4.3 Chloride 109 H Carbon Dioxide 23 Anion Gap 15 BUN 52 H Creatinine 3.38 H Estim Creat Clear Calc 15.7 Estimated GFR 14 Random Glucose 105 Calcium 8.5 D Total Bilirubin 0.4 Direct Bilirubin 0.2 AST 57 H ALT 61 H Alkaline Phosphatase 425 H Total Protein 6.6 Albumin 3.5 Microbiology Microbiology Results: Microbiology 07/29/23 22:11 Blood - Venous Blood Culture - Final Escherichia coli 07/29/23 22:11 Blood - Venous Blood Culture - Final Escherichia coli 07/29/23 18:31 Blood - Venous Blood Culture - Final Escherichia coli 07/29/23 17:52 Blood - Venous Blood Culture - Final Escherichia coli 07/29/23 21:27 Urine clean catch - Urine cross top Urine Culture - Final Procedures Date of Service Date of Service: 08/05/23 Assessment & Plan Assessment and plan (1) PHILLIP (acute kidney injury): Status: Acute Assessment and Plan: Acute Kidney Injury due to tubular injury Obstruction has been ruled out Serum creatinine continue to improve May have to increase Amlodipine if BP is not at goal Continue with rest of current management Progress Note: Quality Stroke Does the patient have a stroke diagnosis?: No
[2023-08-05 11:12] VITALS: BP 148/83; PULSE 69; RESP 20; TEMP 36; O2SAT 99
--- NOTE | 2023-08-05 11:19 | PM.DS ---
DS: Providers Provider Date of Service: 08/05/23 Date of admission: 07/29/23 21:02 Date of discharge: 08/05/23 Primary care physician: Jose Wilson MD Consults: 07/30/23 08:17 Consult to Nephrology Routine Consulting Provider: Greg Oro Reason for consultation: phillip Has provider been notified: No 07/30/23 10:40 Consult to General Surgery Routine Consulting Provider: [facility] [place] [facility] Reason for consultation: distended GB, abdominal pain Has provider been notified: No 07/30/23 13:02 Consult to Infectious Diseases Routine Consulting Provider: [facility] [place] [facility] Reason for consultation: GNR bacteremia Has provider been notified: No DS: Diagnosis Discharge Diagnosis (1) PHILLIP (acute kidney injury): Status: Acute (2) Gram-negative bacteremia: Status: Acute (3) Acute acalculous cholecystitis: Status: Acute (4) Chronic cholecystitis: Status: Acute (5) Septic shock: Status: Acute (6) HTN (hypertension): Status: Acute (7) Hyponatremia: Status: Acute (8) Thrombocytopenia: Status: Acute DS: Summary Hospital Course Hospital Course: from admission H+P by hospitalist NIVIA Rios, 07/29/23: Pt is a 67-year-old female with a PMH significant for?HTN, HLD, GERD, and depression who presents to the ED with?severe abdominal pain x2 days. Patient states symptoms began on Wednesday in her lower abdomen and pelvis and eventually migrated up to where she is currently experiencing right sided pain, especially in RUQ. Pain comes and goes, describes it as crampy in nature, and she knows of no precipitating or alleviating factors. Has been experiencing nausea but no vomiting with one episode of loose stool yesterday that was dark colored but with no bright red blood. Patient has been experiencing polyuria and increased urinary urgency, but denies dysuria. Patient reports that she has not been able to eat or drink for the past 2 days secondary to her nausea. Patient also reports fevers as high of 102.9 and chills. Denies chest pain/pressure, palpitations. No shortness of breath, difficulty breathing. In the ED patient was febrile up to 101.2, tachycardic, tachypneic, with soft BP as low as 83/52. Labs were significant for leukocytosis of 13.6, sodium 130, BUN 36, creatinine 3.31, AST 53, ALT 44, alk phos 131. UA likely positive for UTI. CT?of abdomen and pelvis negative for obstruction but showed some increased soft tissue stranding around the kidneys and ureters without evidence of stone or obstruction, suggestive of pyelonephritis. Bladder also is noted to be mildly thick wall however decompressed, cystitis cannot be excluded. Pt was treated with IVF, ondansetron, famotidine, and morphine. Pt will be admitted to the hospital for treatment of PHILLIP and severe sepsis in the setting of UTI with question of pyelonephritis. Ms Fernando is a 67yo F with HTN, HLD, GERD, and depression who presented to the ED with 2 days of severe abdominal pain and was initially admitted to the hospitalist service for severe sepsis with PHILLIP. She was ultimately found to have E coli bacteremia and acute/chronic cholecystitis. On 07/30/23, she was transferred to the ICU for pressor support due to septic shock. She was weaned off pressors and stepped down to the IMC on 08/01/23. Hospital course by problem: acute/chronic acalculous cholecystitis - General Surgery was consulted and she underwent laparascopic cholecystectomy on 08/03/23. Intraoperatively, noted adhesions?to?the?gallbladder?suggestive?of?chronic?cholecystitis?with?some?acute?inflammation?noted?in?the?gallbladder?wall.??No?gallstones?appreciated. - Did well postoperatively; recommend low-fat diet for the next month and no lifting > 10 pounds for 2 weeks. Surgery clinic follow-up in 1 week. septic shock due to E coli bactremia, resistant to ampicillin + TMP-SMX - Treated with IV piperacillin-tazobactam for 7 days and transitioned to cefuroxime for 7 days upon discharge; total duration of antibiotics 14 days per ID consultation. PHILLIP - Nephrology consulted. Ultimately determinted to be septic ATN. Creatinine peaked at 5.96 and came down to 3.38 by day of discharge with IV fluids and holding HCTZ + lisinopril. She will need to repeat BMP in 1 week and have outpatient follow-up with Nephrology. thrombocytopenia due to sepsis - resolved hyponatremia - resolved p IV fluid hydration HTN - holding TZ + YAMILE-I as above; started on 10 mg of amlodipine She was discharged home and will need primary care follow-up in 1 week. Time Spent with Patient Time attestation: Total time managing care of this patient today ____ minutes. Discharge coordination time: Greater than 30 minutes Quality: Safe Use of Opioids Does Pt have an Active Cancer Diagnosis on the Problem List?: No Quality: Stroke Does the patient have a stroke diagnosis?: No Physical Exam Vital Signs: Vital Signs: Last Vital Signs Temp 97.5 F 08/05/23 07:05 Pulse 64 08/05/23 07:05 Resp 20 08/05/23 07:05 BP 152/77 H 08/05/23 07:05 Pulse Ox 97 08/05/23 07:05 O2 Del Method Room Air 08/05/23 07:05 O2 Flow Rate 2 08/03/23 15:50 BMI result Body Mass Index 28.8 Gen: in no acute distress HEENT: sclera anicteric, moist mucus membranes Neck: supple Lungs: clear to auscultation bilaterally Heart: regular rate and rhythm, no murmurs Abd: soft, minimally tender, non-distended, lap hailee incisions clean/dry/intact Ext: no edema Skin: warm/well-perfused Neuro: alert and oriented x3, no focal findings Psych: appropriate affect DS: Data Data Completed and Pending Completed studies during hospitalization [Text1]: Laboratory Results WBC 9.8 X10*3/uL (4.8-10.8) 08/05/23 06:18 RBC 3.15 X10*6/uL (4.20-5.50) L 08/05/23 06:18 Hgb 9.3 g/dl (12.0-16.0) L 08/05/23 06:18 Hct 27.2 % (37.0-47.0) L 08/05/23 06:18 MCV 86.3 fL (80.0-98.0) 08/05/23 06:18 MCH 29.5 pg (27.0-33.0) 08/05/23 06:18 MCHC 34.2 g/dl (31.0-35.0) 08/05/23 06:18 RDW 17.4 % (11.0-16.0) H 08/05/23 06:18 Plt Count 311 X10*3/uL (160-400) 08/05/23 06:18 MPV 10.4 fL (9.4-12.3) 08/05/23 06:18 Immature Gran % (Auto) 1.0 % (0.0-0.4) H 08/02/23 06:42 Neut % (Auto) 72.3 % (45-73) 08/02/23 06:42 Lymph % (Auto) 12.3 % (20-40) L 08/02/23 06:42 Angelina % (Auto) 11.7 % (2-11) H 08/02/23 06:42 Eos % (Auto) 2.3 % (0-4) 08/02/23 06:42 Baso % (Auto) 0.4 % (0-2) 08/02/23 06:42 Lymph # (Auto) 1.3 X10*3/uL (1.2-4.9) 08/02/23 06:42 Angelina # (Auto) 1.2 X10*3/uL (0.1-1.2) 08/02/23 06:42 Eos # (Auto) 0.2 X10*3/uL (0.0-0.4) 08/02/23 06:42 Baso # (Auto) 0.0 X10*3/uL (0.0-0.2) 08/02/23 06:42 Abs Immat Gran (auto) 0.11 X10*3/uL (0.00-0.03) H 08/02/23 06:42 Absolute Neuts (auto) 7.7 x10*3/uL (2.0-8.3) 08/02/23 06:42 Absolute Nucleated RBC 0.000 X10*3/uL (0.0-0.012) 08/05/23 06:18 Nucleated RBC % (auto) 0.0 /100WBC (0.0-0.2) 08/05/23 06:18 VBG pH 7.39 (7.32-7.43) 08/02/23 06:48 VBG pCO2 38 mmHg 08/02/23 06:48 VBG pO2 69 mmHg 08/02/23 06:48 VBG HCO3 23 mmol/L (22-26) 08/02/23 06:48 VBG O2 Saturation 93.0 % 08/02/23 06:48 VBG Base Excess -0.9 mmol/L 08/02/23 06:48 Sodium 143 mmol/L (135-145) 08/05/23 06:18 Potassium 4.3 mmol/L (3.3-5.1) 08/05/23 06:18 Chloride 109 mmol/L (96-108) H 08/05/23 06:18 Carbon Dioxide 23 mmol/L (22-29) 08/05/23 06:18 Anion Gap 15 (12-20) 08/05/23 06:18 BUN 52 mg/dL (9-16) H 08/05/23 06:18 Creatinine 3.38 mg/dL (0.5-1.4) H 08/05/23 06:18 Estim Creat Clear Calc 15.7 08/05/23 06:18 Estimated GFR 14 08/05/23 06:18 Random Glucose 105 mg/dL (60-115) 08/05/23 06:18 Lactic Acid 1.6 mmol/L (0.5-2.0) 07/30/23 20:16 Calcium 8.5 mg/dL (8.4-10.2) D 08/05/23 06:18 Phosphorus 4.0 mg/dL (2.7-4.5) 08/02/23 06:42 Magnesium 2.2 mg/dL (1.6-2.6) 08/02/23 06:42 Total Bilirubin 0.4 mg/dL (0.0-1.0) 08/04/23 08:51 Direct Bilirubin 0.2 mg/dL (0.0-0.5) 08/04/23 08:51 GGT 122 U/L (7-33) H 07/31/23 16:52 AST 57 U/L (5-31) H 08/04/23 08:51 ALT 61 U/L (0-31) H 08/04/23 08:51 Alkaline Phosphatase 425 U/L (39-117) H 08/04/23 08:51 Total Protein 6.6 g/dL (6.5-8.0) 08/04/23 08:51 Albumin 3.5 g/dL (3.5-5.0) 08/04/23 08:51 Lipase 18 U/L (8-78) 07/29/23 17:52 Hold Green Top See Note 08/03/23 05:55 Urine Color Dark Yellow 07/29/23 21:07 Urine Appearance Turbid 07/29/23 21:07 Urine pH 5.0 (5.0-9.0) 07/29/23 21:07 Ur Specific Farrell 1.020 (1.005-1.025) 07/29/23 21:07 Urine Protein 100 (2+) mg/dL (Neg-Trace) H 07/29/23 21:07 Urine Glucose (UA) Negative mg/dL (Negative) 07/29/23 21:07 Urine Ketones Trace mg/dL (Negative) 07/29/23 21:07 Urine Blood Moderate (2+) (Negative) H 07/29/23 21:07 Urine Nitrite Negative (Negative) 07/29/23 21:07 Ur Leukocyte Esterase Small (1+) (Negative) H 07/29/23 21:07 Urine RBC 0-2 /HPF (0-2) 07/29/23 21:07 Urine WBC 21-50 /HPF (0-5) H 07/29/23 21:07 Ur Squamous Epith Cells 6-10 /HPF (0-2) 07/29/23 21:07 Urine Bacteria Trace (None Seen) 07/29/23 21:07 Hyaline Casts >20 /LPF (0-2) 07/29/23 21:07 Proteinase 3 (PR3) Ab <1.0 AI 07/30/23 18:38 Myeloperoxidase Ab <1.0 AI 07/30/23 18:38 Complement C3 103 mg/dL (83-193) 07/30/23 18:38 Complement C4 20 mg/dL (15-57) 07/30/23 18:38 COVID-19 (LYDIA) Negative (Negative) 07/29/23 17:52 COVID-19 Clin Com See Note 07/29/23 17:52 Influenza Type A (OMAR) Negative (Negative) 07/29/23 17:52 Influenza Type B (OMAR) Negative (Negative) 07/29/23 17:52 Influenza A & B Note See Note 07/29/23 17:52 Impressions Abdomen/Pelvis CT 07/29/23 19:09 IMPRESSION: Limited noncontrast exam. There is felt to be some increase soft tissue stranding around the kidneys and ureters without evidence of stone or obstruction. Given this pyelonephritis would need to be considered. The bladder is also mildly thick-walled however decompressed. Still cystitis cannot be excluded. The bowel pattern is felt to be nonobstructing. Fleischner guidelines were followed. Abdomen Ultrasound 07/29/23 22:35 IMPRESSION: Mildly distended gallbladder. No gallstones or biliary dilatation. Dilated common bile duct up to 1.2 cm. Correlation with biliary function enzymes needed. Hepatobiliary Scan Nuclear Medicine 07/31/23 10:40 IMPRESSION: Abnormal gallbladder ejection fraction of 12% at 30 minutes. Dyskinetic gallbladder. Patent cystic duct. Patent CBD. Pending studies at discharge: Pending at discharge 08/03/23 14:51 Surgical [PTH] Routine Labs on day of discharge: Discharge Plan Discharge Anticipated Discharge Date/Time: 08/05/23 11:04 Patient Disposition: Home, Self-Care Discharge Diagnosis: chronic cholecystitis septic shock due to E coli bacteremia acute kidney injury thrombocytopenia due to sepsis hyponatremia hypertension Referrals: Mario Marina MD [Physician] - 1 Week Greg Oro MD [Physician] - 1 Week Jose Wilson MD [Primary Care Provider] - 1 Week Discharge Medications: New nicotine 14 mg/24 hr Patch 24 Hour 14 mg transdermal DAILY Qty: 28 0RF oxycodone 5 mg Tablet 5 mg PO Q6H PRN (Reason: Pain, Moderate(Pain Scale 4-6)) Qty: 12 0RF Rx Instructions: Partial Fill upon patient request. amlodipine 10 mg tablet 10 mg PO DAILY Qty: 30 0RF Rx Instructions: Replaces lisinopril and HCTZ cefuroxime axetil 250 mg tablet 250 mg PO BID Qty: 14 0RF Continued omeprazole 20 mg capsule,delayed release(DR/EC) 20 mg PO DAILY PRN (Reason: Acid Reflux) acetaminophen 325 mg Tablet 650 mg PO Q6H PRN (Reason: Pain, Mild (Pain Scale 1-3)) 30 Days Qty: 240 0RF clonazepam 0.5 mg tablet 0.5 mg PO DAILY PRN (Reason: Anxiety) rosuvastatin 40 mg tablet 40 mg PO DAILY fluticasone propionate 50 mcg/actuation spray,suspension 1 - 2 spray intranasal DAILY PRN (Reason: Nasal Congestion) Discontinued lisinopril 40 mg tablet 40 mg PO DAILY hydrochlorothiazide 25 mg tablet 25 mg PO DAILY Discharge Orders: Discharge Order (Routine); Ordered 08/05/23 Ordered By: Sky Varela Diet: Low fat, low cholesterol Activity on Discharge: No heavy lifting Stand Alone Forms: Patient Portal Discharge page Other Ambulatory Orders: Basic Metabolic Panel (Routine) Timeframe: 1 Week Facility: [facility] - Location: Laboratory Ordered By: Sky Varela Activity Restrictions/Additional Instructions: If the incision area is tender, you may apply an ice pack for short intervals (No more than 20 minutes on, followed by at least 20 minutes off). Do not apply heat. Do not use creams, lotions, or topical antibiotics. These can cause infection or allergic reaction. Ok to shower. Remove clear dressings 3 days following your procedure. You have steri strips (small white cloth strips) covering your incision- these will fall off ~1 week. No heavy lifting (>10lbs) or strenuous activity! Follow up in office with Dr. Marina in 1 week. ([phone]) Call Your Doctor If: -Your temperature exceeds 101.5? F -You experience excessive pain or swelling -You have an unexpected reaction to medication -You have excessive bleeding -You experience continued vomiting/nausea -Your incision begins to separate -Your incision shows signs of infection such as increased redness, swelling, excessive pain, drainage (light blood or clear fluid is normal) or heat Care Plan Goals: recovery from infection kidney health Health Concerns: chronic cholecystitis septic shock due to E coli bacteremia acute kidney injury thrombocytopenia due to sepsis hyponatremia hypertension Plan of Treatment: take cefuroxime 250 mg twice daily for 7 days follow up with General Surgery in 1 week stop hydrochlorothiazide and lisinopril; take amlodipine 10 mg daily instead use acetaminophen or oxycodone for postoperative pain; avoid NSAIDs like ibuprofen or naproxen recheck BMP in 1 week follow up with Nephrology in 1 week Please follow up with your primary care doctor within 1 week. Return to the hospital if you experience recurrent or worsening symptoms. Assessment: See Discharge Summary.
--- NOTE | 2023-08-05 11:53 | MHC.CM.PN ---
Patient has been medically cleared for dc to home today, self care. CM met with Patient at bedside and addressed IMM with her, providing Patient with the original and placing a copy on the chart. Patient's family member was present and will be providing transport to home.
== END 2023-08-05 11:56 | disposition home or self-care (01) | DRG 853 ==
LOC: HO.ED 19:08 → HO.EDOVER 07-30 01:29 → HO.S3 07-30 02:15 → HO.ICU 07-30 19:10 → HO.IMC 08-01 16:31
PROVIDERS: Internal Medicine Pulmonary Disease; Nurse Practitioner Acute Care; Nurse Practitioner Family; Physician Assistant Medical; Registered Nurse Emergency; Surgery; Admitting Provider Student in an Organized Health Care Education/Training Program; Emergency Provider Emergency Medicine; PCP Internal Medicine; Visit Provider Family Medicine
PROC: 0FT44ZZ Resection of Gallbladder, Percutaneous Endoscopic Approach (ICD-10-PCS; CPT 47562; principal; 2023-08-03 14:00)
DX: A41.51 Sepsis due to Escherichia coli [E. coli] (principal); R65.21 Severe sepsis with septic shock; N17.9 Acute kidney failure, unspecified; N39.0 Urinary tract infection, site not specified; K81.0 Acute cholecystitis; E87.1 Hypo-osmolality and hyponatremia; Z16.11 Resistance to penicillins; Z16.24 Resistance to multiple antibiotics; K81.1 Chronic cholecystitis; E78.5 Hyperlipidemia, unspecified; I10 Essential (primary) hypertension; D69.59 Other secondary thrombocytopenia; I73.9 Peripheral vascular disease, unspecified; F17.210 Nicotine dependence, cigarettes, uncomplicated; Z71.6 Tobacco abuse counseling; F25.0 Schizoaffective disorder, bipolar type; Z20.822 Contact with and (suspected) exposure to COVID-19; Z79.51 Long term (current) use of inhaled steroids; Z79.899 Other long term (current) drug therapy
CPT/HCPCS: 36415; 74176; 76705; 78227; 80048; 80053; 80076; 81001; 82040; 82803; 82977; 83605; 83690; 83735; 84100; 85025; 85027; 86021; 86160; 87040; 87077; 87086; 87186; 87205; 87502; 87635; 88304; 92950; 97116; 97162; 99285; A9537; C1758; J1100; J1170; J1643; J1650; J2250; J2270; J2405; J2543; J2805; J3010; P9047

== ENCOUNTER → 2023-07-29 18:31 | Outpatient (BNV) | payer OTHER, SELFPAY | PROVIDERS: Emergency Provider Emergency Medicine; PCP Internal Medicine; Visit Provider Student in an Organized Health Care Education/Training Program | DX: N17.9 Acute kidney failure, unspecified (principal); K81.0 Acute cholecystitis; K81.1 Chronic cholecystitis; A41.9 Sepsis, unspecified organism; R65.21 Severe sepsis with septic shock; I10 Essential (primary) hypertension; E87.1 Hypo-osmolality and hyponatremia; D69.6 Thrombocytopenia, unspecified | CPT/HCPCS: 99223; 99232; 99233; 99239; 99499 ==

== ENCOUNTER → 2023-07-29 21:02 | Outpatient (BNV) | payer OTHER, SELFPAY | PROVIDERS: Admitting Provider Student in an Organized Health Care Education/Training Program; Emergency Provider Emergency Medicine; PCP Internal Medicine; Visit Provider Nurse Practitioner Family | DX: A41.9 Sepsis, unspecified organism (principal); R65.20 Severe sepsis without septic shock; N17.9 Acute kidney failure, unspecified; N39.0 Urinary tract infection, site not specified; R78.81 Bacteremia; K81.0 Acute cholecystitis; D72.829 Elevated white blood cell count, unspecified; R10.9 Unspecified abdominal pain | CPT/HCPCS: 99291 ==

== ENCOUNTER → 2023-07-29 21:02 | Outpatient (BNV) | payer OTHER, SELFPAY | PROVIDERS: Admitting Provider Student in an Organized Health Care Education/Training Program; Emergency Provider Emergency Medicine; PCP Internal Medicine; Visit Provider Surgery | DX: K81.0 Acute cholecystitis (principal) | CPT/HCPCS: 47562; 99024; 99222; 99231; 99232 ==

== ENCOUNTER → 2023-07-29 21:02 | Outpatient (BNV) | payer OTHER, SELFPAY | PROVIDERS: Admitting Provider Student in an Organized Health Care Education/Training Program; Emergency Provider Emergency Medicine; PCP Internal Medicine; Visit Provider Internal Medicine Pulmonary Disease | DX: R78.81 Bacteremia (principal); N17.9 Acute kidney failure, unspecified; I73.9 Peripheral vascular disease, unspecified; I10 Essential (primary) hypertension; K81.0 Acute cholecystitis | CPT/HCPCS: 99232; 99291 ==

== ENCOUNTER → 2023-07-29 21:02 | Outpatient (BNV) | payer OTHER, SELFPAY | PROVIDERS: Admitting Provider Student in an Organized Health Care Education/Training Program; Emergency Provider Emergency Medicine; PCP Internal Medicine; Visit Provider Internal Medicine | DX: A41.9 Sepsis, unspecified organism (principal); R65.20 Severe sepsis without septic shock; K81.0 Acute cholecystitis | CPT/HCPCS: 99222 ==

== ENCOUNTER 2023-08-10 09:47 | Outpatient (AMB) | payer OTHER, SELFPAY ==
--- NOTE | 2023-08-10 09:49 | A.OFFVIS_ITS ---
Intake Vital Signs 08/10/23 09:57 Height 5 ft 3 in Weight 159 lb 4 oz BMI 28.2 BP 112/63 Blood Pressure Location Lt brachial Position Sitting Pulse 72 Intake Visit Reasons: cholecystectomy Laparoscopic Intake Note: Patient is seen in office for post op assessment post laparoscopic cholecystectomy. Patient c/o:denies any concerns at the time of visit Rag Sorter Required: No Accompanied by: Family/Other Allergies cephalexin Allergy (Unknown, Verified 08/10/23 09:50) Swelling Cephalosporins Allergy (Unknown, Verified 08/10/23 09:50) SWELLING ciprofloxacin [CIPROFLOXACIN] Allergy (Unknown, Verified 08/10/23 09:50) SWELLING naproxen [NAPROXEN] Allergy (Unknown, Verified 08/10/23 09:50) BLISTERS IN MOUTH Medication List - Last Reconciled 08/10/23 by Mario Marina MD acetaminophen 650 mg (2 x 325 mg) PO Q6H PRN 30 days amlodipine 10 mg PO DAILY amoxicillin-pot clavulanate 500-125 mg 1 tab PO BID clonazepam 0.5 mg PO DAILY PRN fluticasone propionate 50 mcg/actuation 1 - 2 sprays intranasal DAILY PRN nicotine 14 mg transdermal DAILY omeprazole 20 mg PO DAILY PRN oxycodone 5 mg PO Q6H PRN oxycodone 5 mg PO Q6H PRN rosuvastatin 40 mg PO DAILY HPI HPI Comments History of Present Illness Details 68-year-old female patient status post l aparoscopic cholecystectomy on 08/03/2023. She tolerated the procedure well and feels much improved today. She does report some itchiness in the incision. Her appetite is still reduced and she is avoiding greasy foods. She denies any nausea, vomiting or fever. 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) Alcohol intake: never Patient Tobacco Use Status: Current everyday Tobacco user Smoking Start Date: 11/08/79 Tobacco use type: Cigarette Cigarettes Per Day: 5 Years Smoked: 50 Second Hand Smoke Exposure: No service: No Current occupational status: unemployed Physical Exam Const General: comfortable Nutritional Appearance: well nourished Orientation/consciousness: patient oriented x3 Limitations: no limitations Eyes Sclerae: sclerae normal GI Inspection: Yes normal to inspection Palpation (GI): Soft to palpation, nontender, no guarding and not rigid Skin General skin exam: no rashes or lesions noted Neuro General: patient oriented x3 Extrem General: Yes no clubbing, cyanosis or edema Assessment & Plan Assessment & Plan (1) Acute acalculous cholecystitis: Code(s): K81.0 - Acute cholecystitis Plan 68-year-old female patient status post laparoscopic cholecystectomy on 08/03/2023 for acalculous cholecystitis. She is much improved today and denies any ongoing symptoms. Examination reveals her incisions to be well healed without evidence of infection or hernia. She should continue to avoid lifting greater than 10 lb for the next week and avoid fatty/fried foods for the next month. She should follow up as needed. Coding Level of Care Code Global (23465) Diagnoses Acute acalculous cholecystitis K81.0
[2023-08-10 09:57] VITALS: BP 112/63; PULSE 72; BMI 28.2
== END 2023-08-10 10:07 | disposition home or self-care (01) ==
PROVIDERS: PCP Internal Medicine; Visit Provider Surgery
DX: K81.0 Acute cholecystitis (principal)
CPT/HCPCS: 99024

== ENCOUNTER → 2023-08-10 09:47 | Outpatient (BNVA) | payer OTHER, SELFPAY | PROVIDERS: PCP Internal Medicine; Visit Provider Surgery ==

== ENCOUNTER 2023-09-14 13:57 | Outpatient (AMB) | payer OTHER, SELFPAY ==
--- NOTE | 2023-09-14 14:02 | MHC.OFFVIS ---
Intake Vital Signs 09/14/23 14:08 Height 5 ft 3 in Weight 162 lb 2 oz BMI 28.7 BP 116/76 Blood Pressure Location Lt brachial Position Sitting Pulse 96 Intake Visit Reasons: s/p lap hailee, pain and swelling at incision site Intake Note: Patient is seen in office for wound check, post lap hailee. Patient c/o: pain, swelling at incision site, sometimes unable to eat due to feeling bloated, went to ED and had imaging done, admits to constipation surgery: 08/03/23 Accompanied by: Family/Other Allergies cephalexin Allergy (Unknown, Verified 09/14/23 14:08) Swelling Cephalosporins Allergy (Unknown, Verified 09/14/23 14:08) SWELLING ciprofloxacin [CIPROFLOXACIN] Allergy (Unknown, Verified 09/14/23 14:08) SWELLING naproxen [NAPROXEN] Allergy (Unknown, Verified 09/14/23 14:08) BLISTERS IN MOUTH Medication List - Last Reconciled 09/14/23 by Mario Marina MD acetaminophen 650 mg (2 x 325 mg) PO Q6H PRN 30 days amlodipine 10 mg PO DAILY amoxicillin-pot clavulanate 500-125 mg 1 tab PO BID clonazepam 0.5 mg PO DAILY PRN docusate sodium (Colace) 100 mg PO DAILY fluticasone propionate 50 mcg/actuation 1 - 2 sprays intranasal DAILY PRN nicotine 14 mg transdermal DAILY omeprazole 20 mg PO DAILY PRN oxycodone 5 mg PO Q6H PRN oxycodone 5 mg PO Q6H PRN rosuvastatin 40 mg PO DAILY HPI HPI Comments History of Present Illness Details 68-year-old female patient status post laparoscopic cholecystectomy on 08/03/2023. For last 3 weeks she did develop some abdominal discomfort in the epigastric region with reflux. She reports being constipated and subsequently was evaluated in the emergency department due to swelling in the right upper quadrant. A CT abdomen and pelvis was performed [facility]. She was told of a dilated common bile duct measuring 1.3 cm. Her laboratories reported to be normal. She reports symptoms of reflux esophagitis as well. 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) Alcohol intake: never Patient Tobacco Use Status: Current everyday Tobacco user Smoking Start Date: 11/08/79 Tobacco use type: Cigarette Cigarettes Per Day: 5 Years Smoked: 50 Second Hand Smoke Exposure: No service: No Current occupational status: unemployed Physical Exam Vital Signs: Last Vital Signs Pulse 96 09/14/23 14:08 BP 116/76 09/14/23 14:08 BMI result Body Mass Index 28.7 Const General: no acute distress Nutritional Appearance: well nourished Orientation/consciousness: patient oriented x3 Limitations: no limitations Resp Effort & Inspection: normal respiratory effort, no audible wheezes, no cough and no respiratory distress GI Other: Patient points to it location in the right upper quadrant below the incisions. No hernias appreciated. Site is roughly this site of transverse colon. No tympany to percussion. Rebound, guarding or rigidity. Inspection: Yes normal to inspection Palpation (GI): Soft to palpation, nontender, no guarding and not rigid Abdomen image: 1. Site of swelling, discomfort. Skin General skin exam: no rashes or lesions noted Neuro General: patient oriented x3 Assessment & Plan Assessment & Plan (1) Constipation: Code(s): K59.00 - Constipation, unspecified Qualifiers: Constipation type: slow transit constipation Qualified Code(s): K59.01 - Slow transit constipation Plan Patient found dilated common duct which is not unusual following cholecystectomy. Patient had open extensive workup prior to laparoscopic cholecystectomy and no common duct obstruction was identified. Patient was found to have acalculous cholecystitis and subsequently underwent laparoscopic cholecystectomy. Area of swelling may be more related to constipation with dilation of her transverse colon. I recommended starting a stool softener on a daily basis. Her symptoms do not improve with this stool softener, she should return for follow-up visit. She expressed understanding and agrees with the plan. Medications: New docusate sodium (Colace) 100 mg PO DAILY 90 caps 0RF K59.00 - Constipation, unspecified Coding Level of Care Code Global (99480) Diagnoses Slow transit constipation K59.01 Constipation type: slow transit constipation
[2023-09-14 14:08] VITALS: BP 116/76; PULSE 96; BMI 28.7
== END 2023-09-14 14:20 | disposition home or self-care (01) ==
PROVIDERS: PCP Internal Medicine; Visit Provider Surgery
DX: K59.01 Slow transit constipation (principal)
CPT/HCPCS: 99024

== ENCOUNTER → 2023-09-14 13:57 | Outpatient (BNVA) | payer OTHER, SELFPAY | PROVIDERS: PCP Internal Medicine; Visit Provider Surgery ==

== ENCOUNTER 2023-09-22 09:16 | Outpatient (AMB) | payer OTHER, SELFPAY ==
[2023-09-22 09:26] VITALS: BP 122/80; PULSE 97; BMI 29.1
--- NOTE | 2023-09-22 09:26 | HO.NEPHOV_ITS ---
HPI HPI Comments History of Present Illness Details 67-year-old female with a PMH significan t for?HTN, HLD, GERD, and depression who recently presented to the ER with?severe abdominal pain. Patient states symptoms began on Wednesday in her lower abdomen and pelvis and eventually migrated up to where she is currently experiencing right sided pain, especially in RUQ. Had nausea at that time but no vomiting. Patient had not been able to eat or drink for the 2 days prior to presentation secondary to her nausea. She had fevers as high of 102.9 and chills. Denied chest pain/pressure, palpitations, shortness of breath, difficulty breathing. In the ED patient was febrile up to 101.2, tachycardic, tachypneic, with soft BP as low as 83/52. Labs were significant for leukocytosis of 13.6, sodium 130, BUN 36, creatinine 3.31, AST 53, ALT 44, alk phos 131. UA likely positive for UTI. CT?of abdomen and pelvis negative for obstruction but showed some increased soft tissue stranding around the kidneys and ureters without evidence of stone or obstruction, suggestive of pyelonephritis. Bladder also is noted to be mildly thick wall however decompressed, cystitis cannot be excluded. Pt was admitted to the hospital for treatment of PHILLIP and severe sepsis in the setting of UTI with question of pyelonephritis. She was ultimately found to have E coli bacteremia and acute/chronic cholecystitis. On 07/30/23, she was transferred to the ICU for pressor support due to septic shock. She was weaned off pressors and stepped down to the [facility] on 08/01/23. she underwent laparascopic cholecystectomy on 08/03/23. Intraoperatively, noted adhesions?to?the?gallbladder?sugges tive?of?chronic?cholecystitis?with?some?acute?inflammation?noted?in?the?gallblad shayla?wall.??No?gallstones?appreciated. Herseptic shock due to E coli bactremia, resistant to ampicillin + TMP-SMX. She was treated with IV piperacillin- tazobactam for 7 days and transitioned to cefuroxime for 7 days upon discharge; total duration of antibiotics 14 days per ID consultation. Her PHILLIP was due to septic ATN. Creatinine peaked at 5.96 and came down to 3.38 by day of discharge with IV fluids and holding HCTZ + lisinopril. She was started on 10 mg of amlodipine and was discharged home . She is here for follow up. She has seen surgeon recently. Blood pressure has been well controlled on amlodipine but has been having swelling in her lower extremities by end of the day. She does not have any urinary symptoms, chest pain, shortness of breath, proximal nocturnal dyspnea or orthopnea. She claims to be compliant with a low-sodium diet. 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) Alcohol intake: never Patient Tobacco Use Status: Current everyday Tobacco user Smoking Start Date: 11/08/79 Tobacco use type: Cigarette Cigarettes Per Day: 5 Years Smoked: 50 Second Hand Smoke Exposure: No service: No Current occupational status: unemployed Vital Signs 09/22/23 09:26 Height 5 ft 3 in Weight 164 lb 4 oz BMI 29.1 BP 122/80 Pulse 97 Pulse Source Pulse Oximeter Physical Exam Vital Signs: Last Vital Signs Pulse 97 09/22/23 09:26 BP 122/80 09/22/23 09:26 BMI result Body Mass Index 29.1 Const General: comfortable and no acute distress Orientation/consciousness: patient oriented x3 HEENT Head: Yes normocephalic Mouth: Normal oral and palatal mucosa present Eyes EOM: EOMs intact bilaterally Neck Neck: Yes supple Resp Auscultation: clear to auscultation bilaterally Cardio Jugular venous distension: no JVD Rate: regular rate GI Palpation (GI): Soft to palpation Auscultation: normal bowel sounds General: Yes no CVA tenderness Back/Spine/Pelvis Back: no CVA tenderness Skin General skin exam: no rashes or lesions noted Neuro General: patient oriented x3 and moves all extremities Extrem General: Yes no pedal edema Assessment & Plan Assessment & Plan (1) PHILLIP (acute kidney injury): Code(s): N17.9 - Acute kidney failure, unspecified (2) HTN (hypertension): Code(s): I10 - Essential (primary) hypertension Qualifiers: Hypertension type: primary hypertension Qualified Code(s): I10 - Essential (primary) hypertension Plan And has longstanding hypertension and had been on lisinopril and hydrochlorothiazide which has been discontinued when she developed PHILLIP secondary to sepsis during her recent hospitalization. She has not been taking any of tho se medications. She currently is on amlodipine which is causing her ankle swelling. She needs to maintain herself on low-sodium diet. She should avoid nonsteroidal anti-inflammatory medications. Her serum creatinine had improved to 1.3 recently. I started her on chlorthalidone 25 mg daily. I reduced her amlodipine to 5 mg as well. She is going to repeat her blood work in 6 weeks. I may take her off amlodipine totally and add low-dose of lisinopril if her PHILLIP has totally resolved. If her serum creatinine has not settled down to baseline I may maintain her on 5 mg of amlodipine along with chlorthalidone based on lab data and all questions were answered. Follow-up blood work ordered and follow- up given. Time spent retrieving data documentation and patient encounter 21 minutes. Orders: Orders Electrolytes Today I10 - Essential (primary) hypertension, N17.9 - Acute kidney failure, unspecified UA and rflx microscopic Today I10 - Essential (primary) hypertension, N17.9 - Acute kidney failure, unspecified Creatinine 6 Weeks N17.9 - Acute kidney failure, unspecified Blood Urea Nitrogen Today I10 - Essential (primary) hypertension, N17.9 - Acute kidney failure, unspecified Creatinine Today I10 - Essential (primary) hypertension, N17.9 - Acute kidney failure, unspecified Calcium Today I10 - Essential (primary) hypertension, N17.9 - Acute kidney failure, unspecified Protein Creatinine Ratio, Ur Today I10 - Essential (primary) hypertension, N17.9 - Acute kidney failure, unspecified Electrolytes 6 Weeks N17.9 - Acute kidney failure, unspecified Medications: New chlorthalidone 12.5 mg (1/2 x 25 mg) PO DAILY 15 tabs 3RF 30 days Coding Level of Care Code Est Pt Level 3 (42164) Diagnoses PHILLIP (acute kidney injury) N17.9 Primary hypertension I10 Hypertension type: primary hypertension
== END 2023-09-22 10:01 | disposition home or self-care (01) ==
PROVIDERS: PCP Internal Medicine; Visit Provider Internal Medicine Nephrology
DX: N17.9 Acute kidney failure, unspecified (principal); I10 Essential (primary) hypertension; Z09 Encounter for follow-up examination after completed treatment for conditions other than malignant neoplasm
CPT/HCPCS: 99214

== ENCOUNTER → 2023-09-22 09:16 | Outpatient (BNVA) | payer OTHER, SELFPAY | PROVIDERS: PCP Internal Medicine; Visit Provider Internal Medicine Nephrology | DX: N17.9 Acute kidney failure, unspecified (principal); I10 Essential (primary) hypertension | CPT/HCPCS: 99212 ==

== ENCOUNTER 2023-10-18 10:37 | Outpatient (AMB) | payer OTHER, SELFPAY ==
--- NOTE | 2023-10-18 10:39 | MHC.OFFVIS ---
Intake Vital Signs 10/18/23 10:45 Height 5 ft 3 in Weight 164 lb BMI 29.0 Intake Visit Reasons: OV-LT TKA 04/20/23 NE-Follow up Intake Note: Claudia is a 68 year old female who presents todayfor a follow up appointment s/p Left TKA 04/20/23. Allergies cephalexin Allergy (Unknown, Verified 09/22/23 09:31) Swelling Cephalosporins Allergy (Unknown, Verified 09/22/23 09:31) SWELLING ciprofloxacin [CIPROFLOXACIN] Allergy (Unknown, Verified 09/22/23 09:31) SWELLING naproxen [NAPROXEN] Allergy (Unknown, Verified 09/22/23 09:31) BLISTERS IN MOUTH HPI OV-LT TKA 04/20/23 NE-Follow up HPI Details Claudia is a 68 year old woman who returns ~6 months S/P left TKA. Her post-op recovery was complicated by a small stitch abscess which resolved with Abx. She returns today with concerns of two lump on her knee. She is concerned if this may be a new infection or swelling. She says she is doing well otherwise. She has been working on strengthening exercises at home, and has improved her ROM. She denies any fever or chills. She was hospitalized back in July for urosepsis, which has been treated. 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) Alcohol intake: never Patient Tobacco Use Status: Current everyday Tobacco user Smoking Start Date: 11/08/79 Tobacco use type: Cigarette Cigarettes Per Day: 5 Years Smoked: 50 Second Hand Smoke Exposure: No service: No Current occupational status: unemployed Review of Systems Const All systems reviewed & are unremarkable except as noted in HPI and below Physical Exam Vital Signs: BMI result Body Mass Index 29.0 Const General: no acute distress, alert and awake Orientation/consciousness: patient oriented x3 HEENT Head: Yes normocephalic and Yes atraumatic Eyes EOM: EOMs intact bilaterally Resp Effort & Inspection: normal respiratory effort and able to speak in complete sentences Cardio Jugular venous distension: no JVD Skin General skin exam: turgor normal Rashes: no rashes Neuro General: patient oriented x3 Extrem Other: nl gait pattern without antalgia 0-125 deg motion stable arc of motion inc c/d/i Psych Appearance: grossly normal Affect: normal affect Attitude: cooperative Results Reviewed Results Reviewed: I personally reviewed relevant radiographs. Left total knee arthroplasty in expected post operative position with no hardware complications or evidence of loosening Assessment & Plan Assessment & Plan (1) Status post total knee replacement, left: Comment: 04/20/2023 NE Code(s): Z96.652 - Presence of left artificial knee joint Plan: s/p left TKA. Motion is excellent and exam is benign f/u 6 mo cont strengthening dental prophylaxis discussed Plan Scribed for Nasim Mills MD by Earl Roche, medical billing and coding specialist, on 10/18/23 at 10:55 AM, EST. Coding Level of Care Code Est Pt Level 3 (45897) Diagnoses Status post total knee replacement, left Z96.652
[2023-10-18 10:45] VITALS: BMI 29.0
== END 2023-10-18 12:31 | disposition home or self-care (01) ==
PROVIDERS: PCP Internal Medicine; Visit Provider Orthopaedic Surgery
DX: Z47.1 Aftercare following joint replacement surgery (principal); Z96.652 Presence of left artificial knee joint
CPT/HCPCS: 99213

== ENCOUNTER → 2023-10-18 10:37 | Outpatient (BNVA) | payer OTHER, SELFPAY | PROVIDERS: PCP Internal Medicine; Visit Provider Orthopaedic Surgery | DX: Z96.652 Presence of left artificial knee joint (principal) | CPT/HCPCS: 99212 ==

== ENCOUNTER 2023-11-10 08:08 | Emergency (ER) | payer OTHER, SELFPAY ==
[2023-11-10 08:11] VITALS: BP 139/78; PULSE 92; RESP 18; TEMP 36.6; O2SAT 97; BMI 29.4
--- NOTE | 2023-11-10 08:45 | ED.GENADULT ---
HPI - General Adult General Chief complaint: Skin/Abscess/Foreign Body Stated complaint: Lump in Rectum Time Seen by Provider: 11/10/23 08:35 Source: patient Mode of arrival: ambulatory Limitations: no limitations History of Present Illness HPI narrative: 68 yo female with PMH of HTN, anxiety, UTI, prior bacteremia - cholecystitis, here with c/o mass felt near R rectum that is painful. Denies systemic symptoms denies mass. States it hurts to have BM. She denies ever having abscess there before. MD complaint: rectal pain/mass. Onset (ago): day(s) (1) Location: buttocks (rectal) Radiation: non-radiation Severity: moderate Quality: aching and constant Pain Consistency: constant Relieving factors: none Exacerbating factors: movement and other (palpation, bowel movement) Associated symptoms: denies other symptoms Treatments prior to arrival: none Related Data Home Medications Medication Instructions Recorded Confirmed rosuvastatin 40 mg tablet 40 mg PO DAILY 10/21/21 08/10/23 fluticasone propionate 50 1 - 2 spray intranasal DAILY PRN 03/31/22 08/10/23 mcg/actuation nasal Nasal Congestion spray,suspension clonazepam 0.5 mg tablet 0.5 mg PO DAILY PRN Anxiety 07/29/23 09/14/23 Previous Rx's Medication Instructions Recorded acetaminophen 325 mg tablet 650 mg (2 x 325 mg) PO Q6H PRN 04/22/23 Pain, Mild (Pain Scale 1-3) 30 days #240 tabs amlodipine 10 mg tablet 10 mg PO DAILY #30 tabs 08/05/23 docusate sodium 100 mg capsule 100 mg PO DAILY #90 caps 09/14/23 (Colace) chlorthalidone 25 mg tablet 12.5 mg (1/2 x 25 mg) PO DAILY 30 09/22/23 days #15 tabs Allergies Allergy/AdvReac Type Severity Reaction Status Date / Time cephalexin Allergy Unknown Swelling Verified 11/10/23 08:13 Cephalosporins Allergy Unknown SWELLING Verified 11/10/23 08:13 ciprofloxacin [CIPROFLOXACIN] Allergy Unknown SWELLING Verified 11/10/23 08:13 naproxen [NAPROXEN] Allergy Unknown BLISTERS Verified 11/10/23 08:13 IN MOUTH Review of Systems Review of Systems: Constitutional : No Fever, No Chills ENT/Mouth : No sore throat, No Rhinorrhea Eyes: No Eye Pain, No Swelling, No Redness Cardiovascular : No Chest Pain, No SOB Respiratory : No Cough, No Sputum Gastrointestinal : No Nausea, No Vomiting, No Diarrhea, No abdominal Pain Genitourinary : No Dysuria, No Hematuria Musculoskeletal : No joint pain, No Myalgias, No Joint Swelling Skin : No Skin Lesions, positive skin lump Neuro : No Weakness, No Numbness, No Headache Psych : No Anxiety, No Depression Heme/Lymph: No Bruising, No Bleeding,No Lymphadenopathy Endocrine : No Polyuria, No Polydipsia All other systems reviewed and are negative [facility] Past Medical History Attestation statement: The following information was validated with the patient. Source: old records reviewed Onset Date is defined in the Problem List Problems that require an onset date and time if occurred within 24 hrs of arrival to the ED Aortic Dissection and Rupture; Neurologic impairment; Cardiopulmonary Arrest; Endotracheal Intubation; Insertion or Replacement of Mechanical Circulatory Assist Device Medical History Schizoaffective disorder, bipolar type Elevated cholesterol Arthritis History of abdominal hernia Primary osteoarthritis of left knee HTN (hypertension) Depression Chronic pain Surgical History Hx laparoscopic cholecystectomy (08/03/23) Hx of tonsillectomy History of carpal tunnel surgery H/O wrist surgery History of back surgery Hx of inguinal hernia surgery Social History Social History Household Members: None Housing: House Are you a primary home day care provider to a significant other at home: No Do you 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 have 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 Oriented X3. No acute distress. Eyes: Pupils equal, round and reactive to light. ENT: Pharynx normal. Neck: Normal inspection. Neck supple. CVS: Normal heart rate and rhythm. Pulses normal. Respiratory: No respiratory distress. Breath sounds normal. Abdomen: Soft and nontender. Rectal: ANA PAULA Forbes present - no fluctuance warmth erythema felt on R and L side it feels like muscle band but she reports ttp there is no fluctuance noted, labia are normal no bartholin cyst Skin: Skin warm and dry. Normal skin color. Normal skin turgor. Extremities: No lower extremity edema. No calf ttp Neuro: Oriented X 3. No motor deficit. No sensory deficit. Medications Administered Discontinued Medications Generic Name Dose Route Start Last Admin Trade Name Freq PRN Reason Stop Dose Admin Iohexol 85 ml 11/10/23 09:59 11/10/23 10:00 Iohexol 350 Mg/Ml 100 Ml Infus..Btl IV 11/10/23 10:00 85 ml ONCE ONE Administration Medical Decision Making Medical Decision Making [facility] Narrative: 68 yo female with PMH of HTN, anxiety, UTI, prior bacteremia - cholecystitis, schizoaffective disorder here with c/o severe rectal pain and feels a lump I cannot appreciate it and there is no obvious abscess on exam but she reports severe pain and pain with defecation at this time will obtain labs, CT scan for abscess/mass. Differential Diagnosis Differential Diagnoses: The differential diagnosis associated with the presentation includes MSK pain, ischiorectal pain, abscess Admission/Observation Consideration of admission/observation: Escalation of care including admission/observation considered negative CT scan for rectal abscess Lab Data [facility] Lab Attestation statement: I reviewed the patient's lab results. 11/10/23 09:14 11/10/23 09:14 Labs: Lab Results 11/10/23 Range/Units 09:14 WBC 6.6 (4.8-10.8) X10*3/uL RBC 4.57 D (4.20-5.50) X10*6/uL Hgb 13.2 D (12.0-16.0) g/dl Hct 39.7 D (37.0-47.0) % MCV 86.9 (80.0-98.0) fL MCH 28.9 (27.0-33.0) pg MCHC 33.2 (31.0-35.0) g/dl RDW 13.3 (11.0-16.0) % Plt Count 229 D (160-400) X10*3/uL MPV 9.2 L (9.4-12.3) fL Immature Gran % (Auto) 0.5 H (0.0-0.4) % Neut % (Auto) 60.7 (45-73) % Lymph % (Auto) 27.5 (20-40) % [place] % (Auto) 8.8 (2-11) % Eos % (Auto) 1.7 (0-4) % Baso % (Auto) 0.8 (0-2) % Lymph # (Auto) 1.8 (1.2-4.9) X10*3/uL [place] # (Auto) 0.6 (0.1-1.2) X10*3/uL Eos # (Auto) 0.1 (0.0-0.4) X10*3/uL Baso # (Auto) 0.1 (0.0-0.2) X10*3/uL Abs Immat Gran (auto) 0.03 (0.00-0.03) X10*3/uL Absolute Neuts (auto) 4.0 (2.0-8.3) x10*3/uL Absolute Nucleated RBC 0.000 (0.0-0.012) X10*3/uL Nucleated RBC % (auto) 0.0 (0.0-0.2) /100WBC Sodium 142 (135-145) mmol/L Potassium 3.3 D (3.3-5.1) mmol/L Chloride 106 (96-108) mmol/L Carbon Dioxide 29 (22-29) mmol/L Anion Gap 10 L (12-20) BUN 24 H (9-16) mg/dL Creatinine 1.14 (0.5-1.4) mg/dL Estim Creat Clear Calc 46.5 Estimated GFR 48 Random Glucose 99 (60-115) mg/dL Calcium 10.1 D (8.4-10.2) mg/dL Independent Interpretation I performed an independent interpretation of an: CT Scan (no cause for pain) Radiology Impression Discussion of test interpretation with radiology: I have reviewed the radiologist's reading. External Record Review External record reviewed: Inpatient record Discharge Plan Discharge Clinical Impression: Anal or rectal pain Patient Disposition: Home, Self-Care Instructions: Rectal Pain (ED) Additional Instructions: CT scan does not show a mass or abscess. there is no signs of inflammation. you can follow up with your OBGYN if this continues. return for fevers, rash, vomiting or any other concerns. Prescriptions: No Action acetaminophen 325 mg Tablet 650 mg PO Q6H PRN (Reason: Pain, Mild (Pain Scale 1-3)) 30 Days Qty: 240 0RF clonazepam 0.5 mg tablet 0.5 mg PO DAILY PRN (Reason: Anxiety) amlodipine 10 mg tablet 10 mg PO DAILY Qty: 30 0RF Rx Instructions: Replaces lisinopril and HCTZ rosuvastatin 40 mg tablet 40 mg PO DAILY fluticasone propionate 50 mcg/actuation spray,suspension 1 - 2 spray intranasal DAILY PRN (Reason: Nasal Congestion) docusate sodium [Colace] 100 mg capsule 100 mg PO DAILY Qty: 90 0RF chlorthalidone 25 mg tablet 12.5 mg PO DAILY 30 Days Qty: 15 3RF
[2023-11-10 09:18] LABS: MANUAL DIFF FLAG NO
--- NOTE | 2023-11-10 09:21 | PC.NURSE ---
patient a&ox3, vss, this nurse accompanied provider to perform a arnold-rectal exam, pt c/o pain with movement as well as during using bathroom at home, pt to have CT scan, iv inserted, labs drawn, pt awaiting ct, call wing within reach, will continue to monitor
[2023-11-10 09:25] LABS: Basophils Absolute Auto 0.1 X10*3/uL (0.0-0.2); Basophils Percent Auto 0.8 % (0-2); Eosinophils Absolute Auto 0.1 X10*3/uL (0.0-0.4); Eosinophils Percent Auto 1.7 % (0-4); Hematocrit 39.7 % (37.0-47.0); Hemoglobin 13.2 g/dl (12.0-16.0); Imm Gran Abs Auto 0.03 X10*3/uL (0.00-0.03); Imm Gran Pct Auto 0.5 % (0.0-0.4); Lymphocytes Absolute Auto 1.8 X10*3/uL (1.2-4.9); Lymphocytes Percent Auto 27.5 % (20-40); Mean Corpuscular HGB Conc 33.2 g/dl (31.0-35.0); Mean Corpuscular Hemoglobin 28.9 pg (27.0-33.0); Mean Corpuscular Volume 86.9 fL (80.0-98.0); Mean Platelet Volume 9.2 fL (9.4-12.3); Monocytes Absolute Auto 0.6 X10*3/uL (0.1-1.2); Monocytes Percent Auto 8.8 % (2-11); Neutrophils Percent Auto 60.7 % (45-73); Platelet Count 229 X10*3/uL (160-400); Red Blood Count 4.57 X10*6/uL (4.20-5.50); Red Cell Distribution Width 13.3 % (11.0-16.0); White Blood Count 6.6 X10*3/uL (4.8-10.8)
[2023-11-10 09:46] LABS: Anion Gap 10 (12-20); Blood Urea Nitrogen 24 mg/dL (9-16); Calcium 10.1 mg/dL (8.4-10.2); Carbon Dioxide 29 mmol/L (22-29); Chloride 106 mmol/L (96-108); Creatinine Clr Calc Pharmacy 46.5; Estimated Glomerular Filt Rate 48; Glucose Random 99 mg/dL (60-115); Potassium 3.3 mmol/L (3.3-5.1); Sodium 142 mmol/L (135-145)
[2023-11-10 11:17] VITALS: BP 141/72; PULSE 93; RESP 18; TEMP 36.7; O2SAT 96
== END 2023-11-10 11:18 | disposition home or self-care (01) ==
PROVIDERS: Emergency Provider Emergency Medicine; PCP Internal Medicine
DX: K62.89 Other specified diseases of anus and rectum (principal); R22.2 Localized swelling, mass and lump, trunk; I10 Essential (primary) hypertension; F25.9 Schizoaffective disorder, unspecified; K81.9 Cholecystitis, unspecified
CPT/HCPCS: 36415; 74177; 80048; 85025; 99283; 99284; Q9967

== ENCOUNTER 2023-11-17 09:30 | Outpatient (AMB) | payer OTHER, SELFPAY ==
--- NOTE | 2023-11-17 09:35 | HO.NEPHOV ---
HPI HPI Comments History of Present Illness Details 67-year-old female with a PMH significant for?HTN, HLD, GERD, and depression who recently underwent laparascopic cholecystectomy on 08/03/23. Intraoperatively she was noted to have adhesions?to?the?gallbladder?suggestive?of?chronic?cholecystitis?with?some?acute?inflammation?noted?in?the?gallbladder?wall.??No?gallstones?appreciated. She had septic shock due to E coli bactremia, resistant to ampicillin + TMP-SMX. She was treated with IV piperacillin-tazobactam for 7 days and transitioned to cefuroxime for 7 days upon discharge; total duration of antibiotics 14 days per ID consultation. She had PHILLIP was due to septic ATN. Creatinine peaked at 5.96 and came down to 3.38 by day of discharge with IV fluids and holding HCTZ + lisinopril. She was started on 10 mg of amlodipine and was discharged home . She is here for follow up. She does not have any urinary symptoms, chest pain, shortness of breath, proximal nocturnal dyspnea or orthopnea. She claims to be compliant with a low-sodium diet. 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) Alcohol intake: never Patient Tobacco Use Status: Current everyday Tobacco user Smoking Start Date: 11/08/79 Tobacco use type: Cigarette Cigarettes Per Day: 5 Years Smoked: 50 Second Hand Smoke Exposure: No service: No Current occupational status: unemployed Vital Signs 11/17/23 09:41 Height 5 ft 3 in Weight 167 lb 4 oz BMI 29.6 BP 102/60 Blood Pressure Location Rt brachial Position Sitting Pulse 87 Pulse Source Pulse Oximeter Pulse Oximetry (%) 95 Oxygen Delivery Method Room Air Physical Exam Vital Signs: Last Vital Signs Pulse 87 11/17/23 09:41 BP 102/60 11/17/23 09:41 Pulse Ox 95 11/17/23 09:41 Oxygen Delivery Method Room Air 11/17/23 09:41 BMI result Body Mass Index 29.6 Const General: comfortable and no acute distress Orientation/consciousness: patient oriented x3 HEENT Head: Yes normocephalic Mouth: Normal oral and palatal mucosa present Eyes EOM: EOMs intact bilaterally Neck Neck: Yes supple Resp Auscultation: clear to auscultation bilaterally Cardio Jugular venous distension: no JVD Rate: regular rate GI Palpation (GI): Soft to palpation Auscultation: normal bowel sounds General: Yes no CVA tenderness Back/Spine/Pelvis Back: no CVA tenderness Skin General skin exam: no rashes or lesions noted Neuro General: patient oriented x3 and moves all extremities Extrem General: Yes no pedal edema Assessment & Plan Assessment & Plan (1) PHILLIP (acute kidney injury): Code(s): N17.9 - Acute kidney failure, unspecified (2) HTN (hypertension): Code(s): I10 - Essential (primary) hypertension Qualifiers: Hypertension type: primary hypertension Qualified Code(s): I10 - Essential (primary) hypertension Plan Claudia has longstanding hypertension and had been on lisinopril and hydrochlorothiazide which has been discontinued when she developed PHILLIP secondary to sepsis during her recent hospitalization. She has not been taking any of those medications. She currently is on amlodipine. She needs to maintain herself on low-sodium diet. She should avoid nonsteroidal anti-inflammatory medications. Her serum creatinine had improved. She was started on HCTZ 12.5 mg daily.. I may take her off amlodipine totally and add low-dose of lisinopril in the future. aAll questions were answered. Follow-up blood work ordered and follow-up given. Orders: Orders Creatinine Today I10 - Essential (primary) hypertension, N17.9 - Acute kidney failure, unspecified Blood Urea Nitrogen Today I10 - Essential (primary) hypertension, N17.9 - Acute kidney failure, unspecified Total Protein Urine Random Today I10 - Essential (primary) hypertension, N17.9 - Acute kidney failure, unspecified Electrolytes Today I10 - Essential (primary) hypertension, N17.9 - Acute kidney failure, unspecified Medications: New hydrochlorothiazide 12.5 mg PO DAILY 90 tabs 3RF 90 days Coding Level of Care Code Est Pt Level 4 (82705) Diagnoses PHILLIP (acute kidney injury) N17.9 Primary hypertension I10 Hypertension type: primary hypertension Results Reviewed Nephrology Results: Hgb 13.2 g/dl (12.0-16.0) 11/10/23 WBC 6.6 X10*3/uL (4.8-10.8) 11/10/23 Plt Count 229 X10*3/uL (160-400) 11/10/23 Sodium 142 mmol/L (135-145) 11/10/23 Potassium 3.3 mmol/L (3.3-5.1) 11/10/23 Chloride 106 mmol/L (96-108) 11/10/23 Carbon Dioxide 29 mmol/L (22-29) 11/10/23 BUN 24 mg/dL (9-16) H 11/10/23 Creatinine 1.14 mg/dL (0.5-1.4) 11/10/23 Calcium 10.1 mg/dL (8.4-10.2) 11/10/23
[2023-11-17 09:41] VITALS: BP 102/60; PULSE 87; O2SAT 95; BMI 29.6
== END 2023-11-17 10:09 | disposition home or self-care (01) ==
PROVIDERS: PCP Internal Medicine; Visit Provider Internal Medicine Nephrology
DX: N17.9 Acute kidney failure, unspecified (principal); I10 Essential (primary) hypertension
CPT/HCPCS: 99214

== ENCOUNTER → 2023-11-17 09:30 | Outpatient (BNVA) | payer OTHER, SELFPAY | PROVIDERS: PCP Internal Medicine; Visit Provider Internal Medicine Nephrology | DX: I10 Essential (primary) hypertension (principal); N17.9 Acute kidney failure, unspecified | CPT/HCPCS: 99212 ==

== ENCOUNTER 2024-01-13 08:21 | Outpatient (AMB) | payer OTHER, SELFPAY ==
--- NOTE | 2024-01-13 08:32 | MHC.OFFVIS ---
Intake Vital Signs 01/13/24 08:41 Height 5 ft 3 in Weight 167 lb BMI 29.6 Intake Visit Reasons: OV-LT TKA 04/20/23 NE-Follow up Intake Note: Claudia is a 68 year old female who presents today for a follow up appointment s/p Left TKA 04/20/23. Patient reports that she is having some stiffness of the knee that is felt all the time as well as a pulling sensation in the left heel. She only feels this pulling first thing in the morning. Allergies cephalexin Allergy (Unknown, Verified 01/13/24 08:35) Swelling Cephalosporins Allergy (Unknown, Verified 01/13/24 08:35) SWELLING ciprofloxacin [CIPROFLOXACIN] Allergy (Unknown, Verified 01/13/24 08:35) SWELLING naproxen [NAPROXEN] Allergy (Unknown, Verified 01/13/24 08:35) BLISTERS IN MOUTH PFSH Medical History Schizoaffective disorder, bipolar type Elevated cholesterol Arthritis History of abdominal hernia Primary osteoarthritis of left knee HTN (hypertension) Depression Chronic pain Surgical History Hx laparoscopic cholecystectomy (08/03/23) Hx of tonsillectomy History of carpal tunnel surgery H/O wrist surgery History of back surgery Hx of inguinal hernia surgery Social History Household Members: None Housing: House Are you a primary life care planner to a significant other at home: No Do you presently have visiting nurse or other home services: Yes (DYNO TECHNICIAN) Alcohol intake: never Patient Tobacco Use Status: Current everyday Tobacco user Smoking Start Date: 11/08/79 Tobacco use type: Cigarette Cigarettes Per Day: 5 Years Smoked: 50 Second Hand Smoke Exposure: No service: No Current occupational status: unemployed Physical Exam Vital Signs: BMI result Body Mass Index 29.6 Const General: cooperative, healthy appearing, no acute distress, well developed and alert HEENT Head: Yes normal to inspection, Yes normocephalic and Yes atraumatic Mouth: moist mucous membranes Eyes General: appearance normal, both eyes and all related structures EOM: EOMs intact bilaterally Chest Other: no audible wheezing. Resp Other: No audible wheezing Effort & Inspection: normal respiratory effort Cardio Other: Radial pulse palpable with no rythmic abnormalities Back/Spine/Pelvis Cervical Spine: normal cervical lordosis Skin General skin exam: no rashes or lesions noted Neuro General: no focal motor deficits Extrem Other: Inc c/d/i 0-130 no effusion non specific dull tenderness to palpation Psych Appearance: grossly normal and well kempt Mental Status: mental status grossly normal Speech and movement: Normal speech and movement present Affect: normal affect Attitude: cooperative Results Reviewed Results Reviewed: Left total knee arthroplasty in expected post operative position with no hardware complications or evidence of loosening Assessment & Plan Assessment & Plan (1) Status post total knee replacement, left: Comment: 04/20/2023 NE Code(s): Z96.652 - Presence of left artificial knee joint Plan: S/p left TKA ~9 mo ago. She is doing well with occasional soreness. No objective unusual findings. OVedrall I am very pleased with the alignmenet and the function of her knee. Continue strengthening and can follow up as needed. Orders: Orders XR knee standing BI Today M25.569 - Pain in unspecified knee XR knee LT 2V Today M25.569 - Pain in unspecified knee Coding Level of Care Code Est Pt Level 3 (86777) Diagnoses Status post total knee replacement, left Z96.652
[2024-01-13 08:41] VITALS: BMI 29.6
== END 2024-01-13 09:28 | disposition home or self-care (01) ==
PROVIDERS: PCP Internal Medicine; Visit Provider Orthopaedic Surgery
DX: M25.662 Stiffness of left knee, not elsewhere classified (principal); Z96.652 Presence of left artificial knee joint
CPT/HCPCS: 99213

== ENCOUNTER 2024-01-13 14:45 | Outpatient (REF) | payer OTHER, SELFPAY ==
--- NOTE | ~2024-01-13 | XR_ITS ---
EXAMINATION: XR KNEE, LEFT XR KNEE AP STANDING CLINICAL INFORMATION: Knee pain. COMPARISON: None available. TECHNIQUE: Four views of the left knee. AP bilateral standing view of the knees was obtained. FINDINGS: The patient is status post left total knee arthroplasty. There is no evidence of hardware fracture or loosening. No bony fracture or dislocation is seen on the left. No lytic or sclerotic bony lesion is identified. No significant effusion is noted. Mild calcification of the distal aspect of the superficial femoral artery. Frontal view of the right knee appears unremarkable. XR/XR knee LT 2V IMPRESSION: No acute finding.
--- NOTE | ~2024-01-13 | XR_ITS ---
EXAMINATION: XR KNEE, LEFT XR KNEE AP STANDING CLINICAL INFORMATION: Knee pain. COMPARISON: None available. TECHNIQUE: Four views of the left knee. AP bilateral standing view of the knees was obtained. FINDINGS: The patient is status post left total knee arthroplasty. There is no evidence of hardware fracture or loosening. No bony fracture or dislocation is seen on the left. No lytic or sclerotic bony lesion is identified. No significant effusion is noted. Mild calcification of the distal aspect of the superficial femoral artery. Frontal view of the right knee appears unremarkable. XR/XR knee standing BI IMPRESSION: No acute finding.
== END 2024-01-13 14:46 | disposition home or self-care (01) ==
LOC: HO.HOSX 14:45
PROVIDERS: Visit Provider Orthopaedic Surgery
DX: M25.562 Pain in left knee (principal); Z96.652 Presence of left artificial knee joint
CPT/HCPCS: 73560; 73565; 99212

== ENCOUNTER 2024-03-07 09:46 | Outpatient (REF) | payer OTHER, SELFPAY ==
[2024-03-07 10:03] LABS: MANUAL DIFF FLAG NO
[2024-03-07 10:43] LABS: Basophils Percent Auto 0.5 % (0-2); Eosinophils Absolute Auto 0.1 X10*3/uL (0.0-0.4); Eosinophils Percent Auto 1.8 % (0-4); Hematocrit 44.4 % (37.0-47.0); Hemoglobin 14.7 g/dl (12.0-16.0); Imm Gran Abs Auto 0.03 X10*3/uL (0.00-0.03); Imm Gran Pct Auto 0.4 % (0.0-0.4); Lymphocytes Absolute Auto 2.4 X10*3/uL (1.2-4.9); Lymphocytes Percent Auto 32.8 % (20-40); Mean Corpuscular HGB Conc 33.1 g/dl (31.0-35.0); Mean Corpuscular Hemoglobin 29.1 pg (27.0-33.0); Mean Corpuscular Volume 87.7 fL (80.0-98.0); Mean Platelet Volume 10.3 fL (9.4-12.3); Monocytes Absolute Auto 0.5 X10*3/uL (0.1-1.2); Monocytes Percent Auto 7.3 % (2-11); Neutrophils Absolute Auto 4.2 x10*3/uL (2.0-8.3); Neutrophils Percent Auto 57.2 % (45-73); Platelet Count 249 X10*3/uL (160-400); Red Blood Count 5.06 X10*6/uL (4.20-5.50); Red Cell Distribution Width 14.8 % (11.0-16.0); White Blood Count 7.4 X10*3/uL (4.8-10.8)
[2024-03-07 11:37] LABS: Alanine Aminotransferase 25 U/L (0-31); Albumin Level 4.5 g/dL (3.5-5.0); Alkaline Phosphatase 91 U/L (39-117); Anion Gap 15 (12-20); Aspartate Amino Transferase 25 U/L (5-31); Bilirubin Total 0.3 mg/dL (0.0-1.0); Blood Urea Nitrogen 20 mg/dL (9-16); Calcium 10.2 mg/dL (8.4-10.2); Carbon Dioxide 28 mmol/L (22-29); Chloride 103 mmol/L (96-108); Estimated Glomerular Filt Rate 57; Glucose Random 94 mg/dL (60-115); Potassium 3.6 mmol/L (3.3-5.1); Sodium 142 mmol/L (135-145); Total Protein 7.4 g/dL (6.5-8.0)
[2024-03-07 11:50] LABS: Appearance Urine Clear; Color Urine Yellow; Glucose Urine UA Negative (Negative); Leukocyte Esterase Urine Negative (Negative); Nitrite Urine Negative (Negative); Urine Blood Negative (Negative); Urine Ketones Negative (Negative); Urine Protein Negative (Neg-Trace)
[2024-03-07 12:45] LABS: Creatinine Urine 53.24 mg/dL; Total Protein Urine Random < 7 mg/dL (<12)
== END 2024-03-07 09:47 | disposition home or self-care (01) ==
LOC: HO.LAB 09:46
PROVIDERS: Internal Medicine Hypertension Specialist; PCP Internal Medicine; Visit Provider Internal Medicine Nephrology
DX: I12.9 Hypertensive chronic kidney disease with stage 1 through stage 4 chronic kidney disease, or unspecified chronic kidney disease (principal); N18.30 Chronic kidney disease, stage 3 unspecified; N17.9 Acute kidney failure, unspecified
CPT/HCPCS: 36415; 80053; 81003; 82570; 84156; 85025

== ENCOUNTER 2024-03-15 09:58 | Outpatient (AMB) | payer OTHER, SELFPAY ==
[2024-03-15 10:07] VITALS: BP 102/74; PULSE 81; O2SAT 97; BMI 29.0
--- NOTE | 2024-03-15 10:07 | HO.NEPHOV ---
Vital Signs 03/15/24 10:07 Height 5 ft 3 in Weight 164 lb BMI 29.0 BP 102/74 Blood Pressure Location Rt brachial Position Sitting Pulse 81 Pulse Source Pulse Oximeter Pulse Oximetry (%) 97 Oxygen Delivery Method Room Air Intake Visit Reasons: 4 mo FU/ LVM Computer Methods Analyst Required: No Accompanied by: Grand Child Allergies cephalexin Allergy (Unknown, Verified 03/15/24 10:12) Swelling Cephalosporins Allergy (Unknown, Verified 03/15/24 10:12) SWELLING ciprofloxacin [CIPROFLOXACIN] Allergy (Unknown, Verified 03/15/24 10:12) SWELLING naproxen [NAPROXEN] Allergy (Unknown, Verified 03/15/24 10:12) BLISTERS IN MOUTH HPI Comments Details: 67-year-old female with a PMH significant for?HTN, HLD, GERD, and depression who recently underwent laparascopic cholecystectomy on 08/03/23. Intraoperatively she was noted to have adhesions?to?the?gallbladder?suggestive?of?chronic?cholecystitis?with?some?acute?inflammation?noted?in?the?gallbladder?wall.??No?gallstones?appreciated. She had septic shock due to E coli bactremia, resistant to ampicillin + TMP-SMX. She was treated with IV piperacillin-tazobactam for 7 days and transitioned to cefuroxime for 7 days upon discharge; total duration of antibiotics 14 days per ID consultation. She had PHILLIP was due to septic ATN. Creatinine peaked at 5.96 and came down to 3.38 by day of discharge with IV fluids and holding HCTZ + lisinopril. She was started on 10 mg of amlodipine and was discharged home . She is here for follow up. She does not have any urinary symptoms, chest pain, shortness of breath, proximal nocturnal dyspnea or orthopnea. She claims to be compliant with a low-sodium diet. She has gained weight [facility] Medical History Schizoaffective disorder, bipolar type Elevated cholesterol Arthritis History of abdominal hernia Primary osteoarthritis of left knee HTN (hypertension) Depression Chronic pain Surgical History Hx laparoscopic cholecystectomy (08/03/23) Hx of tonsillectomy History of carpal tunnel surgery H/O wrist surgery History of back surgery Hx of inguinal hernia surgery Social History Household Members: None Housing: House Are you a primary healthcare sales representative to a significant other at home: No Do you presently have visiting nurse or other home services: Yes (CLINICAL RESEARCH MANAGER) Alcohol intake: never Patient Tobacco Use Status: Current everyday Tobacco user Smoking Start Date: 11/08/79 Tobacco use type: Cigarette Cigarettes Per Day: 5 Years Smoked: 50 Second Hand Smoke Exposure: No service: No Current occupational status: unemployed Physical Exam Vital Signs: Last Vital Signs Pulse 81 03/15/24 10:07 Pulse Ox 97 03/15/24 10:07 Oxygen Delivery Method Room Air 03/15/24 10:07 BMI result Body Mass Index 29.0 Const General: comfortable and no acute distress Orientation/consciousness: patient oriented x3 HEENT Head: Yes normocephalic Mouth: Normal oral and palatal mucosa present Eyes EOM: EOMs intact bilaterally Neck Neck: Yes supple Resp Auscultation: clear to auscultation bilaterally Cardio Jugular venous distension: no JVD Rate: regular rate GI Palpation (GI): Soft to palpation Auscultation: normal bowel sounds General: Yes no CVA tenderness Back/Spine/Pelvis Back: no CVA tenderness Skin General skin exam: no rashes or lesions noted Neuro General: patient oriented x3 and moves all extremities Extrem General: Yes no pedal edema Results Reviewed Nephrology Results: Hgb 14.7 g/dl (12.0-16.0) 03/07/24 WBC 7.4 X10*3/uL (4.8-10.8) 03/07/24 Plt Count 249 X10*3/uL (160-400) 03/07/24 Sodium 142 mmol/L (135-145) 03/07/24 Potassium 3.6 mmol/L (3.3-5.1) 03/07/24 Chloride 103 mmol/L (96-108) 03/07/24 Carbon Dioxide 28 mmol/L (22-29) 03/07/24 BUN 20 mg/dL (9-16) H 03/07/24 Creatinine 0.97 mg/dL (0.5-1.4) 03/07/24 Calcium 10.2 mg/dL (8.4-10.2) 03/07/24 Urine Protein Negative mg/dL (Neg-Trace) 03/07/24 Urine Creatinine 53.24 mg/dL 03/07/24 Protein/Creatinin Ratio TNP 03/07/24 Assessment & Plan Assessment & Plan (1) HTN (hypertension): Code(s): I10 - Essential (primary) hypertension Category: Medical Qualifiers: Hypertension type: primary hypertension Qualified Code(s): I10 - Essential (primary) hypertension Plan: Claudia has longstanding hypertension and had been on lisinopril and hydrochlorothiazide which has been discontinued when she developed PHILLIP secondary to sepsis during her recent hospitalization. She has not been taking any of those medications. She currently is on amlodipine which has been causing edema. She needs to maintain herself on low-sodium diet. She should avoid nonsteroidal anti-inflammatory medications. Her serum creatinine had improved to baseline . She was started on HCTZ 12.5 mg daily which she can continue for now. I discontinued her amlodipine totally and add started lisinopril 2.5 mg which I plan to increase with time in the future ( & may be able to D/C HCTZ at that time). All questions were answered. Follow-up blood work ordered and follow-up given. Orders: Orders Creatinine Today I10 - Essential (primary) hypertension Electrolytes Today I10 - Essential (primary) hypertension Blood Urea Nitrogen Today I10 - Essential (primary) hypertension Medications: New lisinopril 2.5 mg PO DAILY 30 days 30 tabs 4RF Coding Level of Care Code Est Pt Level 4 (06164) Diagnoses Primary hypertension I10 Hypertension type: primary hypertension
== END 2024-03-15 10:30 | disposition home or self-care (01) ==
PROVIDERS: PCP Internal Medicine; Visit Provider Internal Medicine Nephrology
DX: I10 Essential (primary) hypertension (principal)
CPT/HCPCS: 99214

== ENCOUNTER → 2024-03-15 09:58 | Outpatient (BNVA) | payer OTHER, SELFPAY | PROVIDERS: PCP Internal Medicine; Visit Provider Internal Medicine Nephrology | DX: I10 Essential (primary) hypertension (principal) | CPT/HCPCS: 99212 ==

== ENCOUNTER 2024-05-01 10:31 | Outpatient (REF) | payer OTHER, SELFPAY ==
[2024-05-01 13:37] LABS: Anion Gap 18 (12-20); Blood Urea Nitrogen 17 mg/dL (9-16); Calcium 10.1 mg/dL (8.4-10.2); Carbon Dioxide 29 mmol/L (22-29); Chloride 101 mmol/L (96-108); Estimated Glomerular Filt Rate 53; Potassium 4.2 mmol/L (3.3-5.1); Sodium 144 mmol/L (135-145)
[2024-05-01 14:06] LABS: Total Protein Urine Random < 7 mg/dL (<12)
== END 2024-05-01 10:32 | disposition home or self-care (01) ==
LOC: HO.LAB 10:31
PROVIDERS: Visit Provider Internal Medicine Nephrology
DX: N17.9 Acute kidney failure, unspecified (principal); I10 Essential (primary) hypertension
CPT/HCPCS: 36415; 80051; 82310; 82565; 84156; 84520

== ENCOUNTER 2024-06-14 09:48 | Outpatient (AMB) | payer OTHER, SELFPAY ==
--- NOTE | 2024-06-14 10:12 | HO.NEPHOV_ITS ---
Vital Signs 06/14/24 10:13 Height 5 ft 3 in Weight 164 lb BMI 29.0 BP 110/70 Blood Pressure Location Rt brachial Position Sitting Pulse 74 Pulse Source Pulse Oximeter Pulse Oximetry (%) 95 Oxygen Delivery Method Room Air Intake Visit Reasons: HTN / 3 MO FU/ Conf Health Outcomes Liaison Required: No Accompanied by: Grand Child Allergies cephalexin Allergy (Unknown, Verified 06/14/24 10:15) Swelling Cephalosporins Allergy (Unknown, Verified 06/14/24 10:15) SWELLING ciprofloxacin [CIPROFLOXACIN] Allergy (Unknown, Verified 06/14/24 10:15) SWELLING naproxen [NAPROXEN] Allergy (Unknown, Verified 06/14/24 10:15) BLISTERS IN MOUTH HPI Comments Details: 67-year-old female with a PMH significant for?HTN, HLD, GERD, and depression who recently underwent laparascopic cholecystectomy on 08/03/23. She had PHILLIP was due to septic ATN at that time. Creatinine peaked at 5.96 and came down to 3.38 by day of discharge with IV fluids and holding HCTZ + lisinopril, now back to baseline. She was started on 10 mg of amlodipine and was discharged home but was causing pedal edema & was discontinued . Her BP is better on ACEI and HCTZ but not optimal. She is here for follow up. She does not have any urinary symptoms, chest pain, shortness of breath, proximal nocturnal dyspnea or orth opnea. She claims to be compliant with a low-sodium diet. [facility] Medical History Schizoaffective disorder, bipolar type Elevated cholesterol Arthritis History of abdominal hernia Primary osteoarthritis of left knee HTN (hypertension) Depression Chronic pain Surgical History Hx laparoscopic cholecystectomy (08/03/23) Hx of tonsillectomy History of carpal tunnel surgery H/O wrist surgery History of back surgery Hx of inguinal hernia surgery Social History Household Members: None Housing: House Are you a primary residential care officer to a significant other at home: No Do you presently have visiting nurse or other home services: Yes (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) Alcohol intake: never Patient Tobacco Use Status: Current everyday Tobacco user Smoking Start Date: 11/08/79 Tobacco use type: Cigarette Cigarettes Per Day: 5 Years Smoked: 50 Second Hand Smoke Exposure: No service: No Current occupational status: unemployed Physical Exam Vital Signs: Last Vital Signs Pulse 74 06/14/24 10:13 BP 110/70 06/14/24 10:13 Pulse Ox 95 06/14/24 10:13 Oxygen Delivery Method Room Air 06/14/24 10:13 BMI result Body Mass Index 29.0 Const General: comfortable and no acute distress Orientation/consciousness: patient oriented x3 HEENT Head: Yes normocephalic Mouth: Normal oral and palatal mucosa present Eyes EOM: EOMs intact bilaterally Neck Neck: Yes supple Resp Auscultation: clear to auscultation bilaterally Cardio Jugular venous distension: no JVD Rate: regular rate GI Palpation (GI): Soft to palpation Auscultation: normal bowel sounds General: Yes no CVA tenderness Back/Spine/Pelvis Back: no CVA tenderness Skin General skin exam: no rashes or lesions noted Neuro General: patient oriented x3 and moves all extremities Extrem General: Yes no pedal edema Results Reviewed Nephrology Results: Hgb 14.7 g/dl (12.0-16.0) 03/07/24 WBC 7.4 X10*3/uL (4.8-10.8) 03/07/24 Plt Count 249 X10*3/uL (160-400) 03/07/24 Sodium 144 mmol/L (135-145) 05/01/24 Potassium 4.2 mmol/L (3.3-5.1) 05/01/24 Chloride 101 mmol/L (96-108) 05/01/24 Carbon Dioxide 29 mmol/L (22-29) 05/01/24 BUN 17 mg/dL (9-16) H 05/01/24 Creatinine 1.03 mg/dL (0.5-1.4) 05/01/24 Calcium 10.1 mg/dL (8.4-10.2) 05/01/24 Urine Protein Negative mg/dL (Neg-Trace) 03/07/24 Urine Creatinine 53.24 mg/dL 03/07/24 Protein/Creatinin Ratio TNP 03/07/24 Assessment & Plan Assessment & Plan (1) HTN (hypertension): Code(s): I10 - Essential (primary) hypertension Category: Medical Qualifiers: Hypertension type: primary hypertension Qualified Code(s): I10 - Essential (primary) hypertension Plan Claudia's BP control is sub optimal. She was on amlodipine which was causing edema & was discontinued. She needs to maintain herself on low-sodium diet. She should avoid nonsteroidal anti-inflammatory medications. Her serum creatinine is stable at baseline . She was started on HCTZ 12.5 mg daily which she can continue for now. I increased her lisinopril to 7.5 mg which I plan to increase with time in the future ( & may be able to D/C HCTZ at that time). All questions were answered. Follow-up blood work ordered and follow-up given. Orders: Orders Creatinine Today I10 - Essential (primary) hypertension Blood Urea Nitrogen Today I10 - Essential (primary) hypertension Electrolytes Today I10 - Essential (primary) hypertension Medications: New lisinopril 7.5 mg (1.5 x 5 mg) PO DAILY 90 days 135 tabs 1RF Discontinued amlodipine Replaces lisinopril and HCTZ Discontinued Reason: Doctor's Order 10 mg PO DAILY 30 tabs 0RF Coding Level of Care Code Est Pt Level 4 (09170) Diagnoses Primary hypertension I10 Hypertension type: primary hypertension
[2024-06-14 10:13] VITALS: BP 110/70; PULSE 74; O2SAT 95; BMI 29.0
== END 2024-06-14 10:40 | disposition home or self-care (01) ==
PROVIDERS: PCP Internal Medicine; Visit Provider Internal Medicine Nephrology
DX: I10 Essential (primary) hypertension (principal)
CPT/HCPCS: 99214

== ENCOUNTER → 2024-06-14 09:48 | Outpatient (BNVA) | payer OTHER, SELFPAY | PROVIDERS: PCP Internal Medicine; Visit Provider Internal Medicine Nephrology | DX: I10 Essential (primary) hypertension (principal) | CPT/HCPCS: 99212 ==

== ENCOUNTER 2024-07-14 09:25 | Outpatient (REF) | payer OTHER, SELFPAY ==
[2024-07-14 10:57] LABS: Anion Gap 13 (12-20); Blood Urea Nitrogen 21 mg/dL (9-16); Carbon Dioxide 25 mmol/L (22-29); Chloride 104 mmol/L (96-108); Estimated Glomerular Filt Rate 29; Potassium 4.7 mmol/L (3.3-5.1); Sodium 137 mmol/L (135-145)
== END 2024-07-14 09:26 | disposition home or self-care (01) ==
LOC: HO.LAB 09:25
PROVIDERS: PCP Internal Medicine; Visit Provider Internal Medicine Nephrology
DX: I10 Essential (primary) hypertension (principal); N17.9 Acute kidney failure, unspecified
CPT/HCPCS: 36415; 80051; 82565; 84520

== ENCOUNTER 2024-07-17 09:46 | Outpatient (AMB) | payer OTHER, SELFPAY ==
[2024-07-17 10:17] VITALS: BP 84/60; PULSE 90; O2SAT 97; BMI 28.6
--- NOTE | 2024-07-17 10:17 | HO.NEPHOV ---
Vital Signs 07/17/24 10:17 Height 5 ft 3 in Weight 161 lb 6 oz BMI 28.6 BP 84/60 L Blood Pressure Location Lt brachial Position Sitting Pulse 90 Pulse Source Pulse Oximeter Pulse Oximetry (%) 97 Oxygen Delivery Method Room Air Intake Visit Reasons: Hypertension- Conf Quill Fixer Required: No Accompanied by: Other Relationship Allergies cephalexin Allergy (Unknown, Verified 07/17/24 10:19) Swelling Cephalosporins Allergy (Unknown, Verified 07/17/24 10:19) SWELLING ciprofloxacin [CIPROFLOXACIN] Allergy (Unknown, Verified 07/17/24 10:19) SWELLING naproxen [NAPROXEN] Allergy (Unknown, Verified 07/17/24 10:19) BLISTERS IN MOUTH HPI Comments Details: 67-year-old female with a PMH significant for?HTN with a history of PHILLIP due to septic ATN was found to have urinary tract infection and was prescribed Bactrim for 7 days by PCP. In the past her Creatinine peaked at 5.96 and came down with IV fluids and holding HCTZ + lisinopril. She has been taking lisinopril and hydrochlorothiazide during the time of recent diagnosis of UTI. She also has been having intermittent orthostatic symptoms. In the past she was given calcium channel emil which she did not tolerate due to edema. She does not take any nonsteroidal anti-inflammatories or any other new medications other than 1 course of Bactrim which she took recently. She does not have any urinary symptoms, chest pain, shortness of breath, proximal nocturnal dyspnea or orthopnea. She claims to be compliant with a low-sodium diet. Her recent serum creatinine has gone up to 1.7. [facility] Medical History Schizoaffective disorder, bipolar type Elevated cholesterol Arthritis History of abdominal hernia Primary osteoarthritis of left knee HTN (hypertension) Depression Chronic pain Surgical History Hx laparoscopic cholecystectomy (08/03/23) Hx of tonsillectomy History of carpal tunnel surgery H/O wrist surgery History of back surgery Hx of inguinal hernia surgery Social History Household Members: None Housing: House Are you a primary personal care worker to a significant other at home: No Do you presently have visiting nurse or other home services: Yes (CLINICAL PSYCHOLOGY PROFESSOR) Alcohol intake: never Patient Tobacco Use Status: Current everyday Tobacco user Smoking Start Date: 11/08/79 Tobacco use type: Cigarette Cigarettes Per Day: 5 Years Smoked: 50 Second Hand Smoke Exposure: No service: No Current occupational status: unemployed Review of Systems Const All systems reviewed & are unremarkable except as noted in HPI and below Physical Exam Vital Signs: Last Vital Signs Pulse 90 07/17/24 10:17 BP 84/60 L 07/17/24 10:17 Pulse Ox 97 07/17/24 10:17 Oxygen Delivery Method Room Air 07/17/24 10:17 BMI result Body Mass Index 28.6 Const General: comfortable and no acute distress Orientation/consciousness: patient oriented x3 HEENT Head: Yes normocephalic Mouth: Normal oral and palatal mucosa present Eyes EOM: EOMs intact bilaterally Neck Neck: Yes supple Resp Auscultation: clear to auscultation bilaterally Cardio Jugular venous distension: no JVD Rate: regular rate GI Palpation (GI): Soft to palpation Auscultation: normal bowel sounds General: Yes no CVA tenderness Back/Spine/Pelvis Back: no CVA tenderness Skin General skin exam: no rashes or lesions noted Neuro General: patient oriented x3 and moves all extremities Extrem General: Yes no pedal edema Results Reviewed Nephrology Results: Hgb 14.7 g/dl (12.0-16.0) 03/07/24 WBC 7.4 X10*3/uL (4.8-10.8) 03/07/24 Plt Count 249 X10*3/uL (160-400) 03/07/24 Sodium 137 mmol/L (135-145) 07/14/24 Potassium 4.7 mmol/L (3.3-5.1) 07/14/24 Chloride 104 mmol/L (96-108) 07/14/24 Carbon Dioxide 25 mmol/L (22-29) 07/14/24 BUN 21 mg/dL (9-16) H 07/14/24 Creatinine 1.74 mg/dL (0.5-1.4) H 07/14/24 Calcium 10.1 mg/dL (8.4-10.2) 05/01/24 Urine Protein Negative mg/dL (Neg-Trace) 03/07/24 Urine Creatinine 53.24 mg/dL 03/07/24 Protein/Creatinin Ratio TNP 03/07/24 Assessment & Plan Assessment & Plan (1) PHILLIP (acute kidney injury): Code(s): N17.9 - Acute kidney failure, unspecified Category: Medical (2) Hyponatremia: Code(s): E87.1 - Hypo-osmolality and hyponatremia Category: Medical Plan Claudia's BP has running low when she had UTI. She continued to take her lisinopril and hydrochlorothiazide. She was given Bactrim for a week. Her serum creatinine has gone up to 1.7. She most likely had tubular injury with altered autoregulation of the kidney with resultant rise in serum creatinine. Differential diagnosis includes arnold infectious glomerulonephritis versus AIN from Bactrim. She is off Bactrim now. I asked her to hold her hydrochlorothiazide. She could start lisinopril at 2.5 mg. I encouraged her to monitor her blood pressure very closely. Her blood pressure is consistently over 140/90 mmHg she could increase her lisinopril to 5 mg daily. In spite of going up to 5 mg of lisinopril if her blood pressure tends to go up she can resume her 7.5 mg of lisinopril for now. I have asked her to increase hydration and repeat her blood work kidney couple of weeks. She needs to maintain herself on low-sodium diet. She should avoid nonsteroidal anti-inflammatory medications. Further management is pending evolving data. All questions were answered. Follow-up blood work ordered and follow-up given. Orders: Orders Creatinine Today N17.9 - Acute kidney failure, unspecified Electrolytes Today N17.9 - Acute kidney failure, unspecified Blood Urea Nitrogen Today N17.9 - Acute kidney failure, unspecified Coding Level of Care Code Est Pt Level 4 (78435) Diagnoses PHILLIP (acute kidney injury) N17.9 Hyponatremia E87.1
== END 2024-07-17 10:34 | disposition home or self-care (01) ==
PROVIDERS: PCP Internal Medicine; Visit Provider Internal Medicine Nephrology
DX: N17.9 Acute kidney failure, unspecified (principal); E87.1 Hypo-osmolality and hyponatremia
CPT/HCPCS: 99214

== ENCOUNTER → 2024-07-17 09:46 | Outpatient (BNVA) | payer OTHER, SELFPAY | PROVIDERS: PCP Internal Medicine; Visit Provider Internal Medicine Nephrology | DX: N17.9 Acute kidney failure, unspecified (principal); E87.1 Hypo-osmolality and hyponatremia | CPT/HCPCS: 99212 ==

== ENCOUNTER 2024-08-02 13:14 | Outpatient (REF) | payer OTHER, SELFPAY ==
[2024-08-02 14:47] LABS: Anion Gap 13 (12-20); Blood Urea Nitrogen 23 mg/dL (9-16); Carbon Dioxide 28 mmol/L (22-29); Chloride 109 mmol/L (96-108); Estimated Glomerular Filt Rate 54; Sodium 146 mmol/L (135-145)
== END 2024-08-02 13:15 | disposition home or self-care (01) ==
LOC: HO.LAB 13:14
PROVIDERS: Visit Provider Internal Medicine Nephrology
DX: N17.9 Acute kidney failure, unspecified (principal)
CPT/HCPCS: 36415; 80051; 82565; 84520

== ENCOUNTER 2024-08-07 11:42 | Outpatient (AMB) | payer OTHER, SELFPAY ==
[2024-08-07 12:05] VITALS: BP 82/60; PULSE 83; O2SAT 97; BMI 28.4
--- NOTE | 2024-08-07 12:05 | HO.NEPHOV_ITS ---
Vital Signs 08/07/24 12:05 Height 5 ft 3 in Weight 160 lb 6 oz BMI 28.4 BP 82/60 L Blood Pressure Location Rt brachial Position Sitting Pulse 83 Pulse Source Pulse Oximeter Pulse Oximetry (%) 97 Oxygen Delivery Method Room Air Intake Visit Reasons: Oct follow up- Conf Research Attorney Required: Yes Research Attorney Services: Research Attorney Offered & Declined (Pt accompanied by grandson who will serve as foreign language interpreter. ) Accompanied by: Grand Child Allergies cephalexin Allergy (Unknown, Verified 08/07/24 12:08) Swelling Cephalosporins Allergy (Unknown, Verified 08/07/24 12:08) SWELLING ciprofloxacin [CIPROFLOXACIN] Allergy (Unknown, Verified 08/07/24 12:08) SWELLING naproxen [NAPROXEN] Allergy (Unknown, Verified 08/07/24 12:08) BLISTERS IN MOUTH HPI Comments Details: 67-year-old female with a PMH significant for?HTN with a history of PHILLIP recently. Her HCTZ was discontinued at the last visit with her serum creatinine settling to baseline. She now has been having intermittent orthostatic symptoms. In the past she was given calcium channel emil which she did not tolerate due to edema. She does not take any nonsteroidal anti-inflammatories or any other new medications since last visit. She does not have any urinary symptoms, chest pain, shortness of breath, proximal nocturnal dyspnea or orthopnea. She claims to be compliant with a low-sodium diet. Her recent serum creatinine had gone up to 1.7 recently but improved to baseline with medication changes. [facility] Medical History Schizoaffective disorder, bipolar type Elevated cholesterol Arthritis History of abdominal hernia Primary osteoarthritis of left knee HTN (hypertension) Depression Chronic pain Surgical History Hx laparoscopic cholecystectomy (08/03/23) Hx of tonsillectomy History of carpal tunnel surgery H/O wrist surgery History of back surgery Hx of inguinal hernia surgery Social History Household Members: None Housing: House Are you a primary patient care manager to a significant other at home: No Do you presently have visiting nurse or other home services: Yes ([employer]) Alcohol intake: never Patient Tobacco Use Status: Current everyday Tobacco user Smoking Start Date: 11/08/79 Tobacco use type: Cigarette Cigarettes Per Day: 5 Years Smoked: 50 Second Hand Smoke Exposure: No service: No Current occupational status: unemployed Review of Systems Const All systems reviewed & are unremarkable except as noted in HPI and below Physical Exam Vital Signs: Last Vital Signs Pulse 83 08/07/24 12:05 BP 82/60 L 08/07/24 12:05 Pulse Ox 97 08/07/24 12:05 Oxygen Delivery Method Room Air 08/07/24 12:05 BMI result Body Mass Index 28.4 Const General: comfortable and no acute distress Orientation/consciousness: patient oriented x3 HEENT Head: Yes normocephalic Mouth: Normal oral and palatal mucosa present Eyes EOM: EOMs intact bilaterally Neck Neck: Yes supple Resp Auscultation: clear to auscultation bilaterally Cardio Jugular venous distension: no JVD Rate: regular rate GI Palpation (GI): Soft to palpation Auscultation: normal bowel sounds General: Yes no CVA tenderness Back/Spine/Pelvis Back: no CVA tenderness Skin General skin exam: no rashes or lesions noted Neuro General: patient oriented x3 and moves all extremities Extrem General: Yes no pedal edema Results Reviewed Nephrology Results: 2 Hgb 14.7 g/dl (12.0-16.0) 03/07/24 WBC 7.4 X10*3/uL (4.8-10.8) 03/07/24 Plt Count 249 X10*3/uL (160-400) 03/07/24 Sodium 146 mmol/L (135-145) H 08/02/24 Potassium 4.0 mmol/L (3.3-5.1) 08/02/24 Chloride 109 mmol/L (96-108) H 08/02/24 Carbon Dioxide 28 mmol/L (22-29) 08/02/24 BUN 23 mg/dL (9-16) H 08/02/24 Creatinine 1.02 mg/dL (0.5-1.4) 08/02/24 Calcium 10.1 mg/dL (8.4-10.2) 05/01/24 Urine Protein Negative mg/dL (Neg-Trace) 03/07/24 Urine Creatinine 53.24 mg/dL 03/07/24 Protein/Creatinin Ratio TNP 03/07/24 Assessment & Plan Assessment & Plan (1) HTN (hypertension): Code(s): I10 - Essential (primary) hypertension Category: Medical Qualifiers: Hypertension type: primary hypertension Qualified Code(s): I10 - Essential (primary) hypertension (2) CKD stage 3a, GFR 45-59 ml/min: Code(s): N18.31 - Chronic kidney disease, stage 3a Category: Medical Plan When Claudia's BP has running low, she had UTI. She continued to take her lisinopril and hydrochlorothiazide. She was given Bactrim for a week. Her serum creatinine has gone up to 1.7. She most likely had tubular injury with altered autoregulation of the kidney with resultant rise in serum creatinine. She is off Bactrim now. I stopped her hydrochlorothiazide at the last visit. She could continue lisinopril 2.5 mg twice daily. I encouraged her to monitor her blood pressure very closely. Her blood pressure is consistently over 140/90 mmHg she could increase her lisinopril to 5 mg AM and 2.5 mg PM. She needs to maintain herself on low-sodium diet. She should avoid nonsteroidal anti- inflammatory medications. All questions were answered. Follow-up blood work ordered and follow-up given Coding Level of Care Code Est Pt Level 4 (53085) Diagnoses Primary hypertension I10 Hypertension type: primary hypertension CKD stage 3a, GFR 45-59 ml/min N18.31
== END 2024-08-07 12:47 | disposition home or self-care (01) ==
PROVIDERS: PCP Internal Medicine; Visit Provider Internal Medicine Nephrology
DX: I12.9 Hypertensive chronic kidney disease with stage 1 through stage 4 chronic kidney disease, or unspecified chronic kidney disease (principal); N18.31 Chronic kidney disease, stage 3a
CPT/HCPCS: 99214

== ENCOUNTER → 2024-08-07 11:42 | Outpatient (BNVA) | payer OTHER, SELFPAY | PROVIDERS: PCP Internal Medicine; Visit Provider Internal Medicine Nephrology | DX: I12.9 Hypertensive chronic kidney disease with stage 1 through stage 4 chronic kidney disease, or unspecified chronic kidney disease (principal); N18.31 Chronic kidney disease, stage 3a | CPT/HCPCS: 99212 ==

== ENCOUNTER 2024-09-06 08:57 | Outpatient (AMB) | payer OTHER, SELFPAY ==
--- NOTE | 2024-09-06 09:31 | HO.NEPHOV_ITS ---
Vital Signs 09/06/24 09:32 Height 5 ft 3 in Weight 160 lb 6 oz BMI 28.4 BP 102/70 Blood Pressure Location Lt brachial Position Sitting Pulse 78 Pulse Source Pulse Oximeter Pulse Oximetry (%) 98 Oxygen Delivery Method Room Air Intake Visit Reasons: PHILLIP Photographer Aerial Required: No Accompanied by: Grand Child Allergies cephalexin Allergy (Unknown, Verified 09/06/24 09:34) Swelling Cephalosporins Allergy (Unknown, Verified 09/06/24 09:34) SWELLING ciprofloxacin [CIPROFLOXACIN] Allergy (Unknown, Verified 09/06/24 09:34) SWELLING naproxen [NAPROXEN] Allergy (Unknown, Verified 09/06/24 09:34) BLISTERS IN MOUTH HPI Comments Details: 67-year-old female with a PMH significant for?HTN with a history of PHILLIP recently. Her HCTZ was discontinued at the last visit with her serum creatinine settling to baseline. She now has been having intermittent orthostatic symptoms. In the past she was given calcium channel emil which she did not tolerate due to edema. She does not take any nonsteroidal anti-inflammatories or any other new medications since last visit. She does not have any urinary symptoms, chest pain, shortness of breath, proximal nocturnal dyspnea or orthopnea. She claims to be compliant with a low-sodium diet. Her recent serum creatinine had gone up to 1.7 recently but improved to baseline with medication changes [facility] Medical History Schizoaffective disorder, bipolar type Elevated cholesterol Arthritis History of abdominal hernia Primary osteoarthritis of left knee HTN (hypertension) Depression Chronic pain Surgical History Hx laparoscopic cholecystectomy (08/03/23) Hx of tonsillectomy History of carpal tunnel surgery H/O wrist surgery History of back surgery Hx of inguinal hernia surgery Social History Household Members: None Housing: House Are you a primary career services manager to a significant other at home: No Do you presently have visiting nurse or other home services: Yes ([employer]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) Alcohol intake: never Patient Tobacco Use Status: Current everyday Tobacco user Smoking Start Date: 11/08/79 Tobacco use type: Cigarette Cigarettes Per Day: 5 Years Smoked: 50 Second Hand Smoke Exposure: No service: No Current occupational status: unemployed Review of Systems Const All systems reviewed & are unremarkable except as noted in HPI and below Physical Exam Vital Signs: Last Vital Signs Pulse 78 09/06/24 09:32 BP 102/70 09/06/24 09:32 Pulse Ox 98 09/06/24 09:32 Oxygen Delivery Method Room Air 09/06/24 09:32 BMI result Body Mass Index 28.4 Const General: comfortable and no acute distress Orientation/consciousness: patient oriented x3 HEENT Head: Yes normocephalic Mouth: Normal oral and palatal mucosa present Eyes EOM: EOMs intact bilaterally Neck Neck: Yes supple Resp Auscultation: clear to auscultation bilaterally Cardio Jugular venous distension: no JVD Rate: regular rate GI Palpation (GI): Soft to palpation Auscultation: normal bowel sounds General: Yes no CVA tenderness Back/Spine/Pelvis Back: no CVA tenderness Skin General skin exam: no rashes or lesions noted Neuro General: patient oriented x3 and moves all extremities Extrem General: Yes no pedal edema Results Reviewed Nephrology Results: Hgb 14.7 g/dl (12.0-16.0) 03/07/24 WBC 7.4 X10*3/uL (4.8-10.8) 03/07/24 Plt Count 249 X10*3/uL (160-400) 03/07/24 Sodium 146 mmol/L (135-145) H 08/02/24 Potassium 4.0 mmol/L (3.3-5.1) 08/02/24 Chloride 109 mmol/L (96-108) H 08/02/24 Carbon Dioxide 28 mmol/L (22-29) 08/02/24 BUN 23 mg/dL (9-16) H 08/02/24 Creatinine 1.02 mg/dL (0.5-1.4) 08/02/24 Calcium 10.1 mg/dL (8.4-10.2) 05/01/24 Urine Protein Negative mg/dL (Neg-Trace) 03/07/24 Urine Creatinine 53.24 mg/dL 03/07/24 Protein/Creatinin Ratio TNP 03/07/24 Assessment & Plan Assessment & Plan (1) CKD stage 3a, GFR 45-59 ml/min: Code(s): N18.31 - Chronic kidney disease, stage 3a Category: Medical (2) HTN (hypertension): Code(s): I10 - Essential (primary) hypertension Category: Medical Qualifiers: Hypertension type: primary hypertension Qualified Code(s): I10 - Essential (primary) hypertension Plan When Claudia's BP has running low, she had UTI. She continued to take her lisinopril and hydrochlorothiazide. She was given Bactrim for a week. Her serum creatinine has gone up to 1.7. She most likely had tubular injury with altered autoregulation of the kidney with resultant rise in serum creatinine. She is off Bactrim now. I stopped her hydrochlorothiazide at the last visit. She could continue lisinopril 2.5 mg twice daily. Her blood pressure is consistently over 140/90 mmHg she could increase her lisinopril to 5 mg AM and 2.5 mg PM. She needs to maintain herself on low-sodium diet. She should avoid nonsteroidal anti-inflammatory medications. All questions were answered. Follow-up blood work ordered and follow-up given Orders: Orders Creatinine 4 Months N18.31 - Chronic kidney disease, stage 3a Blood Urea Nitrogen 4 Months N18.31 - Chronic kidney disease, stage 3a Electrolytes 4 Months N18.31 - Chronic kidney disease, stage 3a Medications: Changed From lisinopril 7.5 mg (1.5 x 5 mg) PO DAILY 90 days 135 tabs 4RF To lisinopril 2.5 mg PO BID 90 days 180 tabs 4RF Coding Level of Care Code Est Pt Level 4 (32295) Diagnoses CKD stage 3a, GFR 45-59 ml/min N18.31 Primary hypertension I10 Hypertension type: primary hypertension
[2024-09-06 09:32] VITALS: BP 102/70; PULSE 78; O2SAT 98; BMI 28.4
== END 2024-09-06 10:00 | disposition home or self-care (01) ==
LOC: HO.HKA 08:58
PROVIDERS: PCP Internal Medicine; Visit Provider Internal Medicine Nephrology
DX: I12.9 Hypertensive chronic kidney disease with stage 1 through stage 4 chronic kidney disease, or unspecified chronic kidney disease (principal); N18.31 Chronic kidney disease, stage 3a
CPT/HCPCS: 99214

== ENCOUNTER → 2024-09-06 08:57 | Outpatient (BNVA) | payer OTHER, SELFPAY | PROVIDERS: PCP Internal Medicine; Visit Provider Internal Medicine Nephrology | DX: I12.9 Hypertensive chronic kidney disease with stage 1 through stage 4 chronic kidney disease, or unspecified chronic kidney disease (principal); N18.31 Chronic kidney disease, stage 3a | CPT/HCPCS: 99212 ==

== ENCOUNTER 2025-01-05 09:15 | Outpatient (REF) | payer OTHER, SELFPAY ==
--- OUTSIDE RECORDS SUMMARY | 2025-01-05 09:52 | XMS_ITS | Encounter Summary ---
Author Organization [facility], Address [address] [place] [address] Phone Care Team Providers Care 8Th Grade Teacher Name Role Phone Jose Wilson MD Primary Care Provider [phone] Encounter Details Date Type Department Care Team (Late st Contact Info) Description 11/10/2023 Documentation Only [facility], [address] [address] Homero Chambers MD [address] [place] [phone] Social History Tobacco Use Types Packs/Day Years Used Date Smoking Tobacco: Never Assessed Comments Unknown Sex and Gender Information Value Date Recorded Sex Assigned at Not on file Legal Sex Female 8:39 AM EDT Gender Identity Not on file Sexual Orientation Not on file documented as of this encounter Plan of Treatment Not on file documented as of this encounter Visit Diagnoses Not on filedocumented in this encounter Care Teams 8Th Grade Teacher Relationship Specialty Start Date End Date Jose Wilson MD [address] [facility] [place], [place] PCP - General Internal Medicine 08/02/23 documented as of this encounter
--- OUTSIDE RECORDS SUMMARY | 2025-01-05 09:52 | XMS_ITS | Continuity of Care Document ---
Author Organization [facility] Address [address] [place] [address]- Care Team Providers Care Lead Bi Developer Name Role Phone Jose Wilson MD Primary Care Physician Encounter [facility] Date(s): 11/17/24 - 12/17/24 [facility] [address] [place] [id number] Attending Physician: [place] Admitting Physician: [place] Referring Physician: AdmtrNew Encounter Type: Triage Allergies, Adverse Reactions, Alerts Substance Criticality Severity Reaction Reaction Severity Status ciprofloxacin swelling, itch A ctive naproxen 1 Cold sores Active cephalosporins itchy, rash Act xavier 1has taken ibuprofen since Immunizations Given and Recorded Vaccine Date Status Refusal Reason influenza virus vaccine, inactivated 1 10/27/24 Gi prakash influenza virus vaccine, inactivated 2 08/30/23 Gi prakash influenza virus vaccine, inactivated 09/04/22 Herman rded influenza virus vaccine, inactivated 10/08/21 Herman rded influenza virus vaccine, inactivated 07/30/20 Herman rded influenza virus vaccine, inactivated 07/31/19 Herman rded influenza virus vaccine, inactivated 09/21/18 Herman rded influenza virus vaccine, inactivated 07/09/17 Herman rded influenza virus vaccine, inactivated 08/10/14 Herman rded influenza virus vaccine, inactivated 09/29/13 Herman rded zoster vaccine, inactivated 06/08/24 Recorded zoster vaccine, inactivated 03/01/24 Recorded pneumococcal 13-valent vaccine 3 06/07/23 Given pneumococcal 20-valent conjugate vaccine 4 05/14/22 Given SARS-CoV-2 mRNA (bjeyagm-wuon-dcedb) vax 12/03/21 Recorded SARS-CoV-2 (COVID-19) mRNA BNT-162b2 vac 03/13/21 Recorded SARS-CoV-2 (COVID-19) mRNA BNT-162b2 vac 02/20/21 Recorded Zoster Vaccine Live 11/18/17 Recorded tetanus/diphtheria/pertussis, acel(Tdap) 11/18/17 Recorded tetanus/diphtheria/pertussis, acel(Tdap) 03/24/12 Recorded tetanus/diphtheria/pertussis, acel(Tdap) 11/10/99 Recorded pneumococcal 23-valent vaccine 03/24/12 Recorded 1Result Comment: [id number] given w/out incident 2Result Comment: [facility]- [id number] 3Result Comment: [facility] [id number] 4Result Comment: [id number] given w/out incident Medications clonazePAM 0.5 mg oral tablet 0.5 tablet = 0.25 mg, By Mouth, 2 times a day, 0 Refills, Maintenance, 08/30/23 10:14:00 AM EDT, Tablet, Partial fill upon patient request if the prescription is for a schedule II opioid drug. Start Date: 08/30/23 Stop Date: 09/29/23 Status: Ordered Repeat number: 1 famotidine 40 mg oral tablet 1 tablet, By Mouth, 2 times a day, # 60 tablet, 12 Refills, Maintenance, 10/17/24 5:32:00 PM [facility] #[id number], 158, cm, 09/26/24 13:27:00 EST, Height, 76, kg, 02/01/24 10:53:00 EDT, Dry Weight Start Date: 10/17/24 Status: Ordered Quantity: 60.0 Unit: tablet Repeat number: 1 fluticasone 50 mcg/inh nasal spray 1 sprays = 50 mcg, Nares, Both, 2 times a day, # 16 Gm, 0 Refills, Maintenance, 11/13/24 11:04:00 AM EST, [facility] #[id number], Partial fill upon patient request if the prescription is for a schedule II opioid drug., 1 sprays Nares, Both 2 times a day, 158, cm, 10/27/24 8:27:00 EST, Height, 72, kg, 10/27/24 8:27:00 EST, Dry Weight Start Date: 11/13/24 Status: Ordered Quantity: 16.0 Unit: g Repeat number: 1 hydrochlorothiazide 25 mg oral tablet 1, tablet, By Mouth, Daily in AM, # 90 tablet, Refills 3, Maintenance, 11/30/24 1:07:00 PM EST, Route to Pharmacy Electronically, [facility] #[id number], 158, cm, 11/17/24 9:59:00 EST, Height, 72, kg, 10/27/24 8:27:00 EST, Dry Weight Start Date: 11/30/24 Status: Ordered Quantity: 90.0 Unit: tablet Repeat number: 1 lamotrigine 25 mg oral tablet 25 mg, 1, tablet, By Mouth, Daily, # 30 tablet, Refills 0, Maintenance, 10/27/24 9:31:00 AM EST, Partial fill upon patient request if the prescription is for a schedule II opioid drug. Start Date: 10/27/24 Stop Date: 11/26/24 Status: Ordered Quantity: 30.0 Unit: tablet Repeat number: 1 lisinopril 2.5 mg oral tablet 7.5 mg, 3, tablet, By Mouth, Daily, # 30 tablet, Refills 6, Maintenance, 07/13/24 11:33:00 AM EDT, Partial fill upon patient request if the prescription is for a schedule II opioid drug. Start Date: 07/13/24 Stop Date: 08/12/24 Status: Ordered Quantity: 30.0 Unit: tablet Repeat number: 1 rosuvastatin 40 mg oral tablet 1 tablet, By Mouth, Daily, # 90 tablet, 1 Refills, Maintenance, 06/28/24 12:43:00 PM EDT, [facility] #[id number], 160, cm, 06/16/24 11:58:00 EDT, Height, 76, kg, 02/01/24 10:53:00 EDT, Dry Weight Start Date: 06/28/24 Status: Ordered Quantity: 90.0 Unit: tablet Repeat number: 1 Tylenol 8 Hour 650 mg oral tablet, extended release 2 tablet = 1,300 mg, By Mouth, Every 8 hours, 0 Refills, Maintenance, 07/12/20 7:46:00 AM EDT Start Date: 07/12/20 Status: Ordered Repeat number: 1 Vitamin C 1000 mg oral tablet 1 tablet = 1,000 mg, By Mouth, Daily, 0 Refills, Maintenance, 05/14/22 11:13:00 AM EDT, Partial fill upon patient request if the prescription is for a schedule II opioid drug. Start Date: 05/14/22 Status: Ordered Repeat number: 1 Vitamin D2 1 tablet, By Mouth, Daily, 0 Refills, Maintenance, 05/14/22 11:14:00 AM EDT, Partial fill upon patient request if the prescription is for a schedule II opioid drug. Start Date: 05/14/22 Status: Ordered Repeat number: 1 Problem List Condition Confirmation Course Effective Dates Status Health Status Informant Bilateral carpal tunnel syndrome Confirmed Active Centriacinar emphysema Confirmed 01/20/18 Active Compression fracture of lumbar spine, non-traumatic Confirmed Active Displacement of lumbar intervertebral disc without myelopathy Confirmed 2012 Active Hypertension, essential Confirmed Active External Iliac Artery Thrombosis Confirmed Active SOUMYA (generalized anxiety disorder) Confirmed Active History of hand surgery, both extensor thumb tendons Confirmed 2000 Active S/P laparoscopic cholecystectomy Confirmed 08/03/23 Active History of carpal tunnel surgery of left wrist Confirmed 2007 Active History of lumbar discectomy Confirmed 10/17/13 Active History of arthroplasty of left knee Confirmed 04/24/23 Active History of inguinal hernia repair, bilateral Confirmed 1990 Active History of tonsillectomy Confirmed Active Hypercholesterolemia Confirmed Active Insomnia Confirmed Active Depression, major, single episode, moderate Confirmed 1993 Active Multiple nodules of lung Confirmed 05/01/22 Active Subclinical hyperthyroidism Confirmed 07/01/15 Active Tobacco dependence Confirmed Active Tubular adenoma of colon Confirmed 09/21/18 Active Controlled type 2 diabetes mellitus with hyperglycemia Confirmed 07/06/24 Active Social History Social History Type Response Smoking Status 5-9 cigarettes (betw een 1/4 to 1/2 pack)/day in last 30 days entered on: 09/10/22 Sex Sex Representation Female (finding) Patient Care team information Care Team Personnel Name: Lucía Jurado RN Position: S RN Member Role: Primary Care Nurse Name: Cherise Pang RN Position: [facility] JUNIOR Nurse Member Role: Primary Care Nurse Name: Abiel Roman RN Position: [facility] RN Member Role: Primary Care Nurse Name: Greg Oro MD Position: [facility] Outreach Member Role: Lifetime Consulting Physician Address: [address] [facility] [place] [address]- Telecom: Name: Mona Saha RN Position: [facility] RN Member Role: Primary Care Nurse Name: Harmony Villalta Position: [facility] Outreach Member Role: Lifetime Consulting Physician Name: Jose Wilson MD Position: [facility] Physician - Primary Care Member Role: PCP Address: [address] [facility] [place] [address]- Telecom: Care Team Related Persons Name: GAY MAGALLANES Name: SABIHA MACKENZIE Name: WALT LOVE Insurance Providers Guarantor name: [facility] Health Plan Information #: 1 Payer: NA Member Number: NA Policy Number: NA Group Number: NA
--- OUTSIDE RECORDS SUMMARY | 2025-01-05 09:52 | XMS_ITS | Clinical Summary ---
Author Organization [facility], Address [address] [place] [address] [place] [phone] Phone Care Team Providers Care Chronometer Assembler Name Role Phone Jose Wilson MD Primary Care Provider [phone] Allergies Active Allergy Reactions Criticality Noted Date Comments Cephalosporins 11/10/2023 Other reaction(s): itchy, rash Ciprofloxacin 04/20/2013 Other reaction(s): swelling, itch Naproxen Other (see comments) 11/27/2015 Blisters in mouth, doesn't happen with other nsaids has taken ibuprofen since Medications amLODIPine (NORVASC) 10 MG tablet Take 10 mg by mouth 1 (one) time each day 3 Active ARIPiprazole (ABILIFY) 2 MG tablet TAKE 1 TABLET BY MOUTH EVERY NIGHT AT BEDTIME FOR MOOD STABILIZATOIN 3 Active cetirizine (ZyrTEC) 10 MG tablet Take 10 mg by mouth 2 Active chlorthalidone 25 MG tablet Take 12.5 mg by mouth 1 (one) time each day 3 Active clonazePAM (KlonoPIN) 0.5 MG tablet TAKE 1 TABLET THREE TIMES DAILY BY MOUTH UP TO THREE TIMES DAILY NEEDED FOR ANXIETY OR SLEEP 3 Active famotidine (PEPCID) 40 MG tablet Take 40 mg by mouth in the morning and 40 mg in the evening. 3 Active nicotine (NICODERM CQ) 7 MG/24HR APPLY 1 PATCH TOPICALLY TO THE SKIN DAILY 3 Active QUEtiapine (SEROquel) 50 MG tablet TAKE 1 TABLET BY MOUTH EVERY NIGHT AT BEDTIME FOR SLEEP /MOOD 3 Active rosuvastatin (CRESTOR) 40 MG tablet Take 40 mg by mouth 1 (one) time each day 3 Active Ascorbic Acid (vitamin C) 1000 MG tablet Take 1,000 mg by mouth 1 (one) time each day Active ergocalciferol 1.25 MG (04659 UT) capsule Take 50,000 Units by mouth 1 (one) time per week Active Active Problems Problem Noted Date Diagnosed Date Hypertensive disorder 11/10/2023 11/10/2023 Hyperglycemia 11/10/2023 11/10/2023 Immunizations Name Administration Dates Next Due Influenza, MDCK, PF, Quadrivalent 09/21/2018 Influenza, Unspecified 09/04/2022,2020,07/30/2020, 9,09/21/2018,07/09/2017,2014, 013 Pfizer SARS-COV-2 03/13/2021,02/20/2021 Pneumococcal Conjugate 05/14/2022 Pneumococcal Conjugate 13-Valent 06/07/2023 Pneumococcal Polysaccharide 03/24/2012 SARS-CoV-2, Unspecified 12/03/2021 Tdap 11/18/2017,03/24/2012,11/10/1999 Zoster 11/18/2017 Social History Tobacco Use Types Packs/Day Years Used Date Smoking Tobacco: Never Assessed Comments Unknown Sex and Gender Information Value Date Recorded Sex Assigned at Not on file Legal Sex Female 8:39 AM EDT Gender Identity Not on file Sexual Orientation Not on file Plan of Treatment Health Maintenance Due Date Last Done Comments Breast Cancer Screening 1955 Colorectal Cancer Screening: Annual FOBT 2005 Colorectal Cancer Screening: Colonoscopy 2005 Colorectal Cancer Screening: Sigmoidoscopy 2005 Pneumococcal Vaccine: 65+ Years (3 of 3 - PPSV23 or PCV20) 08/02/2023 06/07/2023, 05/14/2022, 03/24/2012 Influenza Vaccine (#1) 2024 2, 10/08/2021, 07/30/2020, Additional history exists Hepatitis B Vaccine Aged Out No longe r eligible based on patient's age to complete this topic Insurance [facility] ([id number]) [facility] ([id number]) Care Teams Chronometer Assembler Relationship Specialty Start Date End Date Jose Wilson MD [facility] [place], [place] PCP - General Internal Medicine 08/02/23
--- OUTSIDE RECORDS SUMMARY | 2025-01-05 09:52 | XMS_ITS | Encounter Summary ---
Author Organization [facility] Address [address] [place] [address] Care Team Providers Care Tooler Name Role Phone Unavailable Primary Care Provider Unavailabl e Encounter Details Date Type Department Care Team ([facility] st Contact Info) Description 09/28/2023 Abstract [facility] [address] [place] [address] Harmony Villalta Social History Tobacco Use Types Packs/Day Years Used Date Smoking Tobacco: Never Assessed Comments Unknown Sex and Gender Information Value Date Recorded Sex Assigned at Female 09/07/2022 10:18 AM EDT Legal Sex Female 10:18 AM EDT Gender Identity Female 09/07/2022 10:18 AM EDT Sexual Orientation Choose not to disclose 2021 10:18 AM EDT documented as of this encounter Plan of Treatment Not on file documented as of this encounter Visit Diagnoses Not on filedocumented in this encounter
--- OUTSIDE RECORDS SUMMARY | 2025-01-05 09:52 | XMS_ITS | Continuity of Care Document ---
Author Organization [facility] Address [address] [place] [address]- Care Team Providers Care Embossing Press Operator Name Role Phone Jose Wilson MD Primary Care Physician Encounter [facility] Date(s): 11/09/24 - 12/09/24 [facility] [address] [place], [place] [address] Encounter Type: Triage Allergies, Adverse Reactions, Alerts [...] conjugate vaccine 4 05/14/22 Given SARS-CoV-2 mRNA (irdqeak-azfz-avfyw) vax 12/03/21 Recorded SARS-CoV-2 (COVID-19) mRNA BNT-162b2 vac 03/13/21 Recorded SARS-CoV-2 (COVID-19) mRNA BNT-162b2 vac 02/20/21 Recorded Zoster Vaccine Live 11/18/17 Recorded tetanus/diphtheria/pertussis, acel(Tdap) 11/18/17 Recorded tetanus/diphtheria/pertussis, acel(Tdap) 03/24/12 Recorded tetanus/diphtheria/pertussis, acel(Tdap) 11/10/99 Recorded pneumococcal 23-valent vaccine 03/24/12 Recorded 1Result Comment: [id number] given w/out incident 2Result Comment: [facility]- [id number] 3Result Comment: [facility] [id number] 4Result Comment: [id number] given w/out incident Medications clonazePAM 0.5 mg [...] tablet, 12 Refills, Maintenance, 10/17/24 5:32:00 PM EST, [facility] #[id number], 158, cm, 09/26/24 13:27:00 EST, Height, 76, kg, 02/01/24 10:53:00 EDT, Dry Weight Start Date: 10/17/24 Status: Ordered Quantity: 60.0 Unit: tablet Repeat number: 1 fluticasone 50 mcg/inh nasal spray 1 sprays = 50 mcg, Nares, Both, 2 times a day, # 16 Gm, 0 Refills, Maintenance, 11/13/24 11:04:00 AM EST, [facility] #[id number], Partial fill upon patient request if the [...] 1:07:00 PM EST, Route to Pharmacy Electronically, [facility] #[id number], 158, cm, 11/17/24 9:59:00 EST, Height, 72, [...] 1 Refills, Maintenance, 06/28/24 12:43:00 PM EDT, [facility] #[id number], 160, cm, 06/16/24 11:58:00 EDT, Height, 76, [...] Name: Lucía Jurado RN Position: [facility] RN Member Role: Primary Care Nurse Name: Cherise Pang RN Position: S RN Member Role: Primary Care Nurse Name: Abiel Roman RN Position: S RN Member Role: Primary Care Nurse Name: Greg Oro MD Position: [facility] Outreach Member Role: Lifetime Consulting Physician Address: [address] [facility] [place] [address]- Telecom: Name: Mona Saha RN Position: [facility] RN Member Role: Primary Care Nurse Name: Harmony Villalta Position: [facility] Outreach Member Role: Lifetime Consulting Physician Name: Jose Wilson MD Position: [facility] Physician - Primary Care Member Role: PCP Address: [address] [facility] [place] [address]- Telecom: Care Team Related Persons Name: GAY MAGALLANES Name: SABIHA MACKENZIE Name: WALT LOVE Insurance Providers Guarantor name: [employer] Health Plan Information #: 1 Payer: NA Member Number: NA Policy Number: NA Group Number: NA
--- OUTSIDE RECORDS SUMMARY | 2025-01-05 09:52 | XMS_ITS | Encounter Summary ---
Author Organization [facility], Address [address] [place] [address] Phone Care Team Providers Care Lacquer Spray Booth Operator Name Role Phone Jose Wilson MD Primary Care Provider [phone] Encounter Details Date Type Department Care Team (Late st Contact Info) Description 11/10/2023 Documentation Only [facility], [address] [address] Homero Chambers MD [address] [place] [id number] Social History Tobacco Use Types Packs/Day Years [...] on filedocumented in this encounter Care Teams Lacquer Spray Booth Operator Relationship Specialty Start Date End Date Jose Wilson MD [address] [facility] [place], [place] PCP - General Internal Medicine 08/02/23 documented as of this encounter
--- OUTSIDE RECORDS SUMMARY | 2025-01-05 09:52 | XMS_ITS | Continuity of Care Document ---
Author Organization [facility] ter Address [address] [place] [address]- Care Team Providers Care Counter Waitress/Waiter Name Role Phone Jose Wilson MD Primary Care Physician Encounter [facility] Date(s): 11/29/24 - 12/29/[address] [address]- Attending Physician: [place] Admitting Physician: [place] Referring Physician: AdmtrNew Encounter Type: Triage Allergies, [...] conjugate vaccine 4 05/14/22 Given SARS-CoV-2 mRNA (fopmdob-ocjd-zegue) vax 12/03/21 Recorded SARS-CoV-2 (COVID-19) mRNA BNT-162b2 vac 03/13/21 Recorded SARS-CoV-2 (COVID-19) mRNA BNT-162b2 vac 02/20/21 Recorded Zoster Vaccine Live 11/18/17 Recorded tetanus/diphtheria/pertussis, acel(Tdap) 11/18/17 Recorded tetanus/diphtheria/pertussis, acel(Tdap) 03/24/12 Recorded tetanus/diphtheria/pertussis, acel(Tdap) 11/10/99 Recorded pneumococcal 23-valent vaccine 03/24/12 Recorded 1Result Comment: [id number] given w/out incident 2Result Comment: [facility]- [id number] 3Result Comment: [facility] [id number] 4Result Comment: [id number] given w/out incident Medications clonazePAM 0.5 mg [...] tablet, 12 Refills, Maintenance, 10/17/24 5:32:00 PM [id number], 158, cm, 09/26/24 13:27:00 EST, Height, 76, kg, 02/01/24 10:53:00 EDT, Dry Weight Start Date: 10/17/24 Status: Ordered Quantity: 60.0 Unit: tablet Repeat number: 1 fluticasone 50 mcg/inh nasal spray 1 sprays = 50 mcg, Nares, Both, 2 times a day, # 16 Gm, 0 Refills, Maintenance, 11/13/24 11:04:00 AM EST, [facility] #[id number], Partial fill upon patient request if the prescription is for a schedule II opioid drug., 1 sprays Nares, Both 2 times a day, 158, cm, 10/27/24 8:27:00 EST, Height, 72, kg, 10/27/24 8:27:00 EST, Dry Weight Start Date: 11/13/24 Status: Ordered Quantity: 16.0 Unit: g Repeat number: 1 Freestyle Lite Lancets See Instructions, # 100 each, Refills 5, Tot. Refills 5, Maintenance, use to check blood sugars once a day Dx: E11.9, 12/29/24 8:24:00 AM EST, Supply, 158, cm, 12/29/24 8:03:00 EST, Height, 72.5, kg, 12/29/24 8:03:00 EST, Dry Weight Start Date: 12/29/24 Stop Date: 06/27/25 Status: Ordered Quantity: 100.0 Unit: each Repeat number: 6 Indication: Type 2 diabetes mellitus with hyperglycemia Freestyle Lite Monitor See Instructions, # 1 each, Refills 0, Tot. Refills 0, Maintenance, use to check blood sugars once a day Dx: E11.9, 12/29/24 8:23:00 AM EST, Supply, 158, cm, 12/29/24 8:03:00 EST, Height, 72.5, kg, 12/29/24 8:03:00 EST, Dry Weight Start Date: 12/29/24 Stop Date: 01/28/25 Status: Ordered Quantity: 1.0 Unit: each Repeat number: 1 Indication: Type 2 diabetes mellitus with hyperglycemia Freestyle Lite Test Strips See Instructions, # 100 each, Refills 4, Tot. Refills 4, Maintenance, use to check blood sugars once a day Dx: E11.9, 12/29/24 8:23:00 AM EST, Supply, 158, cm, 12/29/24 8:03:00 EST, Height, 72.5, kg, 12/29/24 8:03:00 EST, Dry Weight Start Date: 12/29/24 Stop Date: 05/28/25 Status: Ordered Quantity: 100.0 Unit: each Repeat number: 5 Indication: Type 2 diabetes mellitus with hyperglycemia lamotrigine 25 mg oral tablet 25 mg, 1, tablet, By Mouth, Daily, # 30 tablet, Refills 0, Maintenance, 10/27/24 9:31:00 AM EST, Partial fill upon patient request if the prescription is for a schedule II opioid drug. Start Date: 10/27/24 Stop Date: 11/26/24 Status: Ordered Quantity: 30.0 Unit: tablet Repeat number: 1 lisinopril 5 mg oral tablet 5 mg, 1, tablet, By Mouth, 2 times a day, # 30 tablet, Refills 0, Maintenance, 12/29/24 8:19:00 AM EST, Partial fill upon patient request if the prescription is for a schedule II opioid drug. Start Date: 12/29/24 Stop Date: 01/28/25 Status: Ordered Quantity: 30.0 Unit: tablet Repeat number: 1 rosuvastatin 40 mg oral tablet 1 tablet, By Mouth, Daily, # 90 tablet, 1 Refills, Maintenance, 12/22/24 3:32:00 PM EST, [facility] #[id number], 158, cm, 11/17/24 9:59:00 EST, Height, 72, kg, 10/27/24 8:27:00 EST, Dry Weight Start Date: 12/22/24 Status: Ordered Quantity: 90.0 Unit: tablet Repeat number: 1 tiZANidine 2 mg oral tablet 2 mg, 1, tablet, By Mouth, Every 8 hours, PRN, # 42 tablet, Refills 0, Tot. Refills 0, Maintenance,as needed for muscle spasm, 12/29/24 8:47:00 AM EST, Route to Pharmacy Electronically, [facility] #[id number], Partial fill upon patient request if the prescription is for a schedule II opioid drug., 158, cm, 12/29/24 8:03:00 EST, Height, 72.5, kg, 12/29/24 8:03:00 EST, Dry Weight Start Date: 12/29/24 Stop Date: 01/12/25 Status: Ordered Quantity: 42.0 Unit: tablet Repeat number: 1 Tylenol 8 [...] Team Personnel Name: Lucía Jurado RN Position: [facility] RN Member Role: Primary Care Nurse Name: Cherise Pang RN Position: [facility] JUNIOR Nurse Member Role: Primary Care Nurse Name: Abiel Roman RN Position: [facility] RN Member Role: Primary Care Nurse Name: Greg Oro MD Position: [facility] Outreach Member Role: Lifetime Consulting Physician Address: [address] [place] [address] [address] [facility] [place] [address]- Telecom: Name: Mona Saha RN Position: [facility] RN Member Role: Primary Care Nurse Name: Harmony Villalta Position: [facility] Outreach Member Role: Lifetime Consulting Physician Name: Jose Wilson MD Position: [facility] Physician - Primary Care Member Role: PCP Address: [address] [place] [address] Adult & [place] [address]- Telecom: Care Team Related Persons Name: GAY MAGALLANES Name: SABIHA MACKENZIE Name: WALT LOVE Insurance Providers Guarantor name: [facility] Health Plan Information #: 1 Payer: NA Member Number: NA Policy Number: NA Group Number: NA
--- OUTSIDE RECORDS SUMMARY | 2025-01-05 09:52 | XMS_ITS | Continuity of Care Document ---
Author Organization [facility] ter Address [address] [place] [address]- Care Team Providers Care Web User Experience Strategist Name Role Phone Jose Wilson MD Primary [facility] Phys[id number] Date[facility]): 09/07/24 - 12/29/[address] [address]- Attending Physician: Debra Williamson MD Admitting Physician: Debra Williamson MD Referring Physician: Jose Wilson MD Encounter Type: Pre-Outpt Allergies, Adverse Reactions, Alerts Substance Criticality Severity [...] conjugate vaccine 4 05/14/22 Given SARS-CoV-2 mRNA ([id number]) vax 12/03/21 Recorded SARS-CoV-2 (COVID-19) mRNA BNT-162b2 vac 03/13/21 Recorded SARS-CoV-2 (COVID-19) mRNA BNT-162b2 vac 02/20/21 Recorded Zoster Vaccine Live 11/18/17 Recorded tetanus/diphtheria/pertussis, acel(Tdap) 11/18/17 Recorded tetanus/diphtheria/pertussis, acel(Tdap) 03/24/12 Recorded tetanus/diphtheria/pertussis, acel(Tdap) 11/10/99 Recorded pneumococcal 23-valent vaccine 03/24/12 Recorded 1Result Comment: [id number] given w/out incident 2Result Comment: [facility]- [id number] 3Result Comment: [facility] [id number] 4Result Comment: [id number] given w/out incident Medications clonazePAM 0.5 mg [...] tablet, 12 Refills, Maintenance, 10/17/24 5[facility]32[id number], 158, cm, 09/26/24 13:27:00 EST, Height, 76, kg, 02/01/24 10:53:00 EDT, Dry Weight Start Date: 10/17/24 Status: Ordered Quantity: 60.0 Unit: tablet Repeat number: 1 fluticasone 50 mcg/inh nasal spray 1 sprays = 50 mcg, Nares, Both, 2 times a day, # 16 Gm, 0 Refills, Maintenance, 11/13/24 11:04:00 AM EST, [facility], Partial fill upon patient request if the [...] 1 Refills, Maintenance, 12/22/24 3:32:00 PM EST, [id number], 158, cm, 11/17/24 9:59:00 EST, Height, 72, kg, 10/27/24 8:27:00 EST, Dry Weight Start Date: 12/22/24 Status: Ordered Quantity: 90.0 Unit: tablet Repeat number: 1 tiZANidine 2 mg oral tablet 2 mg, 1, tablet, By Mouth, Every 8 hours, PRN, # 42 tablet, Refills 0, Tot. Refills 0, Maintenance,as needed for muscle spasm, 12/29/24 8:47:00 AM EST, Route to Pharmacy Electronically, [facility][id number], Partial fill upon patient request if the [...] Team Personnel Name: Lucía Jurado RN Position: [facility] RN Member Role: Primary Care Nurse Name: Cherise Pang RN Position: [facility] JUNIOR Nurse Member Role: Primary Care Nurse Name: Abiel Roman RN Position: [facility] RN Member Role: Primary Care Nurse Name: Greg Oro MD Position: [facility] Outreach Member Role: Lifetime Consulting Physician Address: [address] [place] [address] [address] [facility] [place] [address]- Telecom: Name: Mona Saha RN Position: [facility] RN Member Role: Primary Care Nurse Name: Harmony Villalta Position: [facility] Outreach Member Role: Lifetime Consulting Physician Name: Jose Wilson MD Position: [facility] Physician - Primary Care Member Role: PCP Address: [address] [place] [address] Adult [facility] [place] [address]- Telecom: Care Team Related Persons Name: GAY MAGALLANES Name: SABIHA MACKENZIE Name: WALT LOVE Insurance Providers Guarantor name: [employer] Health Plan Information #: 1 Payer: NA Member Number: [id number] Policy Number: NA Group Number: [facility] Health Plan Information #: 2 Payer: NA Member Number: [id number] Policy Number: NA Group Number: NA
--- OUTSIDE RECORDS SUMMARY | 2025-01-05 09:52 | XMS_ITS | Data Portability ---
Author Organization [facility] Address [address] [place] [id number] Care Team Providers Care Arts Education Teacher Name Role Phone HIM CCA OTHER Assessment Encounter Date Assessment Date Assessment LastModified by Organization Details LastModified Time 04/10/2024 04/10/2024 I have reviewed and agree with the assessment and plan as documented by the remodeler. I provided real-time medical direction for this encounter and was immediately available to provide additional phone-based assistance as needed. 68F presenting with palpitations for the past 1-2 weeks. Denies any chest pain presently, no shortness of breath. States it feels like her heart thumping . Ongoing x 1 week with no change. No chest pain or radiation. No leg swelling. Recently had BP med increased due to elevated BP. Currently on Lisinopril and hydrochlorothia zide, recent increase in lisinopril last week. No n/v/d. No infectious symptoms. No change in diet or new stressors. O/E: Vitals stable, normal clinical exam. No peripheral edema. Labs unremarkable. EKG reveals occasional PVCs no evidence for ST elevation or acute changes. Pt is scheduled to see PCP on . Recommend ongoing outpatient workup and consider Holter as needed. No evidence for acute symptoms today requiring ED visit. Red flags and return precautions discussed, including to monitor for increased pain, difficulty breathing or new concerns. paysola Not available 04/10/2024 16:46:16 Plan of Treatment Reminders Order Date Submit Date Provider Last Modified By Organization Details Last Modified Time Details Appointments None record ed. Lab None record ed. Referral None record ed. Procedures None record ed. Surgeries None record ed. Imaging None record ed. Medication Orders None record ed. Patient TargetsNo targets recorded. Patient InstructionsNo instructions recorded. Reason for Referral None Reported. Medical Equipment None Reported. Medications Name Sig Start Date Stop Date Status Note LastModified by Organization Details LastModified Time celecoxib 200 mg capsule TAKE 1 CAPSULE BY MOUTH TWICE DAILY active Not Available Not Available No t Available acetaminophe n 325 mg tablet TAKE 2 TABLETS BY MOUTH EVERY 6 HOURS NEEDED FOR PAIN active Not Available Not Available No t Available doxycycline hyclate 100 mg capsule TAKE 1 CAPSULE BY MOUTH TWICE DAILY FOR 10 DAYS. MAY. TAKE WITH FOOD TO MINIMIZE ABDOMINAL DISCOMFORT active Not Available Not Available N ot Available nicotine 14 mg/24 hr daily transdermal patch active Not Available Not Available Not Available aspirin 325 mg tablet TAKE 1 TABLET BY MOUTH 2 TIMES A DAY FOR 42 DAYS active Not Available Not Available Not Available famotidine 40 mg tablet TAKE 1 TABLET BY MOUTH TWICE DAILY active Not Available Not Available No t Available prednisone 20 mg tablet TAKE 1 TABLET BY MOUTH DAILY FOR 5 DAYS WITH FOOD OR MILK active Not Available Not Available No t Available clonazepam 0.5 mg tablet TAKE 1 TABLET BY MOUTH TWICE DAILY NEEDED FOR ANXIETY active Not Available Not Available No t Available chlorthalido ne 25 mg tablet TAKE HALF TABLET BY MOUTH DAILY active Not Available Not Available Not Available sulfamethoxa zole 800 mg-trimethop rim 160 mg tablet TAKE 1 TABLET BY MOUTH TWICE DAILY active Not Available Not Available No t Available aspirin 325 mg tablet,delay ed release TAKE 1 TABLET BY MOUTH TWICE DAILY FOR 42 DAYS active Not Available Not Available No t Available amlodipine 10 mg tablet TAKE 1 TABLET BY MOUTH DAILY active Not Available Not Available Not Available docusate sodium 100 mg capsule TAKE 1 CAPSULE BY MOUTH DAILY active Not Available Not Available Not Available omeprazole 20 mg capsule,malissa yed release TAKE 1 CAPSULE BY MOUTH DAILY active Not Available Not Available Not Available hydrochlorot hiazide 25 mg tablet TAKE 1 TABLET BY MOUTH DAILY IN THE MORNING active Not Available Not Available No t Available lisinopril 40 mg tablet TAKE 1 TABLET BY MOUTH DAILY IN THE MORNING active Not Available Not Available No t Available fluticasone propionate 50 mcg/actuatio n nasal spray,suspen izabela SHAKE LIQUID AND USE 1 SPRAY IN EACH NOSTRIL TWICE DAILY active Not Available Not Available Not Available lisinopril 2.5 mg tablet TAKE 1 TABLET BY MOUTH DAILY active Not Available Not Available Not Available amoxicillin 500 mg-potassium clavulanate 125 mg tablet active Not Available Not Available Not Available nicotine 7 mg/24 hr daily transdermal patch APPLY 1 PATCH TOPICALLY TO THE SKIN DAILY active Not Available Not Available No t Available oxycodone 5 mg tablet TAKE 1 TABLET BY MOUTH EVERY 6 HOURS NEEDED FOR PAIN active Not Available Not Available No t Available rosuvastatin 40 mg tablet TAKE 1 TABLET BY MOUTH DAILY active Not Available Not Available Not Available eszopiclone 1 mg tablet TAKE 1 TABLET BY MOUTH EVERY NIGHT AT BEDTIME FOR SLEEP active Not Available Not Available No t Available aripiprazole 2 mg tablet TAKE 1 TABLET BY MOUTH EVERY NIGHT AT BEDTIME FOR MOOD STABILIZATO IN active Not Available Not Available No t Available quetiapine 50 mg tablet TAKE 1 TABLET BY MOUTH EVERY NIGHT AT BEDTIME FOR SLEEP /MOOD active Not Available Not Available Not Available hydrochlorot hiazide 12.5 mg tablet TAKE 1 TABLET BY MOUTH DAILY active Not Available Not Available Not Available GaviLyte-G 236 gram-22.74 gram-6.74 gram-5.86 gram oral solution active Not Available Not Available Not Available lurasidone 20 mg tablet TAKE 1 TABLET BY MOUTH EVERY NIGHT AT BEDTIME FOR MOOD STABILIZATI ON/DEPRESSI ON active Not Available Not Available No t Available Vitals Date Recorded Body weight Body temperature Heart rate Oxygen saturation Oxygen saturation in Arterial blood by Pulse oximetry Respiratory rate Body height Systolic blood pressure Diastolic blood pressure Provider Name and Address Organization Details Last Updated DateTime 4 16118.9 84 g 97.6 [degF] 82 /min 97 % 97 % 16 /min 167.64 cm 113 mm[Hg] 74 mm[Hg] Not Available [facility] - production 16:36:49 Social History None recorded. Functional Status None recorded. Mental Status None recorded. Family History Nothing Reported. Medical History No medical history recorded. Gynecological HistoryNo gynecological history recorded. Obstetrics History GPAL:G 0 P 0 0 0 0 Past Encounters Encounter ID Performer Location Encounter Start Date Encounter Closed Date Diagnosis/Indication Diagnosis SNOMED-CT Code Diagnosis ICD10 Code Diagnosis Note [id number] Brigid Davis MD [facility] [address] [place] [phone] 04/10/2024 16:36:21 04/11/2024 12:38:42 Intermittent palpitations 984194744 R00.2 Health Concerns Section Related Observation LastModified by Organization Detai ls LastModified Time None Recorded Concern Status LastModified by Organization Details LastModified Time None Recorded Advance Directives Directive None Recorded Payers Encounter Date Sequence Insurance Name Policy Number Policy Ferguson Covered Member ID Ferguson Member ID Guarantor Name 04/10/2024 1 [facility] - DOS ON OR AFTER 2023 - DUAL ELIGIBLE - LONG-TERM OPTIONS AND ONE CARE (MEDICARE REPLACEMENT/ADV ANTAGE - HMO) Claudia Fernando [id number] Claudia Fernando Notes Date Note Type Note Provider Name and Address Organization Details Recorded Time 04/10/2024 text/html [facility] Nurse Triage Notes (Kal Sosa): Chief Complaints: Tachycardia/Palpita tions Allergies: Unknown Comments: Lead Electrician verified the member's name//address and phone number. Mbr's granddaughter calling in reporting mbr has been having intermittent palpitations throughout the day. Mbr reports also had palpitations yesterday, but states today they are more frequent. Mbr denies CP or SOB. Mbr denies headache or dizziness/ lightheadedness, states did have headache yesterday that resolved. Education provided on the response time and the member was advised to monitor reported s/s and seek emergency treatment if needed -Domi Sosa RN Real Estate Inspector POC Test Results from Saturnino Gonzalez [facility] (1) [16:35] pH: 7.46 pH units pCO2: 39.8 mmHg pO2: 37.8 mmHg Na: 141 mmol/L K: 3.6 mmol/L iCa: 1.13 mmol/L Cl: 103 mmol/L TCO2: 27.5 mEq/L Hct: 46 % Hb: 15.5 g/dL Glu: 122 mg/dL Lac: 0.8 mmol/L Cr: 1.1 mg/dL BUN: 30 mg/dL A ................... ................... ................... ................... ................... ................... ................... ........ Real Estate Inspector Note From Saturnino Gonzalez: Pt reports intermittent palpitations and CP for approx one week. Pt denies any associated SOB, [place], f/n/v/d. PCP increased lisinopril last Wednesday over the phone due to hypertension and scheduled a f/u for this . Pt is alert, NAD. VSS. Afebrile. Non focal neuro exam. Normal gait. Lungs CTA. Benign ABD exam. No LE edema. EKG: sinus with PVC? s . Unremarkable POC labs. Pt reassured and instructed to keep f/u with PCP. Pt instructed to seek emergent medical care for new or worsening sx, such as SOB with diaphoresis or severe pain. ................... ................... ................... ................... ................... ................... ................... ........ Disposition: Fulfilled Brigid Davis MD [address] [facility], [place], [phone], [facility] 04/10/2024 20:15:29 OBGyn Episode No OBEpisode recorded.
--- OUTSIDE RECORDS SUMMARY | 2025-01-05 09:52 | XMS_ITS | Encounter Summary ---
Author Organization [facility] Address [address] [place] [address] Care Team Providers Care Donor Services Manager Name Role Phone Unavailable Primary Care Provider Unavailabl e Encounter Details Date Type Department Care Team (Latest Contact Info) Description 08/01/2019 Abstract [facility] CONVERSIONS Dental, Provider, DDS Social History Tobacco Use Types Packs/Day Years [...]
--- OUTSIDE RECORDS SUMMARY | 2025-01-05 09:52 | XMS_ITS | Clinical Summary ---
Author Organization [facility] Address [address] [place] [address] Care Team Providers Care Food Manager Name Role Phone Unavailable Primary Care Provider Unavailabl e Medications ibuprofen 600 MG tabletIndications:P ain in other joint take 1 tablet by oral route 3 times every day with food Strength: 600 mg 90 tablet 1 3 Active rosuvastatin (Crestor) 40 MG tabletIndications:M ixed hyperlipidemia Take 1 tablet (40 mg) by mouth in the morning. 90 tablet 1 3 Active Social History Tobacco Use Types Packs/Day Years Used Date Smoking Tobacco: Never Assessed Comments Unknown Sex and Gender Information Value Date Recorded Sex Assigned at Female 09/07/2022 10:18 AM EDT Legal Sex Female 10:18 AM EDT Gender Identity Female 09/07/2022 10:18 AM EDT Sexual Orientation Choose not to disclose 2021 10:18 AM EDT Last Filed Vital Signs Vital Sign Reading Time Taken Comments Blood Pressure 114/64 01/06/2022 12:03 AM EST Pulse 78 01/06/2022 12:03 AM EST Temperature - - Respiratory Rate - - Oxygen Saturation - - Inhaled Oxygen Concentration - - Weight 71 kg (156 lb 9.6 oz) 09/25/2021 12:11 AM EST Height 160 cm (5' 3 ) 09/25/2021 12:11 AM EST Body Mass Index 27.74 09/25/2021 12:11 AM EST Plan of Treatment Health Maintenance Due Date Last Done Comments CT Colonography 1956 Colonoscopy 1956 Colorectal Cancer Screening 1956 Depression Screening 1956 FIT DNA/Cologuard 1956 FIT 1956 FOBT 1956 Sigmoidoscopy 1956 Alcohol/Substance Use Screening 1968 Tobacco Screening 1968 Mammogram 02/13/2024 02/12/2022, 04/0 05/2022, 01/09/2021, Additional history exists COVID-19 Vaccine ( season) 2024 12/03/2021, 03/13/2021, 02/20/2021 DTaP/Tdap/Td Vaccines (4 - Td or Tdap) 11/18/2027 11/18/2017, 03/24/2012, 11/10/1999 RSV Patients and Patients Aged 60 years or older (1 - 1-dose 75+ series) 2031 Pneumococcal Vaccine: 50+ Years Completed 06/07/2023, 05/14/2022, 05/14/2022, Additional history exists Zoster Vaccines Completed 06/08/2024, 02/07, 11/18/2017 Influenza Vaccine Completed 10/27/2024, , 09/04/2022, Additional history exists HIB Vaccines Aged Out No longer eligi ble based on patient's age to complete this topic HPV Vaccines Aged Out No longer eligi ble based on patient's age to complete this topic Hepatitis A Vaccines Aged Out No long er eligible based on patient's age to complete this topic Hepatitis B Vaccines Aged Out No long er eligible based on patient's age to complete this topic IPV Vaccines Aged Out No longer eligi ble based on patient's age to complete this topic Meningococcal Vaccine Aged Out No misti ashely eligible based on patient's age to complete this topic RSV under 20 months Aged Out No longe r eligible based on patient's age to complete this topic Rotavirus Vaccines Aged Out No longer eligible based on patient's age to complete this topic Procedures Procedure Name Priority Date/Time Associated Diagnosis Comments MAMMOGRAM GENERIC Routine 02/12/2022 9:3 0 AM EDT from Last 3 Months or Most Recently Relevant to Health Maintenance Results * Mammography Report 1 (02/12/2022 9:30 AM EDT) Anatomical Region Laterality Modality Breast Bilateral Mammography 02/12/2022 9:30 AM EDT Narrative 02/12/2022 3:50 PM EDT Refer to the Notes tab for result details [facility] Procedure: Mammography Report 1 Procedure Note Provider, MD Huey - 01/31/2023 Refer to the Notes tab for result details [facility] Procedure: Mammography Report 1 Marcus Pearce MD IMG BI PROCEDURES Final Result from Last 3 Months or Most Recently Relevant to Health Maintenance
--- OUTSIDE RECORDS SUMMARY | 2025-01-05 09:52 | XMS_ITS | Continuity of Care Document ---
Author Organization [facility] Address [address] [place] [address]- Care Team Providers Care Director Of Retail Analytics Name Role Phone Jose Wilson MD Primary Care Physician [place] [facility] [place]): 11/29/24 - 12/29/24 [facility] [address] [place], [place] [address] Encounter Type: Triage Allergies, Adverse Reactions, Alerts [...] conjugate vaccine 4 05/14/22 Given SARS-CoV-2 mRNA ([id number]) vax 12/03/21 Recorded SARS-CoV-2 (COVID-19) mRNA BNT-162b2 vac 03/13/21 Recorded SARS-CoV-2 (COVID-19) mRNA BNT-162b2 vac 02/20/21 Recorded Zoster Vaccine Live 11/18/17 Recorded tetanus/diphtheria/pertussis, acel(Tdap) 11/18/17 Recorded tetanus/diphtheria/pertussis, acel(Tdap) 03/24/12 Recorded tetanus/diphtheria/pertussis, acel(Tdap) 11/10/99 Recorded pneumococcal 23-valent vaccine 03/24/12 Recorded 1Result Comment: [id number] given w/out incident 2Result Comment: [facility]- [id number] 3Result Comment: [facility] [id number] 4Result Comment: [id number] given w/out incident Medications clonazePAM 0.5 mg [...] 12 Refills, Maintenance, 10/17/24 5:32:00 PM EST, [facility] #[id number], 158, cm, 09/26/24 13:27:00 EST, Height, 76, kg, 02/01/24 10:53:00 EDT, Dry Weight Start Date: 10/17/24 Status: Ordered Quantity: 60.0 Unit: tablet Repeat number: 1 fluticasone 50 mcg/inh nasal spray 1 sprays = 50 mcg, Nares, Both, 2 times a day, # 16 Gm, 0 Refills, Maintenance, 11/13/24 11:04:00 AM EST, [id number], Partial fill upon patient request if the [...] 1 Refills, Maintenance, 12/22/24 3:32:00 PM EST, [facility] #[id number], 158, cm, 11/17/24 9:59:00 EST, Height, 72, kg, 10/27/24 8:27:00 EST, Dry Weight Start Date: 12/22/24 Status: Ordered Quantity: 90.0 Unit: tablet Repeat number: 1 tiZANidine 2 mg oral tablet 2 mg, 1, tablet, By Mouth, Every 8 hours, PRN, # 42 tablet, Refills 0, Tot. Refills 0, Maintenance,as needed for muscle spasm, 12/29/24 8:47:00 AM EST, Route to Pharmacy Electronically, [facility] #[id number], Partial fill upon patient request if the [...] Lucía Jurado RN Position: [facility] RN Member Role: Primary Care Nurse Name: Cherise Pang RN Position: [facility] AMB Nurse Member Role: Primary Care Nurse Name: Abiel Roman RN Position: [facility] RN Member Role: Primary Care Nurse Name: Greg Oro MD Position: S Outreach Member Role: Lifetime Consulting Physician Address: [address] [place] [address] [address] [facility] [place] [address]- Telecom: Name: Mona Saha RN Position: [facility] RN Member Role: Primary Care Nurse Name: Harmony Villalta Position: [facility] Outreach Member Role: Lifetime Consulting Physician Name: Jose Wilson MD Position: [facility] Physician - Primary Care Member Role: PCP Address: [address] [place] [address] Adult & Pediatric Medicine [place], [place] [address] Telecom: Care Team Related Persons Name: GAY MAGALLANES Name: SABIHA MACKENZIE Name: WALT LOVE Insurance Providers Guarantor name: [employer] Health Plan Information #: 1 Payer: NA Member Number: NA Policy Number: NA Group Number: NA
[2025-01-05 10:58] LABS: Anion Gap 14 (12-20); Blood Urea Nitrogen 19 mg/dL (9-16); Carbon Dioxide 28 mmol/L (22-29); Chloride 104 mmol/L (96-108); Estimated Glomerular Filt Rate 58; Potassium 4.4 mmol/L (3.3-5.1); Sodium 142 mmol/L (135-145)
== END 2025-01-05 09:16 | disposition home or self-care (01) ==
LOC: HO.LAB 09:15
PROVIDERS: Visit Provider Internal Medicine Nephrology
DX: N18.31 Chronic kidney disease, stage 3a (principal)
CPT/HCPCS: 36415; 80051; 82565; 84520

== ENCOUNTER 2025-01-10 10:12 | Outpatient (AMB) | payer OTHER, SELFPAY ==
--- NOTE | 2025-01-10 10:17 | HO.NEPHOV_ITS ---
Vital Signs 01/10/25 10:19 Height 5 ft 3 in Weight 160 lb 8 oz BMI 28.4 BP 100/60 Blood Pressure Location Rt brachial Position Sitting Pulse 78 Pulse Source Pulse Oximeter Pulse Oximetry (%) 98 Oxygen Delivery Method Room Air Intake Visit Reasons: PHILLIP-Conf Engineering Document Control Clerk Required: No Accompanied by: Grand Child Allergies cephalexin Allergy (Unknown, Verified 01/10/25 10:18) Swelling Cephalosporins Allergy (Unknown, Verified 01/10/25 10:18) SWELLING ciprofloxacin [CIPROFLOXACIN] Allergy (Unknown, Verified 01/10/25 10:18) SWELLING naproxen [NAPROXEN] Allergy (Unknown, Verified 01/10/25 10:18) BLISTERS IN MOUTH HPI Comments Details: 67-year-old female with a PMH significant for?HTN . She has H/O PHILLIP. Her HCTZ was D/Slava when she had PHILLIP. She now has been having intermittent orthostatic symptoms. In the past she was given calcium channel emil which she did not tolerate due to edema. She does not take any nonsteroidal anti-inflammatories or any other new medications since last visit. She does not have any urinary symptoms, chest pain, shortness of breath, proximal nocturnal dyspnea or orthopnea. She claims to be compliant with a low-sodium diet. Her recent serum creatinine has improved to baseline with medication changes [facility] Medical History Schizoaffective disorder, bipolar type Elevated cholesterol Arthritis History of abdominal hernia Primary osteoarthritis of left knee HTN (hypertension) Depression Chronic pain Surgical History Hx laparoscopic cholecystectomy (08/03/23) Hx of tonsillectomy History of carpal tunnel surgery H/O wrist surgery History of back surgery Hx of inguinal hernia surgery Social History Household Members: None Housing: House Are you a primary behavioral health care coordinator to a significant other at home: No Do you presently have visiting nurse or other home services: Yes (ELDER COUNSELOR) Alcohol intake: never Patient Tobacco Use Status: Current everyday Tobacco user Smoking Start Date: 11/08/79 Tobacco use type: Cigarette Cigarettes Per Day: 5 Years Smoked: 50 Second Hand Smoke Exposure: No service: No Current occupational status: unemployed Review of Systems Const All systems reviewed & are unremarkable except as noted in HPI and below Physical Exam Vital Signs: Last Vital Signs Pulse 78 01/10/25 10:19 BP 100/60 01/10/25 10:19 Pulse Ox 98 01/10/25 10:19 Oxygen Delivery Method Room Air 01/10/25 10:19 BMI result Body Mass Index 28.4 Const General: comfortable and no acute distress Orientation/consciousness: patient oriented x3 HEENT Head: Yes normocephalic Mouth: Normal oral and palatal mucosa present Eyes EOM: EOMs intact bilaterally Neck Neck: Yes supple Resp Auscultation: clear to auscultation bilaterally Cardio Jugular venous distension: no JVD Rate: regular rate GI Palpation (GI): Soft to palpation Auscultation: normal bowel sounds General: Yes no CVA tenderness Back/Spine/Pelvis Back: no CVA tenderness Skin General skin exam: no rashes or lesions noted Neuro General: patient oriented x3 and moves all extremities Extrem General: Yes no pedal edema Results Reviewed Nephrology Results: Sodium 142 mmol/L (135-145) 01/05/25 Potassium 4.4 mmol/L (3.3-5.1) 01/05/25 Chloride 104 mmol/L (96-108) 01/05/25 Carbon Dioxide 28 mmol/L (22-29) 01/05/25 BUN 19 mg/dL (9-16) H 01/05/25 Creatinine 0.96 mg/dL (0.5-1.4) 01/05/25 Calcium 10.1 mg/dL (8.4-10.2) 05/01/24 Assessment & Plan Assessment & Plan (1) CKD stage 3a, GFR 45-59 ml/min: Code(s): N18.31 - Chronic kidney disease, stage 3a Category: Medical (2) HTN (hypertension): Code(s): I10 - Essential (primary) hypertension Category: Medical Qualifiers: Hypertension type: primary hypertension Qualified Code(s): I10 - Essential (primary) hypertension Plan She could continue lisinopril 5 mg at night . Her blood pressure is consistently OK at home. She needs to maintain herself on low-sodium diet. She should avoid nonsteroidal anti-inflammatory medications. All questions were answered. Coding Level of Care Code Est Pt Level 4 (42622) Diagnoses CKD stage 3a, GFR 45-59 ml/min N18.31 Primary hypertension I10 Hypertension type: primary hypertension
[2025-01-10 10:19] VITALS: BP 100/60; PULSE 78; O2SAT 98; BMI 28.4
--- OUTSIDE RECORDS SUMMARY | 2025-01-10 12:03 | XMS_ITS | Continuity of Care Document ---
Author Organization [facility] Address [address] [place] [address]- Care Team Providers Care Eeg Tech Name Role Phone Jose Wilson MD Primary Care Phys[id number]): [facility]29[facility]24 - 01/05/25 [facility] [address] [place], [place] [address] Encounter Diagnosis Hypertension, essential(Discharge Diagnosis) - 12/29/24 Tobacco dependence(Discharge Diagnosis) - 12/29/24 Attending Physician: Jose Wilson MD Encounter Type: Office Visit Allergies, Adverse Reactions, Alerts Substance Criticality Severity [...] conjugate vaccine 4 05/14/22 Given SARS-CoV-2 mRNA ([id number]) vax 12/03/21 Recorded SARS-CoV-2 (COVID-19) mRNA BNT-162b2 vac 03/13/21 Recorded SARS-CoV-2 (COVID-19) mRNA BNT-162b2 vac 02/20/21 Recorded Zoster Vaccine Live 11/18/17 Recorded tetanus/diphtheria/pertussis, acel(Tdap) 11/18/17 Recorded tetanus/diphtheria/pertussis, acel(Tdap) 03/24/12 Recorded tetanus/diphtheria/pertussis, acel(Tdap) 11/10/99 Recorded pneumococcal 23-valent vaccine 03/24/12 Recorded 1Result Comment: [id number] given w/out incident 2Result Comment: [facility] [place] 2]- [id number] 3Result Comment: [facility] [place] 2] [id number] 4Result Comment: [id number] given w/out incident Medications clonazePAM 0.5 mg [...] tablet, 12 Refills, Maintenance, 10/17/24 5:32:00 PM [id number], 158, cm, 09/26/24 13:27:00 EST, Height, 76, kg, 02/01/24 10:53:00 EDT, Dry Weight Start Date: 10/17/24 Status: Ordered Quantity: 60.0 Unit: tablet Repeat number: 1 fluticasone 50 mcg/inh nasal spray 1 sprays = 50 mcg, Nares, Both, 2 times a day, # 16 Gm, 0 Refills, Maintenance, 11/13/24 11:04:00 AM EST, [place], [id number], Partial fill upon patient request if the [...] 1 Refills, Maintenance, 12/22/24 3:32:00 PM EST, [facility] #[id number], 158, cm, 11/17/24 9:59:00 EST, Height, 72, kg, 10/27/24 8:27:00 EST, Dry Weight Start Date: 12/22/24 Status: Ordered Quantity: 90.0 Unit: tablet Repeat number: 1 tiZANidine 2 mg oral tablet 2 mg, 1, tablet, By Mouth, Every 8 hours, PRN, # 42 tablet, Refills 0, Tot. Refills 0, Maintenance,as needed for muscle spasm, 12/29/24 8:47:00 AM EST, Route to Pharmacy Electronically, [facility] #[id number], Partial fill upon patient request if the [...] diabetes mellitus with hyperglycemia Confirmed 07/06/24 Active Diagnosis Diagnosis Type Effective Dates Health Status Clinical Service Informant Hypertension, essential Discharge Diagnosis 12/29/24 Tobacco dependence Discharge Diagnosis 12/29/24 Vital Signs Most recent to oldest [Reference Range]: 1 Height 158 cm (12/29/24 8:03 AM) Weight 72.5 kg (12/29/24 8:03 AM) Oxygen Saturation [94-100 %] 96 % (12/29/24 8:03 AM) Pulse Rate [55-90 bpm] 75 bpm (12/29/24 8:03 AM) Body Mass Index [18.5-24.99 kg/m2] 29.04 kg/m2 *H* (12/29/24 8:03 AM) Blood Pressure [90-138/55-84 mm Hg] 100/ 64mm Hg (12/29/24 8:03 AM) Temperature [96.8-100.4 DegF] 97.8 DegF (12/29/24 8:03 AM) Mode of Delivery (Oxygen) Room air (12/29/24 8:03 AM) Blood pressure sites Arm, right (12/29/24 8:03 AM) Temperature Route Temporal (12/29/24 8:03 AM) Dry Weight 72.5 kg (12/29/24 8:03 AM) Weight Obtained Via Standing scale (12/29/24 8:03 AM) Dry Weight Obtained Via Standing scale (12/29/24 8:03 AM) Social History Social History Type Response Smoking Status 5-9 cigarettes (betw een 1/4 to 1/2 pack)/day in last 30 days entered on: 09/10/22 Sex Sex Representation Female (finding) Note * Joie Clay: PERFORM Event Display: Patient Education/Instruction Authored Date: [id number] Ambulatory Adult Visit Summary [facility] [address] [place] [address] Name: SUNSHINE STERLING : 1955?? Visit: 12/29/2024 07:45?? Ambulatory Visit Instructions ?? Your Care Team Primary Care Provider Jose Wilson MD? This Visit Provider Jose Wilson MD Your Diagnosis Laceration of forehead Controlled type 2 diabetes mellitus with hyperglycemia Hypertension, essential Tobacco dependence Hypothyroidism Vitals Signs Temperature: 97.8 DegF Height: 158 cm Pulse Rate: 75 bpm Weight: 72.5 kg Systolic Blood Pressure: 100 mm Hg Body Mass Index:??29.04 kg/m2??High Diastolic Blood Pressure: 64 mm Hg Body surface area: 1.78 Oxygen Saturation: 96 % ?? What to do next Instructions From Your Provider 1.?? stop hydrochlorothiazide, continue lisinopril but check your BP daily.?? Your BP may be too low and contributed to getting lightheaded, adding to your fall? 2.?? remove stitches today 3.?? repeat fasting lab work no sooner than January 25 due to insurance issues. 4.?? may get a glucometer to check your sugars.?? I sent a Rx for Freestyle lite kit to your pharmacy.?? 4. limit alcohol consumption.?? Scheduled Follow-Up Appointments Wednesday 8:45 AM EDT ?? Where: [facility] Radiology [facility] Breast and [facility] [address], [address] [place] [address]- Status: Pending Wednesday 9:00 AM EDT ?? Where: [facility] Radiology [facility] Breast and [facility] [address], [address] [place] [address]- Status: Pending Wednesday 11:00 AM EDT ?? With: Jose Wilson MD Where: [facility] [address] [place] [address]- Status: Pending Future Orders Hemoglobin A1C (Monitoring) (Hemoglobin A1c, (Diagnostic)) - Routine, Once, 01/25/25 3:00:00 EDT, Future Order, [facility], Blood?? ALT - Routine, Once, 01/25/25 3:00:00 EDT, Future Order, [facility], Blood?? AST - Routine, Once, 01/25/25 3:00:00 EDT, Future Order, [facility], Blood?? Lipid Panel - Routine, Once, 01/25/25 3:00:00 EDT, Future Order, [facility], Blood?? Basic Metabolic Panel - Routine, Once, 01/25/25 3:00:00 EDT, Future Order, [facility], Blood?? Microalbumin Urine (Urine Microalbumin) - Routine, Once, 01/25/25 3:00:00 EDT, [facility], Urine?? CBC - Routine, Once, 01/25/25 3:00:00 EDT, Future Order, [facility], Blood?? Thyroid Panel - Routine, Once, 12/29/24 8:40:00 EST, Future Order, [facility], Blood?? Medications The list below reflects the information in our records and provided by you today along with any changes made during this visit. Please continue your medications until treatment is completed or stopped by your provider. If this is different from the information you have or there are other questions,please contact the prescribing provider. What How Much When Why Instructions New Durable Medical Equipment (Freestyle Lite Lancets) See instructions Controlled type 2 diabetes mellitus with hyperglycemia Duration: 30 Days Refills: 5 use to check blood sugars once a day ??Dx: E11.9 ?? Pickup at [facility] #99962 New Durable Medical Equipment (Freestyle Lite Monitor) See instructions Controlled type 2 diabetes mellitus with hyperglycemia Duration: 30 Days use to check blood sugars once a day ??Dx: E11.9 ?? Pickup at [facility] #37935 New Durable Medical Equipment (Freestyle Lite Test Strips) See instructions Controlled type 2 diabetes mellitus with hyperglycemia Duration: 30 Days Refills: 4 use to check blood sugars once a day ??Dx: E11.9 ?? Pickup at [facility] #27271 New Tizanidine (tiZANidine 2 mg oral tablet) 1 tab(s) Oral Every 8 hours as needed for as needed for muscle spasm Duration: 14 Days Pickup at [facility] #35378 Changed Lisinopril (lisinopril 5 mg oral tablet) 1 tab(s) Oral Twice a day Duration: 30 Days Unchanged Acetaminophen (Tylenol 8 Hour 650 mg oral tablet, extended release) 2 tab(s) Oral Every 8 hours Unchanged Ascorbic Acid (Vitamin C 1000 mg oral tablet) 1 tab(s) Oral Daily Unchanged Clonazepam (clonazePAM 0.5 mg oral tablet) 0.5 tab(s) Oral Twice a day Duration: 30 Days Unchanged Ergocalciferol (Vitamin D2) 1 tab(s) Oral Daily Unchanged Famotidine (famotidine 40 mg oral tablet) 1 tab(s) Oral Twice a day Unchanged Fluticasone Nasal (fluticasone 50 mcg/ inh nasal spray) 1 spray(s) Nares, Both Twice a day Unchanged Lamotrigine (lamotrigine 25 mg oral tablet) 1 tab(s) Oral Daily Duration: 30 Days Unchanged Rosuvastatin (rosuvastatin 40 mg oral tablet) 1 tab(s) Oral Daily Pharmacy Information [facility] #[id number]: [address], [place] [phone] Test Performed Below is a partial list of the tests performed during your Visit. You may have had other tests and procedures not included in this list. Please discuss all test results with your provider. ALT?-- Results Pending -- AST?-- Results Pending -- Basic Metabolic Panel?-- Results Pending -- CBC?-- Results Pending -- Hemoglobin A1c, (Diagnostic)?-- Results Pending -- Lipid Panel?-- Results Pending -- Thyroid Panel?-- Results Pending -- Urine Microalbumin?-- Results Pending -- Medications and Immunizations Administered Medications Given During Visit No medications given during this visit.?? Allergies (NKA means No Known Allergies) cephalosporins??(itchy, rash) ciprofloxacin??(swelling, itch) naproxen??(Cold sores) Common Emergency Awareness Tips IS IT A STROKE? Act FAST and Check for these signs: FACE Does the face look uneven? ARM Does one arm drift down? SPEECH Does their speech sound strange? TIME Call at any sign of stroke ?? Heart Attack Signs Chest discomfort: Most heart attacks involve discomfort in the center of the chest and lasts more than a few minutes, or goes away and comes back. It can feel like uncomfortable pressure, squeezing, fullness or pain. Discomfort in upper body: Symptoms can include pain or discomfort in one or both arms, back, neck, jaw or stomach. Shortness of breath: With or without discomfort. Other signs: Breaking out in a cold sweat, nausea, or lightheaded. Remember, MINUTES DO MATTER. If you experience any of these heart attack warning signs, call to get immediate medical attention! ?? Smoking can increase your chances of developing chronic health problems and can cause harmful effects to other family members in your house. If you smoke, you are strongly encouraged to quit. Please call [employer] [facility] at [phone] or [phone] (Former[employer]) ([phone]) or log in to [email or web address] for referrals to smoking cessation programs. ?? The National Suicide Prevention Hotline is available 31/05 if you or someone you know needs to find a reason to keep living. By calling 0-929-439-dbpd (6557) you'll be connected to a skilled, trained counselor at a crisis center in your area. [facility] Health Portal You can view and manage your care through the patient portal or by using a health care ibeth of your choosing. [employer] is a website that allows you to securely view your medical information including your hospital discharge summary, office visit summaries, medications and follow-up visits. You can also request appointments, renew medications, and request access to your medical information using a health care ibeth of your choosing, or just ask a question. You can enroll at [email or web address] or register during your next office visit. [facility], in keeping with [facility] guidance, no longer requires face masks for staff, patientsor visitors in most situations. Similiar to time spent indoors at other locations, there is the chance that you were exposed to repiratory viruses during your time with us (such as flu or COVID-19). If you develop symptoms concerning for a viral respiratory infection, please seek testing (and treatment if indicated) from your medical provider or home test kit. ?? Disclaimer: The information provided is of a general nature and is intended to be used in conjunction with the recommendations and advice of your health care practitioner. Every effort has been made to ensure that the information provided is accurate and complete at the time it is provided to you however, as your needs change, or, as new information becomes available, different or additional instructions may be required. ?? If you have questions, please consult with your primary care provider or pharmacist, as appropriate. This information is not intended to serve as substitution for assessment and evaluation by a qualified health care provider. If you do not have a primary care provider, you may find a [facility] provider by calling [facility] [employer] Link at [phone]. Patient Care team information Care Team Personnel Name: Lucía Jurado RN Position: [facility] RN Member Role: Primary Care Nurse Name: Cherise Pang RN Position: [facility] JUNIOR Nurse Member Role: Primary Care Nurse Name: Abiel Roman RN Position: [facility] RN Member Role: Primary Care Nurse Name: Greg Oro MD Position: [facility] Outreach Member Role: Lifetime Consulting Physician Address: [address] [place] [address] [address] [facility] [place] [address]- Telecom: Name: Mona Saha RN Position: [facility] RN Member Role: Primary Care Nurse Name: Harmony Villalta Position: [facility] Outreach Member Role: Lifetime Consulting Physician Name: Jose Wilson MD Position: [facility] Physician - Primary Care Member Role: PCP Address: [address] [place] [address] Adult [place] [address]- Telecom: Care Team Related Persons Name: GAY MAGALLANES Name: SABIHA MACKENZIE Name: WALT LOVE Insurance Providers Guarantor name: SUNSHINE HALLIE Health Plan Information #: 1 Payer: NA Member Number: [id number] Policy Number: NA Group Number: [facility] Health Plan Information #: 2 Payer: NA Member Number: [id number] Policy Number: NA Group Number: NA
--- OUTSIDE RECORDS SUMMARY | 2025-01-10 12:03 | XMS_ITS | Encounter Summary ---
Author Organization [employer] [facility] Address [address] [place] [address] Care Team Providers Care Email Operations Manager Name Role Phone Unavailable Primary Care Provider Unavailabl e Encounter Details Date Type Department Care Team ([facility] st Contact Info) Description 09/28/2023 Abstract [facility]ICINE [address] [place] [address] Harmony Villalta Social History Tobacco Use Types [...]
--- OUTSIDE RECORDS SUMMARY | 2025-01-10 12:03 | XMS_ITS | Clinical Summary ---
Author Organization [facility], Address [address] [place] [address] [place] [address] Phone Care Team Providers Care Screen Printer Helper Name Role Phone Jose Wilson MD Primary Care Provider [phone] Allergies Active Allergy Reactions Criticality Noted Date [...] time each day Active ergocalciferol 1.25 MG (74002 UT) capsule Take 50,000 Units by mouth [...] patient's age to complete this topic Insurance [facility] ([id number]) [facility] ([id number]) Care Teams Screen Printer Helper Relationship Specialty Start Date End Date Jose Wilson MD [facility] [place], [place] PCP - General Internal Medicine 08/02/23
--- OUTSIDE RECORDS SUMMARY | 2025-01-10 12:03 | XMS_ITS | Encounter Summary ---
Author Organization [facility] Address [address] [place] [address] Care Team Providers Care Power Plant Assistant Name Role Phone Unavailable Primary Care Provider Unavailabl e Encounter Details Date Type Department Care Team (Latest Contact Info) Description 08/01/2019 Abstract [facility] CONVERSIONS Dental, Provider, DDS Social History Tobacco [...]
--- OUTSIDE RECORDS SUMMARY | 2025-01-10 12:03 | XMS_ITS | Data Portability ---
Author Organization [employer] Address [address] [place] [phone] Care Team Providers Care Director Of Government Sales Name Role Phone HIM CCA OTHER Assessment Encounter Date Assessment Date Assessment LastModified by Organization Details LastModified Time 04/10/2024 04/10/2024 I have reviewed and agree with the assessment and plan as documented by the supervisor model making. I provided real-time medical direction for this [...] Address Organization Details Last Updated DateTime 4 09263.9 84 g 97.6 [degF] 82 /min 97 [...] SNOMED-CT Code Diagnosis ICD10 Code Diagnosis Note [id number] Brigid Davis MD Main - [facility] [address] [place] [phone] 04/10/2024 16:36:21 04/11/2024 12:38:42 Intermittent palpitations [id number] R00.2 Health Concerns Section Related Observation LastModified by Organization Detai ls LastModified Time None Recorded Concern Status LastModified by Organization Details LastModified Time None Recorded Advance Directives Directive None Recorded Payers Encounter Date Sequence Insurance Name Policy Number Policy Ferguson Covered Member ID Ferguson Member ID Guarantor Name 04/10/2024 1 [facility] - DOS ON OR AFTER 2023 - DUAL ELIGIBLE - HALF-WAY OPTIONS AND ONE CARE (MEDICARE REPLACEMENT/ADV ANTAGE - HMO) Claudia Fernando [id number] Claudia Fernando Notes Date Note Type Note Provider Name and Address Organization Details Recorded Time 04/10/2024 text/html CRC Nurse Triage Notes (Kal Sosa): Chief Complaints: Tachycardia/Palpita tions Allergies: Unknown Comments: Concrete Placement Equipment Operator verified the member's name//address and phone number. [...] emergency treatment if needed -Domi Sosa RN Dental Scheduling Coordinator POC Test Results from Saturnino Gonzalez [facility] (1) [16:35] pH: 7.46 pH units pCO2: 39.8 mmHg pO2: 37.8 mmHg Na: 141 mmol/L K: 3.6 mmol/L iCa: 1.13 mmol/L Cl: 103 mmol/L TCO2: 27.5 mEq/L Hct: 46 % Hb: 15.5 g/dL Glu: 122 mg/dL Lac: 0.8 mmol/L Cr: 1.1 mg/dL BUN: 30 mg/dL A ................... ................... ................... ................... ................... ................... ................... ........ Dental Scheduling Coordinator Note From Saturnino Gonzalez: Pt reports intermittent [...] ........ Disposition: Fulfilled Brigid Davis MD [address], [place], [address], [facility] 04/10/2024 20:15:29 OBGyn Episode No OBEpisode recorded.
--- OUTSIDE RECORDS SUMMARY | 2025-01-10 12:03 | XMS_ITS | Clinical Summary ---
Author Organization [employer] Address [address] [place] [address] Care Team Providers Care Registrar Museum Name Role Phone Unavailable Primary Care Provider [...]
--- OUTSIDE RECORDS SUMMARY | 2025-01-10 12:03 | XMS_ITS | Encounter Summary ---
Author Organization [facility], Address [address] [place] [address] Phone Care Team Providers Care Sales And Service Change Leader Name Role Phone Jose Wilson MD Primary Care Provider [phone] Encounter Details Date Type Department Care Team (Late st Contact Info) Description 11/10/2023 Documentation Only [facility], [address] [place] [address] Homero Chambers MD [address] [place] [phone] Social History Tobacco Use Types Packs/Day Years [...] on filedocumented in this encounter Care Teams Sales And Service Change Leader Relationship Specialty Start Date End Date Jose Wilson MD [address] [facility] MEDICINE [place], [place] PCP - General Internal Medicine 08/02/23 documented as of this encounter
--- OUTSIDE RECORDS SUMMARY | 2025-01-10 12:03 | XMS_ITS | Encounter Summary ---
Author Organization [facility], Address [address] [place] [address] Phone Care Team Providers Care Implementation Coordinator Name Role Phone Jose Wilson MD Primary Care Provider [phone]- [phone] Encounter Details Date Type Department Care Team (Late st Contact Info) Description 11/10/2023 Documentation Only [facility], [address] [place] [address] Homero Chambers MD [address] [place] [phone] Social History Tobacco Use Types Packs/Day Years [...] on filedocumented in this encounter Care Teams Implementation Coordinator Relationship Specialty Start Date End Date Jose Wilson MD [address] [facility] [place], [place] PCP - General Internal Medicine 08/02/23 documented as of this encounter
== END 2025-01-10 10:43 | disposition home or self-care (01) ==
PROVIDERS: PCP Internal Medicine; Visit Provider Internal Medicine Nephrology
DX: N18.31 Chronic kidney disease, stage 3a (principal); I10 Essential (primary) hypertension
CPT/HCPCS: 99214

== ENCOUNTER → 2025-01-10 10:12 | Outpatient (BNVA) | payer OTHER, SELFPAY | PROVIDERS: PCP Internal Medicine; Visit Provider Internal Medicine Nephrology | DX: I12.9 Hypertensive chronic kidney disease with stage 1 through stage 4 chronic kidney disease, or unspecified chronic kidney disease (principal); N18.31 Chronic kidney disease, stage 3a | CPT/HCPCS: 99212 ==

== ENCOUNTER 2025-01-26 19:04 | Emergency (ER) | payer OTHER, SELFPAY ==
--- NOTE | 2025-01-26 | ECG_ITS ---
Test Reason : CHEST PAIN Blood Pressure : */* mmHG Vent. Rate : 74 BPM Atrial Rate : 74 BPM P-R Int : 162 ms QRS Dur : 76 ms QT Int : 382 ms P-R-T Axes : 47 32 38 degrees QTcB Int : 424 ms Normal sinus rhythm Normal ECG When compared with ECG of 12-Apr-2023 12:39, No significant change was found Referred By: Generic ED Physician Electronically Signed By: Mariano Calvo
--- NOTE | ~2025-01-26 | XR_ITS ---
CLINICAL HISTORY: cp Chest Radiograph Comparison: None Findings: No cardiomegaly. Normal mediastinal contours. No pneumothorax. Question faint opacity in the left lower lung zone. No pleural effusion. Normal upper abdomen. No acute fracture. Impression: Question faint opacity in the left lower lung zone. Developing pneumonia could be considered if there are signs/symptoms of infection. This document has been electronically signed by: Olivia Hunter MD on 01/26/2025 20:14:45
[2025-01-26 19:18] VITALS: BP 171/96; PULSE 76; RESP 18; TEMP 36.7; O2SAT 98; BMI 29.3
--- NOTE | 2025-01-26 19:18 | ED_ITS ---
HPI - Chest Pain General Chief Complaint: General Medical Stated Complaint: CHest pain, headache, high blood pressure Time Seen by Provider: 01/26/25 21:16 Source: patient Mode of arrival: ambulatory Limitations: no limitations History of Present Illness ED Provider: HPI narrative: Patient's history of hypertension on lisinopril 5 mg noticed blood pressure elevated 177/100 with heaviness in the head at 1 p.m no cough no shortness of breath no radiation of the pain patient has had labs and EKG done prior to my evaluation which were normal troponin and EKG without ischemic changes patient's used to take amlodipine before which was stopped because of ankle edema used to take 7.5 mg lisinopril in the past patient is usually take lisinopril at 17:00 and blood pressure is elevated during that time Related Data Home Medications ?Medication ?Instructions ?Recorded ?Confirmed rosuvastatin 40 mg tablet 40 mg PO DAILY 10/21/21 08/10/23 fluticasone propionate 50 1 - 2 spray intranasal DAILY PRN 03/31/22 08/10/23 mcg/actuation nasal Nasal Congestion spray,suspension clonazepam 0.5 mg tablet 0.5 mg PO DAILY PRN Anxiety 07/29/23 09/14/23 Previous Rx's ?Medication ?Instructions ?Recorded acetaminophen 325 mg tablet 650 mg (2 x 325 mg) PO Q6H PRN 04/22/23 Pain, Mild (Pain Scale 1-3) 30 days #240 tabs lisinopril 2.5 mg tablet 2.5 mg PO BID 90 days #180 tabs 09/06/24 Allergies Allergy/AdvReac Type Severity Reaction Status Date / Time cephalexin Allergy Unknown Swelling Verified 01/26/25 19:24 Cephalosporins Allergy Unknown SWELLING Verified 01/26/25 19:24 ciprofloxacin [CIPROFLOXACIN] Allergy Unknown SWELLING Verified 01/26/25 19:24 naproxen [NAPROXEN] Allergy Unknown BLISTERS Verified 01/26/25 19:24 IN MOUTH Review of Systems 2 Review of Systems: Yes all other systems are reviewed and are negative PMFSH Past Medical History Medical History Schizoaffective disorder, bipolar type Elevated cholesterol Arthritis History of abdominal hernia Primary osteoarthritis of left knee HTN (hypertension) Depression Chronic pain Surgical History Hx laparoscopic cholecystectomy (08/03/23) Hx of tonsillectomy History of carpal tunnel surgery H/O wrist surgery History of back surgery Hx of inguinal hernia surgery Social History Social History Household Members: None Housing: House Are you a primary neonatal critical care nurse to a significant other at home: No Do you presently have visiting nurse or other home services: Yes ([employer]) Alcohol intake: never Patient Tobacco Use Status: Current everyday Tobacco user Smoking Start Date: 11/08/79 Tobacco use type: Cigarette Cigarettes Per Day: 5 Years Smoked: 50 Second Hand Smoke Exposure: No Advance Directives: No Advance Directives Information Provided: No service: No Current occupational status: unemployed Physical Exam 2 Vital Signs: Vital Signs: Last Vital Signs Temp 98.1 F 01/26/25 21:10 Pulse 72 01/26/25 21:10 Resp 16 01/26/25 21:10 BP 176/97 H 01/26/25 21:10 Pulse Ox 97 01/26/25 21:10 O2 Del Method Room Air 01/26/25 21:10 BMI result Body Mass Index 29.3 Appearance: Alert. Oriented X3. No acute distress. Eyes: PERRLA, No Nystagmus ENT: Pharynx normal. Oral Mucosa moist Neck: Normal inspection. Neck supple. CVS: Normal heart rate and rhythm. Pulses normal. No murmur/rubs/gallops Respiratory: No respiratory distress. Equal air entry bilateral, no wheezing/rales/rhonchi Abdomen: Soft and nontender. Bowel sounds are present, no mass palpable, no CVA tenderness Skin: Skin warm and dry. Normal skin color. Normal skin turgor. Extremities: No lower extremity edema. No calf tenderness Neuro: Oriented X 3. No motor deficit. No sensory deficit.No cerebellar signs , cranial nerves II-XII intact Course Course Course Narrative: This is a Rapid Medical Exam performed in triage by Yun Bird PA-C. Full HPI, ROS and PE to be performed by primary ED provider. 69yo F w/PMHx CKD, Schizoaffective, HTN, Depression, HLD presenting to the ED c/o BANSAL, nausea, chest pain, & elevated BP 174/100 since 13:00. Admits BANSAL not maximal at onset. Took 5mg Lisinopril 1hr ASSEMBLY LOADER. denies taking anything for pain. Admits last week started taking Chantix. denies blurry vision, weakness, vomiting, AC use PE: no focal neuro deficits. Ambulating w/steady gait Plan: EKG, labs, SARs, CXR Medical Decision Making Medical Decision Making [facility] Narrative: Patient with history of essential hypertension with history of PHILLIP 2 years ago not currently patient is taking lisinopril only 5 mg daily but does have elevated blood pressure in the evening patient advised to take extra dose of 2.5 mg lisinopril if blood pressure continued to be elevated and follow up with segment assembler Differential Diagnosis Differential Diagnoses: The differential diagnosis associated with the presentation includes Lab Data [facility] Lab Attestation statement: I reviewed the patient's lab results. 01/26/25 19:44 01/26/25 19:44 Labs: Lab Results 01/26/25 Range/Units 19:44 WBC 8.1 (4.8-10.8) X10*3/uL RBC 5.08 (4.20-5.50) X10*6/uL Hgb 15.1 (12.0-16.0) g/dl Hct 45.0 (37.0-47.0) % MCV 88.6 (80.0-98.0) fL MCH 29.7 (27.0-33.0) pg MCHC 33.6 (31.0-35.0) g/dl RDW 13.5 (11.0-16.0) % Plt Count 201 (160-400) X10*3/uL MPV 9.3 L (9.4-12.3) fL Immature Gran % (Auto) 0.2 (0.0-0.4) % Neut % (Auto) 43.1 L (45-73) % Lymph % (Auto) 44.8 H (20-40) % Sherman % (Auto) 8.0 (2-11) % Eos % (Auto) 3.0 (0-4) % Baso % (Auto) 0.9 (0-2) % Lymph # (Auto) 3.6 (1.2-4.9) X10*3/uL Sherman # (Auto) 0.7 (0.1-1.2) X10*3/uL Eos # (Auto) 0.2 (0.0-0.4) X10*3/uL Baso # (Auto) 0.1 (0.0-0.2) X10*3/uL Abs Immat Gran (auto) 0.02 (0.00-0.03) X10*3/uL Absolute Neuts (auto) 3.5 (2.0-8.3) x10*3/uL Absolute Nucleated RBC 0.000 (0.0-0.012) X10*3/uL Nucleated RBC % (auto) 0.0 (0.0-0.2) /100WBC Sodium 139 (135-145) mmol/L Potassium 4.1 (3.3-5.1) mmol/L Chloride 105 (96-108) mmol/L Carbon Dioxide 26 (22-29) mmol/L Anion Gap 12 (12-20) BUN 14 (9-16) mg/dL Creatinine 0.86 (0.5-1.4) mg/dL Estim Creat Clear Calc 58.4 Estimated GFR > 60 Random Glucose 83 (60-115) mg/dL Calcium 9.6 (8.4-10.2) mg/dL Magnesium 1.9 (1.6-2.6) mg/dL Total Bilirubin 0.2 (0.0-1.0) mg/dL Direct Bilirubin < 0.2 (0.0-0.5) mg/dL AST 31 (5-31) U/L ALT 46 H (0-31) U/L Alkaline Phosphatase 80 (39-117) U/L Troponin I High Sens < 2.7 (<3.5-17.0) ng/L Total Protein 7.3 (6.5-8.0) g/dL Albumin 4.3 (3.5-5.0) g/dL Influenza Type A (PCR) NEGATIVE (Negative) Influenza Type B (PCR) NEGATIVE (Negative) RSV RNA Qual (PCR) NEGATIVE (Negative) SARS-CoV-2 RNA (RT-PCR) NEGATIVE (Negative) Independent Interpretation I performed an independent interpretation of an: EKG Interpretation: Normal sinus rhythm heart rate 74 beats per minute normal interval normal axis no acute STT wave changes no acute ischemia Discharge Plan Discharge Clinical Impression: HTN (hypertension) Qualifiers: Hypertension type: primary hypertension Qualified Code(s): I10 - Essential (primary) hypertension Patient Disposition: Home, Self-Care Instructions: Chronic Hypertension (DC) Additional Instructions: Decrease salt intake Continue take your lisinopril If you have elevated blood pressure you may take half the dose 2.5 mg if blood pressure is elevated higher than 140/90 Follow up with your segment assembler Prescriptions: No Action acetaminophen 325 mg Tablet 650 mg PO Q6H PRN (Reason: Pain, Mild (Pain Scale 1-3)) 30 Days Qty: 240 0RF clonazepam 0.5 mg tablet 0.5 mg PO DAILY PRN (Reason: Anxiety) rosuvastatin 40 mg tablet 40 mg PO DAILY fluticasone propionate 50 mcg/actuation spray,suspension 1 - 2 spray intranasal DAILY PRN (Reason: Nasal Congestion) lisinopril 2.5 mg tablet 2.5 mg PO BID 90 Days Qty: 180 4RF Print Language: Wolof
[2025-01-26 19:52] LABS: MANUAL DIFF FLAG NO
[2025-01-26 19:57] LABS: Basophils Absolute Auto 0.1 X10*3/uL (0.0-0.2); Basophils Percent Auto 0.9 % (0-2); Eosinophils Absolute Auto 0.2 X10*3/uL (0.0-0.4); Hemoglobin 15.1 g/dl (12.0-16.0); Imm Gran Abs Auto 0.02 X10*3/uL (0.00-0.03); Imm Gran Pct Auto 0.2 % (0.0-0.4); Lymphocytes Absolute Auto 3.6 X10*3/uL (1.2-4.9); Lymphocytes Percent Auto 44.8 % (20-40); Mean Corpuscular HGB Conc 33.6 g/dl (31.0-35.0); Mean Corpuscular Hemoglobin 29.7 pg (27.0-33.0); Mean Corpuscular Volume 88.6 fL (80.0-98.0); Mean Platelet Volume 9.3 fL (9.4-12.3); Monocytes Absolute Auto 0.7 X10*3/uL (0.1-1.2); Neutrophils Absolute Auto 3.5 x10*3/uL (2.0-8.3); Neutrophils Percent Auto 43.1 % (45-73); Platelet Count 201 X10*3/uL (160-400); Red Blood Count 5.08 X10*6/uL (4.20-5.50); Red Cell Distribution Width 13.5 % (11.0-16.0); White Blood Count 8.1 X10*3/uL (4.8-10.8)
[2025-01-26 20:11] LABS: Alanine Aminotransferase 46 U/L (0-31); Albumin Level 4.3 g/dL (3.5-5.0); Alkaline Phosphatase 80 U/L (39-117); Anion Gap 12 (12-20); Aspartate Amino Transferase 31 U/L (5-31); Bilirubin Direct < 0.2 mg/dL (0.0-0.5); Bilirubin Total 0.2 mg/dL (0.0-1.0); Blood Urea Nitrogen 14 mg/dL (9-16); Calcium 9.6 mg/dL (8.4-10.2); Carbon Dioxide 26 mmol/L (22-29); Chloride 105 mmol/L (96-108); Creatinine Clr Calc Pharmacy 58.4; Estimated Glomerular Filt Rate > 60; Glucose Random 83 mg/dL (60-115); Magnesium 1.9 mg/dL (1.6-2.6); Potassium 4.1 mmol/L (3.3-5.1); Sodium 139 mmol/L (135-145); Total Protein 7.3 g/dL (6.5-8.0)
[2025-01-26 20:26] LABS: Troponin-I High Sensitivity < 2.7 ng/L (<3.5-17.0)
[2025-01-26 20:29] LABS: Influenza A PCR NEGATIVE (Negative); Influenza B PCR NEGATIVE (Negative); Resp Syncy Virus RNA Qual PCR NEGATIVE (Negative); SARS COV2 PCR INHOUSE NEGATIVE (Negative)
[2025-01-26 21:10] VITALS: BP 176/97; PULSE 72; RESP 16; TEMP 36.7; O2SAT 97
--- NOTE | 2025-01-26 21:11 | MHC.EDTECH ---
This pct just assumed care of Patient ,vitals taken ,Patient was hooked up to monitoring coordinator ,Patient family member at bedside .
[2025-01-26 22:03] VITALS: BP 154/87; PULSE 71; RESP 16; TEMP 36.7; O2SAT 97
[2025-01-26 22:06] VITALS: BP 154/87
[2025-01-26] MEDS: Acetaminophen 325 MG TABLET 650 MG PO (22:06)
[2025-01-26] MEDS: lisinopriL 2.5 MG TABLET PO (22:06)
[2025-01-26 22:12] VITALS: BP 154/87; PULSE 71; RESP 16; TEMP 36.7; O2SAT 97
== END 2025-01-26 22:13 | disposition home or self-care (01) ==
PROVIDERS: Physician Assistant; Emergency Provider Internal Medicine; PCP Internal Medicine
DX: R07.89 Other chest pain (principal); R51.9 Headache, unspecified; R11.0 Nausea; I10 Essential (primary) hypertension; F17.210 Nicotine dependence, cigarettes, uncomplicated; Z03.818 Encounter for observation for suspected exposure to other biological agents ruled out; Z79.899 Other long term (current) drug therapy
CPT/HCPCS: 0241U; 71045; 80048; 80076; 83735; 84484; 85025; 93005; 99283; 99285

== ENCOUNTER → 2025-01-26 19:07 | Outpatient (BNV) | payer OTHER, SELFPAY | PROVIDERS: Emergency Provider Internal Medicine; PCP Internal Medicine; Visit Provider Internal Medicine Cardiovascular Disease | DX: R07.9 Chest pain, unspecified (principal) | CPT/HCPCS: 93010 ==

== ENCOUNTER → 2025-01-26 19:20 | Outpatient (BNV) | payer OTHER, SELFPAY | PROVIDERS: PCP Internal Medicine; Visit Provider Radiology Diagnostic Radiology | DX: R07.9 Chest pain, unspecified (principal) | CPT/HCPCS: 71045 ==

== ENCOUNTER 2025-02-09 10:44 | Outpatient (AMB) | payer OTHER, SELFPAY ==
--- NOTE | 2025-02-09 10:47 | HO.NEPHOV_ITS ---
Vital Signs 02/09/25 10:48 Height 5 ft 3 in Weight 158 lb 8 oz BMI 28.1 BP 100/74 Blood Pressure Location Lt brachial Position Sitting Pulse 108 H Pulse Source Pulse Oximeter Pulse Oximetry (%) 96 Oxygen Delivery Method Room Air Intake Visit Reasons: 1 MO FU-[facility] Diploma Medical Assistant Required: No Accompanied by: Self / Same As Patient Allergies cephalexin Allergy (Unknown, Verified 02/09/25 10:48) Swelling Cephalosporins Allergy (Unknown, Verified 02/09/25 10:48) SWELLING ciprofloxacin [CIPROFLOXACIN] Allergy (Unknown, Verified 02/09/25 10:48) SWELLING naproxen [NAPROXEN] Allergy (Unknown, Verified 02/09/25 10:48) BLISTERS IN MOUTH HPI Comments Details: 67-year-old female with a PMH significant for?HTN . She has H/O PHILLIP. Her HCTZ was D/Slava when she had PHILLIP. In the past she was given calcium channel emil which she did not tolerate due to edema. Her BP has been going high especially in the afternoons. She does not take any nonsteroidal anti-inflammatories or any other new medications since last visit. She does not have any urinary symptoms, chest pain, shortness of breath, proximal nocturnal dyspnea or orthopnea. She claims to be compliant with a low-sodium diet. Her recent serum creatinine has improved to baseline with medication changes ON LICENSE OF [facility] Medical History Schizoaffective disorder, bipolar type Elevated cholesterol Arthritis History of abdominal hernia Primary osteoarthritis of left knee HTN (hypertension) Depression Chronic pain Surgical History Hx laparoscopic cholecystectomy (08/03/23) Hx of tonsillectomy History of carpal tunnel surgery H/O wrist surgery History of back surgery Hx of inguinal hernia surgery Social History Household Members: None Housing: House Are you a primary physician assistant primary care to a significant other at home: No Do you presently have visiting nurse or other home services: Yes (FAMILY MEDICINE CHAIR) Alcohol intake: never Patient Tobacco Use Status: Current everyday Tobacco user Smoking Start Date: 11/08/79 Tobacco use type: Cigarette Cigarettes Per Day: 5 Years Smoked: 50 Second Hand Smoke Exposure: No service: No Current occupational status: unemployed Review of Systems Const All systems reviewed & are unremarkable except as noted in HPI and below Physical Exam Vital Signs: Last Vital Signs Pulse 108 H 02/09/25 10:48 BP 100/74 02/09/25 10:48 Pulse Ox 96 02/09/25 10:48 Oxygen Delivery Method Room Air 02/09/25 10:48 BMI result Body Mass Index 28.1 Const General: comfortable and no acute distress Orientation/consciousness: patient oriented x3 HEENT Head: Yes normocephalic Eyes EOM: EOMs intact bilaterally Neck Neck: Yes supple Resp Auscultation: clear to auscultation bilaterally Cardio Jugular venous distension: no JVD Rate: regular rate GI Palpation (GI): Soft to palpation Auscultation: normal bowel sounds General: Yes no CVA tenderness Back/Spine/Pelvis Back: no CVA tenderness Skin General skin exam: no rashes or lesions noted Neuro General: patient oriented x3 and moves all extremities Extrem General: Yes no pedal edema Results Reviewed Nephrology Results: Hgb 15.1 g/dl (12.0-16.0) 01/26/25 WBC 8.1 X10*3/uL (4.8-10.8) 01/26/25 Plt Count 201 X10*3/uL (160-400) 01/26/25 Sodium 139 mmol/L (135-145) 01/26/25 Potassium 4.1 mmol/L (3.3-5.1) 01/26/25 Chloride 105 mmol/L (96-108) 01/26/25 Carbon Dioxide 26 mmol/L (22-29) 01/26/25 BUN 14 mg/dL (9-16) 01/26/25 Creatinine 0.86 mg/dL (0.5-1.4) 01/26/25 Calcium 9.6 mg/dL (8.4-10.2) 01/26/25 Assessment & Plan Assessment & Plan (1) HTN (hypertension): Code(s): I10 - Essential (primary) hypertension Category: Medical Qualifiers: Hypertension type: primary hypertension Qualified Code(s): I10 - Essential (primary) hypertension Plan She could continue lisinopril 2.5 mg AM and 5 mg later in the day . I started her on metoprolol XL 25 mg daily. She needs to maintain herself on low-sodium diet and maintain good hydration . She should avoid nonsteroidal anti- inflammatory medications. All questions were answered. Medications: New metoprolol succinate ER 25 mg PO DAILY 30 tabs 3RF Coding Level of Care Code Est Pt Level 4 (56909) Diagnoses Primary hypertension I10 Hypertension type: primary hypertension
[2025-02-09 10:48] VITALS: BP 100/74; PULSE 108; O2SAT 96; BMI 28.1
--- OUTSIDE RECORDS SUMMARY | 2025-02-09 12:21 | XMS_ITS | Encounter Summary ---
Author Organization [employer] [facility] Address [address] [place] [address] Care Team Providers Care Beam Carrier Hauler Pusher Name Role Phone Unavailable Primary Care Provider Unavailabl e Encounter Details Date Type Department Care Team (Latest Contact Info) Description 08/01/2019 Abstract [facility] CONVERSIONS Dental, Provider, DDS Social History [...]
--- OUTSIDE RECORDS SUMMARY | 2025-02-09 12:21 | XMS_ITS | Data Portability ---
Author Organization [employer] Address [address] [place] [phone] Care Team Providers Care Seamless Tube Mill Operator Name Role Phone HIM CCA OTHER Assessment Encounter Date Assessment Date Assessment LastModified by Organization Details LastModified Time 04/10/2024 04/10/2024 I have reviewed and agree with the assessment and plan as documented by the child life assistant. I provided real-time medical direction for this [...] Address Organization Details Last Updated DateTime 4 64475.9 84 g 97.6 [degF] 82 /min 97 [...] SNOMED-CT Code Diagnosis ICD10 Code Diagnosis Note [id number] Brigid Davis MD Main - [facility] [address] [place] [phone] 04/10/2024 16:36:21 04/11/2024 12:38:42 Intermittent palpitations [id number] R00.2 Health Concerns Section Related Observation LastModified by Organization Detai ls LastModified Time None Recorded Concern Status LastModified by Organization Details LastModified Time None Recorded Advance Directives Directive None Recorded Payers Encounter Date Sequence Insurance Name Policy Number Policy Ferguson Covered Member ID Ferguson Member ID Guarantor Name 04/10/2024 1 [facility] - DOS ON OR AFTER 2023 - DUAL ELIGIBLE - JAIL OPTIONS AND ONE CARE (MEDICARE REPLACEMENT/ADV ANTAGE - HMO) Claudia Fernando [id number] Claudia Fernando Notes Date Note Type Note Provider Name and Address Organization Details Recorded Time 04/10/2024 text/html CRC Nurse Triage Notes (Kal Sosa): Chief Complaints: Tachycardia/Palpita tions Allergies: Unknown Comments: [employer] verified the member's name//address and phone number. [...] emergency treatment if needed -Domi Sosa RN Cyber Intelligence Analyst POC Test Results from Saturnino Gonzalez [facility] (1) [16:35] pH: 7.46 pH units pCO2: 39.8 mmHg pO2: 37.8 mmHg Na: 141 mmol/L K: 3.6 mmol/L iCa: 1.13 mmol/L Cl: 103 mmol/L TCO2: 27.5 mEq/L Hct: 46 % Hb: 15.5 g/dL Glu: 122 mg/dL Lac: 0.8 mmol/L Cr: 1.1 mg/dL BUN: 30 mg/dL A ................... ................... ................... ................... ................... ................... ................... ........ Cyber Intelligence Analyst Note From Saturnino Gonzalez: Pt reports intermittent [...] ........ Disposition: Fulfilled Brigid Davis MD [address] [facility], [place], [phone], [employer] 04/10/2024 20:15:29 OBGyn Episode No OBEpisode recorded.
--- OUTSIDE RECORDS SUMMARY | 2025-02-09 12:21 | XMS_ITS | Encounter Summary ---
Author Organization [employer] [facility] Address [address] [place] [address] Care Team Providers Care Tool Specialist Name Role Phone Unavailable Primary Care Provider Unavailabl e Encounter Details Date Type Department Care Team ([facility] st Contact Info) Description 09/28/2023 Abstract [facility] [address] [place] [address] Harmony Villalta Social History Tobacco Use Types [...]
--- OUTSIDE RECORDS SUMMARY | 2025-02-09 12:21 | XMS_ITS | Clinical Summary ---
Author Organization [employer] Address [address] [place] [address] Care Team Providers Care Promotions Firm Accounts Manager Name Role Phone Unavailable Primary Care [...]
--- OUTSIDE RECORDS SUMMARY | 2025-02-09 12:22 | XMS_ITS | Clinical Summary ---
Author Organization [facility], Address [address] [place] [address] [place] [address] Phone Care Team Providers Care Workers Compensation Paralegal Name Role Phone Jose Wilson MD Primary Care Provider Allergies Active Allergy Reactions Criticality Noted Date [...] time each day Active ergocalciferol 1.25 MG (35361 UT) capsule Take 50,000 Units by mouth [...] PCV20) 08/02/2023 06/07/2023, 05/14/2022, 03/24/2012 Influenza Vaccine (Season Ended) 2025 09/04/2022, 10/08/2021, 07/30/2020, Additional history exists Hepatitis B Vaccine Aged Out No longe r eligible based on patient's age to complete this topic Insurance [facility] ([id number]) [facility] ([id number]) Care Teams Workers Compensation Paralegal Relationship Specialty Start Date End Date Jose Wilson MD [facility] [place], [place] PCP - General Internal Medicine 08/02/23
--- OUTSIDE RECORDS SUMMARY | 2025-02-09 12:22 | XMS_ITS | Encounter Summary ---
Author Organization [facility], Address [address] [place] [address] Phone Care Team Providers Care Loading Unit Operator Powder Charging Name Role Phone Jose Wilson MD Primary Care Provider [phone]- [phone] Encounter Details Date Type Department Care Team (Late st Contact Info) Description 11/10/2023 Documentation Only [facility], [address] [address] Homero Chambers MD [address] [facility] [place] [phone] Social History Tobacco Use Types Packs/Day Years [...] on filedocumented in this encounter Care Teams Loading Unit Operator Powder Charging Relationship Specialty Start Date End Date Jose Wilson MD [address] [facility] [place], [place] PCP - General Internal Medicine 08/02/23 documented as of this encounter
--- OUTSIDE RECORDS SUMMARY | 2025-02-09 12:22 | XMS_ITS | Encounter Summary ---
Author Organization [facility], Address [address] [place] [address] Phone Care Team Providers Care Graphics Artist Name Role Phone Jose Wilson MD Primary Care Provider [phone]- [phone] Encounter Details Date Type Department Care Team (Late st Contact Info) Description 11/10/2023 Documentation Only [facility], [address] [place] [address] Homero Chambers MD [address] [place] [phone] Social History Tobacco Use Types Packs/Day Years [...] on filedocumented in this encounter Care Teams Graphics Artist Relationship Specialty Start Date End Date Jose Wilson MD [address] [facility] [place], [place] PCP - General Internal Medicine 08/02/23 documented as of this encounter
== END 2025-02-09 11:27 | disposition home or self-care (01) ==
LOC: HO.HKA 10:45
PROVIDERS: PCP Internal Medicine; Visit Provider Internal Medicine Nephrology
DX: I10 Essential (primary) hypertension (principal)
CPT/HCPCS: 99214

== ENCOUNTER → 2025-02-09 10:44 | Outpatient (BNVA) | payer OTHER, SELFPAY | PROVIDERS: PCP Internal Medicine; Visit Provider Internal Medicine Nephrology | DX: I10 Essential (primary) hypertension (principal) | CPT/HCPCS: 99212 ==

== ENCOUNTER 2025-02-21 10:14 | Outpatient (AMB) | payer OTHER, SELFPAY ==
--- NOTE | 2025-02-21 10:39 | HO.NEPHOV_ITS ---
Vital Signs 02/21/25 10:40 Height 5 ft 3 in Weight 162 lb 4 oz BMI 28.7 BP 110/70 Blood Pressure Location Lt brachial Position Sitting Pulse 72 Pulse Source Pulse Oximeter Pulse Oximetry (%) 97 Oxygen Delivery Method Room Air Intake Visit Reasons: 2 weeks -[facility] Director Regulatory Compliance Required: No Accompanied by: Grand Child Allergies cephalexin Allergy (Unknown, Verified 02/21/25 10:40) Swelling Cephalosporins Allergy (Unknown, Verified 02/21/25 10:40) SWELLING ciprofloxacin [CIPROFLOXACIN] Allergy (Unknown, Verified 02/21/25 10:40) SWELLING naproxen [NAPROXEN] Allergy (Unknown, Verified 02/21/25 10:40) BLISTERS IN MOUTH HPI Comments Details: 67-year-old female with a PMH significant for?HTN . She has H/O PHILLIP. Her HCTZ was D/Slava when she had PHILLIP. In the past she was given calcium channel emil which she did not tolerate due to edema. Her BP has been going high especially in the afternoons. She does not take any nonsteroidal anti-inflammatories or any other new medications since last visit. She does not have any urinary symptoms, chest pain, shortness of breath, proximal nocturnal dyspnea or orthopnea. She claims to be compliant with a low-sodium diet. Her recent serum creatinine has improved to baseline with medication changes PENDING SALE TO [facility] Medical History Schizoaffective disorder, bipolar type Elevated cholesterol Arthritis History of abdominal hernia Primary osteoarthritis of left knee HTN (hypertension) Depression Chronic pain Surgical History Hx laparoscopic cholecystectomy (08/03/23) Hx of tonsillectomy History of carpal tunnel surgery H/O wrist surgery History of back surgery Hx of inguinal hernia surgery Social History Household Members: None Housing: House Are you a primary day care assistant to a significant other at home: No Do you presently have visiting nurse or other home services: Yes (WINDOWS TECHNICAL SPECIALIST) Alcohol intake: never Patient Tobacco Use Status: Current everyday Tobacco user Smoking Start Date: 11/08/79 Tobacco use type: Cigarette Cigarettes Per Day: 5 Years Smoked: 50 Second Hand Smoke Exposure: No service: No Current occupational status: unemployed Review of Systems Const All systems reviewed & are unremarkable except as noted in HPI and below Physical Exam Vital Signs: Last Vital Signs Pulse 72 02/21/25 10:40 BP 110/70 02/21/25 10:40 Pulse Ox 97 02/21/25 10:40 Oxygen Delivery Method Room Air 02/21/25 10:40 BMI result Body Mass Index 28.7 Const General: comfortable and no acute distress Orientation/consciousness: patient oriented x3 HEENT Head: Yes normocephalic Mouth: Normal oral and palatal mucosa present Eyes EOM: EOMs intact bilaterally Neck Neck: Yes supple Resp Auscultation: clear to auscultation bilaterally Cardio Jugular venous distension: no JVD Rate: regular rate GI Palpation (GI): Soft to palpation Auscultation: normal bowel sounds General: Yes no CVA tenderness Back/Spine/Pelvis Back: no CVA tenderness Skin General skin exam: no rashes or lesions noted Neuro General: patient oriented x3 and moves all extremities Extrem General: Yes no pedal edema Results Reviewed Nephrology Results: Hgb 15.1 g/dl (12.0-16.0) 01/26/25 WBC 8.1 X10*3/uL (4.8-10.8) 01/26/25 Plt Count 201 X10*3/uL (160-400) 01/26/25 Sodium 139 mmol/L (135-145) 01/26/25 Potassium 4.1 mmol/L (3.3-5.1) 01/26/25 Chloride 105 mmol/L (96-108) 01/26/25 Carbon Dioxide 26 mmol/L (22-29) 01/26/25 BUN 14 mg/dL (9-16) 01/26/25 Creatinine 0.86 mg/dL (0.5-1.4) 01/26/25 Calcium 9.6 mg/dL (8.4-10.2) 01/26/25 Assessment & Plan Assessment & Plan (1) HTN (hypertension): Code(s): I10 - Essential (primary) hypertension Category: Medical Qualifiers: Hypertension type: primary hypertension Qualified Code(s): I10 - Essential (primary) hypertension Plan She could continue lisinopril 2.5 mg AM and 5 mg later in the day along with metoprolol XL 25 mg daily. She needs to maintain herself on low-sodium diet and maintain good hydration . She should avoid nonsteroidal anti-inflammatory medications. All questions were answered. Medications: Refilled metoprolol succinate ER 25 mg PO DAILY 90 tabs 3RF Coding Level of Care Code Est Pt Level 4 (94101) Diagnoses Primary hypertension I10 Hypertension type: primary hypertension
[2025-02-21 10:40] VITALS: BP 110/70; PULSE 72; O2SAT 97; BMI 28.7
--- OUTSIDE RECORDS SUMMARY | 2025-02-21 11:49 | XMS_ITS | Clinical Summary ---
Author Organization [employer] Address [address] [place] [address] Care Team Providers Care Plastic Jig And Fixture Builder Name Role Phone Unavailable Primary Care Provider [...]
--- OUTSIDE RECORDS SUMMARY | 2025-02-21 11:49 | XMS_ITS | Data Portability ---
Author Organization [employer] [address] [place] [id number] Care Team Providers Care Cruller Maker Machine Name Role Phone HIM CCA OTHER Assessment Encounter Date Assessment Date Assessment LastModified by Organization Details LastModified Time 04/10/2024 04/10/2024 I have reviewed and agree with the assessment and plan as documented by the tie inspector. I provided real-time medical direction for this [...] Address Organization Details Last Updated DateTime 4 42921.9 84 g 97.6 [degF] 82 /min 97 [...] SNOMED-CT Code Diagnosis ICD10 Code Diagnosis Note [id number] Brigid Davis MD Main - [facility]ED [address] [place] [phone] 04/10/2024 16:36:21 04/11/2024 12:38:42 Intermittent palpitations [id number] R00.2 Health Concerns Section Related Observation LastModified by Organization Detai ls LastModified Time None Recorded Concern Status LastModified by Organization Details LastModified Time None Recorded Advance Directives Directive None Recorded Payers Encounter Date Sequence Insurance Name Policy Number Policy Ferguson Covered Member ID Ferguson Member ID Guarantor Name 04/10/2024 1 [facility] - DOS ON OR AFTER 2023 - DUAL ELIGIBLE - [facility] OPTIONS AND ONE CARE (MEDICARE REPLACEMENT/ADV ANTAGE - HMO) Claudia Fernando [id number] Claudia Fernando Notes Date Note Type Note Provider Name and Address Organization Details Recorded Time 04/10/2024 text/html CRC Nurse Triage Notes (Kal Sosa): Chief Complaints: Tachycardia/Palpita tions Allergies: Unknown Comments: Bus Mechanic verified the member's name//address and phone number. [...] emergency treatment if needed -Domi Sosa RN Underground Heavy Equipment Operator POC Test Results from Saturnino Gonzalez [facility] (1) [16:35] pH: 7.46 pH units pCO2: 39.8 mmHg pO2: 37.8 mmHg Na: 141 mmol/L K: 3.6 mmol/L iCa: 1.13 mmol/L Cl: 103 mmol/L TCO2: 27.5 mEq/L Hct: 46 % Hb: 15.5 g/dL Glu: 122 mg/dL Lac: 0.8 mmol/L Cr: 1.1 mg/dL BUN: 30 mg/dL A ................... ................... ................... ................... ................... ................... ................... ........ Underground Heavy Equipment Operator Note From Saturnino Gnozalez: Pt reports intermittent palpitations and CP for [...] ........ Disposition: Fulfilled Brigid Davis MD [address] [facility] [address], [place], [address], [employer] 04/10/2024 20:15:29 OBGyn Episode No OBEpisode recorded.
--- OUTSIDE RECORDS SUMMARY | 2025-02-21 11:50 | XMS_ITS | Encounter Summary ---
Author Organization [facility] Address [address] [place] [address] Care Team Providers Care Meat Hanger Name Role Phone Unavailable Primary Care Provider Unavailabl e Encounter Details Date Type Department Care Team (Latest Contact Info) Description 08/01/2019 Abstract [facility] CONVERSIONS Dental, Provider, DDS Social History Tobacco [...]
--- OUTSIDE RECORDS SUMMARY | 2025-02-21 11:50 | XMS_ITS | Encounter Summary ---
Author Organization [facility], Address [address] [place] [address] Phone Care Team Providers Care Volunteer Recruitment Coordinator Name Role Phone Jose Wilson MD Primary Care Provider [phone] Encounter Details Date Type Department Care Team (Late st Contact Info) Description 11/10/2023 Documentation Only [facility], [address] [place] [address] Homero Chambers MD [address] [place] [phone] Social History Tobacco Use Types Packs/Day Years [...] on filedocumented in this encounter Care Teams Volunteer Recruitment Coordinator Relationship Specialty Start Date End Date Jose Wilson MD [address] [facility] [place], [place] PCP - General Internal Medicine 08/02/23 documented as of this encounter
--- OUTSIDE RECORDS SUMMARY | 2025-02-21 11:50 | XMS_ITS | Clinical Summary ---
Author Organization [facility], Address [address] [place] [address] [place] [address] Phone Care Team Providers Care Daycare Assistant Name Role Phone Jose Wilson MD Primary Care Provider [phone] Allergies Active Allergy Reactions Criticality Noted Date [...] time each day Active ergocalciferol 1.25 MG (16395 UT) capsule Take 50,000 Units by mouth 1 (one) time per week Active Active Problems Problem Noted Date Diagnosed Date Hypertensive disorder 11/10/2023 11/10/2023 Hyperglycemia 11/10/2023 11/10/2023 Immunizations Immunization Administration Dates Next Due Influenza, MDCK, PF, [...] Colorectal Cancer Screening: Sigmoidoscopy 2005 Pneumococcal Vaccine: 50+ Years (3 of 3 - PPSV23, PCV20 or PCV21) 08/02/2023 06/07/2023, 05/14/2022, 03/24/2012 Influenza Vaccine (Season Ended) 2025 09/04/2022, 10/08/2021, 07/30/2020, Additional history exists Hepatitis B Vaccine Aged Out No longe r eligible based on patient's age to complete this topic Insurance [facility] ([id number]) [facility] SNP ([id number]) Care Teams Daycare Assistant Relationship Specialty Start Date End Date Jose Wilson MD [address] [place], [place] PCP - General Internal Medicine 08/02/23
--- OUTSIDE RECORDS SUMMARY | 2025-02-21 11:50 | XMS_ITS | Continuity of Care Document ---
Author Organization [facility] Address [address] [place] [address]- Care Team Providers Care Sap Payroll Consultant Name Role Phone Jose Wilson MD Primary Care Physician [id number] Date(s): 02/09/25 - 02/16/25 [facility] [address] [place], [place] [address] Encounter Diagnosis Hypertension, essential(Discharge Diagnosis) - 02/09/25 Attending Physician: Jose Wilson MD Encounter Type: [...] conjugate vaccine 4 05/14/22 Given SARS-CoV-2 mRNA (noraaca-todp-xrxxt) vax 12/03/21 Recorded SARS-CoV-2 (COVID-19) mRNA BNT-162b2 vac 03/13/21 Recorded SARS-CoV-2 (COVID-19) mRNA BNT-162b2 vac 02/20/21 Recorded Zoster Vaccine Live 11/18/17 Recorded tetanus/diphtheria/pertussis, acel(Tdap) 11/18/17 Recorded tetanus/diphtheria/pertussis, acel(Tdap) 03/24/12 Recorded tetanus/diphtheria/pertussis, acel(Tdap) 11/10/99 Recorded pneumococcal 23-valent vaccine 03/24/12 Recorded 1Result Comment: [id number] given w/out incident 2Result Comment: [facility]- [id number] 3Result Comment: [facility] [id number] 4Result Comment: [id number] given w/out incident Medications clonazePAM 0.5 mg [...] tablet, 12 Refills, Maintenance, 10/17/24 5:32:00 PM EST[facility][id number], 158, cm, 09/26/24 13:27:00 EST, Height, 76, kg, 02/01/24 10:53:00 EDT, Dry Weight Start Date: 10/17/24 Status: Ordered Quantity: 60.0 Unit: tablet Repeat number: 1 fluticasone 50 mcg/inh nasal spray 1 sprays = 50 mcg, Nares, Both, 2 times a day, # 16 Gm, 3 Refills, Maintenance, 01/18/25 4:28:00 PM EDT, [id number], Partial fill upon patient request if the prescription is for a schedule II opioid drug., 1 sprays Nares, Both 2 times a day,x90 days, 158, cm, 12/29/24 8:03:00EST, Height, 72.5, kg, 12/29/24 8:03:00 EST, Dry Weight Start Date: 01/18/25 Stop Date: 01/13/26 Status: Ordered Quantity: 16.0 Unit: g Repeat number: 4 Freestyle Lite Lancets See Instructions, # 100 [...] number: 1 lisinopril 5 mg oral tablet See Instructions, 1/2 tablet By Mouth in a.m. and 1 tablet in pm, Refills 0, Maintenance, 12/29/24 8:19:00 AM EST, Instructions Replace Required Details, Partial fill upon patient request if the prescription is for a schedule II opioid drug. Start Date: 12/29/24 Status: Ordered Repeat number: 1 metoprolol succinate 25 mg oral capsule, extended release 1 capsule = 25 mg, By Mouth, Daily, # 30 capsule, 0 Refills, Maintenance, 02/09/25 3:21:00 PM EDT, [facility], Partial fill upon patient request if the prescription is for a schedule II opioid drug. Start Date: 02/09/25 Status: Ordered Quantity: 30.0 Unit: capsule Repeat number: 1 rosuvastatin 40 mg oral tablet 1 tablet, By Mouth, Daily, # 90 tablet, 1 Refills, Maintenance, 12/22/24 3:32:00 PM EST, [facility] #[id number], 158, cm, 11/17/24 9:59:00 EST, Height, 72, kg, 10/27/24 8:27:00 EST, Dry Weight Start Date: 12/22/24 Status: Ordered Quantity: 90.0 Unit: tablet Repeat number: 1 tiZANidine 2 mg oral tablet 2 mg, 1, tablet, By Mouth, Every 8 hours, PRN, # 42 tablet, Refills 0, Tot. Refills 0, Maintenance,as needed for muscle spasm, 12/29/24 8:47:00 AM EST, Route to Pharmacy Electronically, [facility] #[id number], Partial fill upon patient request if the [...] Dates Health Status Cl inical Service Informant Hypertension, essential Discharge Diagnosis 02/09/25 Vital Signs Most recent to oldest [Reference Range]: 1 2 Height 158 cm (02/09/25 3:22 PM) 158 cm (02/09/25 3:21 PM) Weight 72.2 kg (02/09/25 3:21 PM) Oxygen Saturation [94-100 %] 98 % (02/09/25 3:21 PM) Pulse Rate [55-90 bpm] 95 bpm *H* (02/09/25 3:21 PM) Body Mass Index [18.5-24.99 kg/m2] 28.92 kg/m2 *H* (02/09/25 3:21 PM) Blood Pressure [90-138/55-84 mm Hg] 120/ 64mm Hg (02/09/25 3:22 PM) 122/68mm Hg (02/09/25 3:21 PM) Mode of Delivery (Oxygen) Room air (02/09/25 3:21 PM) Blood pressure sites Arm, right (02/09/25 3:22 PM) Arm, left (02/09/25 3:21 PM) Social History Social History Type Response Smoking Status 5-9 cigarettes (betw een 1/4 to 1/2 pack)/day in last 30 days entered on: 09/10/22 Sex Sex Representation Female (finding) Patient Care team information Care Team Personnel Name: Lucía Jurado RN Position: [facility] RN Member Role: Primary Care Nurse Name: Cherise Pang RN Position: [facility] AMB Nurse Member Role: Primary Care Nurse Name: Abiel Roman RN Position: [facility] RN Member Role: Primary Care Nurse Name: Greg Oro MD Position: [facility] Outreach Member Role: Lifetime Consulting Physician Address: [address] [facility] [address] [facility] [address] [place], [place] [address] Telecom: Name: Mona Saha RN Position: [facility] RN Member Role: Primary Care Nurse Name: Harmony Villalta Position: [facility] Outreach Member Role: Lifetime Consulting Physician Name: Jose Wilson MD Position: [facility] Physician - Primary Care Member Role: PCP Address: [address] [facility] [place] [address] [place] Telecom: Care Team Related Persons Name: GAY MAGALLANES Name: SABIHA MACKENZIE Name: WALT LOVE Insurance Providers Guarantor name: SUNSHINE HALLIE imgfave Plan Information #: 1 Payer: NA Member Number: [id number] Policy Number: JANY Group [place]: [facility] [place] Information #: 2 Payer: [facility] Member Number: JANY Policy Number: JANY Group Number: JANY
--- OUTSIDE RECORDS SUMMARY | 2025-02-21 11:50 | XMS_ITS | Encounter Summary ---
Author Organization [facility], Address [address] [place] [address] Phone Care Team Providers Care Experimental Worker Name Role Phone Jose Wilson MD Primary Care Provider [phone] Encounter Details Date Type Department Care Team (Late st Contact Info) Description 11/10/2023 Documentation Only [facility], [address] [place] [address] Homero Chambers MD [address] [place] [phone] Social History Tobacco Use Types Packs/Day Years [...] on filedocumented in this encounter Care Teams Experimental Worker Relationship Specialty Start Date End Date Jose Wilson MD [address] [facility] [place], [place] PCP - General Internal Medicine 08/02/23 documented as of this encounter
--- OUTSIDE RECORDS SUMMARY | 2025-02-21 11:50 | XMS_ITS | Encounter Summary ---
Author Organization [facility] [facility] Address [address] [place] [address] Care Team Providers Care Back End Web Developer Name Role Phone Unavailable Primary Care Provider Unavailabl e Encounter Details Date Type Department Care Team ([facility] st Contact Info) Description 09/28/2023 Abstract [facility] [address] [place] [address] Harmony Villalta Social History Tobacco Use Types [...]
== END 2025-02-21 11:00 | disposition home or self-care (01) ==
PROVIDERS: PCP Internal Medicine; Visit Provider Internal Medicine Nephrology
DX: I10 Essential (primary) hypertension (principal)
CPT/HCPCS: 99214

== ENCOUNTER → 2025-02-21 10:14 | Outpatient (BNVA) | payer OTHER, SELFPAY | PROVIDERS: PCP Internal Medicine; Visit Provider Internal Medicine Nephrology | DX: I10 Essential (primary) hypertension (principal) | CPT/HCPCS: 99212 ==

== ENCOUNTER 2025-05-23 10:22 | Outpatient (AMB) | payer OTHER, SELFPAY ==
--- NOTE | 2025-05-23 10:39 | HO.NEPHOV_ITS ---
Vital Signs 05/23/25 10:40 Height 5 ft 3 in Weight 161 lb 2 oz BMI 28.5 BP 122/80 Blood Pressure Location Lt brachial Position Sitting Pulse 82 Pulse Source Pulse Oximeter Pulse Oximetry (%) 97 Oxygen Delivery Method Room Air Intake Visit Reasons: 3mon [id number] Mud Mixer Operator Required: No Accompanied by: Grand Child Allergies cephalexin Allergy (Unknown, Verified 05/23/25 10:40) Swelling Cephalosporins Allergy (Unknown, Verified 05/23/25 10:40) SWELLING ciprofloxacin (CIPROFLOXACIN) Allergy (Unknown, Verified 05/23/25 10:40) SWELLING naproxen (NAPROXEN) Allergy (Unknown, Verified 05/23/25 10:40) BLISTERS IN MOUTH HPI Comments Details: 67-year-old female with a PMH significant for?HTN . In the past she was given calcium channel emil which she did not tolerate due to edema. Her BP has been going high especially in the afternoons. She does not take any nonsteroidal anti-inflammatories or any other new medications since last visit. She does not have any urinary symptoms, chest pain, shortness of breath, proximal nocturnal dyspnea or orthopnea. She claims to be compliant with a low-sodium diet. Her recent serum creatinine has improved to baseline with medication changes [facility] Medical History Schizoaffective disorder, bipolar type Elevated cholesterol Arthritis History of abdominal hernia Primary osteoarthritis of left knee HTN (hypertension) Depression Chronic pain Surgical History Hx laparoscopic cholecystectomy (08/03/23) Hx of tonsillectomy History of carpal tunnel surgery H/O wrist surgery History of back surgery Hx of inguinal hernia surgery Social History Household Members: None Housing: House Are you a primary acute care registered nurse to a significant other at home: No Do you presently have visiting nurse or other home services: Yes (HELICOPTER PILOT INSTRUCTOR) Alcohol intake: never Patient Tobacco Use Status: Current everyday Tobacco user Smoking Start Date: 11/08/79 Tobacco use type: Cigarette Cigarettes Per Day: 5 Years Smoked: 50 Second Hand Smoke Exposure: No service: No Current occupational status: unemployed Review of Systems Const All systems reviewed & are unremarkable except as noted in HPI and below Physical Exam Vital Signs: Last Vital Signs Pulse 82 05/23/25 10:40 BP 122/80 05/23/25 10:40 Pulse Ox 97 05/23/25 10:40 Oxygen Delivery Method Room Air 05/23/25 10:40 BMI result Body Mass Index 28.5 Const General: comfortable and no acute distress Orientation/consciousness: patient oriented x3 HEENT Head: Yes normocephalic Mouth: Normal oral and palatal mucosa present Eyes EOM: EOMs intact bilaterally Neck Neck: Yes supple Resp Auscultation: clear to auscultation bilaterally Cardio Jugular venous distension: no JVD Rate: regular rate GI Palpation (GI): Soft to palpation Auscultation: normal bowel sounds General: Yes no CVA tenderness Back/Spine/Pelvis Back: no CVA tenderness Skin General skin exam: no rashes or lesions noted Neuro General: patient oriented x3 and moves all extremities Extrem General: Yes no pedal edema Results Reviewed Nephrology Results: Hgb, (12.0-16.0) 15.1 g/dl 01/26/25 WBC, (4.8-10.8) 8.1 X10*3/uL 01/26/25 Plt Count, (160-400) 201 X10*3/uL 01/26/25 Sodium, (135-145) 139 mmol/L 01/26/25 Potassium, (3.3-5.1) 4.1 mmol/L 01/26/25 Chloride, (96-108) 105 mmol/L 01/26/25 Carbon Dioxide, (22-29) 26 mmol/L 01/26/25 BUN, (9-16) 14 mg/dL 01/26/25 Creatinine, (0.5-1.4) 0.86 mg/dL 01/26/25 Calcium, (8.4-10.2) 9.6 mg/dL 01/26/25 Assessment & Plan Assessment & Plan (1) HTN (hypertension): Code(s): I10 - Essential (primary) hypertension Category: Medical Qualifiers: Hypertension type: primary hypertension Qualified Code(s): I10 - Essential (primary) hypertension Plan She could continue lisinopril 2.5 mg AM and 5 mg later in the day . I increased her metoprolol XL to 50 mg daily. She needs to maintain herself on low-sodium diet and maintain good hydration . She should avoid nonsteroidal anti- inflammatory medications. All questions were answered. Orders: Orders Creatinine 3 Months I10 - Essential (primary) hypertension Electrolytes 3 Months I10 - Essential (primary) hypertension Blood Urea Nitrogen 3 Months I10 - Essential (primary) hypertension Medications: Changed From metoprolol succinate ER 25 mg PO DAILY 90 tabs 3RF To metoprolol succinate ER 50 mg PO DAILY 90 tabs 3RF Coding Level of Care Code Est Pt Level 4 (76664) Diagnoses Primary hypertension I10 Hypertension type: primary hypertension
[2025-05-23 10:40] VITALS: BP 122/80; PULSE 82; O2SAT 97; BMI 28.5
--- OUTSIDE RECORDS SUMMARY | 2025-05-23 10:57 | XMS_ITS | Data Portability ---
Author Organization [facility], [facility] Address [address] [place] [address] Care Team Providers Care Meat Hanger Name Role Phone HIM CCA OTHER Assessment Encounter Date Assessment Date Assessment LastModified by Organization Details LastModified Time 04/10/2024 04/10/2024 I have reviewed and agree with the assessment and plan as documented by the house worker. I provided real-time medical direction for this [...] Pulse oximetry Respiratory rate Body height Systolic And Diastolic Provider Name and Address Organization Details Last Updated DateTime 4 24959.9 84 g 97.6 [degF] 82 /min 97 % 97 % 16 /min 167.64 cm 113/74 mm[Hg] Not Available [facility] [employer] 4 16:36:49 Social History None recorded. Functional Status None recorded. Mental Status None recorded. Family History Nothing Reported. Medical History No medical history recorded. Gynecological HistoryNo gynecological history recorded. Obstetrics History GPAL:G 0 P 0 0 0 0 Past Encounters Encounter ID Performer Location Encounter Start Date Encounter Closed Date Diagnosis/Indication Diagnosis SNOMED-CT Code Diagnosis ICD10 Code Diagnosis Note [id number] Brigid Davis MD [facility] - [facility] [address] [place] [phone] 04/10/2024 16:36:21 04/11/2024 12:38:42 Intermittent palpitations 871530301 R00.2 Health Concerns Section Related Observation LastModified by Organization Detai ls LastModified Time None Recorded Concern Status LastModified by Organization Details LastModified Time None Recorded Advance Directives Directive None Recorded Payers Insurance Date Sequence Insurance Name Policy Number Policy Ferguson Covered Member ID Ferguson Member ID Guarantor Name 04/10/2024 1 [facility] - DOS ON OR AFTER 2023 - DUAL ELIGIBLE - PRISON OPTIONS AND ONE CARE (MEDICARE REPLACEMENT/ADV ANTAGE - HMO) Claudia Fernando [id number] Claudia Fernando Notes Date Note Type Note Provider Name and Address Organization Details Recorded Time 04/10/2024 text/html CRC Nurse Triage Notes (Kal Sosa): Chief Complaints: Tachycardia/Palpita tions Allergies: Unknown Comments: Director Call verified the member's name//address and phone number. [...] emergency treatment if needed -Domi Sosa RN Slasher Hand POC Test Results from Saturnino Gonzalez [facility] (1) [16:35] pH: 7.46 pH units pCO2: 39.8 mmHg pO2: 37.8 mmHg Na: 141 mmol/L K: 3.6 mmol/L iCa: 1.13 mmol/L Cl: 103 mmol/L TCO2: 27.5 mEq/L Hct: 46 % Hb: 15.5 g/dL Glu: 122 mg/dL Lac: 0.8 mmol/L Cr: 1.1 mg/dL BUN: 30 mg/dL A ................... ................... ................... ................... ................... ................... ................... ........ Slasher Hand Note From Saturnino Gonzalez: Pt reports intermittent palpitations and CP for approx one week. Pt denies any associated SOB, [place], f/n/v/d. PCP increased lisinopril last Wednesday over the phone due to hypertension and scheduled a f/u for this . Pt is alert, NAD. VSS. Afebrile. Non focal neuro exam. Normal gait. Lungs CTA. Benign ABD exam. No LE edema. EKG: sinus with PVC s. Unremarkable POC labs. Pt reassured and instructed to keep f/u with PCP. Pt instructed to seek emergent medical care for new or worsening sx, such as SOB with diaphoresis or severe pain. ................... ................... ................... ................... ................... ................... ................... ........ Disposition: Kristen Davis MD [address] [facility],[address], [place], [address], [facility] 04/10/2024 20:15:29 OBGyn Episode No OBEpisode recorded.
--- OUTSIDE RECORDS SUMMARY | 2025-05-23 10:57 | XMS_ITS | Clinical Summary ---
Author Organization [facility] [address] [facility] Address [address] [place] [address] Phone Care Team Providers Care Business Development Officer Name Role Phone Jose Wilson MD Primary Care Provider [phone] Allergies Active Allergy Reactions Criticality Noted Date Comments Ciprofloxacin 04/20/2013 Naproxen 11/27/2015 Blisters in mouth, doesn't happen with other nsaids Medications hydroCHLOROthiaz jeannie (HYDRODIURIL) 25 mg tablet Take 1 Tab by mouth daily. 03/21/2019 Active rosuvastatin (CRESTOR) 40 mg tablet Take 1 Tab by mouth daily. 03/21/2019 Active doxepin (SINEquan) 10 mg capsule Take 1 Cap by mouth at bedtime. Prn 12/21/2018 Active Active Problems Problem Noted Date Diagnosed Date Anxiety and depression 11/06/2024 Carpal tunnel syndrome, bilateral 11/06/2024 Overview (11/06/2024): Follows with Neuro (George) Herniated lumbar intervertebral disc 11/06/2024 Overview (11/06/2024): L5-S1 HTN (hypertension) 11/06/2024 Hyperlipidemia 11/06/2024 Pulmonary nodules 05/01/2022 Overview (11/06/2024): LDCT yearly Headache 09/21/2018 Overview (11/06/2024): Follows with Neuro (George). Normal CT Head 02/11/18. Tubular adenoma of colon 09/21/2018 Overview (11/06/2024): Colonoscopy 08/15/2013:Tubular adenoma. Repeat 5 years Centrilobular emphysema (CMS/HCC V24, CMS/HCC V2 8) 01/20/2018 Overview (11/06/2024): LDCT yearly Lumbar hernia 07/01/2015 Subclinical hyperthyroidism 07/01/2015 Immunizations Name Administration Dates Next Due Influenza Quadravalent, MDCK , 0.5ml, preservative free (Flucelvax) 6mo and older 09/21/2018 Influenza trivalent, 0.5mL, preservative free (Fluarix; FluLaval; Fluzone) ages 6mo and older (Afluria) 3 years and older 07/09/2017,2014,09/29/2013 Tdap Tetanus diptheria acell ular pertussis (Boostrix; Adacel) 7yo and older 11/18/2017 Zoster Live 11/18/2017 Surgical History Surgery Date Site/Laterality Comments CARPAL TUNNEL RELEASE PROCEDURE: HISTORICAL CARPAL TUNNEL REL HERNIA REPAIR PROCEDURE: HISTORICAL HERNIA REPAIR/ING; COMMENT: both sides TONSILLECTOMY PROCEDURE: HISTORICAL TONSILLECTOMY COLONOSCOPY W/ POLYPECTOMY 2012 PROCEDURE: VT COLSC FLX W/RMVL OF TUMOR POLYP LESION SNARE TQ; COMMENT: 5 mm rectal polyp: tubular adenoma Medical History Medical History Date Comments HTN (hypertension) DX:HTN (hyper tension) Hyperlipidemia DX:Hyperlipidemi a Major depression DX:Major depres izabela Anxiety DX:Anxiety Herniated lumbar intervertebral disc DX:Herniated lumbar intervertebral disc; COMMENT: L5-S1 Carpal tunnel syndrome, bilateral DX:Carpal tunnel syndrome, bilateral Centrilobular emphysema (CMS /HCC V24, CMS/HCC V28) 01/20/2018 DX:Centrilobular emphysema ( HCC); COMMENT: Ct Chest 04/2021: No pulmonary nodules. F/u 1 year. Pulmonary nodules 05/01/2022 DX:Pulmonary n odules; COMMENT: LDCT yearly Family History Medical History Relation Name Comments Diabetes Maternal Grandmother Hypertension Mother Colon cancer Neg Hx Pancreatic cancer Neg Hx Relation Name Status Comments Daughter 1 Alive Daughter 2 Alive Daughter 3 Alive Father Maternal Grandfather Maternal Grandmother Mother Alive Paternal Grandfather Paternal Grandmother Sister Alive Social History Tobacco Use Types Packs/Day Years Used Date Smoking Tobacco: Every Day Cigarettes Smokeless Tobacco: Never Alcohol Use Standard Drinks/Week Comments Yes 0 (1 standard drink = 0.6 oz pur e alcohol) Comments Unknown Sex and Gender Information Value Date Recorded Sex Assigned at Not on file Legal Sex Female 2:00 AM EST Gender Identity Not on file Sexual Orientation Not on file Obstetrics History Plan of Treatment Upcoming Encounters Date Type Department Care Team (Late st Contact Info) Description 06/16/2025 7:30 AM EDT Appointment [facility] CT Scan [address] [place] [address] Health Maintenance Due Date Last Done Comments RSV Immunization Adult Patients (1 - Risk 60-74 years 1-dose series) 2016 Zoster Vaccines (2 of 3) 01/13/2018 11/18/2017 Depression Screening 10/17/2022 Falls Risk Assessment 10/17/2022 Hypertension/CHF/CAD Annual BMP Blood Test 10/17/2022 04/06/2019 Osteoporosis Screening (Bone Density Screening) 10/17/2022 Social Influencers of Health Screening 10/17/2022 Cholesterol Screening (Lipid Panel) 02/02/2024 02/01/2019 Breast Cancer Screening 02/13/2024 02/12/2022, 01/07 Colorectal Cancer Screening: Colonoscopy 05/04/2024 05/04/2019 COVID-19 Vaccine ( season) 2024 12/03/2021, 03/13/2021, 02/20/2021 Influenza Vaccine (#1) 2025 2, 10/08/2021, 07/30/2020, Additional history exists DTaP,Tdap,and Td Vaccines (4 - Td or Tdap) 11/18/2027 11/18/2017, 03/24/2012, 11/10/1999 Pneumococcal Vaccine: 50+ Years (3 of 3 - PCV20 or PCV21) 06/07/2028 06/07/2023, 03/24/2012 Hepatitis C Screening Completed 10/08/2016 HIB Vaccines Aged Out No longer eligi [...] on patient's age to complete this topic MMR Vaccines Aged Out No longer eligi ble based on patient's age to complete this topic Meningococcal ACWY Vaccine Aged Out N o longer eligible based on patient's age to complete this topic Meningococcal B Vaccine Aged Out No l onger eligible based on patient's age to complete this topic RSV Immunization Patients Under 20 months Aged Out No longer eligible based on patient's age to complete this topic Varicella Vaccines Aged Out No longer eligible based on patient's age to complete this topic Procedures Procedure Name Priority Date/Time Associated Diagnosis Comments COLONOSCOPY Routine 05/04/2019 ANNUAL BMP BLOOD TEST Routine 04/06/2019 LIPID PANEL Routine 02/01/2019 SCR MAMMO BI INCL CAD Routine 01/07/2018 11:16 AM EST Encounter for screening mammogram for malignant neoplasm of breast HEPATITIS C SCREENING Routine 10/08/2016 from Last 3 Months or Most Recently Relevant to Health Maintenance Results * Colonoscopy (05/04/2019) [facility] Colonoscopy abstracted,no interpretation Anatomical Region Laterality Modality Other Historical Provider MD HEALTH MAINTENANCE Final Result * Annual BMP Blood Test (04/06/2019) [facility] Annual BMP Blood Test abstracted Historical Provider MD HEALTH MAINTENANCE Final Result * (ABNORMAL) Lipid panel (02/01/2019) [facility] LDL/HDL Ratio 4 0 - 4 Triglycerides 382(A) 0 - 150 mg/dL Cholesterol 194 0 - 200 mg/dL HDL 45 >=40 mg/dL LDL Cholesterol 73 0 - 100 mg/dL Blood Venous blood specimen / Unknown us Historical Provider LAB BLOOD ORDERABLES Milady l Result * SCR MAMMO BI INCL CAD (01/07/2018 11:16 AM EST) Anatomical Region Laterality Modality Radiographic Marija ging 11/18/2017 3:18 PM EST Narrative 01/07/2018 3:11 PM EST This is a summary report. The complete report is available in the patient's medical record. If you cannot access the medical record, please contact the sending organization for a detailed fax or copy. Full field digital screening mammography, reviewed with CAD and compared to previous. The breasts are composed of fatty and fibroglandular tissue. No suspicious mass, architectural distortion or suspicious calcifications are identified. IMPRESSION: : No mammographic evidence of malignancy. BIRADS 1-Negative; N. 5 year breast cancer risk assessment 0.8 % Lifetime breast cancer risk assessment 3.9 % Breast cancer risk category Low (<15%) Procedure Note Tara Olivarez MD - 10/27/2022 This is a summary report. The complete report is available in thepatient's medical record. If you cannot access the medical record, pleasecontact the sending organization for a detailed fax or copy. Full field digital screening mammography, reviewed with CAD and comparedto previous. The breasts are composed of fatty and fibroglandular tissue.No suspicious mass, architectural distortion or suspicious calcificationsare identified. IMPRESSION: : No mammographic evidence of malignancy. BIRADS 1-Negative; N. 5 year breast cancer risk assessment 0.8 % Lifetime breast cancer risk assessment 3.9 % Breast cancer risk category Low (<15%) Kim GONZÁLES IMG XR PROCEDURES Final Resul t * Hepatitis C Screening (10/08/2016) Hepatitis C Screening abstracted Historical Provider HEALTH MAINTENANCE Final Result from Last 3 Months or Most Recently Relevant to Health Maintenance Insurance [place]ICAID - [place] [facility] Member Subscriber Plan / Payer (Ef fective 2021-Present) Name:Claudia Fernando Relation to Subscriber:Spouse Name:CLAUDIA FERNANDO Date of :1955 Payer ID:[id number] Group ID:[id number] Type:Not on file Address: [facility] [address] [phone] Care Teams Business Development Officer Relationship Specialty Start Date End Date Jose Wilson MD [address] [place] [address] PCP - General Internal Medicine 08/02/23
--- OUTSIDE RECORDS SUMMARY | 2025-05-23 10:57 | XMS_ITS | Encounter Summary ---
Author Organization [facility], Address [address] [place] [address] Phone Care Team Providers Care Rn Telemetry Name Role Phone Jose Wilson MD Primary Care Provider [phone] Encounter Details Date Type Department Care Team (Late st Contact Info) Description 11/10/2023 Documentation Only [facility], [address] [place] [address] Homero Chambers MD [address] [place] [phone] Social History Tobacco Use Types Packs/Day Years [...] on filedocumented in this encounter Care Teams Rn Telemetry Relationship Specialty Start Date End Date Jose Wilson MD [address] [facility] [place], [place] PCP - General Internal Medicine 08/02/23 documented as of this encounter
--- OUTSIDE RECORDS SUMMARY | 2025-05-23 10:57 | XMS_ITS | Clinical Summary ---
Author Organization [employer] Address [address] [place] [address] [address] [place] [address] Care Team Providers Care Exercise Equipment Specialist Name Role Phone Unavailable Primary Care [...] 12/03/2021, 03/13/2021, 02/20/2021 Influenza Vaccine (#1) 2025 , 08/30/2023, 09/04/2022, Additional history exists DTaP/Tdap/Td Vaccines (4 - Td or Tdap) 11/18/2027 11/18/2017, 03/24/2012, 11/10/1999 RSV Patients and Patients Aged 60 years or older (1 - 1-dose 75+ series) 2031 Pneumococcal Vaccine: 50+ Years Completed 06/07/2023, 05/14/2022, 05/14/2022, Additional history exists Zoster Vaccines Completed 06/08/2024, 02/07, 11/18/2017 HIB Vaccines Aged Out No longer eligi [...] details Legacy Procedure: Mammography Report 1 Marcus Kochncourkimani Pearce MD IMG BI PROCEDURES Final Result from Last 3 Months or Most Recently Relevant to Health Maintenance
== END 2025-05-23 10:57 | disposition home or self-care (01) ==
LOC: HO.HKA 10:23
PROVIDERS: PCP Internal Medicine; Visit Provider Internal Medicine Nephrology
DX: I10 Essential (primary) hypertension (principal)
CPT/HCPCS: 99214

== ENCOUNTER → 2025-05-23 10:22 | Outpatient (BNVA) | payer OTHER, SELFPAY | PROVIDERS: PCP Internal Medicine; Visit Provider Internal Medicine Nephrology | DX: I10 Essential (primary) hypertension (principal) | CPT/HCPCS: 99212 ==

== ENCOUNTER 2025-07-30 11:12 | Outpatient (REF) | payer OTHER, SELFPAY ==
--- NOTE | ~2025-07-30 | XR_ITS ---
CLINICAL HISTORY: M17.11 - Unilateral primary osteoarthritis, right knee Radiograph of the bilateral knees AP standing Radiographs of the right knee two views Comparison: DX/SR - XR KNEE 1-2 VIEWS LEFT - 01/13/24 08:25 EST Findings: No fractures or dislocations. Mild tricompartmental joint space narrowing in the right knee. Degenerative enthesophyte formation in the superior aspect of the right patella. Mild right patellar tracking. Redemonstration of left knee total arthroplasty with satisfactory alignment and intact hardware. No evidence for prosthetic loosening or infection. No joint effusion. Scattered arterial calcifications bilaterally. IMPRESSION: 1. Right knee: No acute fracture, dislocation or significant joint effusion. Mild arthritic changes. 2. Left knee: No acute process or hardware complications. This document has been electronically signed by: Viridiana Prado DO on 07/31/2025 13:44:05
--- OUTSIDE RECORDS SUMMARY | 2025-07-31 14:02 | XMS_ITS | Encounter Summary ---
Author Organization [employer] Address [address] [facility] [address] [place] [address] Care Team Providers Care Conductor/Engineer Name Role Phone Unavailable Primary Care Provider Unavailabl e Encounter Details Date Type Department Care Team (Late st Contact Info) Description 09/28/2023 Abstract [facility] [address] [place] [address] Harmony Villalta Social History Tobacco Use Types [...]
--- OUTSIDE RECORDS SUMMARY | 2025-07-31 14:02 | XMS_ITS | Clinical Summary ---
Author Organization [facility] [address] Address [address] [place] [address] Phone Care Team Providers Care Yolk Spray Drier Name Role Phone Jose Wilson MD Primary [...] yearly Lumbar hernia 07/01/2015 Subclinical hyperthyroidism 07/01/2015 Encounters Date Type Department Care Team Description 06/16/2025 7:25 AM EDT - 06/16/2025 11:59 PM EDT Hospital Encounter [facility] CT Scan [address] [place] [address] Encounter for screening for malignant neoplasm of respiratory organs; Nicotine dependence, cigarettes, uncomplicated Discharge Disposition: Home or Self Care from Last 3 Months Immunizations Name Administration Dates Next Due Influenza [...] HISTORICAL TONSILLECTOMY COLONOSCOPY W/ POLYPECTOMY 2012 PROCEDURE: ME COLSC FLX W/RMVL OF TUMOR POLYP LESION [...] Value Date Recorded Sex Assigned at Female 06/12/2025 10:24 PM EDT Legal Sex Female 2:00 AM EST Gender Identity Not on file Sexual Orientation Not on file Obstetrics History Plan of Treatment Health Maintenance Due Date Last Done Comments Diabetes: Annual Foot Exam 1966 Diabetes: Annual Retina Eye Exam 1966 RSV Immunization Adult Patients (1 - Risk 60-74 years 1-dose series) 2016 Diabetes: Annual GFR (Glomerular Filtration Rate) 04/06/2020 04/06/2019 Falls Risk Assessment 10/17/2022 Hypertension/CHF/CAD Annual BMP Blood Test 10/17/2022 04/06/2019 Osteoporosis Screening (Bone Density Screening) 10/17/2022 Social Influencers of Health Screening 10/17/2022 Cholesterol Screening (Lipid Panel) 02/02/2024 02/01/2019 Breast Cancer Screening 02/13/2024 02/12/2022, 01/07 Colorectal Cancer Screening: Colonoscopy 05/04/2024 05/04/2019 Depression Screening 11/08/2024 Diabetes: Annual Urine Albumin-Creatinine Ratio (uACR) 06/16/2025 04/06/2019 Diabetes: Blood Sugar Control Test (HGBA1C) 06/16/2025 10/07/2015 COVID-19 Vaccine ( season) 2025 12/03/2021, 03/13/2021, 02/20/2021 Influenza Vaccine (#1) 2025 , 08/30/2023, 09/04/2022, Additional history exists DTaP,Tdap,and Td Vaccines (4 - Td or Tdap) 11/18/2027 11/18/2017, 03/24/2012, 11/10/1999 Hepatitis C Screening Completed 10/08/2016 Pneumococcal Vaccine: 50+ Years Completed 06/07/2023, 05/14/2022, 03/24/2012 Zoster Vaccines Completed 06/08/2024, 02/07, 11/18/2017 HIB [...] Procedure Name Priority Date/Time Associated Diagnosis Comments CT LUNG SCREENING Routine 06/16/2025 7:4 0 AM EDT Encounter for screening for malignant neoplasm of respiratory organs Nicotine dependence, cigarettes, uncomplicated COLONOSCOPY Routine 05/04/2019 URINE ALBUMIN CREATININE RATIO Routine 04/06/2019 ANNUAL BMP BLOOD TEST Routine 04/06/2019 LIPID PANEL Routine 02/01/2019 SCR MAMMO BI INCL CAD Routine 01/07/2018 11:16 AM EST Encounter for screening mammogram for malignant neoplasm of breast HEPATITIS C SCREENING Routine 10/08/2016 HEMOGLOBIN A1C Routine 10/07/2015 from Last 3 Months or Most Recently Relevant to Health Maintenance Results * CT Lung Screening (06/16/2025 7:40 AM EDT) Anatomical Region Laterality Modality Chest Computed Tomogra phy 06/20/2025 4:27 PM EDT Impressions 06/20/2025 4:31 PM EDT Lung RADS 2. Guidelines recommend repeat low-dose screening CT in 12 months. -------- FINAL REPORT -------- Dictated By: Bereket Mckenzie Dictated Date: 06/20/2025 16:27 ET Assigned Physician: Bereket Mckenzie Reviewed and Electronically Signed By: Bereket Mckenzie Signed Date: 06/20/2025 16:31 ET Workstation ID: [id number] Transcribed By: Self Edit Transcribed Date: 06/20/2025 16:27 ET Narrative 06/20/2025 4:31 PM EDT PROCEDURE: Low-dose CT of the chest without intravenous contrast. TECHNIQUE: Low-dose CT of the chest without intravenous contrast administration. Coronal and sagittal reformats and MIP reconstructions were created. Dose length product: 150 mGy-cm. HISTORY: Lung cancer screening, >=20 pk yr current smoker (Age 50-80y) COMPARISON: 06/10/2024. FINDINGS: Lungs/pleura: The central airways are clear and normal in caliber. Stable 2 mm nodule in the superior segment of the right lower lobe, series 3 image 89. Stable 3 mm nodule at the left apex, image 34. There are a few other scattered stable very small groundglass nodules in the left upper lobe and a few scattered calcified granulomas. No new suspicious nodule or mass. No pleural effusion or pneumothorax. Mediastinum/tonny: Stable mildly prominent but not pathologically enlarged mediastinal lymph nodes. No mediastinal mass or lymphadenopathy. No appreciable hilar lymphadenopathy on limited noncontrast evaluation. Vasculature: Normal caliber pulmonary arteries. Mild atherosclerotic calcifications of the aorta and great vessels. Cardiac: Normal heart size. Mild aortic annular and coronary artery calcification. Chest wall: No axillary or supraclavicular lymphadenopathy. Limited abdomen: Unremarkable. Bones: Mild degenerative changes of the spine and shoulders. Procedure Note Bereket Mckenzie MD - 06/20/2025 PROCEDURE: Low-dose CT of the chest without intravenous contrast. TECHNIQUE: Low-dose CT of the chest without intravenous contrastadministration. Coronal and sagittal reformats and MIP reconstructionswere created. Dose length product: 150 mGy-cm. HISTORY: Lung cancer screening, >=20 pk yr current smoker (Age 50-80y) COMPARISON: 06/10/2024. FINDINGS: Lungs/pleura: The central airways are clear and normal in caliber. Stable2 mm nodule in the superior segment of the right lower lobe, series 3image 89. Stable 3 mm nodule at the left apex, image 34. There are a fewother scattered stable very small groundglass nodules in the left upperlobe and a few scattered calcified granulomas. No new suspicious noduleor mass. No pleural effusion or pneumothorax. Mediastinum/tonny: Stable mildly prominent but not pathologically enlargedmediastinal lymph nodes. No mediastinal mass or lymphadenopathy. Noappreciable hilar lymphadenopathy on limited noncontrast evaluation. Vasculature: Normal caliber pulmonary arteries. Mild atheroscleroticcalcifications of the aorta and great vessels. Cardiac: Normal heart size. Mild aortic annular and coronary arterycalcification. Chest wall: No axillary or supraclavicular lymphadenopathy. Limited abdomen: Unremarkable. Bones: Mild degenerative changes of the spine and shoulders. IMPRESSION: Lung RADS 2. Guidelines recommend repeat low-dose screening CT in 12months. -------- FINAL REPORT -------- Dictated By: Bereket Mckenzie Dictated Date: 06/20/2025 16:27 ET Assigned Physician: Bereket Mckenzie Reviewed and Electronically Signed By: Bereket Mckenzie Signed Date: 06/20/2025 16:31 ET Workstation ID: [id number] Transcribed By: Self Edit Transcribed Date: 06/20/2025 16:27 ET Paula Hair MD [facility] [place] [place] CT PROCEDURES Final Result * Colonoscopy (05/04/2019) Colonoscopy abstracted,no interpretation Anatomical Region Laterality Modality Other Historical Provider HEALTH MAINTENANCE Final Result * Urine Albumin Creatinine Ratio (04/06/2019) Pathologist [facility] Urine Albumin Creatinine Ratio abstracted [facility] Provider HEALTH MAINTENANCE Final Result * Annual BMP Blood Test (04/06/2019) Pathologist [facility] Annual BMP Blood Test abstracted [facility] Provider HEALTH [facility] Final Result * (ABNORMAL) Lipid panel (02/01/2019) [facility] LDL/HDL Ratio 4 0 - 4 Triglycerides 382(A) 0 - 150 mg/dL Cholesterol 194 0 - 200 mg/dL HDL 45 >=40 mg/dL LDL Cholesterol 73 0 - 100 mg/dL Blood Venous blood specimen / Unknown Result [facility] Provider LAB BLOOD ORDERABLES Milady l Result [...] abstracted Historical Provider HEALTH MAINTENANCE Final Result * Hemoglobin A1c (10/07/2015) Hemoglobin A1C 5.7 4.0 - 6.0 % Blood Venous blood specimen / Unknown Historical Provider LAB BLOOD ORDERABLES Milady l Result from Last 3 Months or Most Recently Relevant to Health [place] [address] MEDICAID - [place] [facility] Member Subscriber Plan / Payer (Ef fective 2021-Present) Name:Claudia Fernando Relation to Subscriber:Self Name:Claudia Fernando Payer ID:[id number] Group ID:[id number] Type:Not on file Address: [address] [place] [phone] Care Teams Yolk Spray Drier Relationship Specialty Start Date End Date Jose Wilson MD [address] [place] [address] PCP - General Internal Medicine 08/02/23
--- OUTSIDE RECORDS SUMMARY | 2025-07-31 14:02 | XMS_ITS | Encounter Summary ---
Author Organization [employer] Address [address] [facility] 7 [place] [address] Care Team Providers Care Manager Bar Name Role Phone Unavailable Primary Care Provider Unavailabl e Encounter Details Date Type Department Care Team (Latest Contact Info) Description 08/01/2019 Abstract [facility] CONVERSIONS Dental, Provider, DDS Social History Tobacco [...]
--- OUTSIDE RECORDS SUMMARY | 2025-07-31 14:02 | XMS_ITS | Clinical Summary ---
Author Organization [employer] Address [address] [place] [address] 7t [place] [address] Care Team Providers Care Pilot Boat Captain Name Role Phone Unavailable Primary Care Provider [...] Additional history exists COVID-19 Vaccine ( season) 2025 12/03/2021, 03/13/2021, [...] Associated Diagnosis Comments MAMMOGRAM GENERIC Routine 02/12/2022 9: 30 AM EDT from Last 3 Months or [...] details Legacy Procedure: Mammography Report 1 Marcus Kochncnory Pearce MD IMG BI PROCEDURES Final Result from Last 3 Months or Most Recently Relevant to Health Maintenance
--- OUTSIDE RECORDS SUMMARY | 2025-07-31 14:02 | XMS_ITS | Encounter Summary ---
Author Organization [facility], Address [address] [place] [address] Phone Care Team Providers Care Inspector Of Dredging Name Role Phone Jose Wilson MD Primary Care Provider [phone] Encounter Details Date Type Department Care Team (Late st Contact Info) Description 11/10/2023 Documentation Only [facility], [address] [place] [address] Homero Chambers MD [address] [place] [phone] Social History Tobacco Use Types Packs/Day Years [...] on filedocumented in this encounter Care Teams Inspector Of Dredging Relationship Specialty Start Date End Date Jose Wilson MD [address] [facility] [place], [place] PCP - General Internal Medicine 08/02/23 documented as of this encounter
--- OUTSIDE RECORDS SUMMARY | 2025-07-31 14:02 | XMS_ITS | Clinical Summary ---
Author Organization [facility], Address [address] [place] [address] [place] [address] Phone Care Team Providers Care Superintendent House Name Role Phone Jose Wilson MD Primary Care Provider [phone] Allergies Active Allergy Reactions Criticality Noted Date [...] time each day Active ergocalciferol 1.25 MG (37922 UT) capsule Take 50,000 Units by mouth [...] (3 of 3 - PCV20 or PCV21) 08/02/2023 06/07/2023, 05/14/2022, 03/24/2012 Influenza Vaccine (#1) 2025 2, 10/08/2021, 07/30/2020, Additional history exists Hepatitis B Vaccine Aged Out No longe r eligible based on patient's age to complete this topic Insurance [facility] ([id number]) [facility] ([id number]) Care Teams Superintendent House Relationship Specialty Start Date End Date Jose Wilson MD [facility] [place], [place] PCP - General Internal Medicine 08/02/23
--- OUTSIDE RECORDS SUMMARY | 2025-07-31 14:03 | XMS_ITS | Encounter Summary ---
Author Organization [facility], Address [address] [place] [address] Phone Care Team Providers Care Oven Baker Name Role Phone Jose Wilson MD Primary Care Provider [phone] Encounter Details Date Type Department Care Team (Late st Contact Info) Description 11/10/2023 Documentation Only [facility], [address] [place] [address] Homero Chambers MD [address] [place] [phone] Social History Tobacco Use Types Packs/Day Years [...] on filedocumented in this encounter Care Teams Oven Baker Relationship Specialty Start Date End Date Jose Wilson MD [address] [facility] [place], [place] PCP - General Internal Medicine 08/02/23 documented as of this encounter
== END 2025-07-30 11:13 | disposition home or self-care (01) ==
LOC: HO.HOSX 11:12
PROVIDERS: Visit Provider Physician Assistant
DX: M17.11 Unilateral primary osteoarthritis, right knee (principal)
CPT/HCPCS: 20610; 73562; 99212; J0665; J1100; J2003

== ENCOUNTER 2025-07-30 13:23 | Outpatient (AMB) | payer OTHER, SELFPAY ==
--- NOTE | 2025-07-30 13:38 | A.OFFVIS_ITS ---
Vital Signs 07/30/25 13:39 Height 5 ft 2 in Weight 159 lb BMI 29.1 Intake Visit Reasons: New prob- Right knee pain Intake Note: Claudia is a 69 year old female who presents today as an established patient for a new problem visit to evaluate right knee pain. History of LT TKA on 04/20/23, performed by Dr. Mills. Patient reports her right knee pain started roughly 3- 4 months ago. She reports having a fall on 12/22/24 in [place] and was seen in the ED over there. Expresses having random stabbing pains even at rest on the anterior and posterior aspect on the right knee. She is interest in trying cortisone injections for her right knee. Has done therapy but just for her left knee before and after her total left knee replacement. Tylenol and ibuprofen no longer offer her relief. Patient is a pre-diabetic. Allergies cephalexin Allergy (Unknown, Verified 07/30/25 13:40) Swelling Cephalosporins Allergy (Unknown, Verified 07/30/25 13:40) SWELLING ciprofloxacin (CIPROFLOXACIN) Allergy (Unknown, Verified 07/30/25 13:40) SWELLING naproxen (NAPROXEN) Allergy (Unknown, Verified 07/30/25 13:40) BLISTERS IN MOUTH HPI HPI New prob- Right knee pain: Details: 69-year-old female presents to the office today for right knee pain. The patie nt has been experiencing pain for several months which is limiting her ability to sit for long periods of time and then stand. She has discomfort with prolonged walking and going up and downstairs. She did have a left total knee arthroplasty which was helpful. No treatment to date on the right knee. [facility] Medical History Schizoaffective disorder, bipolar type Elevated cholesterol Arthritis History of abdominal hernia Primary osteoarthritis of left knee HTN (hypertension) Depression Chronic pain Surgical History Hx laparoscopic cholecystectomy (08/03/23) Hx of tonsillectomy History of carpal tunnel surgery H/O wrist surgery History of back surgery Hx of inguinal hernia surgery Social History Household Members: None Housing: House Are you a primary school childcare attendant to a significant other at home: No Do you presently have visiting nurse or other home services: Yes (LINE CONTROLLER) Alcohol intake: never Patient Tobacco Use Status: Current everyday Tobacco user Smoking Start Date: 11/08/79 Tobacco use type: Cigarette Cigarettes Per Day: 5 Years Smoked: 50 Second Hand Smoke Exposure: No service: No Current occupational status: unemployed Review of Systems Const All systems reviewed & are unremarkable except as noted in HPI and below Physical Exam Vital Signs: BMI result Body Mass Index 29.1 Const General: cooperative and no acute distress Orientation/consciousness: patient oriented x3 Resp Effort & Inspection: normal respiratory effort and able to speak in complete sentences Cardio Peripheral pulses: Peripheral pulses 2+ throughout Neuro General: patient oriented x3 Extrem Other: Right knee skin intact, no erythema or joint effusion. Tenderness along the medial joint line. ROM full with crepitus. Negative steinmans. No ligamentous laxity. NVI. Office Procedures AMB Joint Injection/Aspiration Joint Injection/Aspiration Primary Site: right knee Prep: site was prepped using aseptic technique, ethochloride spray was applied and injection warnings given Injected: 40 mg of (decadron), with 3 mL of, 1% plain lidocaine, 0.25% bupivacaine and in the joint Approach Used: anterolateral Procedure: The patient tolerated the procedure well and there was some relief with the local anesthesia Coding 61457 - Glenohumeral/Tronchanteric Bursa/Intraarticular Procedure code (CPT) selection complete Results Reviewed Results Reviewed: xray right knee 07/30/25 IMPRESSION: 1. Right knee: No acute fracture, dislocation or significant joint effusion. Mild arthritic changes. 2. Left knee: No acute process or hardware complications. Assessment & Plan Assessment & Plan (1) Osteoarthritis of right knee: Code(s): M17.11 - Unilateral primary osteoarthritis, right knee Category: Medical Plan: We discussed options today, which include steroid injection. The patient did consent to move forward with right knee steroid injection, which was tolerated well.? I recommended rest, ice and elevation and OTC antiinflammatories prn for discomfort. If symptoms persist over the next 6-8 weeks, they will contact our office, otherwise, prn Orders: Orders XR knee RT 3V 07/30/25 M17.11 - Unilateral primary osteoarthritis, right knee Coding Level of Care Code Est Pt Level 3 (38941) Complex EM visit Add On G2211 Diagnoses Osteoarthritis of right knee M17.11 CPT Codes Coding - Joint 7: 34176 - Glenohumeral/Tronchanteric Bursa/Intraarticular ([id number])
[2025-07-30 13:39] VITALS: BMI 29.1
== END 2025-07-30 14:11 | disposition home or self-care (01) ==
LOC: HO.HOS 13:24
PROVIDERS: PCP Internal Medicine; Visit Provider Physician Assistant
DX: M17.11 Unilateral primary osteoarthritis, right knee (principal); Z96.652 Presence of left artificial knee joint
CPT/HCPCS: 20610; 99213

== ENCOUNTER → 2025-07-30 13:27 | Outpatient (BNV) | payer OTHER, SELFPAY | PROVIDERS: Visit Provider Radiology Diagnostic Radiology | DX: M17.11 Unilateral primary osteoarthritis, right knee (principal) | CPT/HCPCS: 73562 ==

== ENCOUNTER 2025-08-08 09:11 | Outpatient (REF) | payer OTHER, SELFPAY ==
--- OUTSIDE RECORDS SUMMARY | 2025-08-08 09:55 | XMS_ITS | Clinical Summary ---
Author Organization [facility], Address [address] [place] [address] [place] [address] Phone Care Team Providers Care Bindery Supervisor Name Role Phone Jose Wilson MD Primary [...] time each day Active ergocalciferol 1.25 MG (04468 UT) capsule Take 50,000 Units by mouth [...] patient's age to complete this topic Insurance [facility] ([id number]) [facility] ([id number]) Care Teams Bindery Supervisor Relationship Specialty Start Date End Date Jose Wilson MD [facility] [place], [place] PCP - General Internal Medicine 08/02/23
--- OUTSIDE RECORDS SUMMARY | 2025-08-08 09:55 | XMS_ITS | Clinical Summary ---
Author Organization [facility] [address] [facility] Address [address] [place] [address] Phone Care Team Providers Care Steel Division Supervisor Name Role Phone Jose Wilson MD Primary Care Provider [phone] Allergies Active Allergy Reactions Criticality Noted Date [...] - 06/16/2025 11:59 PM EDT Hospital Encounter [facility] CT Scan [address] [place] [address] Encounter for screening for malignant neoplasm of respiratory organs; Nicotine dependence, cigarettes, uncomplicated Discharge Disposition: Home or Self Care from Last 3 Months Immunizations Immunization Administration Dates Next Due Influenza Quadravalent, MDCK [...] HISTORICAL TONSILLECTOMY COLONOSCOPY W/ POLYPECTOMY 2012 PROCEDURE: DE COLSC FLX W/RMVL OF TUMOR POLYP LESION [...] Signed Date: 06/20/2025 16:31 ET Workstation ID: [id number] Transcribed By: Self Edit Transcribed Date: 06/20/2025 [...] Signed Date: 06/20/2025 16:31 ET Workstation ID: [id number] Transcribed By: Self Edit Transcribed Date: 06/20/2025 16:27 ET Paula Hair MD [facility] CT PROCEDURES Final Result * Colonoscopy (05/04/2019) Colonoscopy abstracted,no interpretation Anatomical Region Laterality Modality Other Historical Provider HEALTH MAINTENANCE Final Result * Urine Albumin Creatinine Ratio (04/06/2019) Pathologist [facility] Urine Albumin Creatinine Ratio abstracted [facility] Provider HEALTH MAINTENANCE Final Result * Annual BMP Blood Test (04/06/2019) Pathologist [facility] Annual BMP Blood Test abstracted [facility] Provider HEALTH [facility] Final Result * (ABNORMAL) Lipid panel (02/01/2019) [facility] LDL/HDL Ratio 4 0 - 4 Triglycerides 382(A) 0 - 150 mg/dL Cholesterol 194 0 - 200 mg/dL HDL 45 >=40 mg/dL LDL Cholesterol 73 0 - 100 mg/dL Blood Venous blood specimen / Unknown Result [facility] Provider LAB BLOOD ORDERABLES Milady l Result [...] to [place] [address] [place] - [place] [facility] Member Subscriber Plan / Payer (Ef fective 2021-Present) Name:Claudia Fernando Relation to Subscriber:Self Name:Claudia Fernando Payer ID:[id number] Group ID:[id number] Type:Not on file Address: [address] [place] [phone] Care Teams Steel Division Supervisor Relationship Specialty Start Date End Date Jose Wilson MD [address] [place] [address] PCP - General Internal Medicine 08/02/23
--- OUTSIDE RECORDS SUMMARY | 2025-08-08 09:55 | XMS_ITS | Clinical Summary ---
Author Organization [employer] Address [address] [place] [address] 7t [place] [address] Care Team Providers Care Arcgis Developer Name Role Phone Unavailable Primary Care [...]
--- OUTSIDE RECORDS SUMMARY | 2025-08-08 09:55 | XMS_ITS | Encounter Summary ---
Author Organization [facility], Address [address] [place] [address] Phone Care Team Providers Care Senior Hr Manager Name Role Phone Jose Wilson MD Primary Care Provider [phone] Encounter Details Date Type Department Care Team (Late st Contact Info) Description 11/10/2023 Documentation Only [facility], [address] [place] [address] Homero Chambers MD [address] [place] [phone] Social History Tobacco Use Types Packs/Day Years [...] on filedocumented in this encounter Care Teams Senior Hr Manager Relationship Specialty Start Date End Date Jose Wilson MD [address] [facility] [place], [place] PCP - General Internal Medicine 08/02/23 documented as of this encounter
--- OUTSIDE RECORDS SUMMARY | 2025-08-08 09:55 | XMS_ITS | Encounter Summary ---
Author Organization [employer] Address [address] [facility] 7 [place] [address] Care Team Providers Care Services Rep Name Role Phone Unavailable Primary Care Provider Unavailabl e Encounter Details Date Type Department Care Team (Latest Contact Info) Description 08/01/2019 Abstract [facility] CONVERSIONS Dental, Provider, DDS Social History Tobacco [...]
--- OUTSIDE RECORDS SUMMARY | 2025-08-08 09:55 | XMS_ITS | Encounter Summary ---
Author Organization [facility], Address [address] [place] [address] Phone Care Team Providers Care Pin Feather Machine Operator Name Role Phone Jose Wilson MD Primary Care Provider [phone] Encounter Details Date Type Department Care Team (Late st Contact Info) Description 11/10/2023 Documentation Only [facility], [address] [place] [address] Homero Chambers MD [address] [place] [phone] Social History Tobacco Use Types Packs/Day Years [...] on filedocumented in this encounter Care Teams Pin Feather Machine Operator Relationship Specialty Start Date End Date Jose Wilson MD [address] [facility] [place], [place] PCP - General Internal Medicine 08/02/23 documented as of this encounter
--- OUTSIDE RECORDS SUMMARY | 2025-08-08 09:55 | XMS_ITS | Encounter Summary ---
Author Organization [employer] Address [address] [facility] 7t [place] [address] Care Team Providers Care Rotating Field Assembler Name Role Phone Unavailable Primary Care Provider Unavailabl e Encounter Details Date Type Department Care Team (Late st Contact Info) Description 09/28/2023 Abstract [facility] [address] [place] [address] Harmony Villalta Social History Tobacco Use Types [...]
[2025-08-08 11:20] LABS: Anion Gap 10 (12-20); Blood Urea Nitrogen 19 mg/dL (9-16); Carbon Dioxide 29 mmol/L (22-29); Chloride 107 mmol/L (96-108); Estimated Glomerular Filt Rate 48; Potassium 4.2 mmol/L (3.3-5.1); Sodium 142 mmol/L (135-145)
== END 2025-08-08 09:12 | disposition home or self-care (01) ==
LOC: HO.LAB 09:11
PROVIDERS: Visit Provider Internal Medicine Nephrology
DX: I10 Essential (primary) hypertension (principal)
CPT/HCPCS: 36415; 80051; 82565; 84520

== ENCOUNTER 2025-08-10 09:51 | Outpatient (AMB) | payer OTHER, SELFPAY ==
--- NOTE | 2025-08-10 09:51 | HO.NEPHOV ---
Vital Signs 08/10/25 09:55 Height 5 ft 2 in Weight 160 lb 6 oz BMI 29.3 BP 120/70 Blood Pressure Location Lt brachial Position Sitting Pulse 77 Pulse Source Pulse Oximeter Pulse Oximetry (%) 97 Oxygen Delivery Method Room Air Intake Visit Reasons: 3 MO FU-Conf Electrician Locomotive Required: Yes Electrician Locomotive Language: Dean Of Instruction Services: Electrician Locomotive Offered & Declined ([facility] Electrician Locomotive services refused. ) Accompanied by: Grand Child Allergies cephalexin Allergy (Unknown, Verified 08/10/25 09:54) Swelling Cephalosporins Allergy (Unknown, Verified 08/10/25 09:54) SWELLING ciprofloxacin (CIPROFLOXACIN) Allergy (Unknown, Verified 08/10/25 09:54) SWELLING naproxen (NAPROXEN) Allergy (Unknown, Verified 08/10/25 09:54) BLISTERS IN MOUTH HPI Comments Details: 67-year-old female with a PMH significant for?HTN . In the past she was given calcium channel emil which she did not tolerate due to edema. Her BP has been going high especially in the afternoons. She does not take any nonsteroidal anti-inflammatories or any other new medications since last visit. She does not have any urinary symptoms, chest pain, shortness of breath, proximal nocturnal dyspnea or orthopnea. She claims to be compliant with a low-sodium diet. Her recent serum creatinine is stable at baseline with medication changes [facility] Medical History Schizoaffective disorder, bipolar type Elevated cholesterol Arthritis History of abdominal hernia Primary osteoarthritis of left knee HTN (hypertension) Depression Chronic pain Surgical History Hx laparoscopic cholecystectomy (08/03/23) Hx of tonsillectomy History of carpal tunnel surgery H/O wrist surgery History of back surgery Hx of inguinal hernia surgery Social History Household Members: None Housing: House Are you a primary dog day care attendant to a significant other at home: No Do you presently have visiting nurse or other home services: Yes (DOOR AND ARRIVAL ATTENDANT) Alcohol intake: never Patient Tobacco Use Status: Current everyday Tobacco user Smoking Start Date: 11/08/79 Tobacco use type: Cigarette Cigarettes Per Day: 5 Years Smoked: 50 Second Hand Smoke Exposure: No service: No Current occupational status: unemployed Review of Systems Const All systems reviewed & are unremarkable except as noted in HPI and below Physical Exam Const General: comfortable and no acute distress Orientation/consciousness: patient oriented x3 HEENT Head: Yes normocephalic Mouth: Normal oral and palatal mucosa present Eyes EOM: EOMs intact bilaterally Neck Neck: Yes supple Resp Auscultation: clear to auscultation bilaterally Cardio Jugular venous distension: no JVD Rate: regular rate GI Palpation (GI): Soft to palpation Auscultation: normal bowel sounds General: Yes no CVA tenderness Back/Spine/Pelvis Back: no CVA tenderness Skin General skin exam: no rashes or lesions noted Neuro General: patient oriented x3 and moves all extremities Extrem General: Yes no pedal edema Results Reviewed Nephrology Results: Sodium, (135-145) 142 mmol/L 08/08/25 Potassium, (3.3-5.1) 4.2 mmol/L 08/08/25 Chloride, (96-108) 107 mmol/L 08/08/25 Carbon Dioxide, (22-29) 29 mmol/L 08/08/25 BUN, (9-16) 19 mg/dL H 08/08/25 Creatinine, (0.5-1.4) 1.12 mg/dL 08/08/25 Calcium, (8.4-10.2) 9.6 mg/dL 01/26/25 Assessment & Plan Assessment & Plan (1) HTN (hypertension): Code(s): I10 - Essential (primary) hypertension Category: Medical Qualifiers: Hypertension type: primary hypertension Qualified Code(s): I10 - Essential (primary) hypertension (2) CKD stage 3a, GFR 45-59 ml/min: Code(s): N18.31 - Chronic kidney disease, stage 3a Category: Medical Plan Her renal functions are stable. She could continue lisinopril 2.5 mg AM and 5 mg later in the day as well as metoprolol XL 50 mg daily. She needs to maintain herself on low-sodium diet and maintain good hydration . She should avoid nonsteroidal anti-inflammatory medications. All questions were answered Orders: Orders Electrolytes 6 Months I10 - Essential (primary) hypertension, N18.31 - Chronic kidney disease, stage 3a Blood Urea Nitrogen 6 Months I10 - Essential (primary) hypertension, N18.31 - Chronic kidney disease, stage 3a Creatinine 6 Months I10 - Essential (primary) hypertension, N18.31 - Chronic kidney disease, stage 3a Protein Creatinine Ratio, Ur 6 Months I10 - Essential (primary) hypertension, N18.31 - Chronic kidney disease, stage 3a Coding Level of Care Code Est Pt Level 4 (16560) Diagnoses Primary hypertension I10 Hypertension type: primary hypertension CKD stage 3a, GFR 45-59 ml/min N18.31
[2025-08-10 09:55] VITALS: BP 120/70; PULSE 77; O2SAT 97; BMI 29.3
--- OUTSIDE RECORDS SUMMARY | 2025-08-10 10:31 | XMS_ITS | Clinical Summary ---
Author Organization [facility], Address [address] [place] [address] [place] [address] Phone Care Team Providers Care Director Stars Name Role Phone Jose Wilson MD Primary Care Provider [phone] Allergies Active Allergy Reactions Criticality Noted Date [...] time each day Active ergocalciferol 1.25 MG (86020 UT) capsule Take 50,000 Units by mouth [...] patient's age to complete this topic Insurance [facility] ([id number]) [facility] ([id number]) Care Teams Director Stars Relationship Specialty Start Date End Date Jose Wilson MD [facility] [place], [place] PCP - General Internal Medicine 08/02/23
--- OUTSIDE RECORDS SUMMARY | 2025-08-10 10:31 | XMS_ITS | Encounter Summary ---
Author Organization [facility], Address [address] [place] [address] Phone Care Team Providers Care Punch Hand Name Role Phone Jose Wilson MD Primary Care Provider [phone] Encounter Details Date Type Department Care Team (Late st Contact Info) Description 11/10/2023 Documentation Only [facility], [address] [address] Homero Chambers MD [address] [place] [id number] Social History Tobacco Use Types Packs/Day Years [...] on filedocumented in this encounter Care Teams Punch Hand Relationship Specialty Start Date End Date Jose Wilson MD [address] [facility] [place], [place] PCP - General Internal Medicine 08/02/23 documented as of this encounter
--- OUTSIDE RECORDS SUMMARY | 2025-08-10 10:31 | XMS_ITS | Encounter Summary ---
Author Organization [employer] Address [address] [facility] [address] [place] [address] Care Team Providers Care Truss Designer Name Role Phone Unavailable Primary Care Provider Unavailabl e Encounter Details Date Type Department Care Team (Latest Contact Info) Description 08/01/2019 Abstract [facility] CONVERSIONS Dental, Provider, DDS Social History [...]
--- OUTSIDE RECORDS SUMMARY | 2025-08-10 10:31 | XMS_ITS | Clinical Summary ---
Author Organization [employer] Address [address] [place] [address] [address] [place] [address] Care Team Providers Care Parts Cleaner Name Role Phone Unavailable Primary Care Provider [...]
--- OUTSIDE RECORDS SUMMARY | 2025-08-10 10:31 | XMS_ITS | Encounter Summary ---
Author Organization [employer] Address [address] [facility] [address] [place] [address] Care Team Providers Care Cosmetologist Name Role Phone Unavailable Primary Care Provider Unavailabl e Encounter Details Date Type Department Care Team (Late st Contact Info) Description 09/28/2023 Abstract [facility] [address] [place] [address] Harmony Villalta Social History Tobacco Use Types [...]
--- OUTSIDE RECORDS SUMMARY | 2025-08-10 10:31 | XMS_ITS | Clinical Summary ---
Author Organization [facility] [address] [facility] Address [address] [place] [address] Phone Care Team Providers Care Blending Machine Operator Name Role Phone Jose Wilson MD Primary Care Provider [phone] Allergies Active Allergy Reactions Criticality Noted Date [...] - 06/16/2025 11:59 PM EDT Hospital Encounter [facility] CT Scan [address] [place] [address] Encounter for screening for malignant [...] HISTORICAL TONSILLECTOMY COLONOSCOPY W/ POLYPECTOMY 2012 PROCEDURE: TX COLSC FLX W/RMVL OF TUMOR POLYP LESION [...] Signed Date: 06/20/2025 16:31 ET Workstation ID: [id number] Transcribed By: Self Edit Transcribed Date: 06/20/2025 [...] Signed Date: 06/20/2025 16:31 ET Workstation ID: [id number] Transcribed By: Self Edit Transcribed Date: 06/20/2025 16:27 ET Paula Hair MD [facility] PROCEDURES Final Result * Colonoscopy (05/04/2019) Colonoscopy abstracted,no interpretation Anatomical Region Laterality Modality Other Historical Provider HEALTH MAINTENANCE Final Result * Urine Albumin Creatinine Ratio (04/06/2019) Pathologist [facility] Urine Albumin Creatinine Ratio abstracted [facility] Provider HEALTH MAINTENANCE Final Result * Annual BMP Blood Test (04/06/2019) Pathologist [facility] Annual BMP Blood Test abstracted [facility] Provider HEALTH [facility] Final Result * (ABNORMAL) Lipid panel (02/01/2019) [facility] LDL/HDL Ratio 4 0 - 4 Triglycerides 382(A) 0 - 150 mg/dL Cholesterol 194 0 - 200 mg/dL HDL 45 >=40 mg/dL LDL Cholesterol 73 0 - 100 mg/dL Blood Venous blood specimen / Unknown Result [facility] Provider LAB BLOOD ORDERABLES Milady [...] to Health [place] [address] [place]ICA[place] [facility] Member Subscriber Plan / Payer (Ef fective 2021-Present) Name:Claudia Fernando Relation to Subscriber:Self Name:Claudia Fernando Payer ID:[id number] Group ID:[id number] Type:Not on file Address: [address] [place] [address] Care Teams Blending Machine Operator Relationship Specialty Start Date End Date Jose Wilson MD [address] [place] [address] PCP - General Internal Medicine 08/02/23
--- OUTSIDE RECORDS SUMMARY | 2025-08-10 10:31 | XMS_ITS | Encounter Summary ---
Author Organization [facility], Address [address] [place] [address] Phone Care Team Providers Care Kaiawhina Kura [place] Maori Name Role Phone Jose Wilson MD Primary Care Provider [phone] Encounter Details Date Type Department Care Team (Late st Contact Info) Description 11/10/2023 Documentation Only [facility], [address] [place] [address] Homero Chambers MD [address] [place] [phone] Social History Tobacco Use Types Packs/Day Years [...] on filedocumented in this encounter Care Teams Kaia[place]ina Kura [place] Maori Relationship Specialty Start Date End Date Jose Wilson MD [address] [facility] [place], [place] PCP - General Internal Medicine 08/02/23 documented as of this encounter
== END 2025-08-10 10:04 | disposition home or self-care (01) ==
LOC: HO.HKA 09:52
PROVIDERS: PCP Internal Medicine; Visit Provider Internal Medicine Nephrology
DX: I10 Essential (primary) hypertension (principal); N18.31 Chronic kidney disease, stage 3a
CPT/HCPCS: 99214

== ENCOUNTER → 2025-08-10 09:51 | Outpatient (BNVA) | payer OTHER, SELFPAY | PROVIDERS: PCP Internal Medicine; Visit Provider Internal Medicine Nephrology | DX: I10 Essential (primary) hypertension (principal); N18.31 Chronic kidney disease, stage 3a | CPT/HCPCS: 99212 ==

== ENCOUNTER 2025-11-05 10:26 | Outpatient (AMB) | payer OTHER, SELFPAY ==
--- OUTSIDE RECORDS SUMMARY | 2025-10-30 23:59 | XMS_ITS | Continuity of Care Document ---
Author Organization [facility] Address [address] [place] [address]- Care Team Providers Care Food Aide Name Role Phone Jose Wilson MD Primary Care Physician [place] [facility] [place]): 10/23/25 - 10/30/25 [facility] [address] [place], [place] [address] Encounter Diagnosis Centriacinar emphysema(Discharge Diagnosis) - 10/23/25 Primary osteoarthritis of right knee(Discharge Diagnosis) - 10/23/25 Attending Physician: Jose Wilson MD Encounter Type: Office Visit Allergies, Adverse Reactions, Alerts Substance Criticality Severity Reaction Reaction Severity Status ciprofloxacin swelling, itch A ctive naproxen 1 Cold sores Active cephalosporins itchy, rash Act xavier 1has taken ibuprofen since Immunizations Given and Recorded Vaccine Date Status Refusal Reason influenza virus vaccine, inactivated 1 08/10/25 Gi prakash influenza virus vaccine, inactivated 2 10/27/24 Gi prakash influenza virus vaccine, inactivated 3 08/30/23 Gi prakash influenza virus vaccine, inactivated [...] vaccine, inactivated 03/01/24 Recorded pneumococcal 13-valent vaccine 4 06/07/23 Given pneumococcal 20-valent conjugate vaccine 5 05/14/22 Given SARS-CoV-2 mRNA (izxpcny-[id number]) vax 12/03/21 Recorded SARS-CoV-2 (COVID-19) mRNA BNT-162b2 vac 03/13/21 Recorded SARS-CoV-2 (COVID-19) mRNA BNT-162b2 vac 02/20/21 Recorded Zoster Vaccine Live 11/18/17 Recorded tetanus/diphtheria/pertussis, acel(Tdap) 11/18/17 Recorded tetanus/diphtheria/pertussis, acel(Tdap) 03/24/12 Recorded tetanus/diphtheria/pertussis, acel(Tdap) 11/10/99 Recorded pneumococcal 23-valent vaccine 03/24/12 Recorded 1Result Comment: [facility] [id number] 2Result Comment: [id number] given w/out incident 3Result Comment: [facility]- [id number] 4Result Comment: [facility] [id number] 5Result Comment: [id number] given w/out incident Medications amitriptyline 10 mg oral tablet 10 mg, 1, tablet, By Mouth, Daily at bedtime, # 30 tablet, Refills 5, Maintenance, 10/23/25 11:04:00 AM EST, Partial fill upon patient request if the prescription is for a schedule II opioid drug. Start Date: 10/23/25 Status: Ordered Medication Dispense Status: Completed Quantity: 30.0 Unit: tablet Total Allowed Fills: 1 Fills Dispensed: 0 celecoxib 200 mg oral capsule 1 capsule, By Mouth, Daily, PRN joint pain, # 90 capsule, 4 Refills, Maintenance, 10/23/25 11:02:00AM EST, [facility] #[id number], 158, cm, 10/23/25 10:38:00 EST, Height, 74, kg, 10/23/25 10:38:00 EST, Dry Weight Start Date: 10/23/25 Stop Date: 01/16/27 Status: Ordered Medication Dispense Status: Completed Quantity: 90.0 Unit: capsule Total Allowed Fills: 5 Fills Dispensed: 0 clonazePAM 0.5 mg oral tablet 0.5 tablet = 0.25 mg, By Mouth, 2 times a day, 0 Refills, Maintenance, 08/30/23 10:14:00 AM EDT, Tablet, Partial fill upon patient request if the prescription is for a schedule II opioid drug. Start Date: 08/30/23 Stop Date: 09/29/23 Status: Ordered Medication Dispense Status: Completed Total Allowed Fills: 1 Fills Dispensed: 0 diclofenac 1% topical gel 2.25 inches, Topically, 4 times a day, use dosing card to measure a dose, # 150 Gm, 5 Refills, Maintenance, 10/23/25 11:01:00 AM EST, Gel, [facility] #[id number], Partial fill upon patient request if the prescription is for a schedule II opioid drug., 158, cm, 10/23/25 10:38:00 EST, Height, 74, kg, 10/23/25 10:38:00 EST, Dry Weight Start Date: 10/23/25 Status: Ordered Medication Dispense Status: Completed Quantity: 150.0 Unit: g Total Allowed Fills: 6 Fills Dispensed: 0 docusate sodium 100 mg oral tablet 1 tablet = 100 mg, By Mouth, 2 times a day, PRN for constipation, # 60 tablet, 6 Refills, Maintenance, 03/02/25 11:35:00 AM EDT, Tablet, [facility] #[id number], Partial fill upon patient request if the prescription is for a schedule II opioid drug., 158, cm, 03/02/25 11:28:00 EDT, Height, 72.5,kg, 12/29/24 8:03:00 EST, Dry Weight Start Date: 03/02/25 Stop Date: 09/28/25 Status: Ordered Medication Dispense Status: Completed Quantity: 60.0 Unit: tablet Total Allowed Fills: 7 Fills Dispensed: 0 ezetimibe 10 mg oral tablet 1 tablet = 10 mg, By Mouth, Daily, # 90 tablet, 3 Refills, Maintenance, 10/23/25 11:06:00 AM EST, Tablet, [facility] #[id number], Partial fill upon patient request if the prescription is for a schedule II opioid drug., 158, cm, 10/23/25 10:38:00 EST, Height, 74, kg, 10/23/25 10:38:00 EST, Dry Weight Start Date: 10/23/25 Stop Date: 10/18/26 Status: Ordered Medication Dispense Status: Completed Quantity: 90.0 Unit: tablet Total Allowed Fills: 4 Fills Dispensed: 0 famotidine 40 mg oral tablet 1 tablet, By Mouth, 2 times a day, # 60 tablet, 12 Refills, Maintenance, 03/02/25 11:36:00 AM EDT, [facility] #[id number], 158, cm, 03/02/25 11:28:00 EDT, Height, 72.5, kg, 12/29/24 8:03:00 EST, Dry Weight Start Date: 03/02/25 Status: Ordered Medication Dispense Status: Completed Quantity: 60.0 Unit: tablet Total Allowed Fills: 13 Fills Dispensed: 0 fluticasone 50 mcg/inh nasal spray 1 sprays = 50 mcg, Nares, Both, 2 times a day, # 16 Gm, 3 Refills, Maintenance, 01/18/25 4:28:00 PM EDT, [facility] #[id number], Partial fill upon patient request if the prescription is for a schedule II opioid drug., 1 sprays Nares, Both 2 times a day,x90 days, 158, cm, 12/29/24 8:03:00EST, Height, 72.5, kg, 12/29/24 8:03:00 EST, Dry Weight Start Date: 01/18/25 Stop Date: 01/13/26 Status: Ordered Medication Dispense Status: Completed Quantity: 16.0 Unit: g Total Allowed Fills: 4 Fills Dispensed: 0 Freestyle Lite Lancets See Instructions, # 100 each, Refills 5, Tot. Refills 5, Maintenance, use to check blood sugars once a day Dx: E11.9, 12/29/24 8:24:00 AM EST, Supply, 158, cm, 12/29/24 8:03:00 EST, Height, 72.5, kg, 12/29/24 8:03:00 EST, Dry Weight Start Date: 12/29/24 Stop Date: 06/27/25 Status: Ordered Medication Dispense Status: Completed Quantity: 100.0 Unit: each Total Allowed Fills: 6 Fills Dispensed: 0 Indications: Type 2 diabetes mellitus with hyperglycemia; Freestyle Lite Monitor See Instructions, # 1 each, Refills 0, Tot. Refills 0, Maintenance, use to check blood sugars once a day Dx: E11.9, 12/29/24 8:23:00 AM EST, Supply, 158, cm, 12/29/24 8:03:00 EST, Height, 72.5, kg, 12/29/24 8:03:00 EST, Dry Weight Start Date: 12/29/24 Stop Date: 01/28/25 Status: Ordered Medication Dispense Status: Completed Quantity: 1.0 Unit: each Total Allowed Fills: 1 Fills Dispensed: 0 Indications: Type 2 diabetes mellitus with hyperglycemia; Freestyle Lite Test Strips See Instructions, # 100 each, Refills 4, Tot. Refills 4, Maintenance, use to check blood sugars once a day Dx: E11.9, 12/29/24 8:23:00 AM EST, Supply, 158, cm, 12/29/24 8:03:00 EST, Height, 72.5, kg, 12/29/24 8:03:00 EST, Dry Weight Start Date: 12/29/24 Stop Date: 05/28/25 Status: Ordered Medication Dispense Status: Completed Quantity: 100.0 Unit: each Total Allowed Fills: 5 Fills Dispensed: 0 Indications: Type 2 diabetes mellitus with hyperglycemia; lisinopril 2.5 mg oral tablet See Instructions, 1 tablet By Mouth Daily in am and 2 tablets in PM, per Dr. Barnes, # 90 each, Refills 11, Maintenance, 10/23/25 11:09:00 AM EST, Instructions Replace Required Details, Partial fill upon patient request if the prescription is for a schedule II opioid drug. Start Date: 10/23/25 Status: Ordered Medication Dispense Status: Completed Quantity: 90.0 Unit: each Total Allowed Fills: 1 Fills Dispensed: 0 Metoprolol Succinate ER 50 mg oral tablet, extended release 50 mg, 1, tablet, By Mouth, Daily, # 90 tablet, Refills 3, Maintenance, 06/08/25 8:43:00 AM EDT, Partial fill upon patient request if the prescription is for a schedule II opioid drug. Start Date: 06/08/25 Stop Date: 09/06/25 Status: Ordered Medication Dispense Status: Completed Quantity: 90.0 Unit: tablet Total Allowed Fills: 1 Fills Dispensed: 0 rosuvastatin 40 mg oral tablet 1 tablet, By Mouth, Daily, # 90 tablet, 1 Refills, Maintenance, 08/01/25 2:10:00 PM EDT, [facility] #[id number], 158, cm, 06/08/25 8:32:00 EDT, Height, 72.5, kg, 12/29/24 8:03:00 EST, Dry Weight Start Date: 08/01/25 Status: Ordered Medication Dispense Status: Completed Quantity: 90.0 Unit: tablet Total Allowed Fills: 2 Fills Dispensed: 0 Tylenol 8 Hour 650 mg oral tablet, extended release 2 tablet = 1,300 mg, By Mouth, Every 8 hours, 0 Refills, Maintenance, 07/12/20 7:46:00 AM EDT Start Date: 07/12/20 Status: Ordered Medication Dispense Status: Completed Total Allowed Fills: 1 Fills Dispensed: 0 Vitamin C 1000 mg oral tablet 1 tablet = 1,000 mg, By Mouth, Daily, 0 Refills, Maintenance, 05/14/22 11:13:00 AM EDT, Partial fill upon patient request if the prescription is for a schedule II opioid drug. Start Date: 05/14/22 Status: Ordered Medication Dispense Status: Completed Total Allowed Fills: 1 Fills Dispensed: 0 Problem List Condition Confirmation Course Effective Dates [...] Active Hypercholesterolemia Confirmed Active Insomnia Confirmed Active Lumbar spondylosis Confirmed Active Depression, major, single episode, moderate Confirmed 1993 Active Multiple nodules of lung Confirmed 05/01/22 Active Osteopenia Confirmed 02/16/25 Active Subclinical hyperthyroidism Confirmed 07/01/15 Active Tobacco dependence Confirmed Active Tubular adenoma of colon Confirmed 09/21/18 Active Controlled type 2 diabetes mellitus with hyperglycemia Confirmed 07/06/24 Active Diagnosis Diagnosis Type Effective Dates Health Status Clinical Service Informant [facility]riacinar emphysema Discharge Diagnosis 10/23/25 Primary osteoarthritis of right knee Discharge Diagnosis 10/23/25 Vital Signs Most recent to oldest [Reference Range]: 1 Height 158 cm (10/23/25 10:38 AM) Weight 74 kg (10/23/25 10:38 AM) Oxygen Saturation [94-100 %] 97 % (10/23/25 10:38 AM) Pulse Rate [55-90 bpm] 83 bpm (10/23/25 10:38 AM) Body Mass Index [18.5-24.99 kg/m2] 29.64 kg/m2 *H* (10/23/25 10:38 AM) Blood Pressure [90-138/55-84 mm Hg] 107/ 66mm Hg (10/23/25 10:38 AM) Mode of Delivery (Oxygen) Room air (10/23/25 10:38 AM) Blood pressure sites Arm, left (10/23/25 10:38 AM) Dry Weight 74 kg (10/23/25 10:38 AM) Weight Obtained Via Standing scale (10/23/25 10:38 AM) Dry Weight Obtained Via Standing scale (10/23/25 10:38 AM) Social History Social History Type Response Smoking Status 5-9 cigarettes (betw een 1/4 to 1/2 pack)/day in last 30 days entered on: 09/10/22 Sexual Orientation Self described orien tation: ; Straight or heterosexual Sex Sex Representation Female (finding) Note * Joie Clay: PERFORM Event Display: Patient Education/Instruction Authored Date: [id number] Ambulatory Adult Visit Summary [facility] [address] [place] [address] Name: SUNSHINE STERLING : 1955?? Visit: 10/23/2025 10:15?? Ambulatory Visit Instructions ?? Your Care Team Primary Care Provider Jose Wilson MD? This Visit Provider Jose Wilson MD Your Diagnosis Medicare annual wellness visit, subsequent Controlled type 2 diabetes mellitus with hyperglycemia Tubular adenoma of colon Tobacco dependence Subclinical hyperthyroidism Osteopenia Depression, major, single episode, moderate Lumbar spondylosis Insomnia Hypercholesterolemia SOUMYA (generalized anxiety disorder) Hypertension, essential Centriacinar emphysema Primary osteoarthritis of right knee Vitals Signs Pulse Rate: 83 bpm Height: 158 cm Systolic Blood Pressure: 107 mm Hg Weight: 74 kg Diastolic Blood Pressure: 66 mm Hg Body Mass Index:??29.64 kg/m2??High Oxygen Saturation: 97 % Body surface area: 1.8 What to do next Instructions From Your Provider 1.?? please ask your local pharmacist about the RSV?? 2.?? please quit tobacco use. 3.?? repeat fasting lab work.?? 4.?? use Diclofenac gel on your right knee 4 times a day as needed.?? I also resent your Celebrex prescription for you to take daily for osteoarthritis. See your internet ecommerce specialist for your right knee osteoarthritis.?? Perhaps it is time to consider a knee replacement. ?? Follow-Up Appointments Follow Up with??Jose Wilson MD When:02/11/2026 11:00 AM EDT Where:[address] [facility] [place] [address]- Future Orders Vitamin D 25 Hydroxy Level (25 OH Vitamin D Level) - Routine, Once, 10/23/25 10:56:00 EST, Future Order, [facility], Blood?? ALT - Routine, Once, 10/23/25 10:56:00 EST, Future Order, [facility], Blood?? AST - Routine, Once, 10/23/25 10:56:00 EST, Future Order, [facility], Blood?? Lipid Panel - Routine, Once, 10/23/25 10:56:00 EST, Future Order, [facility], Blood?? Basic Metabolic Panel (BMP) - Routine, Once, 10/23/25 10:56:00 EST, Future Order, [facility], Blood?? Hemoglobin A1C (Monitoring) - Routine, Once, 10/23/25 10:56:00 EST, Future Order, [facility], Blood?? Microalbumin Urine (Urine Microalbumin) - Routine, Once, 10/23/25 10:56:00 EST, [facility], Urine?? Thyroid Panel - Routine, Once, 10/23/25 10:56:00 EST, Future Order, [facility], Blood?? CBC - Routine, Once, 10/23/25 10:57:00 EST, Future Order, [facility], Blood?? Magnesium Level - Routine, Once, 10/23/25 10:57:00 EST, Future Order, [facility], Blood?? Medications The [...] What How Much When Why Instructions New Diclofenac Topical (diclofenac 1% topical gel) 2.25 Inch Topically 4 times a day Refills: 5 Special Instructions: use dosing card to measure a dose Ordering Physician: Jose Wilson MD ?? [facility] at [facility] #[id number] Changed Celecoxib (celecoxib 200 mg oral capsule) 1 capsule Oral Daily as needed for joint pain Duration: 90 Days Ordering Physician: Jose Wilson MD [facility] #[id number] Changed Lisinopril (lisinopril 2.5 mg oral tablet) See instructions Special Instructions: 1 tablet By Mouth Daily in am and 2 tablets in PM, ??per Dr. Barnes ?? Unchanged Acetaminophen (Tylenol 8 Hour 650 mg oral tablet, extended release) 2 tab(s) Oral Every 8 hours Unchanged amiTRIPTYLINE (amitriptyline 10 mg oral tablet) 1 tab(s) Oral Daily at Bedtime Unchanged Ascorbic Acid (Vitamin C 1000 mg oral tablet) 1 tab(s) Oral Daily Unchanged Clonazepam (clonazePAM 0.5 mg oral tablet) 0.5 tab(s) Oral Twice a day Duration: 30 Days Unchanged Docusate (docusate sodium 100 mg oral tablet) 1 tab(s) Oral Twice a day as needed for for constipation Duration: 30 Days Ordering Physician: Jose Wilson MD Unchanged Durable Medical Equipment (Freestyle Lite Lancets) See instructions Controlled type 2 diabetes mellitus with hyperglycemia Duration: 30 Days Special Instructions: use to check blood sugars once a day ??Dx: E11.9 Ordering Physician: Jose Wilson MD ?? Unchanged Durable Medical Equipment (Freestyle Lite Monitor) See instructions Controlled type 2 diabetes mellitus with hyperglycemia Duration: 30 Days Special Instructions: use to check blood sugars once a day ??Dx: E11.9 Ordering Physician: Jose Wilson MD ?? Unchanged Durable Medical Equipment (Freestyle Lite Test Strips) See instructions Controlled type 2 diabetes mellitus with hyperglycemia Duration: 30 Days Special Instructions: use to check blood sugars once a day ??Dx: E11.9 Ordering Physician: Jose Wilson MD ?? Unchanged Ezetimibe (ezetimibe 10 mg oral tablet) 1 tab(s) Oral Daily Duration: 90 Days Ordering Physician: Jose Wilson MD [facility] #[id number] Unchanged Famotidine (famotidine 40 mg oral tablet) 1 tab(s) Oral Twice a day Ordering Physician: Jose Wilson MD Unchanged Fluticasone Nasal (fluticasone 50 mcg/ inh nasal spray) 1 spray(s) Nares, Both Twice a day Duration: 90 Days Ordering Physician: Jose Wilson MD Unchanged Metoprolol (Metoprolol Succinate ER 50 mg oral tablet, extended release) 1 tab(s) Oral Daily Duration: 90 Days Unchanged Rosuvastatin (rosuvastatin 40 mg oral tablet) 1 tab(s) Oral Daily Ordering Physician: Jose Wilson MD Pharmacy Information [facility] #[id number]: [address] [place] [address] [phone] ?? What How Much When Comments Stop Taking Ergocalciferol (Vitamin D2) 1 tab(s) Oral Daily Stop Taking Quetiapine (QUEtiapine 25 mg oral tablet) 0.5 tab(s) Oral Daily at Bedtime Test Performed Below is a partial list of the tests performed during your Visit. You may have had other tests and procedures not included in this list. Please discuss all test results with your provider. 25 OH Vitamin D Level?-- Results Pending -- ALT?-- Results Pending -- AST?-- Results Pending -- Basic Metabolic Panel (BMP)?-- Results Pending -- CBC?-- Results Pending -- Hemoglobin A1C (Monitoring)?-- Results Pending -- Lipid Panel?-- Results Pending -- Magnesium Level?-- Results Pending -- Thyroid Panel?-- Results Pending -- Urine Microalbumin?-- Results Pending -- Medications and Immunizations Administered Medications Given During Visit No medications given during this visit.?? Allergies (NKA means No Known Allergies) cephalosporins??itchy, rash ciprofloxacin??swelling, itch naproxen??Cold sores Common Emergency Awareness Tips IS IT A [...] are strongly encouraged to quit. Please call [employer] [facility] at [phone] or [phone] ([phone]) or log in to [email or web address] for referrals to smoking cessation programs. ?? The National Suicide Prevention Hotline is available 31/05 if you or someone you know needs to find a reason to keep living. By calling 2-757-954[employer]vis (2560) you'll be connected to a skilled, trained counselor at a crisis center in your area. [facility] Portal You can view and manage your care through the patient portal or by using a health care ibeth of your choosing. [employer] is a website that allows you to securely view your medical information including your hospital discharge summary, office visit summaries, medications and follow-up visits. You can also request appointments, renew medications, and request access to your medical information using a health care ibeth of your choosing, or just ask a question. You can enroll at [email or web address] or register during your next office visit. [facility], in keeping with [facility] guidance, no longer requires face masks for [...] primary care provider, you may find a [facility] provider by calling [facility] Link at [phone]. Patient Care team information Care Team Personnel Name: Lucía Jurado RN Position: [facility] RN Member Role: Primary Care Nurse Name: Cherise Pang RN Position: [facility] AMB Nurse Member Role: Primary Care Nurse Name: Abiel Roman RN Position: [facility] RN Member Role: Primary Care Nurse Name: Greg Oro MD Position: [facility] Outreach Member Role: [employer] Consulting Physician Address: [address] [facility] [address] [facility] [place] [address]- Telecom: Name: Mona Saha RN Position: [facility] RN Member Role: Primary Care Nurse Name: Harmony Villalta Position: [facility] Outreach Member Role: [employer] Consulting Physician Name: Jose Wilson MD Position: [facility] Physician - Primary Care Member Role: PCP Address: [address] [facility] [place] [address]- [place] Telecom: Care Team Related Persons Name: GAY MAGALLANES Name: SABIHA MACKENZIE Name: WALT LOVE Insurance Providers Guarantor name: [employer] Plan Information #: 1 Payer: [facility] [employer] Payer Identifier: NA Member Number: [id number] Group Number: [id number] Subscriber Identifier: [id number] Relationship to Subscriber: self Coverage Type: Medicare Managed Care (Includes Medicare Advantage Plans) Coverage Verification Date: NA Telecom: NA Address: NA
--- NOTE | 2025-11-05 10:29 | MHC.OFFVIS ---
Vital Signs 11/05/25 10:32 Height 5 ft 2 in Weight 160 lb BMI 29.3 Intake Visit Reasons: OV-Right knee pain Intake Note: Claudia is a 70 year old female who presents today for a follow up of right knee pain, last injection on 07/30/25. Patient reports injection did not help at all, stating her pain is worse than before. Complaints of constant pain. No relief with use of celebrex or Tylenol. Allergies cephalexin Allergy (Unknown, Verified 11/05/25 10:32) Swelling Cephalosporins Allergy (Unknown, Verified 11/05/25 10:32) SWELLING ciprofloxacin (CIPROFLOXACIN) Allergy (Unknown, Verified 11/05/25 10:32) SWELLING naproxen (NAPROXEN) Allergy (Unknown, Verified 11/05/25 10:32) BLISTERS IN MOUTH Medication List - Last Reconciled 11/05/25 by Remy Fortune PA-C acetaminophen 650 mg (2 x 325 mg) PO Q6H PRN 30 days celecoxib (Celebrex) 200 mg PO BID clonazepam 0.5 mg PO DAILY PRN fluticasone propionate 50 mcg/actuation 1 - 2 sprays intranasal DAILY PRN lisinopril 7.5 mg orally 2.5 mg AM and 5 mg PM; 90 days metoprolol succinate ER 50 mg PO DAILY rosuvastatin 40 mg PO DAILY HPI Comments Details: History of Present Illness The patient is a 70 year old female presenting for follow-up of worsening right knee pain. A previous injection in her right knee did not provide significant help, and the pain is now worse. The pain limits her activities, including using stairs and walking, and necessitates the use of a cane for ambulation. She has a history of a left total knee arthroplasty in April of [address], which was successful with no complications, and she was able to ambulate without a cane until her right knee symptoms worsened. Post-operatively, she was discharged home and received physical therapy at home before transitioning to outpatient therapy. For her current right knee pain, she uses topical diclofenac cream and has tried Celebrex 200 mg without relief. Her pertinent medical history includes well-controlled hypertension and prediabetes. She has a history of CKD stage 3 and PAD. November of 2021 she was seen by vascular and her venous testing was negative. She was seen by her senior architect/design manager in August of 2025, renal function was stable and she should avoid NSAIDs. She has no history of blood clots or pulmonary emboli. The patient is a current smoker and has tried unsuccessfully to quit using nicotine gum and patches. She lives alone but has help available. Social History - Tobacco Use: The patient is a current smoker. - She has attempted cessation with nicotine gum and patches without success. - Living Situation: She lives alone but has help available. - Functional Status: Requires a cane for ambulation due to right knee pain. - Her ability to use stairs and walk is limited. [facility] Medical History (Updated 11/05/25 @ 10:57 by Remy Fortune PA-C) CKD stage 3a, GFR 45-59 ml/min Thrombocytopenia Varicose veins of left lower extremity with inflammation PAD (peripheral artery disease) Schizoaffective disorder, bipolar type Elevated cholesterol Arthritis History of abdominal hernia Primary osteoarthritis of left knee HTN (hypertension) Depression Chronic pain Surgical History Hx laparoscopic cholecystectomy (08/03/23) Hx of tonsillectomy History of carpal tunnel surgery H/O wrist surgery History of back surgery Hx of inguinal hernia surgery Social History Household Members: None Housing: House Are you a primary childcare director to a significant other at home: No Do you presently have visiting nurse or other home services: Yes ([employer]) Alcohol intake: never Patient Tobacco Use Status: Current everyday Tobacco user Smoking Start Date: 11/08/79 Tobacco use type: Cigarette Cigarettes Per Day: 5 Years Smoked: 50 Second Hand Smoke Exposure: No service: No Current occupational status: unemployed Review of Systems Narrative Review of Systems - Musculoskeletal: Reports worsening pain in the right knee, which limits activities such as walking and using stairs. - Denies any complications from her prior left knee replacement. - Cardiovascular: Denies history of blood clots or pulmonary emboli. Physical Exam Exam Exam: Physical Exam - Musculoskeletal: Examination of the right knee reveals swelling. Intact without abrasions. - Range of motion is notable for full extension, but flexion is limited by pain. -no ligamentous laxity noted -calf is supple and nontender, no venous stasis. Neurovascularly intact. Vital Signs: BMI result Body Mass Index 29.3 Assessment & Plan Assessment & Plan (1) Osteoarthritis of right knee: Code(s): M17.11 - Unilateral primary osteoarthritis, right knee Category: Medical (2) Tobacco abuse: Code(s): Z72.0 - Tobacco use Category: Medical Plan Plan 1. Osteoarthritis Of The Right Knee The patient's right knee pain has worsened and is now limiting her activities of daily living, necessitating cane use. As conservative measures including injections have been exhausted, she is a candidate for a right total knee arthroplasty. The plan is to proceed with surgery, and arrangements will be made with our office and the nurse navigator to initiate the process. She will undergo pre-operative clearance with her primary care doctor, to include labs and an EKG. She may also require clearance from her senior architect/design manager and vascular provider. Further injections will be avoided to prevent a three-month surgical delay. For pain management until surgery, she will continue her current regimen but avoid stronger medications or steroids. 2. Tobacco Use Disorder The patient was counseled on the importance of smoking cessation prior to surgery. Surgical risks associated with smoking, including blood clots, bleeding, nerve issues, and impaired wound and bone healing, were reviewed. Consent The option of a right total knee arthroplasty was discussed with the patient as the next step for her debilitating knee pain, given that conservative measures like injections have failed. The patient expressed interest and agreed to proceed with the pre-surgical workup. Risks associated with her smoking status, including a higher risk of blood clots, bleeding, nerve issues, and problems with wound and bone healing, were explicitly reviewed. Patient was informed and verbally consented to the use of an ambient scribe for clinic note documentation during this visit. Coding Level of Care Code Est Pt Level 4 (22068) Add On Problem Visit Only Diagnoses Osteoarthritis of right knee M17.11 Tobacco abuse Z72.0
[2025-11-05 10:32] VITALS: BMI 29.3
--- OUTSIDE RECORDS SUMMARY | 2025-11-05 11:50 | XMS_ITS | Encounter Summary ---
Author Organization [employer] Address [address] [facility] [address] [place] [address] Care Team Providers Care Set Up Mechanic Automatic Line Name Role Phone Unavailable Primary Care Provider Unavailabl e Encounter Details Date Type Department Care Team (Latest Contact Info) Description 08/01/2019 Abstract [facility] CONVERSIONS Dental, Provider, DDS Social History Tobacco [...]
--- OUTSIDE RECORDS SUMMARY | 2025-11-05 11:50 | XMS_ITS | Encounter Summary ---
Author Organization [facility], Address [address] [place] [address] Phone Care Team Providers Care Scratch Brusher Name Role Phone Jose Wilson MD Primary Care Provider [phone] Encounter Details Date Type Department Care Team (Late st Contact Info) Description 11/10/2023 Documentation Only [facility], [address] [place] [address] Homero Chambers MD [address] [place] [phone] Social History Tobacco Use Types Packs/Day Years [...] on filedocumented in this encounter Care Teams Scratch Brusher Relationship Specialty Start Date End Date Jose Wilson MD [address] [facility] [place], [place] PCP - General Internal Medicine 08/02/23 documented as of this encounter
--- OUTSIDE RECORDS SUMMARY | 2025-11-05 11:50 | XMS_ITS | Encounter Summary ---
Author Organization [facility], Address [address] [place] [address] Phone Care Team Providers Care Sample Maker Hand Name Role Phone Jose Wilson MD Primary Care Provider [phone] Encounter Details Date Type Department Care Team (Late st Contact Info) Description 11/10/2023 Documentation Only [facility], [address] [place] [address] Homero Chambers MD [address] [place] [phone] Social History Tobacco Use Types Packs/Day Years [...] on filedocumented in this encounter Care Teams Sample Maker Hand Relationship Specialty Start Date End Date Jose Wilson MD [address] [facility] [place], [place] PCP - General Internal Medicine 08/02/23 documented as of this encounter
--- OUTSIDE RECORDS SUMMARY | 2025-11-05 11:50 | XMS_ITS | Clinical Summary ---
Author Organization [facility], Address [address] [place] [address] [place] [address] Phone Care Team Providers Care Utility Manager Name Role Phone Jose Wilson MD [...] time each day Active ergocalciferol 1.25 MG (24254 UT) capsule Take 50,000 Units by mouth [...] patient's age to complete this topic Insurance [facility] ([id number]) [facility] ([id number]) Care Teams Utility Manager Relationship Specialty Start Date End Date Jose Wilson MD [facility] [place], [place] PCP - General Internal Medicine 08/02/23
--- OUTSIDE RECORDS SUMMARY | 2025-11-05 11:50 | XMS_ITS | Clinical Summary ---
Author Organization [employer] Address [address] [place] [address] [address] [place] [address] Care Team Providers Care Software Applications Specialist Name Role Phone Unavailable Primary Care [...]
--- OUTSIDE RECORDS SUMMARY | 2025-11-05 11:50 | XMS_ITS | Clinical Summary ---
Author Organization [facility] [address] [facility] Address [address] [place] [address] Phone Care Team Providers Care Data Warehouse Specialist Name Role Phone Jose Wilson MD Primary Care Provider [phone] Allergies Active Allergy Reactions Criticality Noted Date [...] 08/15/2013:Tubular adenoma. Repeat 5 years Centrilobular emphysema 01/20/2018 Overview (11/06/2024): LDCT yearly Lumbar hernia 07/01/2015 Subclinical hyperthyroidism 07/01/2015 Immunizations Immunization Administration Dates Next Due Influenza [...] HISTORICAL TONSILLECTOMY COLONOSCOPY W/ POLYPECTOMY 2012 PROCEDURE: GA COLSC FLX W/RMVL OF TUMOR POLYP LESION [...] RSV Immunization Adult Patients (1 - Risk 50-74 years 1-dose series) 2006 Diabetes: Annual GFR (Glomerular Filtration Rate) 04/06/2020 [...] Date/Time Associated Diagnosis Comments COLONOSCOPY Routine 05/04/2019 URINE ALBUMIN CREATININE RATIO Routine 04/06/2019 ANNUAL BMP BLOOD TEST Routine 04/06/2019 LIPID PANEL Routine 02/01/2019 SCR MAMMO BI INCL CAD Routine 01/07/2018 11:16 AM EST Encounter for screening mammogram for malignant neoplasm of breast HEPATITIS C SCREENING Routine 10/08/2016 HEMOGLOBIN A1C Routine 10/07/2015 from Last 3 Months or Most Recently Relevant to Health Maintenance Results * Colonoscopy (05/04/2019) Pathologist [facility] Colonoscopy abstracted,no interpretation Anatomical Region Laterality Modality Other Historical Provider HEALTH MAINTENANCE Final Result * Urine Albumin Creatinine Ratio (04/06/2019) Pathologist [facility] Urine Albumin Creatinine Ratio abstracted Historical Provider HEALTH MAINTENANCE Final Result * Annual BMP Blood Test (04/06/2019) Pathologist [facility] Annual BMP Blood Test abstracted Historical Provider HEALTH MAINTENANCE Final Result * (ABNORMAL) Lipid panel (02/01/2019) LDL/HDL Ratio 4 0 - 4 Triglycerides 382(A) 0 - 150 mg/dL Cholesterol 194 0 - 200 mg/dL HDL 45 >=40 mg/dL LDL Cholesterol 73 0 - 100 mg/dL Blood Venous blood specimen / Unknown Historical [...] IMG XR PROCEDURES Final Resul t * Hm Hepatitis C Screening (10/08/2016) Hepatitis C Screening abstracted Historical Provider HEALTH MAINTENANCE Final Result * Hemoglobin A1c (10/07/2015) Hemoglobin A1C 5.7 4.0 - 6.0 % Blood Venous blood specimen / Unknown us Historical Provider LAB BLOOD ORDERABLES Milady l Result from Last 3 Months or Most Recently Relevant to Health Maintenance Insurance [place]ICA[place] - [place] [facility] Member Subscriber Plan / Payer ( fective 2021-Present) Name:Claudia Fernando Relation to Subscriber:Self Name:Claudai Fernando Payer ID:[id number] Group ID:[id number] Type:Not on file Address: [address] [place] [id number] Care Teams Data Warehouse Specialist Relationship Specialty Start Date End Date Jose Wilson MD [address] [place] [address] PCP - General Internal Medicine 08/02/23
--- OUTSIDE RECORDS SUMMARY | 2025-11-05 11:50 | XMS_ITS | Encounter Summary ---
Author Organization [employer] Address [address] [facility] 7[address] [place] [address] Care Team Providers Care Toe Lining Closer Name Role Phone Unavailable Primary Care Provider Unavailabl e Encounter Details Date Type Department Care Team (Late st Contact Info) Description 09/28/2023 Abstract [facility] [address] [place] [address] Harmony Villalta Social History Tobacco Use Types [...]
== END 2025-11-05 12:06 | disposition home or self-care (01) ==
LOC: HO.HOS 10:27
PROVIDERS: PCP Internal Medicine; Visit Provider Physician Assistant
DX: M17.11 Unilateral primary osteoarthritis, right knee (principal); Z72.0 Tobacco use
CPT/HCPCS: 99214; G2211

== ENCOUNTER → 2025-11-05 10:26 | Outpatient (BNVA) | payer OTHER, SELFPAY | PROVIDERS: PCP Internal Medicine; Visit Provider Physician Assistant | DX: M17.11 Unilateral primary osteoarthritis, right knee (principal); F17.210 Nicotine dependence, cigarettes, uncomplicated | CPT/HCPCS: 99212 ==